=== PATIENT | male | born 1970 | race Caucasian/White ===

== ENCOUNTER 2020-12-12 12:25 | Outpatient (RCR) | payer MEDICAID ==
[2020-11-10 16:20] VITALS: BP 0/0
[2020-11-13 14:25] VITALS: BP 101/69
[2020-11-20 13:50] VITALS: BP 102/57
[2020-11-25 16:10] VITALS: BP 102/61
[2020-11-28 13:45] VITALS: BP 104/63
[2020-12-01 14:34] VITALS: BP 112/60
[2020-12-05 14:20] VITALS: BP 118/68
[~2020-12-12] VITALS: Ht 167.7 cm; Wt 77.3 kg
[~2020-12-12 12:25] MED LIST: BACITRACIN OINTMENT 28 GM TUBE TOP ONE; METH4TAB PO; NEO/POLY/BAC (NEOSPORIN) OINT 15 GM TUBE ONE; TRM50T PO
[2020-12-12 12:40] VITALS: BP 0/0
[2020-12-15] MEDS ORDERED: DOXY100T2 PO (14:19)
== END 2021-02-08 | disposition home or self-care (01) ==
LOC: SDC 12:25
PROVIDERS: ATTEND Plastic Surgery
DX: C44.320 Squamous cell carcinoma of skin of unspecified parts of face (principal); C44.02 Squamous cell carcinoma of skin of lip; Z93.0 Tracheostomy status
CPT/HCPCS: 99212

== ENCOUNTER 2020-12-15 13:54 | Emergency (ER) | payer MEDICAID ==
[~2020-12-15] VITALS: Ht 167.7 cm; Wt 72.5 kg
[~2020-12-15 13:54] MED LIST changes: -BACITRACIN OINTMENT 28 GM TUBE TOP ONE; -NEO/POLY/BAC (NEOSPORIN) OINT 15 GM TUBE ONE
[2020-12-15 14:07] VITALS: BP 136/101
[2020-12-15] MEDS ORDERED: DOXY100T2 PO (14:19)
--- NOTE | 2020-12-15 14:20 | ED Integumentary General ---
General Chief Complaint: Skin/Wound Problems Stated Complaint: L PAIN POSSIBLY INFECTED Source: patient Exam Limitations: no limitations History of Present Illness Date Seen by Provider: Dec 15, 2020 Time Seen by Provider: 14:15 Initial Comments To ER with reports of possible infection of the skin graft donor site at the lateral left lower leg. Patient had squamous cell carcinoma of the jaw and had this treated up at the [facility]. It seems like the removed the right side of his mandible and they replaced that with the left fibula and skin graft was used to reconstruct the right side of his lips. He was following with the cancer center here for treatments and brought up the concern of infection to them and they referred him to the emergency room. No fevers or chills. Timing/Duration: constant Severity: moderate Associated Symptoms: denies symptoms Allergies and Home Medications Allergies Coded Allergies: ibuprofen (Unverified Allergy, Severe, HIVES, EDEMA, 03/12/12) Home Medications Methylprednisolone 4 Mg/Dose-Pack Tab.ds.pk, 0 PO UD Prescribed by: ADÁN MCGOVERN on 03/12/12 142 Tramadol Hcl 50 Mg Tab, 50 MG PO Q4-6HOURS PRN FOR PAIN Prescribed by: ADÁN MCGOVERN on 03/12/12 1429 Patient Home Medication List Home Medication List Reviewed: Yes Review of Systems Review of Systems Constitutional: see HPI; No chills, No fever EENTM: see HPI Respiratory: no symptoms reported Cardiovascular: no symptoms reported Genitourinary: no symptoms reported Musculoskeletal: no symptoms reported Skin: no symptoms reported Psychiatric/Neurological: No Symptoms Reported Endocrine: No Symptoms Reported Physical Exam Vital Signs Capillary Refill : General Appearance: WD/WN, no apparent distress HEENT: PERRL/EOMI, normal ENT inspection Respiratory: no respiratory distress, no accessory muscle use Extremities: normal range of motion, non-tender, other (Left lower extremity laterally just above the ankle as well demarcated erythema with some granulation tissue noted. There is no surrounding cellulitis. Culture was obtained from one of the moist areas. This was covered in antibiotic ointment and then nonadherent gauze and then a gauze wrap. I will put him on doxycycline and have him follow-up with wound care.) Neurologic/Psychiatric: alert, normal mood/affect, oriented x 3 Skin: normal color, warm/dry Departure Impression Primary Impression: Soft tissue infection Disposition: 01 HOME, SELF-CARE Condition: Stable Departure-Patient Inst. Decision time for Depature: 14:18 Referrals: [facility] (PCP) Primary Care Physician MARYJO OTERO (Family) Primary Care Physician Patient Instructions: Wound Infection Add. Discharge Instructions: Follow-up with wound care as directed. Return to ER for any concerns. Change the dressing daily. All discharge instructions reviewed with patient and/or family. Voiced understanding. Scripts Doxycycline Hyclate (Doxycycline Hyclate) 100 Mg Tablet 100 MG PO BID, #20 TAB 0 Refills Prov: MIRELLA GALVEZ APRN 12/15/20 Copy Copies To 1: MARINE LEMONS MD, PETER J APRN Dec 15, 2020 14:20
== END 2020-12-15 14:27 | disposition home or self-care (01) ==
LOC: EDUNIT# 13:54 → ER 13:56
DX: M79.89 Other specified soft tissue disorders (principal); Z88.6 Allergy status to analgesic agent; Z79.52 Long term (current) use of systemic steroids
CPT/HCPCS: 87070; 87077; 87186; 87205

== ENCOUNTER 2021-02-13 13:43 | Emergency (ER) | payer MEDICAID ==
[~2021-02-13] VITALS: Ht 167 cm; Wt 65.7 kg
[~2021-02-13 13:43] MED LIST changes: +DOXY100T2 PO
[2021-02-13] MEDS ORDERED: LIDOCAINE UROJET 2% GEL 10 ML PKG ONE (13:57)
[2021-02-13] MEDS ORDERED: LIDOCAINE UROJET 2% GEL 10 ML PKG TOP ONE (14:15)
[2021-02-13] MEDS ORDERED: LIDOCAINE 1% INJ 20 ML 20 ML VIAL INJ ONE (14:15)
[2021-02-13] MEDS ORDERED: cefTRIAXone 1,000 MG/2.86 ml vial (IM ONLY) IM SCH (14:15)
--- NOTE | 2021-02-13 14:24 | ED GI ---
General Chief Complaint: Catheter/Drain/Tube Problems Stated Complaint: FEEDING TUBE REMOVED Nursing Triage Note: pt presents to ed with complaints of feeding tube dislodgement right before arrival. 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 This fell out just prior to arrival during sexual intercourse. He is also had some redness of the right eye. The right-sided facial redness from the cheek down is normal because he receives radiation to this area but he has some redness to the lower eyelid on the right as well as some right eye discharge for the past 2 days. Timing/Duration: 1-2 Days Severity/Quality: Moderate Radiation: No Radiation Activities at Onset: None Allergies and Home Medications Allergies Coded Allergies: ibuprofen (Unverified Allergy, Severe, HIVES, EDEMA, 03/12/12) Home Medications Cephalexin 500 Mg Tablet, 500 MG PO QID Prescribed by: MIRELLA GALVEZ on 02/13/21 1429 Doxycycline Hyclate 100 Mg Tablet, 100 MG PO BID Prescribed by: MIRELLA GALVEZ on 12/15/20 1419 Erythromycin Base 1 Gm Oint...g., 0 OP TID 1/2 inch Prescribed by: MIRELLA GALVEZ on 02/13/21 1429 Methylprednisolone 4 Mg/Dose-Pack Tab.ds.pk, 0 PO UD Prescribed by: ADÁN MCGOVERN on 03/12/12 142 Tramadol Hcl 50 Mg Tab, 50 MG PO Q4-6HOURS PRN FOR PAIN Prescribed by: ADÁN MCGOVERN on 03/12/12 1429 Patient Home Medication List Home Medication List Reviewed: Yes Review of Systems Review of Systems Constitutional: see HPI EENTM: See HPI Respiratory: No Symptoms Reported Cardiovascular: No Symptoms Reported Gastrointestinal: See HPI Genitourinary: No Symptoms Reported Musculoskeletal: no symptoms reported Skin: no symptoms reported Psychiatric/Neurological: No Symptoms Reported Endocrine: No Symptoms Reported Hematologic/Lymphatic: No Symptoms Reported Past Sxfwtrh-Rthkbm-Pevjlv Hx Patient Social History Alcohol Use: Occasionally Uses Smoking Status: Never a Smoker Type Used: Smokeless Tobacco Recent Infectious Disease Expo: No Recent Hopitalizations: No Immunizations Up To Date Tetanus Booster (TDap): Unknown Seasonal Allergies Seasonal Allergies: No Past Medical History Surgeries: Yes (facial) Cardiac: No Neurological: No Genitourinary: No Gastrointestinal: Yes (FEEDING TUBE) Musculoskeletal: No Endocrine: No HEENT: No Cancer: Yes Skin Did You Recieve Any Treatments: Yes What Type of Treatment Did You: Chemotherapy, Surgical Intervention Psychosocial: No Integumentary: Yes (SKIN GRAFT) Blood Disorders: No Physical Exam Vital Signs Vital Signs - First Documented 02/13/21 13:57 Temp 35.7 Pulse 104 Resp 20 B/P (MAP) 119/78 (92) Pulse Ox 98 Capillary Refill : Less Than 3 Seconds Height/Weight/BMI Height: '" Weight: lbs. oz. kg; 23.00 BMI Method:Estimated General Appearance: WD/WN, no apparent distress HEENT: PERRL/EOMI, other (Hordeolum lateral right eyelid lower. There is some erythema of the lower eyelid as well some emergency department focuses on treating and ruling out life-threatening diseases. Whenever possible, a diagnosis is given. However, most patients are given an impression based on their history, physical exam, and workup during your brief time in the ER. Information about probable diagnosis and other educational material has been provided. Please take the time to read and understand this information.It is very important that you follow up with a physician as discussed during the visit today. Failure to adhere to your follow-up instructions may lead to severe disability, injury, or so please make sure to keep your appointments or obtain one as requested. The lateral canthus of the eye. He does have erythema from the right upper eyelid down to the jaw on the right. states everything from the cheekbone down is normal redness from his radiation but the redness around the eye is abnormal.) Respiratory: no respiratory distress, no accessory muscle use Gastrointestinal: normal bowel sounds, non tender, soft Extremities: normal range of motion, non-tender Neurologic/Psychiatric: alert, normal mood/affect Skin: normal color, warm/dry Progress/Results/Core Measures Results/Orders My Orders Orders - MIRELLA GALVEZ APRN Lidocaine 2% (Urojet) (Xylocaine Urojet) (02/13/21 14:15) Ceftriaxone For Im Use (Rocephin For Im (02/13/21 14:15) Lidocaine 1% Inj 20 Ml (Xylocaine 1% Inj (02/13/21 14:15) Peg Tube Check (02/13/21 14:15) Diatrizoate Meglum/Sodium 37% (Gastrogra (02/13/21 14:45) Medications Given in ED Current Medications Medications Dose Ordered Sig/Jyoti Route Start Time Stop Time Status Last Admin Dose Admin Diatrizoate Meglum/ Diatrizoate Sod 120 ml ONCE ONCE NG 02/13/21 14:45 02/13/21 14:46 DC 02/13/21 14:44 30 ML Lidocaine HCl 2.1 ml ONCE ONCE INJ 02/13/21 14:15 02/13/21 14:16 DC 02/13/21 14:42 2.1 ML Lidocaine HCl 10 ml ONCE ONCE TOP 02/13/21 14:15 02/13/21 14:16 DC 02/13/21 14:46 10 ML Vital Signs/I&O 02/13/21 02/13/21 13:57 15:06 Temp 35.7 35.7 Pulse 104 95 Resp 20 20 B/P (MAP) 119/78 (92) 120/70 (92) Pulse Ox 98 99 Blood Pressure Mean: 92 Departure Communication (Admissions) 20 Wolof PEG tube was easily replaced without having to use sounds. Some topical lidocaine was applied to the stoma. Impression Primary Impression: PEG tube malfunction Additional Impression: Hordeolum externum of right lower eyelid Disposition: 01 HOME, SELF-CARE Condition: Stable Departure-Patient Inst. Decision time for Depature: 14:24 Referrals: [facility] (PCP/Family) Primary Care Physician Patient Instructions: How to Care for Your PEG Tube , Shay (BETHANY) Add. Discharge Instructions: 1. Warm moist compresses to the lower eyelid. Antibiotic eye ointment as directed, put about a half an inch of the antibiotic ointment in the lower eyel id 3 times a day. Take the oral antibiotics as directed. All discharge instructions reviewed with patient and/or family. Voiced understanding. Scripts Erythromycin Base (Erythromycin Opthalmic Ointment) 1 Gm Oint...g. 0 OP TID, #1 TUBE 1/2 inch Prov: MIRELLA GALVEZ APRN 02/13/21 Cephalexin (Cephalexin) 500 Mg Tablet 500 MG PO QID, #20 TAB Prov: MIRELLA GALVEZ APRN 02/13/21 MIRELLA GALVEZ APRN Feb 13, 2021 14:24
[2021-02-13] MEDS ORDERED: ERYT1OIN6 OP (14:29)
[2021-02-13] MEDS ORDERED: CEPH500T PO (14:29)
[2021-02-13] MEDS ORDERED: DIATRIZOATE MEGLUM/SODIUM 37% 120 ML (GASTROGRAFIN) NG ONE (14:45)
--- NOTE | 2021-02-13 14:47 | Diagnostic Imaging Report ---
INDICATION: PEG tube replacement and evaluation. 60 mL of Gastroview contrast mixed with water was injected into the patient's PEG tube and a radiograph of the abdomen was obtained. Contrast is seen within the stomach. Contrast passes into the proximal small bowel. No extravasation of contrast is seen. IMPRESSION: Satisfactory PEG tube location. Dictated by: Dictated on workstation # [id number]
[2021-02-13 15:06] VITALS: BP 120/70
== END 2021-02-13 15:06 | disposition home or self-care (01) ==
LOC: EDUNIT# 13:43 → ER 13:44
DX: K94.23 Gastrostomy malfunction (principal); H00.012 Hordeolum externum right lower eyelid; Z88.6 Allergy status to analgesic agent; Z85.828 Personal history of other malignant neoplasm of skin; Z79.52 Long term (current) use of systemic steroids
CPT/HCPCS: 43762; 49465

== ENCOUNTER → 2021-02-23 | Outpatient (RCR) | payer MEDICAID ==
[~2021-02-23] MED LIST changes: +CEPH500T PO; +ERYT1OIN6 OP
== END | disposition home or self-care (01) ==
LOC: ONC 11-25 15:23
PROVIDERS: ATTEND Radiology Radiation Oncology
DX: C44.02 Squamous cell carcinoma of skin of lip (principal); F10.10 Alcohol abuse, uncomplicated; Z72.0 Tobacco use
CPT/HCPCS: 77300; 77301; 77334; 77336; 77338; 77386; 99204

== ENCOUNTER 2021-04-07 03:50 | Emergency (ER) | payer MEDICAID ==
[~2021-04-07] VITALS: Ht 175 cm; Wt 65.7 kg
[2021-04-07 03:58] VITALS: BP 148/98
[2021-04-07] MEDS ORDERED: HYDROcodone/APAP 5 MG/325 MG (LORTAB) TAB PO ONE (04:30)
[2021-04-07] MEDS ORDERED: CEPHALEXIN 250 MG (KEFLEX) CAP PO ONE (04:30)
--- NOTE | 2021-04-07 04:37 | ED EENT ---
History of Present Illness General Chief Complaint: Post OP Complications/Pain Stated Complaint: FACE PAIN Nursing Triage Note: INTERMITTANT RIGHT UPPER SHARP FACIAL PAIN RADIATING UP TO TOP OF HEAD X1 WEEK. REPORTS FACIAL SURGERY 10/23/20 FOR MELANOMA. FAMILY REPORTS PT HAS ONLY BEEN TO 1 FOLLOW UP APPOINTMENT SINCE SX. Source: patient, spouse Exam Limitations: no limitations History of Present Illness Date Seen by Provider: Apr 07, 2021 Time Seen by Provider: 04:19 Initial Comments Patient presents ER by private conveyance from home with chief complaint of the last couple days progressively worsening pain and swelling. He would like something for the pain. Allergies and Home Medications Allergies Coded Allergies: ibuprofen (Unverified Allergy, Severe, HIVES, EDEMA, 03/12/12) Patient Home Medication List Home Medication List Reviewed: Yes Review of Systems Review of Systems Constitutional: No chills, No diaphoresis Eyes: Denies Blindness, Denies Blurred Vision Ears: Denies Dizziness, Denies Pain Nose: denies clots, denies congestion Mouth: denies clots, denies loose teeth Skin: see HPI Past Jwvicya-Vnixsb-Bcmuhi Hx Patient Social History Alcohol Use: Denies Use Type Used: Smokeless Tobacco Recent Infectious Disease Expo: No Recent Hopitalizations: No Immunizations Up To Date Tetanus Booster (TDap): Less than 5yrs Seasonal Allergies Seasonal Allergies: No Past Medical History Surgeries: Yes (facial) Respiratory: No Cardiac: No Neurological: No Genitourinary: No Gastrointestinal: Yes (FEEDING TUBE) Musculoskeletal: No Endocrine: No HEENT: No Cancer: Yes Skin Did You Recieve Any Treatments: Yes What Type of Treatment Did You: Chemotherapy, Surgical Intervention Psychosocial: No Integumentary: Yes (SKIN GRAFT) Blood Disorders: No Physical Exam Vital Signs Vital Signs - First Documented 04/07/21 03:58 Temp 36.9 Pulse 81 Resp 18 B/P (MAP) 148/98 (115) Pulse Ox 100 O2 Delivery Room Air Height, Weight, BMI Height: '" Weight: lbs. oz. kg; 21.00 BMI Method:Estimated General Appearance: WD/WN, mild distress Eyes: bilateral eye normal inspection, bilateral eye PERRL, bilateral eye EOMI Ears: bilateral ear auricle normal, bilateral ear canal normal (Impacted with c erumen) Nose: normal inspection; No active bleeding, No discharge Neck: full range of motion, supple Respiratory: no respiratory distress, no accessory muscle use Skin: other (Tender erythematous soft tissue over the left cheek over the old skin graft. No fluctuance palpable. Small pustule preauricular) Progress/Results/Core Measures Results/Orders My Orders Orders - DAVID BRADY Hydrocodone/Apap 5/325 Tablet (Lortab 5 (04/07/21 04:30) Cephalexin Capsule (Keflex Capsule) (04/07/21 04:30) Vital Signs/I&O 04/07/21 03:58 Temp 36.9 Pulse 81 Resp 18 B/P (MAP) 148/98 (115) Pulse Ox 100 O2 Delivery Room Air Blood Pressure Mean: 115 Progress Progress Note : Time: 04:39 Progress Note We deroofed the pustule using blunt tipped needle and did not get out any significant amount of white discharge. Less than 10th of a milliliter. Suspect he has just cellulitis and we will put him on some Keflex and give him some for pain. Encouraged to follow-up with a primary care doctor depending now on his surgeon at in 2 weeks. Return precautions discussed. Departure Impression Primary Impression: Cellulitis and abscess of face Disposition: 01 HOME, SELF-CARE Condition: Stable Departure-Patient Inst. Decision time for Depature: 04:40 Referrals: NO,LOCAL PHYSICIAN (PCP/Family) Primary Care Physician Patient Instructions: Cellulitis (Skin Infection), Adult (DC) Add. Discharge Instructions: Warm moist compresses will help with the pain and swelling. Continue to use Tylenol and Aleve. Hydrocodone 1 tablet every 6 hours as necessary for severe breakthrough pain. Keflex 4 times a day for the next 7 days. Follow-up with a primary care doctor, surgeon or you may return to the ER if you are having worsening complications. Expect to see improvement over the next 3 to 4 days. Spreading across the face, fever above 102.5 or other worrisome symptoms should prompt you to return to the nearest ER. Scripts Cephalexin (Cephalexin) 500 Mg Tablet 500 MG PO QID for 7 Days, #28 TAB 0 Refills Prov: DAVID BRADY 04/07/21 Hydrocodone/Acetaminophen (Hydrocodone-Acetamin 5-325 mg) 1 Each Tablet 1 TAB PO Q6H PRN for PAIN-MODERATE (5-7), #12 TAB 0 Refills Prov: DAVID BRADY 04/07/21 DAVID BRADY Apr 07, 2021 04:37
[2021-04-07] MEDS ORDERED: CEPH500T PO (04:43)
[2021-04-07] MEDS ORDERED: ACHD5005 PO (04:43)
== END 2021-04-07 04:49 | disposition home or self-care (01) ==
LOC: EDUNIT# 03:50 → ER 03:53
DX: L03.211 Cellulitis of face (principal); L02.01 Cutaneous abscess of face; Z98.890 Other specified postprocedural states
CPT/HCPCS: 99283

== ENCOUNTER 2021-04-30 14:02 | Outpatient (RCR) | payer MEDICAID ==
[~2021-04-30 14:02] MED LIST changes: +ACHD5005 PO
[2021-04-30] MEDS ORDERED: AMOX-358 PO (17:05)
[2021-04-30] MEDS ORDERED: DOXY100T2 PO (17:05)
[2021-04-30] MEDS ORDERED: ACHD5005 PO (17:05)
== END 2021-05-25 | disposition home or self-care (01) ==
LOC: ONC 14:02
PROVIDERS: ATTEND Radiology Radiation Oncology
DX: C44.02 Squamous cell carcinoma of skin of lip (principal); F10.10 Alcohol abuse, uncomplicated; Z72.0 Tobacco use
CPT/HCPCS: 77336; 77386

== ENCOUNTER 2021-04-30 14:26 | Emergency (ER) | payer MEDICAID ==
[~2021-04-30] VITALS: Ht 167 cm; Wt 68.0 kg
[2021-04-30 14:52] LABS: BASOPHILS # (AUTO) 0.1 10^3/uL (0.0-0.1); BASOPHILS % (AUTO) 1 % (0-10); EOSINOPHILS # (AUTO) 0.1 10^3/uL (0.0-0.3); EOSINOPHILS % (AUTO) 3 % (0-10); HEMATOCRIT 39 % (40-54); HEMOGLOBIN 12.5 g/dL (13.3-17.7); LYMPHOCYTES # (AUTO) 0.4 10^3/uL (1.0-4.0); LYMPHOCYTES % (AUTO) 9 % (12-44); MEAN CORPUSCULAR HEMOGLOBIN 29 pg (25-34); MEAN CORPUSCULAR HGB CONC 33 g/dL (32-36); MEAN CORPUSCULAR VOLUME 89 fL (80-99); MEAN PLATELET VOLUME 8.2 fL (9.0-12.2); MONOCYTES # (AUTO) 0.3 10^3/uL (0.0-1.0); MONOCYTES % (AUTO) 6 % (0-12); NEUTROPHILS % (AUTO) 81 % (42-75); PLATELET COUNT 314 10^3/uL (130-400); WHITE BLOOD COUNT 4.9 10^3/uL (4.3-11.0)
--- NOTE | 2021-04-30 14:53 | ED EENT ---
History of Present Illness General Chief Complaint: Facial Problems Stated Complaint: TOOTH ABCESS Source: patient Exam Limitations: no limitations (MIRELLA GALVEZ APRN) History of Present Illness Date Seen by Provider: Apr 30, 2021 Time Seen by Provider: 14:52 Initial Comments To ER with c/o right facial swellig and redness. 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 He underwent resection of his cancer of his right upper and lower lip, cheek, and mandible as well as a modified radical neck dissection. For reconstruction, an osteocutaneous free fibula flap to the right mandible and left radial forearm flap for the right neck was performed. Split thickness skin grafts were used for his donor sites and a palmaris graft was used for suspension of his midface according to [facility] notes. . Timing/Duration: abrupt Severity: moderate Location: facial Prearrival Treatment: no prearrival treatment Associated Symptoms: facial pain/swelling (MIRELLA GALVEZ APRN) Allergies and Home Medications Allergies Coded Allergies: ibuprofen (Unverified Allergy, Severe, HIVES, EDEMA, 03/12/12) Home Medications Amoxicillin/Potassium Clav 1 Each Tablet, 1 EACH PO BID Prescribed by: MIRELLA GALVEZ on 04/30/211704 Cephalexin 500 Mg Tablet, 500 MG PO QID Prescribed by: DAVID BRADY on 04/07/21442 Doxycycline Hyclate 100 Mg Tablet, 100 MG PO BID Prescribed by: MIRELLA GALVEZ on 04/30/21 170 Hydrocodone/Acetaminophen 1 Each Tablet, 1 TAB PO Q6H PRN for PAIN-MODERATE (5- 7) Prescribed by: DAVID BRADY on 04/07/21442 Hydrocodone/Acetaminophen 1 Each Tablet, 1 TAB PO Q4H PRN for PAIN-MODERATE (5- 7) Prescribed by: MIRELLA GALVEZ on 04/30/21 170 Patient Home Medication List Home Medication List Reviewed: Yes (MIRELLA GALVEZ APRN) Review of Systems Review of Systems Constitutional: see HPI Eyes: No Symptoms Reported Ears: No Symptoms Reported Nose: no symptoms reported Mouth: no symptoms reported Throat: no symptoms reported Respiratory: no symptoms reported Cardiovascular: no symptoms reported Musculoskeletal: no symptoms reported Skin: no symptoms reported Neurological: No Symptoms Reported Hematologic/Lymphatic: No Symptoms Reported (MIRELLA GALVEZ APRN) Past Dhbbcki-Xxskxu-Yegcfr Hx Patient Social History Alcohol Use: Occasionally Uses Smoking Status: Never a Smoker Type Used: Smokeless Tobacco Recent Hopitalizations: No (MIRELLA GALVEZ APRN) Immunizations Up To Date Tetanus Booster (TDap): Less than 5yrs (MIRELLA GALVEZ APRN) Seasonal Allergies Seasonal Allergies: No (MIRELLA GALVEZ APRN) Past Medical History Surgeries: Yes (facial AND JAW RECONSTRUCTION, SKIN GRAFTS.) Respiratory: No Cardiac: No Neurological: No Genitourinary: No Gastrointestinal: Yes (FEEDING TUBE) Musculoskeletal: No Endocrine: No HEENT: No Cancer: Yes (JAW CA) Skin Did You Recieve Any Treatments: Yes What Type of Treatment Did You: Chemotherapy, Surgical Intervention Psychosocial: No Integumentary: Yes (SKIN GRAFT) Blood Disorders: No (MIRELLA GALVEZ APRN) Physical Exam Vital Signs Vital Signs - First Documented 04/30/21 14:47 Temp 35.9 Pulse 88 Resp 20 B/P (MAP) 136/89 (105) Pulse Ox 100 (ASTON ACOSTA MD) Height, Weight, BMI Height: '" Weight: lbs. oz. kg; 21.00 BMI Method:Estimated General Appearance: WD/WN, no apparent distress Eyes: bilateral eye normal inspection, bilateral eye PERRL, bilateral eye EOMI Ears: bilateral ear auricle normal, bilateral ear canal normal, bilateral ear TM normal Mouth/Throat: mandibular swelling, other (There is erythema of the skin to the right side of the face. To the midline of the chin anteriorly he has an exposed screw with surrounding purulent discharge.) Neck: non-tender, full range of motion Respiratory: no respiratory distress, no accessory muscle use Neurologic/Psychiatric: alert, normal mood/affect, oriented x 3 Skin: normal color, warm/dry (MIRELLA GALVEZ APRN) Progress/Results/Core Measures Results/Orders Lab Results Laboratory Tests Test 04/30/21 14:40 Range/Units White Blood Count 4.9 4.3-11.0 10^3/uL Red Blood Count 4.34 4.30-5.52 10^6/uL Hemoglobin 12.5 L 13.3-17.7 g/dL Hematocrit 39 L 40-54 % Mean Corpuscular Volume 89 80-99 fL Mean Corpuscular Hemoglobin 29 25-34 pg Mean Corpuscular Hemoglobin Concent 33 32-36 g/dL Red Cell Distribution Width 14.0 10.0-14.5 % Platelet Count 314 130-400 10^3/uL Mean Platelet Volume 8.2 L 9.0-12.2 fL Immature Granulocyte % (Auto) 0 % Neutrophils (%) (Auto) 81 H 42-75 % Lymphocytes (%) (Auto) 9 L 12-44 % Monocytes (%) (Auto) 6 0-12 % Eosinophils (%) (Auto) 3 0-10 % Basophils (%) (Auto) 1 0-10 % Neutrophils # (Auto) 4.0 1.8-7.8 10^3/uL Lymphocytes # (Auto) 0.4 L 1.0-4.0 10^3/uL Monocytes # (Auto) 0.3 0.0-1.0 10^3/uL Eosinophils # (Auto) 0.1 0.0-0.3 10^3/uL Basophils # (Auto) 0.1 0.0-0.1 10^3/uL Immature Granulocyte # (Auto) 0.0 0.0-0.1 10^3/uL Erythrocyte Sedimentation Rate 38 H 0-30 MM/HR Sodium Level 140 135-145 MMOL/L Potassium Level 4.5 3.6-5.0 MMOL/L Chloride Level 106 98-107 MMOL/L Carbon Dioxide Level 23 21-32 MMOL/L Anion Gap 11 5-14 MMOL/L Blood Urea Nitrogen 8 7-18 MG/DL Creatinine 0.89 0.60-1.30 MG/DL Estimat Glomerular Filtration Rate > 60 BUN/Creatinine Ratio 9 Glucose Level 72 70-105 MG/DL Calcium Level 8.8 8.5-10.1 MG/DL Corrected Calcium 9.0 8.5-10.1 MG/DL Total Bilirubin 0.3 0.1-1.0 MG/DL Aspartate Amino Transf (AST/SGOT) 19 5-34 U/L Alanine Aminotransferase (ALT/SGPT) 12 0-55 U/L Alkaline Phosphatase 88 40-136 U/L C-Reactive Protein High Sensitivity 1.93 H 0.00-0.50 MG/DL Total Protein 7.1 6.4-8.2 GM/DL Albumin 3.7 3.2-4.5 GM/DL (ASTON ACOSTA MD) Medications Given in ED Current Medications Medications Dose Ordered Sig/Jyoti Route Start Time Stop Time Status Last Admin Dose Admin Fentanyl Citrate 50 mcg ONCE ONCE IVP 04/30/21 16:15 04/30/21 16:16 DC 04/30/21 16:14 50 MCG Piperacillin Sod/ Tazobactam Sod 4.5 gm/Sodium Chloride 100 ml @ 200 mls/hr ONCE ONCE IV 04/30/21 15:00 04/30/21 15:29 DC 04/30/21 16:25 200 MLS/HR (ASTON ACOSTA MD) Vital Signs/I&O 04/30/21 04/30/21 14:47 18:01 Temp 35.9 Pulse 88 69 Resp 20 18 B/P (MAP) 136/89 (105) 134/89 Pulse Ox 100 98 (ASTON ACOSTA MD) Departure Communication (Admissions) Spoke with the [facility] who spoke with the plastic surgeon who initially did this operation. Mr. Carrizales has a follow-up appointment scheduled for Tuesday of next week. They recommend oral broad- spectrum antibiotics in the meantime, if he has any worsening then he should present to the emergency room at the [facility]. They state that they have had some troubles with him being compliant with follow-up appointments. He does not meet sepsis criteria here. He has received Zosyn here. I will discharge home on Augmentin with return precautions. (MIRELLA GALVEZ APRN) Impression Primary Impression: Facial cellulitis Additional Impression: Exposed orthopaedic hardware Disposition: XFER SHT-TRM HOSP Condition: Stable Departure-Patient Inst. Decision time for Depature: 17:04 (MIRELLA GALVEZ APRN) Referrals: NO,LOCAL PHYSICIAN (PCP/Family) Primary Care Physician Patient Instructions: Cellulitis (Skin Infection), Adult ED Add. Discharge Instructions: 1. Take the antibiotics as directed. Return to ER for any concerns. If you have any worsening, go to the emergency room at the [facility]. All discharge instructions reviewed with patient and/or family. Voiced understanding. Scripts Hydrocodone/Acetaminophen (Hydrocodone-Acetamin 5-325 mg) 1 Each Tablet 1 TAB PO Q4H PRN for PAIN-MODERATE (5-7), #14 TAB Prov: MIRELLA GALVEZ APRN 04/30/21 Doxycycline Hyclate (Doxycycline Hyclate) 100 Mg Tablet 100 MG PO BID, #20 TAB 0 Refills Prov: MIRELLA GALVEZ APRN 04/30/21 Amoxicillin/Potassium Clav (Augmentin 875-125 Tablet) 1 Each Tablet 1 EACH PO BID, #14 TAB 0 Refills Prov: MIRELLA GALEVZ APRN 04/30/21 Attending physician note: I was physically present in the emergency department during the care of this patient as the attending physician on duty, but I was not directly involved in the care or decision-making for this patient. (ASTON ACOSTA MD) MIRELLA GALVEZ APRN Apr 30, 2021 14:53 ASTON ACOSTA MD Apr 30, 2021 19:34
[2021-04-30 15:20] LABS: ERYTHROCYTE SEDIMENTATION RATE 38 MM/HR (0-30)
[2021-04-30 15:33] LABS: ALBUMIN 3.7 GM/DL (3.2-4.5); CHLORIDE 106 MMOL/L (98-107); POTASSIUM 4.5 MMOL/L (3.6-5.0); SODIUM 140 MMOL/L (135-145)
[2021-04-30 15:34] LABS: CALCIUM 8.8 MG/DL (8.5-10.1)
[2021-04-30 15:35] LABS: GLUCOSE 72 MG/DL (70-105); TOTAL PROTEIN 7.1 GM/DL (6.4-8.2)
[2021-04-30 15:36] LABS: CARBON DIOXIDE 23 MMOL/L (21-32)
[2021-04-30 15:37] LABS: BILIRUBIN,TOTAL 0.3 MG/DL (0.1-1.0)
[2021-04-30 15:38] LABS: ALKALINE PHOSPHATASE 88 U/L (40-136)
[2021-04-30 15:39] LABS: CREATININE SERUM 0.89 MG/DL (0.60-1.30); GFR ESTIMATED > 60
[2021-04-30 15:40] LABS: BUN/CREATININE RATIO 9
[2021-04-30 15:42] LABS: ALANINE AMINOTRANSFERASE 12 U/L (0-55)
[2021-04-30] MEDS ORDERED: VANCOMYCIN INJECTION 1,000 MG in NS (IVPB) 250 ML IV SCH (16:00)
[2021-04-30] MEDS: PIPERACILLIN SODIUM/TAZOBACTAM 4.5 GM in NS (IVPB) 100 ML IV ONE ×2 (16:14→16:25)
[2021-04-30] MEDS ORDERED: fentaNYL INJ 100 MCG/2 ML AMP IVP ONE (16:15)
[2021-04-30] MEDS ORDERED: AMOX-358 PO (17:05)
[2021-04-30] MEDS ORDERED: ACHD5005 PO (17:05)
[2021-04-30] MEDS ORDERED: DOXY100T2 PO (17:05)
[2021-04-30 18:01] VITALS: BP 134/89
== END 2021-04-30 18:01 | disposition short-term general hospital (02) ==
LOC: EDUNIT# 14:26 → ER 14:28
DX: L03.211 Cellulitis of face (principal); T84.89XA Other specified complication of internal orthopedic prosthetic devices, implants and grafts, initial encounter
CPT/HCPCS: 36415; 80053; 85025; 85652; 86141; 87040; 87070; 87077; 87186; 87205

== ENCOUNTER 2021-05-22 20:07 | Emergency (ER) | payer MEDICAID ==
[~2021-05-22] VITALS: Ht 66 cm; Wt 63.6 kg
[~2021-05-22 20:07] MED LIST changes: +AMOX-358 PO
[2021-05-22 21:05] VITALS: BP 107/70
--- NOTE | 2021-05-22 21:08 | ED General ---
General Chief Complaint: General Problems/Pain Stated Complaint: PICC LINE ISSUES Source of Information: Patient Exam Limitations: No Limitations History of Present Illness Date Seen by Provider: May 22, 2021 Time Seen by Provider: 21:06 Initial Comments To ER with reports that one of the 2 lm on his dual-lumen PICC line is difficult to flush intermittently. He recently had removal of hardware from the mandible on the right side at the [facility] secondary to facial cellulitis with exposed hardware. Culture showed MRSA and Pseudomonas and he is receiving Zosyn and vancomycin through his PICC line at home. Timing/Duration: 1-2 Days Severity: Moderate Associated Systoms: Denies Symptoms Allergies and Home Medications Allergies Coded Allergies: ibuprofen (Unverified Allergy, Severe, HIVES, EDEMA, 03/12/12) Home Medications Amoxicillin/Potassium Clav 1 Each Tablet, 1 EACH PO BID Prescribed by: MIRELLA GALVEZ on 04/30/211704 Cephalexin 500 Mg Tablet, 500 MG PO QID Prescribed by: DAVID BRADY on 04/07/21442 Doxycycline Hyclate 100 Mg Tablet, 100 MG PO BID Prescribed by: MIRELLA GALVEZ on 04/30/21 170 Hydrocodone/Acetaminophen 1 Each Tablet, 1 TAB PO Q6H PRN for PAIN-MODERATE (5- 7) Prescribed by: DAVID BRADY on 04/07/21442 Hydrocodone/Acetaminophen 1 Each Tablet, 1 TAB PO Q4H PRN for PAIN-MODERATE (5- 7) Prescribed by: MIRELLA GALVEZ on 04/30/21 170 Patient Home Medication List Home Medication List Reviewed: Yes Review of Systems Review of Systems Constitutional: see HPI; No chills, No fever EENTM: see HPI Respiratory: no symptoms reported Cardiovascular: no symptoms reported Genitourinary: no symptoms reported Musculoskeletal: no symptoms reported Skin: no symptoms reported Psychiatric/Neurological: No Symptoms Reported Hematologic/Lymphatic: No Symptoms Reported Immunological/Allergic: no symptoms reported Past Dttoisi-Fjovbw-Hgtqlg Hx Immunizations Up To Date Tetanus Booster (TDap): Less than 5yrs Seasonal Allergies Seasonal Allergies: No Past Medical History Surgeries: Yes (facial AND JAW RECONSTRUCTION, SKIN GRAFTS.) Respiratory: No Cardiac: No Neurological: No Genitourinary: No Gastrointestinal: Yes (FEEDING TUBE) Musculoskeletal: No Endocrine: No HEENT: No Cancer: Yes (JAW CA) Skin Did You Recieve Any Treatments: Yes What Type of Treatment Did You: Chemotherapy, Surgical Intervention Psychosocial: No Integumentary: Yes (SKIN GRAFT) Blood Disorders: No Physical Exam Vital Signs Capillary Refill : Height, Weight, BMI Height: '" Weight: lbs. oz. kg; 24.00 BMI Method:Estimated General Appearance: No Apparent Distress, WD/WN Eyes: Bilateral Eye Normal Inspection, Bilateral Eye PERRL HEENT: PERRL/EOMI, TMs Normal Neck: Full Range of Motion, Normal Inspection Respiratory: Normal Breath Sounds, No Accessory Muscle Use, No Respiratory Distress Cardiovascular: Regular Rate, Rhythm, Normal Peripheral Pulses Gastrointestinal: Normal Bowel Sounds, Non Tender, Soft Extremity: Normal Capillary Refill, Normal Inspection, Other (There is a PICC line in the right upper arm which was flushed easily by the nurse. There is no surrounding cellulitis the insertion site looks normal. The dressing will be changed here tonight. Sutures remain in place to the right side of the mandible.) Neurologic/Psychiatric: Alert, Oriented x3 Skin: Normal Color, Warm/Dry Progress/Results/Core Measures Suspected Sepsis SIRS Temperature: Pulse: Respiratory Rate: Blood Pressure / Mean: Results/Orders Vital Signs/I&O Capillary Refill : Departure Impression Primary Impression: PIC line (peripherally inserted central catheter) flush Disposition: 01 HOME, SELF-CARE Condition: Stable Departure-Patient Inst. Decision time for Depature: 21:10 Referrals: NO,LOCAL PHYSICIAN (PCP/Family) Primary Care Physician Patient Instructions: Peripherally-Inserted Central Catheter MIRELLA GALVEZ APRN May 22, 2021 21:08
== END 2021-05-22 22:00 | disposition home or self-care (01) ==
LOC: EDUNIT# 20:07 → ER 20:08
DX: Z95.9 Presence of cardiac and vascular implant and graft, unspecified (principal)
CPT/HCPCS: 99281

== ENCOUNTER 2021-06-12 10:15 | Emergency (ER) | payer MEDICAID ==
[~2021-06-12] VITALS: Ht 167 cm; Wt 63.5 kg
[2021-06-12] MEDS ORDERED: HYDROcodone/APAP 7.5 MG/325 MG (LORTAB, LORCET PLUS) TABLET PO ONE (10:45)
--- NOTE | 2021-06-12 10:52 | ED Integumentary General ---
General Chief Complaint: Facial Problems Stated Complaint: MOUTH PAIN Source: patient Exam Limitations: no limitations History of Present Illness Date Seen by Provider: Jun 12, 2021 Time Seen by Provider: 10:35 Initial Comments Sher is a 51-year-old male who presents to the emergency department today with a chief complaint of right facial pain. 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 He is followed up at . He had multiple flaps placed to the right face. He has had chronic cellulitis since his surgery and is currently on infusion doses of Zosyn every 24 hours. He states that a portion of the the surgical site is a little bit more swollen than normal. No active drainage is observed. He denies any fevers or chills. No shortness of breath, nausea vomiting or diarrhea. No genitourinary complaints. He states he took 4 aspirin this morning to try to alleviate the pain without any relief of symptoms. He takes tugi-vrk-hwxaqpx medications for pain. All other review of systems reviewed and negative except as stated. Timing/Duration: this morning Severity: moderate Location: face Allergies and Home Medications Allergies Coded Allergies: ibuprofen (Unverified Allergy, Severe, HIVES, EDEMA, 03/12/12) Home Medications Amoxicillin/Potassium Clav 1 Each Tablet, 1 EACH PO BID Prescribed by: MIRELLA GALVEZ on 04/30/211704 Cephalexin 500 Mg Tablet, 500 MG PO QID Prescribed by: DAVID BRADY on 04/07/21442 Doxycycline Hyclate 100 Mg Tablet, 100 MG PO BID Prescribed by: MIRELLA GALVEZ on 04/30/211704 Hydrocodone/Acetaminophen 1 Each Tablet, 1 TAB PO Q6H PRN for PAIN-MODERATE (5- 7) Prescribed by: DAVID BRADY on 04/07/21442 Hydrocodone/Acetaminophen 1 Each Tablet, 1 TAB PO Q4H PRN for PAIN-MODERATE (5- 7) Prescribed by: MIRELLA GALVEZ on 04/30/211705 Patient Home Medication List Home Medication List Reviewed: Yes Review of Systems Review of Systems Constitutional: see HPI EENTM: other (Right facial pain. No difficulty swallowing or breathing) Respiratory: no symptoms reported Cardiovascular: no symptoms reported Gastrointestinal: no symptoms reported Genitourinary: no symptoms reported Musculoskeletal: no symptoms reported Skin: other (Swelling and redness to the right face which is chronic) Psychiatric/Neurological: No Symptoms Reported All Other Systems Reviewed Negative Unless Noted: Yes Past Fjyoegv-Eavfvo-Lssccx Hx Patient Social History Tobacco Use?: No Smokeless Tobacco Frequency: Former User Substance use?: No Alcohol Use?: Yes Alcohol type: Beer Alcohol Frequency: Once in a while Pt feels they are or have been: No Immunizations Up To Date Tetanus Booster (TDap): Less than 5yrs Seasonal Allergies Seasonal Allergies: No Past Medical History Surgery/Hospitalization HX: RECONSTRUCTIVE FACIAL SURGERY R/T SKIN CANCER Surgeries: Yes (facial AND JAW RECONSTRUCTION, SKIN GRAFTS.) Respiratory: No Cardiac: No Neurological: No Genitourinary: No Gastrointestinal: Yes (FEEDING TUBE) Musculoskeletal: No Endocrine: No HEENT: No Cancer: Yes (JAW CA) Skin Did You Recieve Any Treatments: Yes What Type of Treatment Did You: Chemotherapy, Surgical Intervention Psychosocial: No Integumentary: Yes (SKIN GRAFT) Blood Disorders: No Physical Exam Vital Signs Capillary Refill : General Appearance: WD/WN, no apparent distress HEENT: PERRL/EOMI Cardiovascular: regular rate, rhythm Respiratory: lungs clear, normal breath sounds, no respiratory distress, no accessory muscle use Extremities: normal range of motion Neurologic/Psychiatric: alert, normal mood/affect, oriented x 3 Skin: normal color, warm/dry, other (Patient has generalized erythema to the right side of the face including his right lower eyelid. He has an area of about 4 x 5 cm of swelling that is fluctuant overlying the right face where the zygoma would be. This is very tender to touch. No active drainage is noted. He has pallor of the skin grafts of the upper and lower lip. This is not tender to touch.) Skin Problem Location: face Skin Problem Character: erythema Progress/Results/Core Measures Results/Orders My Orders Orders - SAM BATISTA MD Hydrocodone/Apap 7.5/325 Tab (Lortab 7. (06/12/21 10:45) Progress Progress Note : Time: 11:14 Progress Note Discussed with the patient plan of care. Since he is just here basically for pain management will prescribe him 2 or 3 days of hydrocodone while he contacts [facility]. He tells me he has an appointment on June 22 with his plastic surgeon. I have advised him to call and see if he can get a little bit sooner appointment. He does have this swelling to the right cheek but I am not sure if it is old or new. It does feel a little bit fluctuant but firm at the same time. He has no systemic complaints of illness including fevers, chills, cough or congestion, generalized malaise, nausea or vomiting. I do not believe a septic work-up is indicated at this time. He states that he is taking his antibiotics and infusing them as prescribed. I have advised him to follow-up with [facility] for further outpatient pain management. He used to see Tobin Engel but states that practitioner has left. I recommended that he call and obtain a new one. He verbalizes understanding. He is not tachycardic, hypotensive or hypoxic. No clinical or objective findings to warrant further testing from the emergency department at this time. I have told him that he needs to come back immediately if the right side of his face begins to drain any fluid/pus. He verbalizes understanding again all questions are sought and answered. Patient is stable for discharge. Departure Impression Primary Impression: Right facial pain Additional Impression: Chronic cellulitis Disposition: HOME, SELF-CARE Condition: Stable Departure-Patient Inst. Decision time for Depature: 11:16 Referrals: [facility],LOCAL PHYSICIAN (PCP) Primary Care Physician Patient Instructions: Cellulitis (Skin Infection), Adult (DC) Add. Discharge Instructions: Continue your antibiotic infusions as prescribed by your doctors at . Take the pain medicines I have prescribed you 1 every 6-8 hours as needed for severe pain otherwise continue your aspirin as directed on the bottle. If you notice increasing redness to the right side of your face or any drainage from a new wound on the side of your face please come back to the emergency room for reevaluation. Also if you develop fever, nausea, shortness of breath or any other emergent concerns come back to the emergency room for reevaluation. Make sure you keep your appointment with your plastic surgeon as well as your infectious disease doctor. Scripts Hydrocodone/Acetaminophen (Hydrocodone-Acetamin 7.5-325) 1 Each Tablet 1 EACH PO Q6H PRN for PAIN-MODERATE (5-7), #15 TAB Prov: SAM BATISTA MD 06/12/21 SAM BATISTA MD Jun 12, 2021 10:51
[2021-06-12] MEDS ORDERED: HYDR-3817 PO (11:19)
[2021-06-12 11:24] VITALS: BP 140/82
--- OUTSIDE RECORDS SUMMARY | 2021-06-14 17:38 | XMS REPORT | Encounter Summary ---
Author Author [facility] Organization [facility] Address Unknown Phone Unavailable Care Team Providers Care Commutator Assembler Name Role Phone Geovanny Engel APRN PCP Reason for Visit * Reason Onset Date Comments Other 06/12/2021 Encounter Details Care Team Description Date Type Department Sergei Benson MD [address] [place] [address] Other 06/12/2021 Telephone Plastic Surgery: Ma in [place] [address] [place] [address] [address], [address] [place] [address] Social History Date Tobacco Use Types Packs/Day Years Used Never Smoker Smokeless Tobacco: Chew Current User Drinks/Week oz/Week Comments Alcohol Use 10-12 Cans of beer 10.0 - 12.0 Yes Sex Assigned at Date Recorded 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 documented as of this encounter Functional Status Date of Assessment Functional Status Response 05/14/2021 Does the patient have a hearing impairment: Yes documented as of this encounter Miscellaneous Notes * Telephone Encounter - Nisha Sullivan RN - 06/12/2021 4:43 PM CDT Spoke with patient's about fluid collection on right side. Also talked abo ut continuing to take antibiotics even though patient does not like how he feels afterwards. Told in the long run antibiotics will help and they need to co ntinue. They are coming in Tuesday at noon if they can to have CT scan done and t mitra see Dr. Benson. Did ask them to bring overnight items in case imaging suggests that we need to take patient back to the OR. understood and no further que stions. Nisha Sullivan, RN documented in this encounter Plan of Treatment Not on filedocumented as of this encounter Goals Goal Patient Associated Recent Progress Patient-Stat Aut hor Goal Type Problems ed? Recover from illness Hospital On track (05/14/2021 Yes Joseph Radha, 1:07 AM CDT) RN Note: "To heal and recover and be as healthy as possible, quit chewing tobacco" documented as of this encounter Visit Diagnoses Not on filedocumented in this encounter Additional Health Concerns Assessment Noted Time A fall risk assessment has been completed for the pat ient 05/19/2021 9:00 AM CDT documented as of this encounter
--- OUTSIDE RECORDS SUMMARY | 2021-06-14 17:38 | XMS REPORT | Encounter Summary ---
Author Author [facility] Organization [facility] Address Unknown Phone Unavailable Care Team Providers Care Machine Pack Assembler Name Role Phone Geovanny Engel APRN PCP Reason for Referral * Radiology Services (Routine) Referred By Contact Referred To Contact Status Reason Specialty Diagnoses / Procedures Sergei Benson MD [address] [place] [address] [facility] [address] [facility], [address] [place] [address] Authorized Radiology Diagnoses Squamous cell carcinoma, lip P rocedures CT NECK W/CONTRAST Electronically signed by Sergei Benson MD at Encounter Details Care Team Description Date Type Department Sergei Benson MD [address] [place] [address] Squamous cell carcinoma, lip (Primary Dx ) 06/12/2021 Orders Only Plastic Surgery: Ma in [place], [facility] [address] [facility]. 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 documented as of this encounter Functional Status Date of Assessment Functional Status Response 05/14/2021 Does the patient have a hearing impairment: Yes documented as of this encounter Plan of Treatment Order Schedule Name Type Priority Associated Diag noses Expected: 06/12/2021 (Approximate), Expi res: 06/12/2022 CT NECK W/CONTRAST Imaging Routine Squamous ce ll carcinoma, lip documented as of this encounter Goals Goal Patient Associated Recent Progress Patient-Stat Aut hor Goal Type Problems ed? Recover from illness Hospital On track (05/14/2021 Yes Radha Ruiz, 1:07 AM CDT) RN Note: "To heal and recover and be as healthy as possible, quit chewing tobacco" documented as of this encounter Visit Diagnoses Diagnosis Squamous cell carcinoma, lip - Primary Squamous cell carcinoma of skin of lip documented in this encounter Additional Health Concerns Assessment Noted Time A fall risk assessment has been completed for the pat ient 05/19/2021 9:00 AM CDT documented as of this encounter
--- OUTSIDE RECORDS SUMMARY | 2021-06-14 17:38 | XMS REPORT | Encounter Summary ---
Author Author [facility] Organization [facility] Address Unknown Phone Unavailable Care Team Providers Care French Comber Name Role Phone Geovanny Engel APRN PCP Reason for Visit * Reason Onset Date Comments Pain 05/22/2021 Encounter Details Care Team Description Date Type Department Amos Bernabe MD [address] [place] [address] Pain 05/22/2021 Telephone Plastic Surgery: Ma in [place], [facility] [address] [place] [address] [address], [address] [place] [address] Social History Date Tobacco Use Types Packs/Day Years Used Never Smoker Smokeless Tobacco: Chew Current User Drinks/Week oz/Week Comments Alcohol Use 10-12 Cans of beer 10.0 - 12.0 Yes Sex Assigned at Date Recorded 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 documented as of this encounter Functional Status Date of Assessment Functional Status Response 05/14/2021 Does the patient have a hearing impairment: Yes documented as of this encounter Miscellaneous Notes * Telephone Encounter - Amos Bernabe MD - 05/22/2021 5:30 PM CDT Patient's called the on-call resident this evening regarding continued pain since recent hospital discharge. She states he has been having severe pain and was prescribed oxycodone 5mg Q6 PRN which has not been helping. She reports he h as been taking Tylenol but not scheduled. Their follow up appointment with Dr. Harjit martin is scheduled for this coming Tuesday, 05/27 and they are requesting a refil l of the oxycodone. Advised patient's we will refill his prescription to [facility] until Tuesday, however that she should schedule Tylenol to be done 650m g Q6 hours. This should help decrease his narcotic use, due to his allergy to ib uprofen advised to avoid NSAIDs at this time. Told patient to call back if there is uncontrolled pain or concern for infection from surgical site including: fev ers, chills, drainage, or increased warmth to area. They expressed understanding and were amenable to this plan. All of their questions and concerns were answer ed and prescription was refilled to their local [facility] in [place], [place]. Tramaine Bernabe M.D. PGY-3 [facility] Department of Plastic Surgery documented in this encounter Plan of Treatment [...]
--- OUTSIDE RECORDS SUMMARY | 2021-06-14 17:38 | XMS REPORT | Encounter Summary ---
Author Author [facility] Organization [facility] Address Unknown Phone Unavailable Care Team Providers Care Sheet Metal Smith Name Role Phone Geovanny Engel APRN PCP Reason for Visit * Reason Onset Date Comments Follow-up Phone Call 06/11/2021 Encounter Details Care Team Description Date Type Department Sergei Benson MD [address] [place] [address] Follow-up Phone Call 06/11/2021 Telephone Plastic Surgery: Ma in [place], [facility] [address] [place] [address] [address], [address] [place] [address] Social History Date Tobacco Use Types Packs/Day Years Used Never Smoker Smokeless Tobacco: Chew Current User Drinks/Week oz/Week Comments Alcohol Use 10-12 Cans of beer 10.0 - 12.0 Yes Sex Assigned at Date Recorded 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 Nisha Sullivan RN documented in this encounter Plan of [...]
--- OUTSIDE RECORDS SUMMARY | 2021-06-14 17:38 | XMS REPORT | Encounter Summary ---
Author Author [facility] Organization [facility] Address Unknown Phone Unavailable Care Team Providers Care Ironing Machine Operator Name Role Phone Geovanny Engel APRN PCP Reason for Visit * Reason Comments Post Operative Visit * Consult, Test & Treat (Routine) Referred By Contact Referred To Contact Status Reason Specialty Diagnoses / Procedures New Request Encounter Details Care Team Description Date Type Department Sergei Benson MD [address] [place] [address] Squamous cell carcinoma, lip (Primary Dx ) 05/27/2021 Office Visit Plastic Surgery: [facility] [place] [address] [place] [address] [address], [address] [place] [address] Social History Date Tobacco Use Types Packs/Day Years Used Never Smoker Smokeless Tobacco: Chew Current User Drinks/Week oz/Week Comments Alcohol Use 10-12 Cans of beer 10.0 - 12.0 Yes Sex Assigned at Date Recorded 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 documented as of this encounter Last Filed Vital Signs Reading Time Taken Comments Vital Sign 112/68 05/27/2021 2:44 PM CDT Blood Pressure 95 05/27/2021 2:44 PM CDT Pulse - - Temperature - - Respiratory Rate - - Oxygen Saturation - - Inhaled Oxygen Concentration 60.8 kg (134 lb) 05/27/2021 2:44 PM CDT Weight 167.6 cm (5' 6") 05/27/2021 2:44 PM CDT Height 21.63 05/27/2021 2:44 PM CDT Body Mass Index documented in this encounter Functional Status Date of Assessment Functional Status Response 05/14/2021 Does the patient have a hearing impairment: Yes documented as of this encounter Progress Notes * Sergei Benson MD - 05/27/2021 2:45 PM CDT Subjective: History of Present Illness Sher Carrizales III is a 51 y.o. 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 Benson and Chris. He had positive lymph nodes with no LIZANDRO, no LVI or PNI. Discussed at head and neck TB. Recommendations for adjuvant XRT. He underwent adjuvant XRT through [facility] from 12/08-03/02/21 and received 6,000 cGy of treatment. After being lost to follow-up, he recently presented with a phlegmon in his R cheek that cou ld not be aspirated by IR and plate exposure. He went to the OR on 05/15/21 for re moval of his hardware, bone and soft tissue debridement and closure of his neck wound. He has been on vanc/zosyn per ID and says he feels well today. He is seen with his Yecenia. Review of Systems Constitutional: Negative. HENT: Negative. Eyes: Negative. Respiratory: Negative. Cardiovascular: Negative. Gastrointestinal: Negative. Endocrine: Negative. Genitourinary: Negative. Musculoskeletal: Negative. Skin: Negative. Allergic/Immunologic: Negative. Neurological: Negative. Hematological: Negative. Psychiatric/Behavioral: Negative. Objective: acetaminophen (TYLENOL) 325 mg tablet Take two tablets by mouth every 6 hour s as needed. aspirin EC 81 mg tablet Take 81 mg by mouth daily. Take with food. bacitracin 500 unit/g topical ointment Apply to the incision site after aldo sonia twice a day glycopyrrolate (ROBINUL) 1 mg/5 mL (0.2 mg/mL) soln oral solution 5 mL by PE G Tube route three times daily. lidocaine (LIDODERM) 5 % topical patch Apply one patch topically to affected area every 24 hours. Apply patch for 12 hours, then remove for 12 hours before repeating. oxyCODONE (ROXICODONE) 5 mg tablet Take one tablet by mouth every 4 hours as needed oxyCODONE (ROXICODONE) 5 mg tablet Take one tablet by mouth every 6 hours as needed piperacillin/tazobactam (ZOSYN) 3.375 g/15 mL 3.375 g in sodium chloride 0.9 % (NS) 0.9 % 100 mL IVPB (MB+) Administer 3.375 g through vein every 6 hours. polyethylene glycol 3350 (MIRALAX) 17 g packet one packet by Per G Tube rout e daily. vancomycin (VANCOCIN) 1000 mg/20 mL 1,000 mg in dextrose 5% (D5W) 250 mL IVP B ([id number]) Administer one thousand mg through vein every 12 hours. Vitals: 05/27/21 1444 BP: 112/68 BP Source: Arm, Left Upper Patient Position: Sitting Pulse: 95 Weight: 60.8 kg (134 lb) Height: 167.6 cm (66") PainSc: Ten Body mass index is 21.63 kg/m. Physical Exam Gen: Alert, NAD HEENT: stable R lower eyelid and facial edema Neck suture line healing well and sutures were removed 05/22/21 path: ######################################################################## Final Diagnosis: A. Soft tissue, right facial scar tissue, excision: Small, 1mm focus of atypical squamous epithelium, not further characterizable. Fibrosis and reactive changes. B. Bone, right anterior mandible, debridement: Osteonecrosis. C. Bone, right posterior mandible, debridement: Osteonecrosis. Comment: Deeper levels on blocks A1 and C1 are examined. AFB and GMS stains performed on blocks B1 and C1 are negative for acid fast and fungal organisms. Pursuant to the [facility] Guide [facility], selected slides from this case have been concurrently reviewed by the following pathologist: Dr. Nasrin Danielle who agrees with the final diagnosis. Attestation: By this signature, I attest that I have personally formulated the final interpretation expressed in this report and that the above diagnosis is based upon my examination of the slides and/or other material indicated in this report. +++ +++ Rik Fountain DO, Resident Assessment and Plan: No evidence of recurrent disease Emphasized importance of PICC care and ongoing antimicrobial treatment as guided by ID Also emphasized importance of compliance with follow-up appointments and that he is at risk of future recurrence and will need ongoing surveillance imaging Will refer him for lymphedema therapy F/u with me in 2 weeks They were in agreement and appreciative of the recommendation documented in this encounter Plan of Treatment [...]
--- OUTSIDE RECORDS SUMMARY | 2021-06-14 17:38 | XMS REPORT | Encounter Summary ---
Author Author [facility] Organization [facility] Address Unknown Phone Unavailable Care Team Providers Care Hydrogen Power Plant Manager Name Role Phone Geovanny Engel APRN PCP Reason for Referral * Consult, Test & Treat Referred By Contact Referred To Contact Status Reason Specialty Diagnoses / Procedures Roger Bates MD [address] [facility] [address] [place] [id number] [facility] [address] [place] [id number] New Request Specialty Services Diagnoses Required Cellulitis, face Facial abscess MRSA infection Pseudomonas aeruginosa infection Receiving intravenous antibiotic treatment at home Scheduling Instructions No action needed. OPAT RN will address. Answer Question ID OPAT orders to: - Fax # Referral Comments Infectious Diseases Outpatient Orders: Today's Date: 06/08/[address] Bates, 1. DC Vancomycin 1g IV Q 12 hours. Start Vancomycin 1.5g IV Q 24 Hours. 2. Call Kyara Infectious Diseases RN at [phone] with any questions or concerns. Fax all lab results to [phone] and call ID RN for any Critical lab results during normal business hours. After Hrs: If Labs Outside of Normal Range any time on weekends or holidays please page ID fellow hairspring fabrication supervisor to [phone]. Electronically signed by Roger Bates MD at Encounter Details Care Team Description Date Type Department Roger Bates MD [address] [facility] [address] [place] [phone] 06/08/2021 Outpt. 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 documented as of this encounter Functional Status Date of Assessment Functional Status Response 05/14/2021 Does the patient have a hearing impairment: Yes documented as of this encounter Ordered Prescriptions Start Date End Date Prescription Sig Dispensed Refills 06/09/2021 vancomycin 1.5 gram solr Administer 0 1.5 g through vein daily. documented in this encounter Progress Notes * Kyara Chakraborty RN - 06/08/2021 2:46 PM CDT Vancomycin trough from 06/05/21 is 25.4 and is not a true trough as patient's wif e reported he takes his antibiotic at 9:30 AM & PM Q 12 Hrs dosing. Creatinine is up to 1.32. Per Dr. Bates, 1. DC Vancomycin 1g IV Q 12 hours. Start Vancomycin 1.5g IV Q 24 Hours. Orders sent via Epic Fax to [facility]. Discussed with [facility], asked her to di marin timing with patient to fit his infusion lab draw appointments since it is being moved to once daily, hopefully that will be better for them. documented in this encounter Miscellaneous Notes * Addendum Note - Kyara Chakraborty RN - 06/08/2021 2:46 PM CDT Addended by: KYARA CHAKRABORTY on: 06/08/2021 03:29 PM Modules accepted: Orders documented in this encounter Plan of Treatment Order Schedule Name Type Priority Associated Diag noses Ordered: 06/08/2021 AMB REFERRAL TO HOME CARE Outpatient Routine Cell ulitis, face Referral Facial abscess MRSA infection Pseudomonas aeruginosa infection Receiving intravenous antibiotic treatment at home documented as of this encounter Goals Goal Patient Associated Recent Progress Patient-Stat Aut hor Goal Type Problems ed? Recover from illness Hospital On track (05/14/2021 Yes Radha Ruiz, 1:07 AM CDT) RN Note: "To heal and recover and be as healthy as possible, quit chewing tobacco" documented as of this encounter Procedures Comments Procedure Name Priority Date/Time Associated Diag nosis CBC AND DIFF Routine 06/05/2021 Cellulitis, fac e 1:00 PM CDT Facial abscess MRSA infection Pseudomonas aeruginosa infection Receiving intravenous antibiotic treatment at home VANCOMYCIN TROUGH Routine 06/05/2021 Cellulitis, face 1:00 PM CDT Facial abscess MRSA infection Pseudomonas aeruginosa infection Receiving intravenous antibiotic treatment at home COMPREHENSIVE METABOLIC Routine 06/05/2021 Cellul itis, face PANEL 1:00 PM CDT Facial abscess MRSA infection Pseudomonas aeruginosa infection Receiving intravenous antibiotic treatment at home documented in this encounter Results * VANCOMYCIN TROUGH (06/05/2021 1:00 PM CDT) Vancomycin 25.4 OTHER OUTSIDE Trough LAB Specimen Blood, venous - Blood Performing Organization Address City/State/ZIP Code [place] Number OTHER OUTSIDE LAB * COMPREHENSIVE METABOLIC PANEL (06/05/2021 1:00 PM CDT) Sodium OTHER OUTSIDE LAB Potassium 3.7 OTHER OUTSIDE LAB Chloride OTHER OUTSIDE LAB CO2 OTHER OUTSIDE LAB Blood Urea 11 OTHER OUTSIDE Nitrogen LAB Creatinine 1.32 OTHER OUTSIDE LAB Glucose OTHER OUTSIDE LAB Calcium OTHER OUTSIDE LAB Total Protein OTHER OUTSIDE LAB Total Bilirubin OTHER OUTSIDE LAB Albumin OTHER OUTSIDE LAB Alk Phosphatase 70 OTHER OUTSIDE LAB AST (SGOT) 21 OTHER OUTSIDE LAB ALT (SGPT) 22 OTHER OUTSIDE LAB eGFR Non OTHER OUTSIDE LAB Mexican eGFR OTHER OUTSIDE Mexican LAB Anion Gap OTHER OUTSIDE LAB Specimen Blood - Blood Performing Organization Address City/State/ZIP Code [place] Number OTHER OUTSIDE LAB * CBC AND DIFF (06/05/2021 1:00 PM CDT) White Blood 4.3 OTHER OUTSIDE Cells LAB RBC OTHER OUTSIDE LAB Hemoglobin 10.6 OTHER OUTSIDE LAB Hematocrit OTHER OUTSIDE LAB MCV OTHER OUTSIDE LAB MCH OTHER OUTSIDE LAB MCHC OTHER OUTSIDE LAB Platelet Count 247 OTHER OUTSIDE LAB MPV OTHER OUTSIDE LAB RDW OTHER OUTSIDE LAB Neutrophils OTHER OUTSIDE LAB Absolute OTHER OUTSIDE Neutrophil LAB Count Lymphocytes OTHER OUTSIDE LAB Absolute Lymph OTHER OUTSIDE Count LAB Monocytes OTHER OUTSIDE LAB Absolute OTHER OUTSIDE Monocyte Count LAB Eosinophil OTHER OUTSIDE LAB Absolute OTHER OUTSIDE Eosinophil LAB Count Basophils OTHER OUTSIDE LAB Absolute OTHER OUTSIDE Basophil Count LAB Atypical Lym OTHER OUTSIDE LAB Metamyelocyte OTHER OUTSIDE LAB Myelocyte OTHER OUTSIDE LAB Promyelocyte OTHER OUTSIDE LAB Blast OTHER OUTSIDE LAB RBC Morph OTHER OUTSIDE LAB WBC Morphology OTHER OUTSIDE LAB Specimen Blood - Blood Narrative Performed At This result has an attachment that is n ot available. Performing Organization Address City/State/ZIP Code [place] Number OTHER OUTSIDE LAB documented in this encounter Visit Diagnoses Diagnosis Cellulitis, face Cellulitis and abscess of face Facial abscess Cellulitis and abscess of face MRSA infection Methicillin resistant Staphylococcus au reus in conditions classified elsewhere and of unspecified site Pseudomonas aeruginosa infection Pseudomonas infection in conditions cla ssified elsewhere and of unspecified site Receiving intravenous antibiotic treatm ent at home Encounter for long-term (current) use o f antibiotics documented in this encounter Discontinued Medications Start Date End Date Medication Sig Discontinue Reason 05/19/2021 06/08/2021 vancomycin (VANCOCIN) Administer Dose 1000 mg/20 mL 1,000 mg in one thousand adjustment dextrose 5% (D5W) 250 mL mg through IVPB ([id number]) vein every 12 hours. documented as of this encounter Additional Health Concerns Assessment Noted Time A fall risk assessment has been completed for the pat ient 05/19/2021 9:00 AM CDT documented as of this encounter
--- OUTSIDE RECORDS SUMMARY | 2021-06-14 17:38 | XMS REPORT | Encounter Summary ---
Author Author [facility] Organization 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 documented as of this encounter Functional Status Date of Assessment Functional Status Response 05/14/2021 Does the patient have a hearing impairment: Yes documented as of this encounter Plan of Treatment Not on [...]
--- OUTSIDE RECORDS SUMMARY | 2021-06-14 17:38 | XMS REPORT | Clinical Summary ---
Author Author [facility] Organization [facility] Address Unknown Phone Unavailable Care Team Providers Care Solid Fiber Paster Operator Name Role Phone Geovanny Engel APRN PCP Source Comments Some departments are not documenting in the electronic medical record. If you d o not see the information that you expected, contact Release of Information in [facility] [employer] Information Management department at [phone] for further assistan ce in locating additional records.[facility] Allergies Comments Active Allergy Reactions Severity Noted Date Ibuprofen SWOLLEN High 09/08/2020 TONGUE Medications End Date Status Medication Sig Dispensed Refills Start Date Active glycopyrrolate (ROBINUL) 5 mL by PEG 473 mL 0 1 1 mg/5 mL (0.2 mg/mL) Tube route 0 soln oral solution three times daily. Active lidocaine (LIDODERM) 5 % Apply one 30 patch 0 topical patch patch 0 topically to affected area every 24 hours. Apply patch for 12 hours, then remove for 12 hours before repeating. Active acetaminophen (TYLENOL) Take two 0 325 mg tablet tablets by 1 mouth every 6 hours as needed. Active oxyCODONE (ROXICODONE) 5 Take one 25 tablet 0 0 mg tablet tablet by 1 mouth every 6 hours as needed Active bacitracin 500 unit/g Apply to the 28 g 0 topical ointment incision site 1 after cleaning twice a day Active aspirin EC 81 mg tablet Take 81 mg by 0 mouth daily. Take with food. Active piperacillin/tazobactam Administer 0 (ZOSYN) 3.375 g/15 mL 3.375 g 1 3.375 g in sodium through vein chloride 0.9% (NS) 0.9 % every 6 100 mL IVPB (MB+) hours. Active polyethylene glycol 3350 one packet by 30 each 0 (MIRALAX) 17 g packet Per G Tube 1 route daily. Active oxyCODONE (ROXICODONE) 5 Take one 30 tablet 0 0 202 mg tablet tablet by 1 mouth every 4 hours as needed Active vancomycin 1.5 gram solr Administer 0 06/09 1.5 g through 1 vein daily. 05/19/2021 Discontinued acetaminophen (TYLENOL) 20.3 mL by 960 mL 0 160 mg/5 mL oral solution PEG Tube 0 route every 6 hours as needed. 05/19/2021 Discontinued docusate (COLACE) 50 mg/5 Take 10 mL 473 mL 0 mL oral solution via feeding 0 tube twice daily. 05/19/2021 Discontinued (Reorder) polyethylene glycol 3350 one packet by 30 each 0 (MIRALAX) 17 g packet Per G Tube 0 route daily. 05/19/2021 Discontinued oxyCODONE (ROXICODONE) 5 Take one 10 tablet 0 0 mg tablet tablet by 1 mouth every 4 hours as needed for Pain 05/19/2021 Discontinued acetaminophen (TYLENOL) Take 650 mg 0 325 mg tablet by mouth every 4 hours as needed for Pain. 06/08/2021 Discontinued (Dose adjustmen t) vancomycin (VANCOCIN) Administer 0 05/19/20 2 1000 mg/20 mL 1,000 mg in one thousand 1 dextrose 5% (D5W) 250 mL mg through IVPB ([id number]) vein every 12 hours. 05/19/2021 Discontinued (Reorder) polyethylene glycol 3350 one packet by 30 each 0 (MIRALAX) 17 g packet Per G Tube 1 route daily. 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 Infectious Diseases Antibiotic Therapy Eric Benson MD Follow-up Phone Call 06/11/2021 Telephone Plastic Surgery Roger Bates MD 06/08/2021 Outpt. Infectious Diseases Antibiotic Therapy Eric Benson MD General Question 06/04/2021 Telephone Plastic Surgery Radha Johnson RN Cellulitis, face; Facial abscess; MRSA infection; Pseudomonas aeruginosa infection; Receiving intravenous antibiotic treatment at home 06/01/2021 Orders Only Infectious Diseases Amos Bernabe MD Pain 05/29/2021 Telephone Plastic Surgery Eric Benson MD Squamous cell carcinoma, lip (Primary Dx ) 05/27/2021 Office Visit Plastic Surgery 05/27/2021 Travel Roger Bates MD Outpatient Antibiotic Therapy (Opat) 05/26/2021 Telephone Infectious Diseases Amos Bernabe MD Pain 05/22/2021 Telephone Plastic Surgery Roger Bates MD 05/20/2021 Outpt. Infectious Diseases Antibiotic Therapy Eric Benson MD General Question 05/19/2021 Telephone Plastic Surgery Eric Benson MD REMOVAL HARDWARE -DEEP MANDIBLE 05/15/2021 Surgery Zhen Marvin MD Scavuzzo, Vincent, SRNA 05/15/2021 Anesthesia Event Eric Benson MD Cellulitis, face 2021 Hospital Burn Surgery / Burn Care - Encounter 05/19/2021 Eric Benson MD Squamous cell carcinoma of skin of unspe cified parts of face 2021 Hospital Lab Encounter Eric Benson MD SCC (squamous cell carcinoma), face (Bozena radha Dx) 2021 Office Visit Plastic Surgery Eric Benson MD 2021 Hospital Radiology Encounter Jael Chavarria MD 2021 Documentation 2021 Travel 04/30/2021 Travel Eric Benson MD Appointment 04/20/2021 Telephone Plastic Surgery Eric Benson MD Appointment 04/16/2021 Telephone Plastic Surgery from Last 3 Months Surgical History Surgery Date Site/Laterality Comments TRACHEOSTOMY 10/21/2020 Neck/N/A TRACHEOSTOMY PL ANNED performed by Eric Benson MD at [facility] OR TOOTH EXTRACTION 10/21/2020 Mouth/N/A EXTRACTION TO OTH performed by Eric Benson MD at [facility] OR GASTROSTOMY TUBE 10/21/2020 Abdomen/N/A ESOPHAGOGASTR ODUODENOSCOPY WITH PLACEMENT PLACEMENT PERCUTANEOUS GASTROSTOMY TU BE performed by Oscar Batista Jr., MD at [facility] OR GASTROSTOMY TUBE 10/21/2020 PLACEMENT TUMOR EXCISION 10/23/2020 Face/Right RADICAL RESECTI ON TUMOR SOFT TISSUE 2.0 CM OR MORE - FACE/ SCALP performed by Eric Benson MD at [facility] OR Medical devices from this surgery are i n the Implants section. TISSUE TRANSFER 10/23/2020 Face/Right TISSUE TRANSFE R FREE SKIN FLAP WITH MICROVASCULAR ANASTOMOSIS performed by Eric Benson MD at [facility] OR Medical devices from this surgery are i n the Implants section. SKIN GRAFT 10/23/2020 Leg Upper/Left SPLIT THICKNESS SKIN AUTOGRAFT 100 SQ CM OR LESS OR 1% BODY AREA OF CHILD- UPPER EXTREMI TY performed by Eric Benson MD at [facility] OR Medical devices from this surgery are i n the Implants section. LYMPHADENECTOMY 10/23/2020 Neck/Right CERVICAL LYMPH ADENECTOMY performed by Eric Benson MD at [facility] OR Medical devices from this surgery are i n the Implants section. NECK SURGERY 10/23/2020 Mouth/N/A GLOSSECTOMY COM POSITE WITHOUT RADIAL NECK DISSECTION performed by Eric Benson M D at [facility] OR Medical devices from this surgery are i n the Implants section. TISSUE TRANSFER 10/23/2020 Face/Right TISSUE TRANSFE R FREE OSTEOCUTANEOUS FLAP WITH MICROVASCULAR ANASTOMOSIS performed by Eric Benson MD at [facility] OR Medical devices from this surgery are i n the Implants section. HARDWARE REMOVAL 05/15/2021 Face/Right REMOVAL HARDW ARE -DEEP MANDIBLE performed by Eric Benson MD at [facility] OR Medical devices from this surgery are i n the Implants section. EXCISION BONE 05/15/2021 Face/Right EXCISION BONE - MANDIBLE performed by Eric Benson MD at [facility] OR Medical devices from this surgery are i n the Implants section. WOUND REPAIR 05/15/2021 Face/Right REPAIR COMPLEX WOUND 2.6 CM TO 7.5 CM - HEAD/ NECK performed by Eric Benson MD at [facility] OR Medical devices from this surgery are i n the Implants section. WOUND REPAIR 05/15/2021 Face/Right REPAIR COMPLEX WOUND EACH ADDITIONAL 5 CM OR LESS- HEAD/ NECK performed by Eric Benson M D at [facility] OR Medical devices from this surgery are i n the Implants section. Medical History Medical History Date Comments RED DEVIL (hard of hearing) Tobacco abuse Alcohol abuse Squamous cell carcinoma, lip Social History Date Tobacco Use Types Packs/Day Years Used Never Smoker Smokeless Tobacco: Chew Current User Drinks/Week oz/Week Comments Alcohol Use 10-12 Cans of beer 10.0 - 12.0 Yes Sex Assigned at Date Recorded Male 10/06/2020 7:51 AM [employer] Date Recorded COVID-19 Exposure Response 05/27/2021 2:39 PM CDT In the last month, have you been in contact with No / Unsure someone who was confirmed or suspected to have Coronavirus / COVID-19? Last Filed Vital Signs Reading Time Taken Comments Vital Sign 112/68 05/27/2021 2:44 PM CDT Blood Pressure 95 05/27/2021 2:44 PM CDT Pulse 36.6 C (97.9 F) 05/19/2021 8:14 AM CDT Temperature - - Respiratory Rate 99% 05/19/2021 8:14 AM CDT Oxygen Saturation - - Inhaled Oxygen Concentration 60.8 kg (134 lb) 05/27/2021 2:44 PM CDT Weight 167.6 cm (5' 6") 05/27/2021 2:44 PM CDT Height 21.63 05/27/2021 2:44 PM CDT Body Mass Index Plan of Treatment Health Maintenance Due Date Last Done Comments HIV SCREENING 1984 DTAP/TDAP VACCINES (1 - 1987 Tdap) HEPATITIS C SCREENING 1987 PHYSICAL (COMPREHENSIVE) 1987 EXAM COLORECTAL CANCER 2019 SCREENING SHINGLES RECOMBINANT 2019 VACCINE (1 of 2) INFLUENZA VACCINE 08/07/2021 Goals Goal Patient Associated Recent Progress Patient-Stat Aut hor Goal Type Problems ed? Recover from illness Hospital On track (05/14/2021 Yes Radha Ruiz, 1:07 AM CDT) RN Note: "To heal and recover and be as healthy as possible, quit chewing tobacco" Implants Device Identifier Shelf Expiration Date Model / Serial / L ot Implanted Type Area Manufactur er 2025 [id number] / [id number] / [id number] Oil Dispatcher Anastomosis 4mm [place] Right: Mandible SYNOVIS Microvascular Sterile Disposable - MICRO [id number] Implanted: Qty: 1 on 10/23/2020 by Eric Harper MD at [facility] [id number] / [id number] / [id number] Oil Dispatcher Anastomosis 2mm [place] Right: Mandible SYNOVIS Microvascular Sterile Disposable - MICRO [id number] Implanted: Qty: 1 on 10/23/2020 by Eric Harper MD at [facility] 07/07/2025 [id number] / [id number] / [id number] Oil Dispatcher Anastomosis 3.5mm [place] Mandible SYNOVIS Microvascular Sterile - MICRO [id number] Implanted: Qty: 1 on 10/23/2020 by Eric Harper MD at [facility] Device Identifier Shelf Expiration Date Model / Serial / L ot Explanted Type Area Manufactur [id number] / [id number] / [id number] Mandible Implant Right: Mandible MEETA PUENTES Implanted: Qty: 1 on 10/23/2020 by Eric Meyer MD at [facility] Explanted: Qty: 1 on 05/15/2021 at [facility] / / Screw Titanium 7mm 2mm Taper Right: Mandible [employer]ET[employer] IN Oralmaxillofacial Self - LP [id number] Implanted: Qty: 3 on 10/23/2020 by Eric Benson MD at [facility] Explanted: Qty: 3 on 05/15/2021 by Eric Benson MD at [facility] / / Screw Titanium 9mm 2mm Taper Right: Mandible RAIZA IN Oralmaxillofacial Self - LP [id number] Implanted: Qty: 3 on 10/23/2020 by Eric Benson MD at [facility] Explanted: Qty: 3 on 05/15/2021 by Eric Benson MD at [facility] / / Screw Titanium 11mm 2mm Taper Right: Mandible [place] Oralmaxillofacial Self - LP [id number] Implanted: Qty: 1 on 10/23/2020 by Eric Benson MD at [facility] Explanted: Qty: 1 on 05/15/2021 by Eric Benson MD at [facility] / / Screw Titanium 13mm 2mm Taper Right: Mandible [place] Oralmaxillofacial Self - LP [id number] Implanted: Qty: 2 on 10/23/2020 by Eric Benson MD at [facility] Explanted: Qty: 2 on 05/15/2021 by Eric Benson MD at [facility] Procedures Comments Procedure Name Priority Date/Time Associated Diag nosis COMPREHENSIVE METABOLIC Routine 06/12/2021 Cellul itis, face PANEL 12:00 PM CDT Facial abscess MRSA infection Pseudomonas aeruginosa infection Receiving intravenous antibiotic treatment at home CBC AND DIFF Routine 06/12/2021 Cellulitis, fac e 12:00 PM CDT Facial abscess MRSA infection Pseudomonas aeruginosa infection Receiving intravenous antibiotic treatment at home VANCOMYCIN TROUGH Routine 06/12/2021 Cellulitis, face 12:00 PM CDT Facial abscess MRSA infection Pseudomonas aeruginosa infection Receiving intravenous antibiotic treatment at home VANCOMYCIN TROUGH Routine 06/05/2021 Cellulitis, face 1:00 PM CDT Facial abscess MRSA infection Pseudomonas aeruginosa infection Receiving intravenous antibiotic treatment at home COMPREHENSIVE METABOLIC Routine 06/05/2021 Cellul itis, face PANEL 1:00 PM CDT Facial abscess MRSA infection Pseudomonas aeruginosa infection Receiving intravenous antibiotic treatment at home CBC AND DIFF Routine 06/05/2021 Cellulitis, fac e 1:00 PM CDT Facial abscess MRSA infection Pseudomonas aeruginosa infection Receiving intravenous antibiotic treatment at home CBC AND DIFF Routine 05/29/2021 Cellulitis, fac e 2:54 PM CDT Facial abscess MRSA infection Pseudomonas aeruginosa infection Receiving intravenous antibiotic treatment at home COMPREHENSIVE METABOLIC Routine 05/29/2021 Cellul itis, face PANEL 2:54 PM CDT Facial abscess MRSA infection Pseudomonas aeruginosa infection Receiving intravenous antibiotic treatment at home VANCOMYCIN TROUGH Routine 05/29/2021 Cellulitis, face 2:54 PM CDT Facial abscess MRSA infection Pseudomonas aeruginosa infection Receiving intravenous antibiotic treatment at home HC CBC W/ AUTOMATED DIFF Routine 05/19/2021 4:17 AM CDT HC COMPREHENSIVE Routine 05/18/2021 METABOLIC PANEL 3:35 AM CDT HC CBC W/ AUTOMATED DIFF STAT 05/18/2021 3:35 AM CDT HC COMPREHENSIVE 05/17/2021 METABOLIC PANEL 4:10 AM CDT HC CBC W/ AUTOMATED DIFF STAT 05/17/2021 4:10 AM CDT HC COMPREHENSIVE Routine 05/16/2021 METABOLIC PANEL 3:07 AM CDT HC CBC W/ AUTOMATED DIFF STAT 05/16/2021 3:07 AM CDT HC VANCOMYCIN 2HR POST Routine 05/15/2021 DOSE 3:44 PM CDT CONSULT IV THERAPY TEAM Routine 05/15/2021 3:18 PM CDT CULTURE-FUNGAL,OTHER STAT 05/15/2021 Celluliti s, face 2:19 PM CDT GRAM STAIN STAT 05/15/2021 Cellulitis, fac e 2:19 PM CDT CULTURE-TB (AFB) STAT 05/15/2021 Cellulitis, f george 2:19 PM CDT CULTURE-WOUND/TISSUE/FLUI STAT 05/15/2021 Cell ulitis, face D(AEROBIC 2:19 PM CDT ONLY)W/SENSITIVITY CULTURE-ANAEROBIC STAT 05/15/2021 Cellulitis, face 2:19 PM CDT CULTURE-FUNGAL,OTHER STAT 05/15/2021 Celluliti s, face 2:17 PM CDT GRAM STAIN STAT 05/15/2021 Cellulitis, fac e 2:17 PM CDT CULTURE-WOUND/TISSUE/FLUI STAT 05/15/2021 Cell ulitis, face D(AEROBIC 2:17 PM CDT ONLY)W/SENSITIVITY CULTURE-ANAEROBIC STAT 05/15/2021 Cellulitis, face 2:17 PM CDT CULTURE-FUNGAL,OTHER STAT 05/15/2021 Celluliti s, face 2:13 PM CDT GRAM STAIN STAT 05/15/2021 Cellulitis, fac e 2:13 PM CDT CULTURE-TB (AFB) STAT 05/15/2021 Cellulitis, f george 2:13 PM CDT CULTURE-WOUND/TISSUE/FLUI STAT 05/15/2021 Cell ulitis, face D(AEROBIC 2:13 PM CDT ONLY)W/SENSITIVITY CULTURE-ANAEROBIC STAT 05/15/2021 Cellulitis, face 2:13 PM CDT HC LEV III SRG PTH, GROSS Routine 05/15/2021 Cell ulitis, face & MICRO 2:12 PM CDT REPAIR COMPLEX WOUND EACH 05/15/2021 Cellulitis, face ADDITIONAL 5 CM OR LESS- 12:58 PM CDT HEAD/ NECK REPAIR COMPLEX WOUND 2.6 05/15/2021 Cellulitis, face CM TO 7.5 CM - HEAD/ NECK 12:58 PM CDT EXCISION BONE - MANDIBLE 05/15/2021 Cellulitis, face 12:58 PM CDT REMOVAL HARDWARE -DEEP 05/15/2021 Cellulitis, fa ce 12:58 PM CDT HC VANCOMYCIN-TROUGH Routine 05/15/2021 8:56 AM CDT HC COMPREHENSIVE Routine 05/15/2021 METABOLIC PANEL 5:16 AM CDT HC CBC W/ AUTOMATED DIFF STAT 05/15/2021 5:16 AM CDT MRI ORBIT FACE AND/OR STAT 05/14/2021 NECK WO/W CONT 11:02 PM CDT IR ASPIRATION ONLY Routine 05/14/2021 DIAGNOSTIC 4:27 PM CDT US RENAL BLADDER COMPLETE Routine 05/14/2021 9:08 AM CDT HC COMPREHENSIVE Routine 05/14/2021 METABOLIC PANEL 3:25 AM CDT HC CBC W/ AUTOMATED DIFF STAT 05/14/2021 3:25 AM CDT TYPE & CROSSMATCH Routine 2021 8:28 PM CDT HC PHOSPHOROUS, SERUM 2021 8:28 PM CDT HC MAGNESIUM 2021 8:28 PM CDT HC LACTIC ACID(LACTATE) 2021 8:28 PM CDT HC COMPREHENSIVE STAT 2021 METABOLIC PANEL 8:28 PM CDT HC CBC W/ AUTOMATED DIFF STAT 2021 8:28 PM CDT CULTURE-WOUND/TISSUE/FLUI Routine 2021 SCC (squamous cell D(AEROBIC 5:11 PM CDT carcinoma), face ONLY)W/SENSITIVITY GRAM STAIN Routine 2021 SCC (squamous c ell 5:11 PM CDT carcinoma), face CULTURE-FUNGAL,OTHER Routine 2021 SCC (squa mous cell 5:11 PM CDT carcinoma), face CULTURE-ANAEROBIC Routine 2021 SCC (squamou s cell 5:11 PM CDT carcinoma), face HC LVL IV SRG PTH, GROSS Routine 2021 SCC ( squamous cell & MICRO 5:00 PM CDT carcinoma), face CT CHEST W CONTRAST Routine 2021 SCC (squam ous cell 3:58 PM CDT carcinoma), face CT NECK W/CONTRAST Routine 2021 SCC (squamo us cell 3:58 PM CDT carcinoma), face CULTURE-TB (AFB) 2021 3:45 PM CDT CULTURE-WOUND/TISSUE/FLUI 2021 SCC (squamo us cell D(AEROBIC 3:45 PM CDT carcinoma), face ONLY)W/SENSITIVITY GRAM STAIN 2021 SCC (squamous cell 3:45 PM CDT carcinoma), face CULTURE-FUNGAL,OTHER 2021 SCC (squamous ce ll 3:45 PM CDT carcinoma), face CULTURE-ANAEROBIC 2021 SCC (squamous cell 3:45 PM CDT carcinoma), face ECG-SCAN 2021 12:00 AM CDT TELEMETRY STRIPS-SCAN 2021 12:00 AM CDT from Last 3 Months Results * CBC AND DIFF (06/12/2021 12:00 PM CDT) Only the most recent of 10 results within the time period is included. White Blood 4.8 OTHER OUTSIDE Cells LAB RBC OTHER OUTSIDE LAB Hemoglobin 10.6 OTHER OUTSIDE LAB Hematocrit OTHER OUTSIDE LAB MCV OTHER OUTSIDE LAB MCH OTHER OUTSIDE LAB MCHC OTHER OUTSIDE LAB Platelet Count 210 OTHER OUTSIDE LAB MPV OTHER OUTSIDE LAB [...] P josefina Number OTHER OUTSIDE LAB * VANCOMYCIN TROUGH (06/12/2021 12:00 PM CDT) Only the most recent of 4 results within the time period is included. Vancomycin 26.2 OTHER OUTSIDE Trough LAB Specimen Blood, venous - Blood Performing Organization Address City/State/ZIP Code P josefina Number OTHER OUTSIDE LAB * COMPREHENSIVE METABOLIC PANEL (06/12/2021 12:00 PM CDT) Only the most recent of 9 results within the time period is included. Sodium OTHER OUTSIDE LAB Potassium 4.0 OTHER OUTSIDE LAB Chloride OTHER OUTSIDE LAB CO2 OTHER OUTSIDE LAB Blood Urea 11 OTHER OUTSIDE Nitrogen LAB Creatinine 1.25 OTHER OUTSIDE LAB Glucose OTHER OUTSIDE LAB Calcium OTHER OUTSIDE LAB Total Protein OTHER OUTSIDE LAB Total Bilirubin OTHER OUTSIDE LAB Albumin OTHER OUTSIDE LAB Alk Phosphatase 76 OTHER OUTSIDE LAB AST (SGOT) 21 OTHER OUTSIDE LAB ALT (SGPT) 31 OTHER OUTSIDE LAB eGFR Non OTHER OUTSIDE LAB Norwegian eGFR OTHER OUTSIDE Norwegian LAB Anion Gap OTHER OUTSIDE LAB Specimen Blood - Blood Performing Organization Address City/State/ZIP Code P josefina Number OTHER OUTSIDE LAB * VANCOMYCIN 2HR POST DOSE (05/15/2021 3:44 PM CDT) Pathologist [facility] Vancomycin 2HR 22.2 ug/mL [facility] POST Dose Specimen Blood Performing Organization Address City/State/ZIP Code P josefina Number [facility] [address] [place] [address] * GRAM STAIN (05/15/2021 2:19 PM CDT) Only the most recent of 5 results within the time period is included. Battery Name GRAM STAIN [facility] Report Status FINAL 05/15/2021 [facility] Specimen BONE SPECIMEN MANDIBLE RIGHT [facility] Description POSTERIOR Special NONE [facility] Requests Gram Stain NO NEUTROPHILS SEEN [facility] Gram Stain NO ORGANISMS SEEN [facility] Specimen Tissue - Mandible Performing Organization Address City/[facility]/ZIP Code P josefina Number [facility] [address] [place] [address] * CULTURE-WOUND/TISSUE/FLUID(AEROBIC ONLY)W/SENSITIVITY (05/15/2021 2:19 PM CDT) Only the most recent of 5 results within the time period is included. Battery Name ROUTINE CULTURE [facility] Report Status FINAL 05/20/2021 [facility] Specimen BONE SPECIMEN MANDIBLE RIGHT [facility] Description POSTERIOR Special NONE [facility] Requests Direct Gram NO NEUTROPHILS SEEN [facility] Stain Direct Gram NO ORGANISMS SEEN [facility] Stain Culture NO GROWTH 5 DAYS [facility] Specimen Tissue - Mandible Performing Organization Address [facility] Code P josefina Number [facility] [address] [place] [address] * CULTURE-ANAEROBIC (05/15/2021 2:19 PM CDT) Only the most recent of 5 results within the time period is included. Battery Name ANAEROBE CULTURE [facility] Report Status FINAL 05/20/2021 [facility] Specimen BONE SPECIMEN MANDIBLE RIGHT [facility] Description POSTERIOR Special NONE [facility] Requests Culture NO ANAEROBES ISOLATED [facility] Specimen Tissue - Mandible Performing Organization Address [facility] Code P josefina Number [facility] [address] [place] [address] * SURGICAL PATHOLOGY (05/15/2021 2:12 PM CDT) PATHOLOGY [facility] [email or web address] Department of Pathology and Laboratory Medicine [address] [place] [id number] Surgical Pathology Office: [phone] SURGICAL PATHOLOGY REPORT NAME: FAISAL CLAIREJose SURG PATH #: [id number] MR #: [id number] SPECIMEN CLASS: SR BILLING #: [id number] ALT ID #: LOCATION: DISCHARGED DATE OF PROCEDURE: 05/15/2021 AGE: 51 SEX: M DATE RECEIVED: 05/15/2021 : 1970 TIME RECEIVED: 15:30 PHYSICIAN: ERIC BENSON MD DATE OF REPORT: 05/22/2021 COPY TO: DATE OF PRINTIN05/22/2021 ############################## ############################## ############ Final Diagnosis: A. Soft tissue, right facial [...] fast and fungal organisms. Pursuant to the [facility] Program at the [facility] Pathology Department, selected slides from this case [...] report. +++ +++ Rik Fountain DO, Resident ksw/05/18/2021 ############################## ############################## ############ Material Received: A: right facial scar tissue B: right anterior mandibular bone C: right posterior mandibular bone History: 51-year-old male with a clinical history of cellulitis, face Gross Description: A. Received fresh, labeled with the patient's name and "right facial scar tissue" is a 1.6 x 1.4 x 1.1 cm pink-barahona, firm tissue fragment. The resection margin is inked black, and the specimen is serially sectioned to reveal a pink-white to yellow rubbery center. The entire specimen is submitted in cassette A1. (valerie) B. Received fresh, labeled with the patient's name and "right anterior mandibular bone" is a 0.9 x 0.5 x 0.3 cm pink-barahona soft tissue and bone fragment. The specimen is inked black, bisected and placed in decal prior to being submitted entirely in cassette B1. (valerie) C. Received fresh, labeled with the patient's name and "right posterior mandible bone" is a 0.8 x 0.6 x 0.4 cm firm bone fragment. The specimen is placed in decal prior to being submitted entirely in cassette C1. (valerie) rg/05/15/2021 Specimen Tissue - Face Tissue - Mandible Tissue - Mandible Performing Organization Address City/State/ZIP Code P josefina Number MAIN [facility] [address] [place] [address] * MRI ORBIT FACE AND/OR NECK WO/W CONT (05/14/2021 11:02 PM CDT) Specimen Impressions Performed At 1. Significantly degraded examination by motion. K U RAD RESULTS 2. Grossly unchanged findings of kirby a and abnormal enhancement at the anterior mandibulectomy margin involvin g the ramona parasymphysis and anterior graft, suspicious for osteomyelitis. Me tastatic disease could appear similar. There is overlying cellulitis in the re constructed right sublingual and submandibular spaces. 3. No significant change in size of t he enhancing mass in the right parotid gland, which may represent an abscess. Metastatic disease could appear similar. 4. Incompletely evaluated C5-C6 disc space level without discrete T1 hypointense marrow infiltration or obvi ous abnormal enhancement. No abnormal intradiscal fluid. Findings on prior CT and this motion degraded MRI likely represent degenerative change. Attentio n on follow-up CT neck is recommended for change. Consider MRI of the cervical sp ine (rather than neck) with contrast under anesthesia as a more sensitive ex amination for discitis as clinically indicated. 5. Grossly stable retropharyngeal spa ce effusion. Findings were discussed with Dr. Kelley Booth by telephone at 7:36 AM 05/15/2021. Finalized by Herman Booth M.D. on 05/15 7:38 AM. Dictated by Herman Booth M.D. on 05/15/2021 6:55 AM. Narrative Performed At EXAM: MRI BRAIN [facility] RAD RESULTS HISTORY: retropharyngeal effusion, TECHNIQUE: Multiplanar and multisequenc e MR imaging of the whole brain was performed. Additional dedicated MR sequ ences were obtained of the skull base before and after the administration of MultiHance contrast. COMPARISON: CT neck 2021 FINDINGS: Examination is significantly degraded b y motion. With respect to the retropharyngeal space effusion, there i s no significant change in size or extent of fluid in the visualized portions of the neck extending through C5-C6 disc space level on axial imaging and throug h mid C7 level on coronal imaging. Allowing for artifact in imaging techni que, there is no confluent T1 marrow replacing signal in the incompletely ev aluated C6 and C7 vertebral bodies. No marrow enhancement or edema is seen. [place] STIR imaging is significantly degraded with artifactual areas of T2 h yperintensity through the center of the lower [id number]-vz-nlfj. Right mandibular segmental resection an d hardware reconstruction and right oral cavity mass resection and soft tissue f lap reconstruction are redemonstrated with hardware exposure anteriorly appea ring grossly similar. There are findings of abnormal T2 hyperintensity and likel y enhancement at the anterior osteotomy graft and ramona parasymphysis margins with overlying soft tissue edema (series 13 image 14, for example. There is conf luent T1 hypointense marrow signal change and edema with indeterminate enhancemen t in the right parasymphyseal mandible and anterior graft (series 14 images 16 and 21, for example). There is a persistent enhancing fluid c ollection within the right parotid gland which is nonsignificantly changed in si ze allowing for differences in imaging technique measuring at least 2.7 x 1.6 cm (series 13 image 23). There is extensive edema throughout the superfic ial and deep right neck. There is edema at the right base of tongue extending i nto the vallecula and along the lingual surface of the epiglottis. There is see ma within the right oropharyngeal mucosa at the right lateral mucosal margin. Intracranially, there is no abnormal di ffusion restriction, susceptibility, herniation, or hydrocephalus. There is persistent right periorbital edema. Procedure Note Interface, Radiant Results - 05/15/2021 7:41 AM CDT EXAM: MRI BRAIN HISTORY: retropharyngeal effusion, TECHNIQUE: Multiplanar and multisequence MR imaging of the whole brain was performed. Additional dedicated MR sequences were obtained of the skull base before and after the administration of MultiHance contrast. COMPARISON: CT neck 2021 FINDINGS: Examination is significantly degraded by motion. With respect to the retropharyngeal space effusion, there is no significant change in size or extent of fluid in the visualized portions of the neck extending through C5-C6 disc space level on axial imaging and through mid C7 level on coronal imaging. Allowing for artifact in imaging technique, there is no confluent T1 marrow replacing signal in the incompletely evaluated C6 and C7 vertebral bodies. No marrow enhancement or edema is seen. Coronal STIR imaging is significantly degraded with artifactual areas of T2 hyperintensity through the center of the lower [id number]. Right mandibular segmental resection and hardware reconstruction and right oral cavity mass resection and soft tissue flap reconstruction are redemonstrated with hardware exposure anteriorly appearing grossly similar. There are findings of abnormal T2 hyperintensity and likely enhancement at the anterior osteotomy graft and ramona parasymphysis margins with overlying soft tissue edema (series 13 image 14, for example. There is confluent T1 hypointense marrow signal change and edema with indeterminate enhancement in the right parasymphyseal mandible and anterior graft (series 14 images 16 and 21, for example). There is a persistent enhancing fluid collection within the right parotid gland which is nonsignificantly changed in size allowing for differences in imaging technique measuring at least 2.7 x 1.6 cm (series 13 image 23). There is extensive edema throughout the superficial and deep right neck. There is edema at the right base of tongue extending into the vallecula and along the lingual surface of the epiglottis. There is edema within the right oropharyngeal mucosa at the right lateral mucosal margin. Intracranially, there is no abnormal diffusion restriction, susceptibility, herniation, or hydrocephalus. There is persistent right periorbital edema. IMPRESSION 1. Significantly degraded examination b y motion. 2. Grossly unchanged findings of edema and abnormal enhancement at the anterior mandibulectomy margin involving the ramona parasymphysis and anterior graft, suspicious for osteomyelitis. Metastatic disease could appear similar. There is overlying cellulitis in the reconstructed right sublingual and submandibular spaces. 3. No significant change in size of the enhancing mass in the right parotid gland, which may represent an abscess. Metastatic disease could appear similar. 4. Incompletely evaluated C5-C6 disc sp george level without discrete T1 hypointense marrow infiltration or obvious abnormal enhancement. No abnormal intradiscal fluid. Findings on prior CT and this motion degraded MRI likely represent degenerative change. Attention on follow-up CT neck is recommended for change. Consider MRI of the cervical spine (rather than neck) with contrast under anesthesia as a more sensitive examination for discitis as clinically indicated. 5. Grossly stable retropharyngeal space effusion. Findings were discussed with Dr. Benson by Dr. Booth by telephone at 7:36 AM 05/15/2021. Finalized by Herman Booth M.D. on 05/15/2021 7:38 AM. Dictated by Herman Booth M.D. on 05/15/2021 6:55 AM. Performing Organization Address City/State/ZIP Code [place] Number [facility] * IR ASPIRATION ONLY DIAGNOSTIC (05/14/2021 4:27 PM CDT) Specimen Impressions Performed At Attempted ultrasound-guided aspiration of right facia l abscess. Procedure was [facility] aborted due to no appreciable drainable fluid and intolerable patient pain. I, Naren Delgadillo M.D, the attending radi ologist, was present for the critical and smith portions of the procedure with a mt dlevel, resident, and/or fellow participating. Overlapping portions w ere non smith and I was immediately available. I interpret the critical a nd smith portion of this procedure to have been attempted aspiration. @TT Approved by Tanvir Barros MD on 2020 4:11 PM By my electronic signature, I attest th at I have personally reviewed the images for this examination and formulated the interpretations and opinions expressed in this report Finalized by Naren Delgadillo M.D. on 11:03 AM. Dictated by Tanvir Barros MD on 05/14/2021 4:04 PM. Narrative Performed At Ultrasound-guided aspiration: [facility] Clinical Indication: Right facial absce ss Technique and Findings: The nature of the procedure, risks, nitin efits, and expected outcomes were discussed with the patient who then pro vided informed written and verbal consent. The patient was placed in a supine posi tion on the interventional table. Initial scans through the right face demonstrated solid-appearing phlegmatic material in the anterior right parotid space which corresponded to previous CT finding. The patient was prepped and dr aped in the usual sterile manner and the superficial tissues were anesthetized w ith local anesthetic. An 18 gauge Seldinger needle was advanced into the fluid collection under ultrasound guidance. Needle aspiration was attempt ed but no aspirate was able to to be obtained. Saline was attempted to be in jected but patient was unable to tolerated due to pain. Procedure was te rminated due to patient's discomfort and no appreciable drainable fluid. Hemosta sis was obtained and puncture wound was covered by sterile dressing. Patient le ft the department in stable condition. Procedure Note Interface, Radiant Results - 05/15/2021 11:06 AM CDT Ultrasound-guided aspiration: Clinical Indication: Right facial abscess Technique and Findings: The nature of the procedure, risks, benefits, and expected outcomes were discussed with the patient who then provided informed written and verbal consent. The patient was placed in a supine position on the interventional table. Initial scans through the right face demonstrated solid-appearing phlegmatic material in the anterior right parotid space which corresponded to previous CT finding. The patient was prepped and draped in the usual sterile manner and the superficial tissues were anesthetized with local anesthetic. An 18 gauge Seldinger needle was advanced into the fluid collection under ultrasound guidance. Needle aspiration was attempted but no aspirate was able to to be obtained. Saline was attempted to be injected but patient was unable to tolerated due to pain. Procedure was terminated due to patient's discomfort and no appreciable drainable fluid. Hemostasis was obtained and puncture wound was covered by sterile dressing. Patient left the department in stable condition. IMPRESSION Attempted ultrasound-guided aspiration of right facial abscess. Procedure was aborted due to no appreciable drainable fluid and intolerable patient pain. I, Naren Delgadillo M.D, the attending radiologist, was present for the critical and smith portions of the procedure with a midlevel, resident, and/or fellow participating. Overlapping portions were non smith and I was immediately available. I interpret the critical and smith portion of this procedure to have been attempted aspiration. @TT Approved by Tanvir Barros MD on 05/14/2021 4:11 PM By my electronic signature, I attest that I have personally reviewed the images for this examination and formulated the interpretations and opinions expressed in this report Finalized by Naren Delgadillo M.D. on 05/15/2021 11:03 AM. Dictated by Tanvir Barros MD on 05/14/2021 4:04 PM. Performing Organization Address City/State/ZIP Code [place] Number [facility] * US RENAL BLADDER COMPLETE (05/14/2021 9:08 AM CDT) Specimen Impressions Performed At Normal size kidneys with no evidence of obstruction [facility] Complex primarily exophytic upper pole left renal cyst with morphology that is indeterminate between a hemorrhagic cys t and a cystic neoplasm. If clinically indicated, a contrast-enh anced MRI scan of the abdomen with renal mass protocol is recommended for furthe r evaluation. Finalized by Parvez Murrieta M.D. on 05/14/2021 9:22 AM. Dictated by Parvez Murrieta M.D. on 05/14/2021 9:09 AM. Narrative Performed At Renal sonogram [facility] CLINICAL INDICATION: Evaluate left renal cyst seen on CT. TECHNIQUE: Ultrasound images were performed over t he kidneys and bladder. FINDINGS: Comparison is made with a CT scan of [facility] chest of 2021. Kidneys are normal in size with no evid ence of hydronephrosis or shadowing calculi. The right kidney measures 12.3 x 5.0 cm. The left kidney measures 11.7 x 5.2 cm. There is a complex cyst in the medial s uperior aspect of the left kidney, primarily exophytic measuring 4.1 x 2.0 x 3.0 cm. There is mildly lobulated wall thickening, particularly in the superio r aspect of the cyst or the wall is up to 0.8 cm in thickness (series 1C: 47). Fo cristal partial curvilinear calcification is noted in the superior midportion of the cyst medially. No internal blood flow is detected within the cyst or cyst wall. Urinary bladder appears normal. Procedure Note Interface, Radiant Results - 05/14/2021 9:25 AM CDT Renal sonogram CLINICAL INDICATION: Evaluate left renal cyst seen on CT. TECHNIQUE: Ultrasound images were performed over the kidneys and bladder. FINDINGS: Comparison is made with a CT scan of the chest of 2021. Kidneys are normal in size with no evidence of hydronephrosis or shadowing calculi. The right kidney measures 12.3 x 5.0 cm. The left kidney measures 11.7 x 5.2 cm. There is a complex cyst in the medial superior aspect of the left kidney, primarily exophytic measuring 4.1 x 2.0 x 3.0 cm. There is mildly lobulated wall thickening, particularly in the superior aspect of the cyst or the wall is up to 0.8 cm in thickness (series 1C: 47). Focal partial curvilinear calcification is noted in the superior midportion of the cyst medially. No internal blood flow is detected within the cyst or cyst wall. Urinary bladder appears normal. IMPRESSION Normal size kidneys with no evidence of obstruction Complex primarily exophytic upper pole left renal cyst with morphology that is indeterminate between a hemorrhagic cyst and a cystic neoplasm. If clinically indicated, a contrast-enhanced MRI scan of the abdomen with renal mass protocol is recommended for further evaluation. Finalized by Parvez Murrieta M.D. on 05/14/2021 9:22 AM. Dictated by Parvez Murrieta M.D. on 05/14/2021 9:09 AM. Performing Organization Address City/[facility] P [place] Number [facility] * TYPE & CROSSMATCH (2021 8:28 PM CDT) Units Ordered 0 [facility] Crossmatch 05/16/2021,2359 [facility] Expires Record Check FOUND [facility] ABO/RH(D) A POS [facility] Antibody Screen NEG [facility] Electronic YES [facility] Crossmatch Specimen Cervix Performing Organization Address [facility] P [place] Number [facility] [address] [place] [address] * PHOSPHORUS (2021 8:28 PM CDT) Phosphorus 3.4 2.0 - 4.5 MG/DL [facility] Specimen Performing Organization Address [facility] P [place] Number [facility] [address] [place] [address] * MAGNESIUM (2021 8:28 PM CDT) Magnesium 1.8 1.6 - 2.6 mg/dL [facility] Specimen Performing Organization Address [facility]/ZIP Code P [place] Number [facility] [address] [place] [address] * LACTIC ACID(LACTATE) (2021 8:28 PM CDT) Lactic Acid 1.7 0.5 - 2.0 MMOL/L [facility] Specimen Performing Organization Address City/State/ZIP Code [place] Number [facility] [address] [place] [address] * PATHOLOGY SURGICAL < 5 SPECIMENS (2021 5:00 PM CDT) PATHOLOGY [email or web address] Department of Pathology and Laboratory Medicine [address] [place] [address] Surgical Pathology Office: [phone] SURGICAL PATHOLOGY REPORT NAME: FAISAL CLAIRE SURG PATH #: [id number] MR #: [id number] SPECIMEN CLASS: SR BILLING #: [id number] ALT ID #: LOCATION: [facility] DATE OF PROCEDURE: 2021 AGE: 51 SEX: M DATE RECEIVED: 05/14/2021 : 1970 TIME RECEIVED: 09:15 PHYSICIAN: ERIC BENSON MD DATE OF REPORT: 05/15/2021 COPY TO: DATE OF PRINTIN05/15/2021 ############################## ############################## ############ Final Diagnosis: A. Right cheek: -- Mixed inflammation with giant cell reaction Comment: The findings are not specific but could be compatible with ruptured cyst if supported clinically. There is no evidence of carcinoma. B. Right face: -- Keratin debris Attestation: By this signature, I attest that I have personally formulated the final interpretation expressed in this report and that the above diagnosis is based upon my examination of the slides and/or other material indicated in this report. +++ +++ mr/05/14/2021 ############################## ############################## ############ Material Received: A: right cheek B: right face History: A-B. SCC Gross Description: A. Received in NBF, labeled "right cheek" is a 0.6 x 0.4 x 0.2 cm shave, bisected, all in A1. (krr) B. Received in formalin, labeled with the patient's name and "right face" is a 1.4 x 0.7 x 0.3 cm aggregate of barahona-brown soft tissue fragments, submitted whole, all in B1. (cg) /05/14/2021 Specimen Other (Specify) Performing Organization Address City/State/ZIP Code [place] Number MAIN LAB [address] [place] [address] * CT CHEST W CONTRAST (2021 3:58 PM CDT) Specimen Impressions Performed At 1. Several tiny pulmonary nodules rem ain unchanged and likely represent scars [facility] or granulomas. No new or enlarging pulm onary nodules are appreciated. An additional follow-up chest CT in 6-[facility] is suggested to assess for long-term stability. 2. No thoracic lymphadenopathy. 3. Persistent complicated left renal cyst. Ultrasound evaluation is again suggested if not previously performed. Finalized by John Martni M.D. on 05/13/20 5:27 PM. Dictated by John Martin M.D. on 2021 5:15 PM. 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 Surveillance. Technique: Multiple contiguous axial CT images were obtained through the chest with IV contrast. Post processing cor onal and sagittal reconstruction images were made from the axial images. Comparison: September 08, [address] Findings: Axilla, Mediastinum and Vera: There is no axillary, mediastinal or hilar lymphadenopathy. Heart and Great Vessels: The heart size is normal. There is no pericardial effusion. Lungs and Pleura: Small nodule in the l eft lower lobe is unchanged measuring 0.8 cm on series 6, image 122. A few tiny p ulmonary nodules also remain unchanged as seen in the right lung on series 6, harvinder ge 65 and 117, as well as in the left lung on image 46 and 141, for example. No new or enlarging pulmonary nodules are identified. No pleural effusions. Chest Wall and Osseous Structures: No d estructive osseous lesions. Visualized Upper Abdomen: Percutaneous gastrostomy tube is in place. Probable left renal cyst is again noted with thi n curvilinear calcification. Several probable tiny flash enhancing hepatic h emangiomas again seen. 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 Surveillance. Technique: Multiple contiguous axial CT images were obtained through the chest with IV contrast. Post processing coronal and sagittal reconstruction images were made from the axial images. Comparison: September 08, [address] Findings: Axilla, Mediastinum and Vera: There is no axillary, mediastinal or hilar lymphadenopathy. Heart and Great Vessels: The heart size is normal. There is no pericardial effusion. Lungs and Pleura: Small nodule in the left lower lobe is unchanged measuring 0.8 cm on series 6, image 122. A few tiny pulmonary nodules also remain unchanged as seen in the right lung on series 6, image 65 and 117, as well as in the left lung on image 46 and 141, for example. No new or enlarging pulmonary nodules are identified. No pleural effusions. Chest Wall and Osseous Structures: No destructive osseous lesions. Visualized Upper Abdomen: Percutaneous gastrostomy tube is in place. Probable left renal cyst is again noted with thin curvilinear calcification. Several probable tiny flash enhancing hepatic hemangiomas again seen. IMPRESSION 1. Several tiny pulmonary nodules remai n unchanged and likely represent scars or granulomas. No new or enlarging pulmonary nodules are appreciated. An additional follow-up chest CT in 6-12 months is suggested to assess for long- term stability. 2. No thoracic lymphadenopathy. 3. Persistent complicated left renal cy st. Ultrasound evaluation is again suggested if not previously performed. Finalized by John Martin M.D. on 2021 5:27 PM. Dictated by John Martin M.D. on 2021 5:15 PM. Performing Organization Address City/State/ZIP Code [place] Number [facility] * CT NECK W/CONTRAST (2021 3:58 PM CDT) Specimen Impressions Performed At 1. Hyperenhancement of the right parotid gland with superimposed [facility] intraparenchymal lobular fluid collecti on, favored to represent abscess. Metastatic disease could appear similar . Recommend aspiration and biopsy for further evaluation. 2. Composite right oral cavity mass r esection and reconstruction with multifocal periprosthetic lucency, hard galvan migration and exposure, and superimposed erosions in the ramona rig ht parasymphysis and anterior osteotomy graft. This is also suspicious for infe ction/osteomyelitis/cellulitis. Metastatic disease could appear similar . 3. Development of a small retropharyn geal space effusion without discrete rim enhancement. This could be reactive rel ated to extensive inflammatory changes in the floor of mouth and right neck. Give n the presence of new intradiscal gas C6-C7 (without vertebral body cortical loss), MRI of the cervical spine with contrast is recommended as a more sensi tive evaluation for any possible discitis as an etiology for the retropharyngeal space effusion. 4. Development of moderate right janae orbital edema without organized orbital fluid collection or suspicious enhancem ent, likely reactive edema. Preliminary findings were discussed wit h Dr. Benson by Dr. Booth by telephone at 4:24 PM 2021. Additional findings w ere discussed with Dr. Heck by Dr. Booth by telephone at 7:31 AM 05/14/2021. Finalized by Herman Booth M.D. on 05/14 7:33 AM. Dictated by Herman Booth M.D. on 2021 4:21 PM. Narrative Performed At CT Neck with Contrast [facility] Clinical Indication: Male, 51 years old . Squamous cell carcinoma, face; exam requested by plastic surgery; surveilla nye imaging Technique: Multiple contiguous axial im ages were obtained through the neck following the administration of IV cont rast material. Post processing coronal and sagittal reconstruction images were made from the axial images. Comparison: CT neck September 08, 2020 Findings: INTRACRANIAL STRUCTURES AND ORBITS: Vis ualized intracranial structures are unremarkable. There is extending right periorbital low-attenuation soft tissue thickening extending to the medial cant hus and lacrimal sac region of the medial margin and laterally superficial to the lateral orbital rim. The right globe is normal. There is no post septal soft ti ssue infiltration. No discrete abnormal enhancement or fluid organization. SINUSES AND MASTOIDS: Sinuses and masto ids are well aerated. There is cerumen in the external auditory canals.. PHARYNGEAL MUCOSA: There is a small ret ropharyngeal space effusion without significant appreciable rim enhancement . There is mild circumferential edema in the oral pharyngeal and right hypophary ngeal mucosa without discrete enhancing mass. ORAL CAVITY: Prior composite right oral cavity mass resection with segmental mandibulectomy and osseous and hardware reconstruction. Soft tissue flap closure. There is multifocal lucency at essentially all mandibular fixation screws with superficial displacement of hardware, most notably at the ramona parasymphysis and body osseous graft. T here is superimposed erosion in the right parasymphysis mandible and anterior ost eotomy graft margin. There is no significant healing at the posterior gr aft margin. There is soft tissue flap volume loss in the right submandibular space with exposure of the anterior hardware at the cutaneous surface. Ther e is edema in the right sublingual space and ventral floor of mouth without disc rete measurable mass or fluid collection. LARYNX AND TRACHEA: There is mild edema in the right aryepiglottic fold and supraglottic larynx. The supraglottic, glottic, and subglottic larynx are otherwise unremarkable. The laryngeal c artilages are intact. LYMPH NODES AND SOFT TISSUES: There is edema throughout the superficial and deep right and central neck. There is soft t issue thickening immediately in the midline and ventral to the hyoid bone w ith a superficial metallic body immediately to the right of midline (se skyler 3 and 4, image 54), likely surgical clips from flap reconstruction. No disc rete enlarged lymph node is identified. SALIVARY GLANDS: There is hyperenhancem ent of the right parotid gland with a superimposed lobular fluid collection i n the anterior superficial gland, dominant component measuring 2.8 x 2.1 cm (series 3 image 33). Edema extends anteriorly along the parotid duct into the right facial soft tissues. Prior resection of the right submandibular gl and. There is edema throughout the right submandibular space without additional organized collection. There is hyperenhancement of the left submandibu lar and parotid glands which is likely predominantly post treatment related. THYROID: Normal. VESSELS AND CAROTID SPACE: There is com pression of the right internal jugular vein right upper neck from edema in the posterior belly of the digastric muscle and parotid space. The cervical vascula ture is patent. BONES: There is multilevel cervical spo ndylosis with increased conspicuity of intraosseous likely degenerative gaseou s foci at C2, C4 predominantly. There is new gas within the interdiscal space at C6-C7. No gross cortical disruption is identified. Osseous structures are othe rwise unremarkable. UPPER THORAX: Please see same-day chest CT for more complete characterization. Procedure Note Interface, Radiant Results - 05/14/2021 7:[address] Neck with Contrast Clinical Indication: Male, 51 years old. Squamous cell carcinoma, face; exam requested by plastic surgery; surveillance imaging Technique: Multiple contiguous axial images were obtained through the neck following the administration of IV contrast material. Post processing coronal and sagittal reconstruction images were made from the axial images. Comparison: CT neck September 08, 2020 Findings: INTRACRANIAL STRUCTURES AND ORBITS: Visualized intracranial structures are unremarkable. There is extending right periorbital low-attenuation soft tissue thickening extending to the medial canthus and lacrimal sac region of the medial margin and laterally superficial to the lateral orbital rim. The right globe is normal. There is no post septal soft tissue infiltration. No discrete abnormal enhancement or fluid organization. SINUSES AND MASTOIDS: Sinuses and mastoids are well aerated. There is cerumen in the external auditory canals.. PHARYNGEAL MUCOSA: There is a small retropharyngeal space effusion without significant appreciable rim enhancement. There is mild circumferential edema in the oral pharyngeal and right hypopharyngeal mucosa without discrete enhancing mass. ORAL CAVITY: Prior composite right oral cavity mass resection with segmental mandibulectomy and osseous and hardware reconstruction. Soft tissue flap closure. There is multifocal lucency at essentially all mandibular fixation screws with superficial displacement of hardware, most notably at the ramona parasymphysis and body osseous graft. There is superimposed erosion in the right parasymphysis mandible and anterior osteotomy graft margin. There is no significant healing at the posterior graft margin. There is soft tissue flap volume loss in the right submandibular space with exposure of the anterior hardware at the cutaneous surface. There is edema in the right sublingual space and ventral floor of mouth without discrete measurable mass or fluid collection. LARYNX AND TRACHEA: There is mild edema in the right aryepiglottic fold and supraglottic larynx. The supraglottic, glottic, and subglottic larynx are otherwise unremarkable. The laryngeal cartilages are intact. LYMPH NODES AND SOFT TISSUES: There is edema throughout the superficial and deep right and central neck. There is soft tissue thickening immediately in the midline and ventral to the hyoid bone with a superficial metallic body immediately to the right of midline (series 3 and 4, image 54), likely surgical clips from flap reconstruction. No discrete enlarged lymph node is identified. SALIVARY GLANDS: There is hyperenhancement of the right parotid gland with a superimposed lobular fluid collection in the anterior superficial gland, dominant component measuring 2.8 x 2.1 cm (series 3 image 33). Edema extends anteriorly along the parotid duct into the right facial soft tissues. Prior resection of the right submandibular gland. There is edema throughout the right submandibular space without additional organized collection. There is hyperenhancement of the left submandibular and parotid glands which is likely predominantly post treatment related. THYROID: Normal. VESSELS AND CAROTID SPACE: There is compression of the right internal jugular vein right upper neck from edema in the posterior belly of the digastric muscle and parotid space. The cervical vasculature is patent. BONES: There is multilevel cervical spondylosis with increased conspicuity of intraosseous likely degenerative gaseous foci at C2, C4 predominantly. There is new gas within the interdiscal space at C6-C7. No gross cortical disruption is identified. Osseous structures are otherwise unremarkable. UPPER THORAX: Please see same-day chest CT for more complete characterization. IMPRESSION 1. Hyperenhancement of the right paroti d gland with superimposed intraparenchymal lobular fluid collection, favored to represent abscess. Metastatic disease could appear similar. Recommend aspiration and biopsy for further evaluation. 2. Composite right oral cavity mass res ection and reconstruction with multifocal periprosthetic lucency, hardware migration and exposure, and superimposed erosions in the ramona right parasymphysis and anterior osteotomy graft. This is also suspicious for infection/osteomyelitis/cellulitis. Metastatic disease could appear similar. 3. Development of a small retropharynge al space effusion without discrete rim enhancement. This could be reactive related to extensive inflammatory changes in the floor of mouth and right neck. Given the presence of new intradiscal gas C6- C7 (without vertebral body cortical loss), MRI of the cervical spine with contrast is recommended as a more sensitive evaluation for any possible discitis as an etiology for the retropharyngeal space effusion. 4. Development of moderate right perior bital edema without organized orbital fluid collection or suspicious enhancement, likely reactive edema. Preliminary findings were discussed with Dr. Benson by Dr. Booth by telephone at 4:24 PM 2021. Additional findings were discussed with Dr. Heck by Dr. Booth by telephone at 7:31 AM 05/14/2021. Finalized by Herman Booth M.D. on 05/14/2021 7:33 AM. Dictated by Herman Booth M.D. on 2021 4:21 PM. Performing Organization Address City/State/ZIP Code P j[place] Number [id number] RAD RESULTS * TELEMETRY STRIPS-SCAN (2021 12:00 AM CDT) Narrative Performed At This result has an attachment that is n ot available. Ordered by an unspecified provider. * ECG-SCAN (2021 12:00 AM CDT) Narrative Performed At This result has an attachment that is n ot available. Ordered by an unspecified provider. from Last 3 Months Insurance Type Payer Benefit Subscriber ID Effective Phone Address Plan / Dates Group AETNA MEDICAID AETNA [id number] 2018-P [facility] Advance Directives Patient Certified Nurses Aide Explanation Type Date Recorded Advance 2021 7:26 PM Directive/DPOA Date Inactivated Comments Code Status Date Activated 05/19/2021 3:10 PM Full Code 05/15/2021 6:08 PM Provider has discussed Code Status No, more discussi on w/Patient or Family? needed 11/06/2020 1:59 PM Full Code 10/21/2020 4:52 PM Provider has discussed Code Status No, discussion no t w/Patient or Family? necessary based on Dx
--- OUTSIDE RECORDS SUMMARY | 2021-06-14 17:38 | XMS REPORT | Encounter Summary ---
Author Author [facility] Organization [facility] Address Unknown Phone Unavailable Care Team Providers Care Supervisor Solder Making Name Role Phone Toro Geovanny Tobin GONSALVES PCP Encounter Details Care Team Description Date Type Department Roger Bates MD [address] Orth[facility] Lvl [address] [place] [id number] [phone] 06/12/2021 Outpt. Infectious Diseases : Main [facility] [place] Therapy 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 documented as of this encounter Functional Status Date of Assessment Functional Status Response 05/14/2021 Does the patient have a hearing impairment: Yes documented as of this encounter Progress Notes * Kyara Jeffers RN - 06/12/2021 1:46 PM CDT Vancomycin level on 06/12/21 is 26.2, nurse Reporting patient came in hooked up t o his vancomycin infusion, so it's not an accurate trough. Patient's has be en notified of importance of timing of labs on multiple occassions. Creatinine stable, patient currently on Vancomycin 1.5 g IV Q 24 hours. Will discuss dosing with Dr. Bates. documented in this encounter Plan of Treatment [...] Associated Diag nosis CBC AND DIFF Routine 06/12/2021 Cellulitis, fac e 12:00 PM CDT Facial abscess MRSA infection Pseudomonas aeruginosa infection Receiving intravenous antibiotic treatment at home VANCOMYCIN TROUGH Routine 06/12/2021 Cellulitis, face 12:00 PM CDT Facial abscess MRSA infection Pseudomonas aeruginosa infection Receiving intravenous antibiotic treatment at home COMPREHENSIVE METABOLIC Routine 06/12/2021 Cellul itis, face PANEL 12:00 PM CDT Facial abscess MRSA infection Pseudomonas aeruginosa infection Receiving intravenous antibiotic treatment at home documented in this encounter Results * COMPREHENSIVE METABOLIC PANEL (06/12/2021 12:00 PM CDT) Sodium OTHER OUTSIDE LAB Potassium 4.0 OTHER [...] OUTSIDE LAB eGFR Non OTHER OUTSIDE LAB Czech eGFR OTHER OUTSIDE Czech LAB Anion Gap OTHER OUTSIDE LAB Specimen Blood - Blood Performing Organization Address City/State/ZIP Code P [place] Number OTHER OUTSIDE LAB * CBC AND DIFF (06/12/2021 12:00 PM CDT) White Blood 4.8 OTHER OUTSIDE Cells LAB [...] * VANCOMYCIN TROUGH (06/12/2021 12:00 PM CDT) Vancomycin 26.2 OTHER OUTSIDE Trough LAB Specimen [...] o f antibiotics documented in this encounter Additional Health Concerns Assessment Noted Time A fall risk assessment has been completed for the pat ient 05/19/2021 9:00 AM CDT documented as of this encounter
--- OUTSIDE RECORDS SUMMARY | 2021-06-14 17:38 | XMS REPORT | Encounter Summary ---
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 PCP Reason for Visit * Reason Onset Date Comments General Question 06/04/2021 Encounter Details Care Team Description Date Type Department Sergei Benson MD [address] [place] [id number] General Question 06/04/2021 Telephone Plastic Surgery: Ma in [place], [facility] [address] [place] [address] [address], [address] [place] [address] Social History Date Tobacco Use Types Packs/Day Years Used Never Smoker Smokeless Tobacco: Chew Current User Drinks/Week oz/Week Comments Alcohol Use 10-12 Cans of beer 10.0 - 12.0 Yes Sex Assigned at Date Recorded 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 Will inform Dr. Benson. Patient and previously mentioned trying to see if a hospital near them does lymphedema therapy. Asked i f they were able to find out and they state they are going to ask tomorrow. Will fax referral for lymphedema therapy at outside hospital once information is rec eived. documented in this encounter Plan of Treatment [...]
--- OUTSIDE RECORDS SUMMARY | 2021-06-14 17:38 | XMS REPORT | Encounter Summary ---
Author Author [facility] Organization [facility] Address Unknown Phone Unavailable Care Team Providers Care Geomorphology Teacher Name Role Phone Geovanny Engel APRN PCP Reason for Visit * Reason Onset Date Comments Pain 05/29/2021 Encounter Details Care Team Description Date Type Department Amos Bernabe MD [address] [place] [address] Pain 05/29/2021 Telephone Plastic Surgery: Ma in [place], [facility] [address] [place] [address] [address] 3, [address] [place] [address] Social History Date Tobacco Use Types Packs/Day Years Used Never Smoker Smokeless Tobacco: Chew Current User Drinks/Week oz/Week Comments Alcohol Use 10-12 Cans of beer 10.0 - 12.0 Yes Sex Assigned at Date Recorded 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 Patient was seen yesterday in clinic with Dr. Benson where it was made clear that further narcotic prescriptions would need to be iss ued by PCP or pain physician. Explained to that he was just given a refill of his oxycodone prior to his clinic visit and that this provider did not feel c omfortable writing another prescription in this short time period. Advised patie nt that they should continue the scheduled Tylenol at 650mg Q6 and to continue t he Advil as well until he can get into his PCP. Offered using adjunctive medicat ion such as Gabapentin, however patient has not tolerated neuropathic medication s in the past due to psychological side effects. Patient was advised she can cristal l the office in the morning with any further questions or concerns. She was agre eable to this plan and all of her questions and concerns were answered. Tramaine Bernabe M.D. PGY-3 [facility] Department of Plastic Surgery documented in this [...]
--- OUTSIDE RECORDS SUMMARY | 2021-06-14 17:38 | XMS REPORT | Encounter Summary ---
Author Author [facility] Organization [facility] Address Unknown Phone Unavailable Care Team Providers Care Manager Investigations Name Role Phone Geovanny Engel APRN PCP Encounter Details Care Team Description Date Type Department Radha Johnson RN Cellulitis, face; Facial abscess; MRSA infection; Pseudomonas aeruginosa infection; Receiving intravenous antibiotic treatment at home 06/01/2021 Orders Only Infectious Diseases : Main [place], [address], [address] [address] Social History Date Tobacco Use Types Packs/Day Years Used Never Smoker Smokeless Tobacco: Chew Current User Drinks/Week oz/Week Comments Alcohol Use 10-12 Cans of beer 10.0 - 12.0 Yes Sex Assigned at Date Recorded 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 Teaching done on vancomyci n trough and importance of timing. He is dosing at 9:30am & PM. Informed her they will have to be at the infusion center before 9:30am then to get an accurate level. She voiced understanding. Left a message for Jaymie SHRESTHA at [facility]. * Kyara Jeffers RN - 06/01/2021 8:21 AM CDT Left a generic message on patient's voicemail to call us back. Unable to reach his Elidia on number listed. * Kyara Jeffers RN - 06/01/2021 8:21 AM CDT Vancomycin level 20.9 on 05/29/21. Infusion clinic nurse does not know timing of patient's antibiotics at home. Unable to reach patient or his to confirm ti maninder, but since the labs were drawn at 1454, pharmacy suspects it is not a true trough. Confirmed with the infusion center patient is scheduled for labs again on 1. Per Dr. Bates, will continue current regimen without making dose adjustments un til a true trough is received, since kidney function is stable at this time, OR at least thru 06/05/21. Left a VM for Jaymie SHRESTHA at [facility] with this information, and asked if they speak to the patient/family, to reiterate the importance of the lab draw timing. Left a message for the patient's , unable to reach patient on number listed. Will continue to call. documented in this encounter Plan of Treatment [...] Associated Diag nosis CBC AND DIFF Routine 05/29/2021 Cellulitis, fac [...] home documented in this encounter Results * CBC AND DIFF (05/29/2021 2:54 PM CDT) White Blood 4.6 OTHER OUTSIDE Cells LAB RBC OTHER OUTSIDE LAB Hemoglobin 9.5 OTHER OUTSIDE LAB Hematocrit 29 OTHER OUTSIDE LAB MCV OTHER OUTSIDE LAB MCH OTHER OUTSIDE LAB MCHC OTHER OUTSIDE LAB Platelet Count 289 OTHER OUTSIDE LAB MPV OTHER OUTSIDE LAB [...] OTHER OUTSIDE LAB * COMPREHENSIVE METABOLIC PANEL (05/29/2021 2:54 PM CDT) Sodium OTHER OUTSIDE LAB Potassium 3.7 OTHER OUTSIDE LAB Chloride OTHER OUTSIDE LAB CO2 OTHER OUTSIDE LAB Blood Urea 7 OTHER OUTSIDE Nitrogen LAB Creatinine 0.86 OTHER OUTSIDE LAB Glucose OTHER OUTSIDE LAB Calcium OTHER OUTSIDE LAB Total Protein OTHER OUTSIDE LAB Total Bilirubin OTHER OUTSIDE LAB Albumin OTHER OUTSIDE LAB Alk Phosphatase 69 OTHER OUTSIDE LAB AST (SGOT) 18 OTHER OUTSIDE LAB ALT (SGPT) 14 OTHER OUTSIDE LAB eGFR Non OTHER OUTSIDE LAB Bruneian eGFR OTHER OUTSIDE Bruneian LAB Anion Gap OTHER OUTSIDE LAB Specimen Blood - Blood Performing Organization Address City/State/ZIP Code P j[place] Number OTHER OUTSIDE LAB * VANCOMYCIN TROUGH (05/29/2021 2:54 PM CDT) Vancomycin 20.9 OTHER OUTSIDE Trough LAB Specimen Blood, venous [...]
--- OUTSIDE RECORDS SUMMARY | 2021-06-14 17:38 | XMS REPORT | Encounter Summary ---
Author Author [facility] Organization [facility] Address Unknown Phone Unavailable Care Team Providers Care Hospitality Job Titles Name Role Phone Geovanny Engel APRN PCP Reason for Visit * Reason Onset Date Comments Outpatient Antibiotic 05/26/2021 Therapy ([facility]) Encounter Details Care Team Description Date Type Department Roger Bates MD [address] Ortho[facility]Med Pavilion [address] [place] [address] Outpatient Antibiotic Therapy ([facility]) 05/26/2021 Telephone Infectious Diseases : Main [place], [facility] 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 Notified [facility] staff, okay to send refills thru Tuesday only and will review labs once received. * Telephone Encounter - Kyara Jeffers RN - 05/28/2021 9:47 AM CDT Patient still has not gone to infusion clinic for labs. Was able to reach his Jing and explained to her the importance of lab mo nitoring while on IV antibiotics. Informed her we cannot safely send refills of antibiotics without lab review since we are monitoring the drug level. She states her husbands PICC dressing was changed earlier this week at their loc de ER, and she will call the infusion clinic right now to schedule the lab draw. Left a VM for Jaymie SHRESTHA at [facility]. * Telephone Encounter - Kyara Jeffers RN - 05/26/2021 1:54 PM CDT Patient did not go to infusion center for labs and PICC care on 05/22/21, per the nurse there, pt's said his line dressing was okay and did not need labs un til the following week because they are scheduled for a doctor's appt on 05/27/21 . Left a message for the patient to call us back to discuss. Pt is scheduled with plastics and is not arranged for labs & PICC care. Will ask them to schedule a visit at the infusion clinic [facility] as he is on zosyn IV and Vancomycin IV and will need to have close lab monitoring while on antibiotics. Notified Brit SHRESTHA at [facility]. She states the patient is hard to get a hold of, i f they talk to him, they will also encourage the patient to call the infusion cl in for an appt. documented in this encounter Plan of Treatment [...]
--- OUTSIDE RECORDS SUMMARY | 2021-06-14 17:39 | XMS REPORT | Encounter Summary ---
Author Author [facility] Organization [facility] Address Unknown Phone Unavailable Care Team Providers Care Nutritional Chemist Name Role Phone Geovanny Engel APRN PCP Reason for Visit * Auth/Cert Referred By Contact Referred To Contact Status Reason Specialty Diagnoses / Procedures Diagnoses SCC (squamous cell carcinoma), face SCC (squamous cell carcinoma), face [C44.320] P rocedures GA RAD RESECTION TUMOR SOFT TISS FACE/SCALP 2 CM/> GA FREE SKIN FLAP W/MICROVASCULAR ANASTOMOSIS GA SPLIT AGRFT T/A/L 1ST 100 CM/&/1% BDY INFT/CHLD GA CERVICAL LYMPHADEC MODIFIED RADICAL NECK DSJ GA GLSSC COMPOSIT W/RESCJ FLOOR & MANDIBULAR RESCJ GA FREE OSTQ FLAP W/MVASC ANAST METAR/GREAT TOE RADICAL RESECTION TUMOR SOFT TISSUE 2.0 CM OR MORE - FACE/ SCALP TISSUE TRANSFER FREE SKIN FLAP WITH MICROVASCULAR ANASTOMOSIS SPLIT THICKNESS SKIN AUTOGRAFT 100 SQ CM OR LESS OR 1% BODY AREA OF CHILD- UPPER EXTREMITY CERVICAL LYMPHADENECTOMY GLOSSECTOMY COMPOSITE WITHOUT RADIAL NECK DISSECTION TISSUE TRANSFER FREE OSTEOCUTANEOUS FLAP WITH MICROVASCULAR ANASTOMOSIS Encounter Details Care Team Description Date Type Department Eric Benson MD [address] [place] [address] Cellulitis, face 2021 Hospital Intensive Care Unit 52: - Encounter Main [place], Main 05/19/[address] [place] [address] [address] [place] [address] Social History Date Tobacco Use Types Packs/Day Years Used Never Smoker Smokeless Tobacco: Chew Current User Drinks/Week oz/Week Comments Alcohol Use 10-12 Cans of beer 10.0 - 12.0 Yes Sex Assigned at Date Recorded Male 10/06/2020 7:51 AM [employer] Date Recorded COVID-19 Exposure Response 2021 3:23 PM CDT In the last month, have you been in contact with No / Unsure someone who was confirmed or suspected to have Coronavirus / COVID-19? documented as of this encounter Last Filed Vital Signs Reading Time Taken Comments Vital Sign 139/78 05/19/2021 8:14 AM CDT Blood Pressure 69 05/19/2021 8:14 AM CDT Pulse 36.6 C (97.9 F) 05/19/2021 8:14 AM CDT Temperature - - Respiratory Rate 99% 05/19/2021 8:14 AM CDT Oxygen Saturation - - Inhaled Oxygen Concentration 68.9 kg (151 lb 14.4 oz) 2021 10:00 PM CDT Weight 167.6 cm (5' 5.98") 2021 10:00 PM CDT Height 24.53 2021 10:00 PM CDT Body Mass Index documented in this encounter Functional Status Date of Assessment Functional Status Response 05/14/2021 Does the patient have a hearing impairment: Yes documented as of this encounter Discharge Summaries * Raivnder Heck PA-C - 05/19/2021 1:04 PM CDT Physician Discharge Summary Name: Faisal Claire III Date Of : 1970 Age: 51 years Admit date: 2021 Discharge date: 05/19/2021 1:04 PM Attending Physician: Dr. Eric Benson MD Service: Surgery-Plastic 1 Physician Summary completed by: Phoenix Louis MD Reason for hospitalization: Right Face Cellulitis ; Cellulitis, face Significant PMH: Medical History: Diagnosis Date Alcohol abuse KALTAG (hard of hearing) Squamous cell carcinoma, lip Tobacco abuse Allergies: Ibuprofen Admission Physical Exam notable for: Vitals: BP: (96)/(61) Pulse: [99] Physical Exam General: Alert, NAD Focused maxillofacial/head and neck exam: Scalp: No open wounds or tenderness Skin: R facial cellulitis Eyes: PERRL, EOMI; he has R lower eyelid edema and erythema Ears: symmetric, no rashes or lesions noted External nose: no visible nasal deformity or wound Internal nose: moist mucous membranes, septum intact Oral cavity: tongue protrudes appropriately, no masses or bleeding; fibular flap intact, healthy appearing Oropharynx: soft palate elevates symmetrically TMJ: no preauricular swelling or focal tenderness Speech: no hypernasal resonance, appropriate articulation Sensation: sensation to light touch symmetric and intact Facial animation: symmetric, no visible facial weakness Neck: soft, supple, trachea midline, no lymphadenopathy;induration along R milly ek; exposed R mandibular reconstruction plate; two visible loose screws were rem becca Chest: Normal respiratory effort, no stridor Hands: warm, without visible cyanosis or eschar Admission Lab/Radiology studies notable for: None Brief Hospital Course: Patient was admitted after his clinic visit which showed cellulitis and exposed hardware and taken to the OR for hardware removal and lo cristal tissue rearrangement. The patient tolerated the procedure well and was admit tristan to the floor for recovery. Postoperatively the patient recovered rapidly and was gradually transitioned to PO pain meds and to soft diet. The patient had no rmal bowel function and was ambulating well. Patient had a PICC line placed and was discharged on IV Vancomycin and Zosyn for no less than 6 weeks. The patient had dietary consulted for enteral feeding and PO recommendations due to weight l oss and loss of muscle mass. Recommendations made and education to the patient trudy phipps about the importance of nutrition to his healing. The patient was discharg ed to home on 05/19 with instructions to follow up in clinic. Malnutrition Details: ICD-10 code E44: Chronic illness/Moderate non-severe malnutrition Weight loss: 10% x 6 months, Mild loss of muscle mass Loss of Subcutaneous Fat: No Muscle Wasting: Yes Mild Clavicle, Deltoid Edema: Yes Mild (Right sided facial) Condition at Discharge: Stable Discharge Diagnoses: Hospital Problems Active Problems * (Principal) Cellulitis, face Moderate malnutrition (HCC) Principal Problem: Cellulitis, face Active Problems: Moderate malnutrition (HCC) Surgical Procedures: Procedure(s) (LRB): REMOVAL HARDWARE -DEEP MANDIBLE (Right) EXCISION BONE - MANDIBLE (Right) REPAIR COMPLEX WOUND 2.6 CM TO 7.5 CM - HEAD/ NECK (Right) REPAIR COMPLEX WOUND EACH ADDITIONAL 5 CM OR LESS- HEAD/ NECK (Right) Significant Diagnostic Studies and Procedures: None Consults: CONSULT INTERVENTIONAL RADIOLOGY PHYSICIAN CONSULT INFECTIOUS DISEASES PHYSICIAN CONSULT DIETITIAN CONSULT INTERNAL MEDICINE PHYSICIAN Patient Disposition: Home Patient instructions/medications: CBC and Diff Standing Status: Standing Number of Occurrences: 8 Standing Exp. Date: 11/19/21 Results to be faxed to Dr. Bates [phone] Release to patient Immediate Comprehensive Metabolic Panel (CMP) Standing Status: Standing Number of Occurrences: 8 Standing Exp. Date: 11/19/21 Results to be faxed to Dr. Bates [phone] Release to patient Immediate Mechanical Soft Diet Your diet will need to consist of moist, well cooked, soft, or ground foods. If you have questions about your diet after you go home, you can call a dietitia n at [phone]. Tube Feeding Continue your home supplement regimen Home Care Instructions: *Please remember to flush/rinse tube with water or normal saline after feed. Thi s will help prevent the tube from clogging. *Don't keep cans of formula open for more than 24 hours. *Stop feeding if you become nauseated or begin vomiting. Hold the next feeding f or 1 hour. *Make sure you are sitting up during and after feeding. *Give bolus or syringe feeding over 20 minutes. Report These Signs and Symptoms Please contact your doctor if you have any of the following symptoms: drainage with a foul odor Questions About Your Stay For questions or concerns regarding your hospital stay, call [phone]. Discharging attending physician: ERIC BENSON [[id number]] Activity as Tolerated It is important to keep increasing your activity level after you leave the hosp ital. Moving around can help prevent blood clots, lung infection (pneumonia) an d other problems. Gradually increasing the number of times you are up moving ar ound will help you return to your normal activity level more quickly. Continue to increase the number of times you are up to the chair and walking daily to ret urn to your normal activity level. Begin to work toward your normal activity lev el at discharge Wound Care Keep wound clean and dry. Do not submerge under water. Clean all incisions daily with soap and water in the shower gently. Then apply bacitracin antibiotic ointment to the incisions twice a day Return Appointment You will have an appointment with Dr. Benson on 05/27 for suture removal. You mus t come to this appointment [facility] Provider ERIC BENSON [[id number]] Appointment date: 05/27/2021 Return Appointment You will also need to follow up with primary care about your Renal cyst Opioid (Narcotic) Safety Information OPIOID (NARCOTIC) PAIN MEDICATION SAFETY We care about your comfort, and believe you need opioid medications at this time to treat your pain. An opioid is a strong pain medication. It is only availab le by prescription for moderate to severe pain. Usually these medications are u sed for only a short time to treat pain, but sometimes will be prescribed for lo nger. Talk with your doctor or nurse about how long they expect you to need thi s medication. When used the right way, opioids are safe and effective medications to treat you r pain, even when used for a long time. Yet, when used in the wrong way, opioid s can be dangerous for you or others. Opioids do not work for everyone. Most p atients do not get full relief of their pain from opioid medication; full relief of your pain may not be possible. For your safety, we ask you to follow these instructions: *Only take your opioid medication as prescribed. If your pain is not controlled with the prescribed dose, or the medication is not lasting long enough, call yo doctor. *Do not break or crush your opioid medication unless your doctor or pharmacist s ays you can. With certain medications, this can be dangerous, and may cause adilia th. *Never share your medications with others, even if they appear to have a good re ason. Never take someone else's pain medication-this is dangerous, and illegal (a crime). Overdoses and deaths have occurred. *Keep your opioid medications safe, as you would with booth, in a lock box or sim ilar container. *Make sure your opioids are going to be secure, especially if you are around chi ldren or teens. *Talk with your doctor or pharmacist before you take other medications. *Avoid driving, operating machinery, or drinking alcohol while taking opioid juliana n medication. This may be unsafe. Pain medications can cause constipation. Constipation is bowel movements that ar e less often than normal. Stools often become very hard and difficult to pass. T his may lead to stomach pain and bloating. It may also cause pain when trying to use the bathroom. Constipation may be treated with suppositories, laxatives or stool softeners. A diet high in fiber with plenty of fluids helps to maintain re gular, soft bowel movements. Current Discharge Medication List START taking these medications Details bacitracin 500 unit/g topical ointment Apply to the incision site after cleaning twice a day Qty: 28 g, Refills: 0 PRESCRIPTION TYPE: Normal piperacillin/tazobactam (ZOSYN) 3.375 g/15 mL 3.375 g in sodium chloride 0.9% (N S) 0.9 % 100 mL IVPB (MB+) Administer 3.375 g through vein every 6 hours. Refills: 0 PRESCRIPTION TYPE: No Print vancomycin (VANCOCIN) 1000 mg/20 mL 1,000 mg in dextrose 5% (D5W) 250 mL IVPB (V [id number]) Administer one thousand mg through vein every 12 hours. Refills: 0 PRESCRIPTION TYPE: No Print CONTINUE these medications which have been CHANGED or REFILLED Details acetaminophen (TYLENOL) 325 mg tablet Take two tablets by mouth every 6 hours as needed. PRESCRIPTION TYPE: OTC oxyCODONE (ROXICODONE) 5 mg tablet Take one tablet by mouth every 6 hours as nee ded Qty: 25 tablet, Refills: 0 PRESCRIPTION TYPE: Normal polyethylene glycol 3350 (MIRALAX) 17 g packet one packet by Per G Tube route da janette. Qty: 30 each, Refills: 0 PRESCRIPTION TYPE: Normal CONTINUE these medications which have NOT CHANGED Details aspirin EC 81 mg tablet Take 81 mg by mouth daily. Take with food. PRESCRIPTION TYPE: Historical Med glycopyrrolate (ROBINUL) 1 mg/5 mL (0.2 mg/mL) soln oral solution 5 mL by PEG Tu be route three times daily. Qty: 473 mL, Refills: 0 PRESCRIPTION TYPE: Normal lidocaine (LIDODERM) 5 % topical patch Apply one patch topically to affected are a every 24 hours. Apply patch for 12 hours, then remove for 12 hours before repe ating. Qty: 30 patch, Refills: 0 PRESCRIPTION TYPE: Normal The following medications were removed from your list. This list includes medic ations discontinued this stay and those removed from your prior med list in our system acetaminophen (TYLENOL) 160 mg/5 mL oral solution docusate (COLACE) 50 mg/5 mL oral solution Future Appointments Date Time Provider Department Center 05/27/2021 2:45 PM Eric Benson MD [id number] Plastic Surg Pending items needing follow up: None Signed: Phoenix Louis MD 05/20/2021 cc: Primary Care Physician: Geovanny Engel Verified Referring physicians: Additional provider(s): documented in this encounter Discharge Instructions * Discharge Instr - Case Management* Valerie Beasley RN - 05/19/2021 11:09 AM CDT [facility] will deliver medications and supplies to your home for I V antibiotics. They have a 24x7 line if questions: [phone]. CYNDY Marshall [facility] will contact you and walk your through the first dose Tuesday evening. [facility] infusion clinic will call you to set up a weekly appointme nt for lab draws and PICC line care starting this Tuesday. [phone] documented in this encounter Medications at Time of Discharge Start Date End Date Medication Sig Dispensed Refills 05/19/2021 acetaminophen (TYLENOL) Take two 0 325 mg tablet tablets by mouth every 6 hours as needed. aspirin EC 81 mg tablet Take 81 mg by 0 mouth daily. Take with food. 05/19/2021 bacitracin 500 unit/g Apply to the 28 g 0 topical ointment incision site after cleaning twice a day 11/06/2020 glycopyrrolate (ROBINUL) 5 mL by PEG 473 mL 0 1 mg/5 mL (0.2 mg/mL) Tube route soln oral solution three times daily. 11/06/2020 lidocaine (LIDODERM) 5 % Apply one 30 patch 0 topical patch patch topically to affected area every 24 hours. Apply patch for 12 hours, then remove for 12 hours before repeating. 05/22/2021 oxyCODONE (ROXICODONE) 5 Take one 30 tablet 0 mg tablet tablet by mouth every 4 hours as needed 05/19/2021 oxyCODONE (ROXICODONE) 5 Take one 25 tablet 0 mg tablet tablet by mouth every 6 hours as needed 05/19/2021 piperacillin/tazobactam Administer 0 (ZOSYN) 3.375 g/15 mL 3.375 g 3.375 g in sodium through vein chloride 0.9% (NS) 0.9 % every 6 100 mL IVPB (MB+) hours. 05/19/2021 polyethylene glycol 3350 one packet by 30 each 0 (MIRALAX) 17 g packet Per G Tube route daily. 05/19/2021 06/08/2021 vancomycin (VANCOCIN) Administer 0 1000 mg/20 mL 1,000 mg in one thousand dextrose 5% (D5W) 250 mL mg through IVPB ([id number]) vein every 12 hours. documented as of this encounter Ordered Prescriptions Start Date End Date Prescription Sig Dispensed Refills 05/22/2021 oxyCODONE (ROXICODONE) 5 Take one 30 tablet 0 mg tablet tablet by mouth every 4 hours as needed 05/19/2021 polyethylene glycol 3350 one packet by 30 each 0 (MIRALAX) 17 g packet Per G Tube route daily. 05/19/2021 piperacillin/tazobactam Administer 0 (ZOSYN) 3.375 g/15 mL 3.375 g 3.375 g in sodium through vein chloride 0.9% (NS) 0.9 % every 6 100 mL IVPB (MB+) hours. 05/19/2021 bacitracin 500 unit/g Apply to the 28 g 0 topical ointment incision site after cleaning twice a day 05/19/2021 oxyCODONE (ROXICODONE) 5 Take one 25 tablet 0 mg tablet tablet by mouth every 6 hours as needed 05/19/2021 acetaminophen (TYLENOL) Take two 0 325 mg tablet tablets by mouth every 6 hours as needed. 05/19/2021 05/19/2021 polyethylene glycol 3350 one packet by 30 each 0 (MIRALAX) 17 g packet Per G Tube route daily. 05/19/2021 06/08/2021 vancomycin (VANCOCIN) Administer 0 1000 mg/20 mL 1,000 mg in one thousand dextrose 5% (D5W) 250 mL mg through IVPB ([id number]) vein every 12 hours. documented in this encounter Discharge Disposition Code Departure Means Destination Disposition Wheelchair Home or Self Care documented in this encounter Progress Notes * Roger Bates MD - 05/19/2021 12:05 PM CDT Infectious Diseases Progress Note Today's Date: 05/19/2021 Admission Date: 2021 Reason for this consultation: Right face cellulitis, concern for abscess vs meta static disease Assessment: Facial cellulitis Preceptal Cellulitis Right facial abscess Osteomyelitis of anterior osteotomy graft Hardware failure with likely infection Retropharyngeal space Effusion - treated with keflex for "3 days" and Augmentin for "5 days" at [facility] care - CT neck 05/13: hyperenhancement of the right parotid gland with superimposed int raparenchymal lobular fluid collection, concerning for abscess. Right oral cavit y mass reconstruction with hardware migration and exposure. Superimposed erosion s of right parasymphysis and anterior osteotomy graft, concerning for osteomyeli tis or cellulitis v metastasis. Retropharyngeal space effusion with intradiscal gas C6-C7. Development of moderate right periorbital edema without organized flu id collection. -scheduled for ID of abscess 05/14, unable to drain. G tube functioning well. schedule for OR 05/15 with plans for debridement, plate removal and wash out. They will attempt primary closure of the wound - 05/14 IR aspiration of abscess: US demonstrated solid appearing phlegmatic mater ial in anterior right parotid space. Needle aspirate non productive. - MRI brain 05/15: osteo v metastasis of parasymphysis and anterior graft overlyin g cellulitis. Enhancing mass of R parotid gland. Stable retropharyngeal space ef fusion. 05/15/21: 1. Removal of deep mandibular hardware. 2. Excision of devitalized man dibular bone. 3. Neck soft tissue debridement. 4. Complex repair of right neck wound, 15 cm. 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 Peptoniphil us prado also growing in culture, patient will benefit from anaerobic coverage o f Zosyn. Patient will need a long course of IV antibiotics, no less than 6 weeks, depe nding on clinical course. Alternatively, he can be discharged on IV Zosyn and IV Daptomycin at 76 mg /k g/day (if approved) Unfortunately, no option for single antibiotic (Pseudomona is not covered by Ertapenem) Will continue to monitor Cx for fungal, AFB growth. ID will continue to follow Staff name: Roger Bates MD Division of Infectious Diseases Voalte, or pager [phone] Date: 05/19/2021 Interval History Faisal Claire III is a 51 y.o. 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 He had /32 positive lymph nodes and was recomm ended for adjuvant XRT, but was lost to follow up. He presents this admission wi th complaint of right face swelling and redness. Mr Claire reports a two week history of facial redness and a one month history of right facial swelling. He reports that both the swelling and redness have be en progressive since onset. He reports associated chills for the past week, but denies fever at home. On interview, he reports that he feels like himself and d oes not feel ill compared to how he feels normally. Patient denies any recent s inusitis, tooth pain, recent dental work. He reports that he uses G tube without difficulty and has not noticed any surrou nding changes to the area. He reports that he maintains a soft diet at home to s upplement his nutrition. He reports that he was previously seen in [place], [place] in the ED and in urgent care and prescribed a short course of keflex for "3 days" and a course of Augme ntin for "5 days." He reports that he stopped taking the Augmentin because he ra n out of pills "about a week ago. Due to the progressive nature of his symptoms he followed up in [facility] where he was found to have facial cellulitis and there was concern for fa cial cellulitis. CT of the neck was obtained which showed abscess formation christiano cribed as above. Interval History: Afebrile Reports symptomatic improvement Facial Cellulitis improved on exam this AM Cultures obtained in clinic without growth. Mr Claire reports that he is doing, "fine" this morning. He denies fever or ch ills overnight, but states that he had sweats. He denies any facial pain, no juliana n on eye movement. He reports that his wound has not drained since here in the h ospital. Antimicrobial Start date End date Zosyn 05/13/21 current Vancomycin 05/13/21 current Estimated Creatinine Clearance: 117 mL/min (based on SCr of 0.72 mg/dL). Review of Systems A comprehensive 14-point review of systems was negative with exception of the re view of systems as noted in the history of present illness. Medications Scheduled Meds:bacitracin topical ointment, , Topical, BID enoxaparin (LOVENOX) syringe 40 mg, 40 mg, Subcutaneous, QDAY(21) piperacillin/tazobactam (ZOSYN) 3.375 g in sodium chloride 0.9% (NS) 100 mL IVPB (MB+), 3.375 g, Intravenous, Q6H* polyethylene glycol 3350 (MIRALAX) packet 17 g, 1 packet, Oral, QDAY senna/docusate (SENOKOT-S) tablet 1 tablet, 1 tablet, Oral, BID sodium chloride PF 0.9% flush 10 mL, 10 mL, Flush, FLUSH TID vancomycin (VANCOCIN) 1,000 mg in dextrose 5% (D5W) 250 mL IVPB ([id number]), 1,00 0 mg, Intravenous, Q12H* Continuous Infusions: PRN and Respiratory Meds:acetaminophen Q6H PRN, diphenhydrAMINE Q4H PRN, melaton in QHS PRN, ondansetron Q6H PRN OR ondansetron (ZOFRAN) IV Q6H PRN, oxyCODON E Q4H PRN, pancrelipase 20,880 Units/sodium bicarbonate 650 mg ([facility] CLOG DESTROYE R) PRN (In Service Coordinator from Rx), [DISCONTINUED] vancomycin (0-40 kg) IV Q12H* AND vancomycin, pharmacy to manage Per Pharmacy Physical Examination Vital Signs: Most Recent Vital Signs: 24 H our Range BP: 139/78 (05/19 814) Temp: 36.6 C (97.9 F) (05/19 814) Pulse: 69 (05/19 814) Respirations: 12 PER MINUTE (05/19 814) SpO2: 99 % (05/19 814) BP: (124-139)/(71-93) Temp: [36.6 C (97.9 F)-37.1 C (98.8 F)] Pulse: [67-80] Respirations: [12 PER MINUTE-16 PER MINUTE] SpO2: [97 %-100 %] General appearance: Awake, alert, cooperative HENT: Still with significant edema and erythema. Surgical incision is clean, no purulence. Facial Cellulitis improved on exam this AM Eyes: Periorbital swelling of right eye is minimally improved today Neck: Changes as noted above in HEENT Lungs: Decreased breath sounds bilaterally without wheezing or rhonchi Heart: Regular rhythm, normal rate, with no murmur, rub, gallop Abdomen: G-tube in left upper abdomen without surrounding erythema or purulence. Soft, non-tender, non-distended, normoactive bowel sounds, no hepatosplenomega ly, no masses Ext: No clubbing, cyanosis or edema Musculo: no joint swelling or effusions Skin: no rashes/lesions Vascular: normal radial/dorsalis pedis pulses Lymph: no cervical, axillary or inguinal adenopathy Neuro: Lethargic, but oriented, interactive, moves all extremities Psych: normal mood and affect Lines: PICC Double Lumen 05/15/21 Brachial, Right G tube 10/21/2020 Lab Review Hematology Recent Labs 05/17/21 0410 05/18/21 0335 05/19/21 0417 WBC 3.6* 3.1* 3.5* HGB 10.5* 10.5* 11.1* HCT 31.0* 30.2* 32.4* PLTCT 253 260 281 Chemistry Recent Labs 05/17/21 0410 05/18/21 0335 NA 139 140 K 4.2 4.3 CL 104 103 CO2 30 31* BUN 13 12 CR 0.81 0.72 GFR >60 >60 GLU 103* 105* CA 8.2* 8.7 ALBUMIN 3.1* 3.2* ALKPHOS 53 56 AST 10 13 ALT 9 14 TOTBILI 0.2* 0.2* Microbiology, Radiology and other Diagnostics Review Microbiology data reviewed. Pertinent radiology images viewed. Impression: MRI brain 05/15: IMPRESSION 1. Significantly degraded examination by motion. 2. Grossly unchanged findings of edema and abnormal enhancement at the anterior mandibulectomy margin involving the [place] parasymphysis and anterior graft, suspicious for osteomyelitis. [...] indicated. 5. Grossly stable retropharyngeal space effusion. CT chest without contrast 05/13: 1. Several tiny pulmonary nodules remain unchanged and likely represent scars or granulomas. No new or enlarging pulmonary nodules are appreciated. An additional follow-up chest CT in 6-12 months is suggested to assess for long-term stability. 2. No thoracic lymphadenopathy. 3. Persistent complicated left renal cyst. Ultrasound evaluation is again suggested if not previously performed. CT neck 05/13: IMPRESSION 1. Hyperenhancement of the right parotid gland with superimposed intraparenchymal lobular fluid collection, favored to represent abscess. Metastatic disease could appear similar. Recommend aspiration and biopsy for further evaluation. 2. Composite right oral cavity mass resection and reconstruction with multifocal periprosthetic lucency, hardware migration and exposure, and superimposed erosions in the [place] right parasymphysis and anterior osteotomy graft. This is also suspicious for infection/osteomyelitis/cellulitis. Metastatic disease could appear similar. 3. Development of a small retropharyngeal space effusion without discrete rim enhancement. This could be reactive related to extensive inflammatory changes in the floor of mouth and right neck. Given the presence of new intradiscal gas C6-C7 (without vertebral body cortical loss), MRI of the cervical spine with contrast is recommended as a more sensitive evaluation for any possible discitis as an etiology for the retropharyngeal space effusion. 4. Development of moderate right periorbital edema without organized orbital fluid collection or suspicious enhancement, likely reactive edema. Roger Bates MD Division of Infectious Diseases Pager - Voalte * Cally Carpenter, OT - 05/19/2021 10:35 AM CDT OCCUPATIONAL THERAPY Daily Note Name: Faisal Claire III : 1970 Age: 51 y.o. 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 He had positive lymph nodes and was recommended for adjuvant XRT, but was lost to follow up. He presents t his admissionas direct admission to plastic surgery team from outpatient clin[facility] complaint of right face swelling and redness.Medicine team was consult ed for management of medical comorbidities in setting of diagnosis of SCC of R l ower lip. Subjective Patient Stated Goals: pt answers all questions; slightly difficult to understand at times due to facial flap/wounds Precautions: Standard;Falls Pain / Complaints: Patient agrees to participate in therapy Pain Location: (face) Objective Psychosocial Status: Willing and Cooperative to Participate Persons Present: none Home Living Type of Home: House Prior Function Level Of [place]: Independent with ADLs and functional transfers Lives With: Spouse Vision Current Vision: (functional with adls) ADL's: 05/19/21: pt continues to perform all adls with stand by assist at times for lines/IVs. Pt has assist from family at home. No issues with toileting or dr essing. Good rom to UEs for grooming and reaching all items. Pt remained sitting at EOB end of OT session. Plans to return to home with assist for IV antibiotics ADL Mobility Gait Comments: mobilizes mainly with assist for multiple lines. moving LEs well and good balance noted on 05/19/21 Activity Tolerance Endurance: 3/5 Tolerates 25-30 Minutes Exercise w/Multiple Rests Cognition Overall Cognitive Status: WFL to Adequately Complete Self Care Tasks Safely UE AROM Overall BUE AROM WNL: Yes Grasp: Bilateral Grasp Functional for Activity Comment: pt with good rom to the neck and eyes. Pt able to open his mouth about 1/[address] with time. Encouraged continued rom and gentle stretching at home. Edema Comment: mild edema over the face; mild over the neck Positioning: continue to elevate the HOB for pain and edema control UE Strength / Tone Overall Strength / Tone: WFL Able to Perform ADL Tasks Education Persons Educated: Patient Barriers To Learning: Decreased Hearing Interventions: Increase Volume of Instruction Teaching Methods: Verbal Instruction;Demonstration Patient Response: Verbalized and Demo Understanding Topics: Role of OT, Goals for Therapy;DME for Home Discharge;UE Exercises;Energy Conservation;Home safety;ADL Compensatory Techniques;Adaptive Devices for ADLs Home Exercise Program: UE Home Exer Program(face and neck) Goal Formulation: With Patient Assessment Assessment: Decreased Self-Care Trans;Decreased High-Level ADLs Prognosis: Good;w/ Family Goal Formulation: Patient AM-PAC 6 Clicks Daily Activity Inpatient Putting on and taking off regular lower body clothes?: A Little Bathing (Including washing, rinsing, drying): A Little Toileting, which includes using toilet, bedpan, or urinal: A Little Putting on and taking off regular upper body clothing: A Little Taking care of personal grooming such as brushing teeth: A Little Eating meals?: A Little Daily Activity Raw Score: 18 Standardized (t-scale) score: 38.66 CMS 0-100% Score: 46.65 CMS G Code Modifier: CK Plan Progress: Improving as Expected OT Frequency: Monitor for any needs and encourage rom/stretching as tolerated. OT Plan for Next Visit: continue to encourage up to chair during the day and inc rease functional mobility in hallway monitor rom/stretching to neck/face and UEs. and encourage HOB elevated for see ma/pain control ADL Goals Patient Will Perform All ADL's: w/ Stand By Assist;w/Adaptive Equipment;w/ Good Judgment/Safety Functional Transfer Goals Pt Will Perform All Functional Transfers: Modified Independent, w/ Good Judgment /Safety Arm Goals Pt Will Perform AROM: B UE, 5 Reps, w/ Good Activity Tolerance, w/o Complain/Si gn of Pain(including neck and facial rom) OT Discharge Recommendations Recommendation: Home with intermittent supervision/assistance Patient Currently Requires Physical Assist With: All mobility;All personal care ADLs;All home functioning ADLs;Ambulation;Bathing;Meal preparation Patient Currently Requires Equipment: (will continue to assess any needs) Therapist: ROME Jiang [id number] Date: 05/19/2021 * Ravinder Heck PA-C - 05/19/2021 6:31 AM CDT Plastic Surgery Progress Note 05/19/2021 S: Resting comfortably this morning. Understands discharge planning and waiting on antibiotic set up with case management. O: Vital Signs: Last Filed Vital Signs: 24 Hour Ran ge BP: 127/93 (05/19 543) Temp: 37.1 C (98.7 F) (05/19 543) Pulse: 67 (05/19 543) Respirations: 16 PER MINUTE (05/19 543) SpO2: 100 % (05/19 543) BP: (121-127)/(67-93) Temp: [36.7 C (98.1 F)-37.1 C (98.8 F)] Pulse: [67-84] Respirations: [16 PER MINUTE-18 PER MINUTE] SpO2: [97 %-100 %] Sleeping in bed Respirations non-labored RRR Soft, NT/ND Right side facial cellulitis improving in the cheek, neck region, mild induratio n. Right side facial edema present and stable Right side mandibular incision c/d/i Oral cavity: tongue protrudes appropriately, no masses or bleeding; fibular flap intact, healthy appearing Cooperative Principal Problem: Cellulitis, face Active Problems: Moderate malnutrition (HCC) A/P:Faisal Claire III is a 51 y.o. Male with w/[id number] R lower lip invasi ve SCC s/p composite resection, R MRND, and reconstruction with osteocutaneous f ree fibula flap and radial forearm flap on 10/23/[address] Benson and Chris. He presents now as a direct admit from clinic for right face cellulitis and abscess and exposed mandibular hardware. - Patient healing appropriately this AM - Continuous pulse ox - Continue ELLIOTT maintenance - Infectious Disease consulted: Cultures: MRSA and Pseudomona aeruginosa Discharge plans in progress: patient will need a long course of IV antibiotic s, no less than 6 weeks, depending on clinical course. Recommend to discharge on IV Zosyn and IV Vancomycin Alternatively, he can be discharged on IV Zosyn and IV Daptomycin at 76 mg /kg/ day (if approved) - PICC line in place - PO pain control with Tylenol and Oxycodone - Pathology revealing giant cell reaction and keratin debris - Medicine recommends to defer MRI of renal cyst to outpatient as well as furthe r management. Will require an follow up appointment at discharge - Bowel regimen, Customer Order Clerk consulted, appreciate recommendations - PT/OT consult - Discussed with social work assisting with discharge planning Malnutrition Details: ICD-10 code E44: Chronic illness/Moderate non-severe malnutrition Weight loss: 10% x 6 months, Mild loss of muscle mass Loss of Subcutaneous Fat: No Muscle Wasting: Yes Mild Clavicle, Deltoid Edema: Yes Mild (Right sided facial) - Dietary consulted and recommends: continuing enteral nutrition, continue mech anical soft diet and encourage grenadian yogurt and milk with meals Ravinder Heck PA-C If questions, page please page plastic surgery "Black" team [phone] (6AM-6PM M-F) On-call resident all other times or consult pager [phone] * Roger Bates MD - 05/18/2021 3:07 PM CDT Infectious Diseases Progress Note Today's Date: 05/18/2021 Admission Date: 2021 Reason for this consultation: Right face cellulitis, concern for abscess vs meta static disease Assessment: Facial cellulitis Preceptal Cellulitis Right facial abscess Osteomyelitis of anterior osteotomy graft Hardware failure with likely infection Retropharyngeal space Effusion - treated with keflex for "3 days" and Augmentin for "5 days" at [facility] - CT neck 05/13: hyperenhancement of the right parotid gland with superimposed int raparenchymal lobular fluid collection, concerning for abscess. Right oral cavit y mass reconstruction with hardware migration and exposure. Superimposed erosion s of right parasymphysis and anterior osteotomy graft, concerning for osteomyeli tis or cellulitis v metastasis. Retropharyngeal space effusion with intradiscal gas C6-C7. Development of moderate right periorbital edema without organized flu id collection. -scheduled for ID of abscess 05/14, unable to drain. G tube functioning well. schedule for OR 05/15 with plans for debridement, plate removal and wash out. They will attempt primary closure of the wound - 05/14 IR aspiration of abscess: US demonstrated solid appearing phlegmatic mater ial in anterior right parotid space. Needle aspirate non productive. - MRI brain 05/15: osteo v metastasis of parasymphysis and anterior graft overlyin g cellulitis. Enhancing mass of R parotid gland. Stable retropharyngeal space ef fusion. 05/15/21: 1. Removal of deep mandibular hardware. 2. Excision of devitalized man dibular bone. 3. Neck soft tissue debridement. 4. Complex repair of right neck wound, 15 cm. 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 Remova l of deep mandibular hardware. 2. Excision of devitalized mandibular bone. 3. Neck soft tissue debridement. 4. Complex repair of right neck wound, 15 cm. Cultures: MRSA and Pseudomona aeruginosa Discharge plans in progress: patient will need a long course of IV antibiotic s, bno less than 6 weeks, depending on clinical course. Recommend to discharge on IV Zosyn and IV Vancomycin Alternatively, he can be discharged on IV Zosyn and IV Daptomycin at 76 mg /k g/day (if approved) Unfortunately, no option for single antibiotic (Pseudomona is not covered by Ertapenem) Will continue to monitor Cx for fungal, AFB growth. ID will continue to follow Staff name: Roger Bates MD Division of Infectious Diseases Voalte, or pager [phone] Date: 05/18/2021 Interval History Faisal Claire III is a 51 y.o. 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 He had positive lymph nodes and was recomm ended for adjuvant XRT, but was lost to follow up. He presents this admission wi th complaint of right face swelling and redness. Mr Claire reports a two week history of facial redness and a one month history of right facial swelling. He reports that both the swelling and redness have be en progressive since onset. He reports associated chills for the past week, but denies fever at home. On interview, he reports that he feels like himself and d oes not feel ill compared to how he feels normally. Patient denies any recent s inusitis, tooth pain, recent dental work. He reports that he uses G tube without difficulty and has not noticed any surrou nding changes to the area. He reports that he maintains a soft diet at home to s upplement his nutrition. He reports that he was previously seen in [place], [place] in the ED and in urgent care and prescribed a short course of keflex for "3 days" and a course of Augme ntin for "5 days." He reports that he stopped taking the Augmentin because he ra n out of pills "about a week ago. Due to the progressive nature of his symptoms he followed up in [facility] where he was found to have facial cellulitis and there was concern for fa cial cellulitis. CT of the neck was obtained which showed abscess formation christiano cribed as above. Interval History: IR unable to aspirate fluid from abscess seen on CT A febrile, mild leukopenia this AM. Facial Cellulitis improved on exam this AM Cultures obtained in clinic without growth. Mr Claire reports that he is doing, "fine" this morning. He denies fever or ch ills overnight, but states that he had sweats. He denies any facial pain, no juliana n on eye movement. He reports that his wound has not drained since here in the h ospital. Antimicrobial Start date End date Zosyn 05/13/21 current Vancomycin 05/13/21 current Estimated Creatinine Clearance: 117 mL/min (based on SCr of 0.72 mg/dL). Review of Systems A comprehensive 14-point review of systems was negative with exception of the re view of systems as noted in the history of present illness. Medications Scheduled Meds:bacitracin topical ointment, , Topical, BID enoxaparin (LOVENOX) syringe 40 mg, 40 mg, Subcutaneous, QDAY(21) piperacillin/tazobactam (ZOSYN) 3.375 g in sodium chloride 0.9% (NS) 100 mL IVPB (MB+), 3.375 g, Intravenous, Q6H* polyethylene glycol 3350 (MIRALAX) packet 17 g, 1 packet, Oral, QDAY senna/docusate (SENOKOT-S) tablet 1 tablet, 1 tablet, Oral, BID sodium chloride PF 0.9% flush 10 mL, 10 mL, Flush, FLUSH TID vancomycin (VANCOCIN) 1,000 mg in dextrose 5% (D5W) 250 mL IVPB (Rtue1Vwm), 1,00 0 mg, Intravenous, Q12H* Continuous Infusions: PRN and Respiratory Meds:acetaminophen Q6H PRN, diphenhydrAMINE Q4H PRN, melaton in QHS PRN, ondansetron Q6H PRN OR ondansetron (ZOFRAN) IV Q6H PRN, oxyCODON E Q4H PRN, pancrelipase 20,880 Units/sodium bicarbonate 650 mg (KU CLOG DESTROYE R) PRN (In Service Coordinator from Rx), [DISCONTINUED] vancomycin (0-40 kg) IV Q12H* AND vancomycin, pharmacy to manage Per Pharmacy Physical Examination Vital Signs: Most Recent Vital Signs: 24 H our Range BP: 121/67 (05/18 0700) Temp: 36.7 C (98.1 F) (05/18 0700) Pulse: 84 (05/18 0955) Respirations: 18 PER MINUTE (05/18 0700) SpO2: 99 % (05/18 0955) SpO2 Pulse: 67 (05/18 0500) BP: (118-131)/(67-87) Temp: [36.7 C (98.1 F)-37.3 C (99.1 F)] Pulse: [69-88] Respirations: [16 PER MINUTE-18 PER MINUTE] SpO2: [98 %-100 %] General appearance: Awake, alert, cooperative HENT: Still with significant edema and erythema. Surgical incision is clean, no purulence Eyes: Periorbital swelling of right eye, slightly worsened on examination today. PERRL, EOM grossly intact and without pain on eye movement, Conj nl Neck: Changes as noted above in HEENT Lungs: Decreased breath sounds bilaterally without wheezing or rhonchi Heart: Regular rhythm, normal rate, with no murmur, rub, gallop Abdomen: G-tube in left upper abdomen without surrounding erythema or purulence. Soft, non-tender, non-distended, normoactive bowel sounds, no hepatosplenomega ly, no masses Ext: No clubbing, cyanosis or edema Musculo: no joint swelling or effusions Skin: no rashes/lesions Vascular: normal radial/dorsalis pedis pulses Lymph: no cervical, axillary or inguinal adenopathy Neuro: Lethargic, but oriented, interactive, moves all extremities Psych: normal mood and affect Lines: G tube 10/21/2020 Lab Review Hematology Recent Labs 05/16/21 03005/17/210 05/18/21 0335 WBC 7.5 3.6* 3.1* HGB 11.6* 10.5* 10.5* HCT 33.4* 31.0* 30.2* PLTCT 365 253 260 Chemistry Recent Labs 05/16/21 0307 05/17/21 0410 05/18/21 0335 NA 138 139 140 K 4.5 4.2 4.3 CL 102 104 103 CO2 26 30 31* BUN 10 13 12 CR 0.87 0.81 0.72 GFR >60 >60 >60 GLU 125* 103* 105* CA 8.7 8.2* 8.7 ALBUMIN 3.4* 3.1* 3.2* ALKPHOS 61 53 56 AST 11 10 13 ALT 6* 9 14 TOTBILI 0.3 0.2* 0.2* Microbiology, Radiology and other Diagnostics Review Microbiology data reviewed. Pertinent radiology images viewed. Impression: MRI brain 05/15: IMPRESSION 1. Significantly degraded examination by motion. 2. Grossly unchanged findings of edema and abnormal enhancement at the anterior mandibulectomy margin involving the [place] parasymphysis and anterior graft, suspicious for osteomyelitis. [...] indicated. 5. Grossly stable retropharyngeal space effusion. CT chest without contrast 05/13: 1. Several tiny pulmonary nodules remain unchanged and likely represent scars or granulomas. No new or enlarging pulmonary nodules are appreciated. An additional follow-up chest CT in 6-12 months is suggested to assess for long-term stability. 2. No thoracic lymphadenopathy. 3. Persistent complicated left renal cyst. Ultrasound evaluation is again suggested if not previously performed. CT neck 05/13: IMPRESSION 1. Hyperenhancement of the right parotid gland with superimposed intraparenchymal lobular fluid collection, favored to represent abscess. Metastatic disease could appear similar. Recommend aspiration and biopsy for further evaluation. 2. Composite right oral cavity mass resection and reconstruction with multifocal periprosthetic lucency, hardware migration and exposure, and superimposed erosions in the [place] right parasymphysis and anterior osteotomy graft. This is also suspicious for infection/osteomyelitis/cellulitis. Metastatic disease could appear similar. 3. Development of a small retropharyngeal space effusion without discrete rim enhancement. This could be reactive related to extensive inflammatory changes in the floor of mouth and right neck. Given the presence of new intradiscal gas C6-C7 (without vertebral body cortical loss), MRI of the cervical spine with contrast is recommended as a more sensitive evaluation for any possible discitis as an etiology for the retropharyngeal space effusion. 4. Development of moderate right periorbital edema without organized orbital fluid collection or suspicious enhancement, likely reactive edema. Roger Bates MD Division of Infectious Diseases Pager - Voalte * Gretchen Mercado RD - 05/18/2021 2:15 PM CDT CLINICAL NUTRITION Clinical Nutrition Follow Up Name: Faisal Claire III : 1970 Age: 51 y.o. 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 Pt sitting up in recliner at time of visit. A/O, able to communicate needs. No distress noted. Pt denies N/V, denies GI issues. Tolerating TF well. Pt reports good appetite overall, but he admits he is not eating much protein. P t states he does not like his meat or food "ground all up". RD educated on impo rtance of post surgical [facility] soft diet. Pt communicated understanding. RD also educated on importance of protein for health and wound healing. Pt does like G reek yogurt as well as chocolate milk and will order with meals. Last recorded wt 05/13/21 151#-nsg to obtain new weights this week. RD will monitor wt trends, intake patterns and follow up per protocol. Nutrition Assessment of Patient: Admit Weight: 68.9 kg(2021); Usual Weight: 78.8 kg(10/21/2020); BMI (Calculated): 24.53; BMI Categories Adult: Acceptable: 18.5-24.9; Appearance : Appropriate Pertinent Allergies/Intolerances: NKFA Pertinent Labs: 05/17/21: BS 103-125, Alb 3.2, TP 5.9 Pertinent Meds: Sofran, Miralax once daily, Senokot BID, Lovenox, Oxycodone, Van comycin Unintentional Weight Loss: (13% in 8 months) Oral Diet Order: Mechanical soft Current EN Order: Isosource 1.5 bolus 1 carton (250mL) TID to provide 1125 kcal, 51 g/pro, 570 mL/free water for 51% needs. Water Flushes: 30 mL before and aft er each bolus for tube patency. Estimated Calorie Needs: (30-35 kcal/kg of actual weight) Estimated Protein Needs: 83-103(1.2-1.5 g/kg of actual weight) Malnutrition Assessment: Malnutrition present; ICD-10 code E44: Chronic illness/Moderate non-severe malnu trition Weight loss: 10% x 6 months, Mild loss of muscle mass Nutrition Focused Physical Assessment: Loss of Subcutaneous Fat: No Muscle Wasting: Yes; Severity: Mild; Location: Clavicle, Deltoid Edema: Yes; Severity: Mild; Location: (Right sided facial) Pressure Injury: No Nutrition Diagnosis: Inadequate oral intake Etiology: s/p lower lip reconstruction Signs & Symptoms: Pt's need for EN, po intake records and pt's personal diet HX report Intervention / Plan: Reviewed EN recommendations for adequacy (remains appropriate) Monitor wt trends, intake patterns and nutrition-related labs Goals: EN to provide >50% needs Status: Met;ongoing Pt to consume >75% meals Status: Ongoing (pt eating 100% most meals) Clinical Dietitian: Gretchen Mercado RD, LD Available on Voalte * Abundio Bautista MD - 05/18/2021 7:01 AM CDT Plastic Surgery Progress Note 05/18/2021 S: No acute events overnight. Continues to express frustration about being in ho spital. O: Vital Signs: Last Filed Vital Signs: 24 Hour Ran ge BP: 118/75 (05/18 0500) Temp: 37 C (98.6 F) (05/18 500) Pulse: 71 (05/180) Respirations: 18 PER MINUTE (05/180) SpO2: 100 % (05/18 500) BP: (118-140)/(75-100) Temp: [36.7 C (98.1 F)-37.3 C (99.1 F)] Pulse: [70-88] Respirations: [16 PER MINUTE-18 PER MINUTE] SpO2: [96 %-100 %] AO, NAD Respirations non-labored RRR Soft, NT/ND Right side facial cellulitis improved covers the cheek, neck region, mild indura tion. Right side facial edema present and stable Right side mandibular incision c/d/i Oral cavity: tongue protrudes appropriately, no masses or bleeding; fibular flap intact, healthy appearing Cooperative Principal Problem: Cellulitis, face Active Problems: Moderate malnutrition (HCC) A/P:Faisal Claire III is a 51 y.o. Male with w/[id number] R lower lip invasi ve SCC s/p composite resection, R MRND, and reconstruction with osteocutaneous f ree fibula flap and radial forearm flap on 10/23/[address] Benson and Chris. He presents now as a direct admit from clinic for right face cellulitis and abscess and exposed mandibular hardware. - Patient healing appropriately this AM - Continuous pulse ox - Continue ELLIOTT maintenance - Interventional Radiology consulted for aspiration and drainage of right face abscess, unable to drain. Also evaluate for patency of G-tube - Follow up in-office tissue and fluids cultures - Infectious Disease consulted: continue empiric antibiotics with IV Vancomycin and Zosyn, appreciate their recs. Cultures in progress - PICC line in place - PO pain control with Tylenol and Oxycodone - Pathology revealing giant cell reaction and keratin debris - Medicine recommends to defer MRI of renal cyst to outpatient as well as furthe r management. Will require an follow up appointment at discharge - Bowel regimen, Customer Order Clerk consult - PT/OT consult - Discussed with social work assisting with discharge planning Abundio Bautista MD If questions, page please page plastic surgery "Black" team [phone] (6AM-6PM M-F) On-call resident all other times or consult pager [phone] * Phoenix Louis MD - 05/17/2021 8:55 AM CDT Plastic Surgery Progress Note 05/17/2021 S: Resting comfortably this morning. Frustrated by having to be in the hospital. Discussed surgery plan with patient. No recorded fevers overnight. O: Vital Signs: Last Filed Vital Signs: 24 Hour Ran BP: 133/85 (05/17 400) Temp: 36.7 C (98.1 F) (05/17 400) Pulse: 72 (05/17 400) Respirations: 18 PER MINUTE (05/17 400) SpO2: 98 % (05/17 400) BP: (119-133)/(70-85) Temp: [36.6 C (97.8 F)-36.8 C (98.3 F)] Pulse: [72-82] Respirations: [16 PER MINUTE-18 PER MINUTE] SpO2: [93 %-99 %] AO, NAD Respirations non-labored RRR Soft, NT/ND Right side facial cellulitis improved covers the cheek, neck region, mild indura tion. Right side facial edema present and stable Right side mandibular incision c/d/i Oral cavity: tongue protrudes appropriately, no masses or bleeding; fibular flap intact, healthy appearing Cooperative Principal Problem: Cellulitis, face Active Problems: Moderate malnutrition (HCC) A/P:Faisal Claire III is a 51 y.o. 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 Benson and Chris. He presents now as a direct admit from clinic for right face cellulitis and abscess and exposed mandibular hardware. - Patient healing appropriately this AM - Continuous pulse ox - Continue ELLIOTT maintenance - Interventional Radiology consulted for aspiration and drainage of right face abscess, unable to drain. Also evaluate for patency of G-tube - Follow up in-office tissue and fluids cultures - Infectious Disease consulted: continue empiric antibiotics with IV Vancomycin and Zosyn, appreciate their recs. Cultures in progress - PICC line in place - PO pain control with Tylenol and Oxycodone - Pathology revealing giant cell reaction and keratin debris - Medicine recommends to defer MRI of renal cyst to outpatient as well as furthe r management. Will require an follow up appointment at discharge - Bowel regimen, Customer Order Clerk consult - PT/OT consult - Discussed with social work assisting with discharge planning Phoenix Louis MD If questions, page please page plastic surgery "Black" team [phone] (6AM-6PM M-F) On-call resident all other times or consult pager [phone] * Viv Barron MD - 05/16/2021 10:54 PM CDT Progress note: Plastics paged as patient's has been inappropriate with staff throughout t he day and wanting to take patient outside to smoke. Patient threatened to leave AMA. Once arrived, patient was dressed and sitting at bedside. Discussed import ance of staying to finish coordinating watcher automat long goods antibiotics. Patient was tearfu l but agreeable and explained that he had an argument with and family membe rs and in his anger threatened to leave. Reports no intention to leave tonight. Patient was amenable to stay throughout the night for further discussion in the morning. He understands dispo will likely not be until early next week. Discussed with staff surgeon, Dr. Benson, who directed plan of care. Viv Barron MD 8 * Shanna Noriega RN - 05/16/2021 6:10 PM CDT Patient/family refused high fall risk bundle. RN provided education on the importance of the high fall risk bundle. RN escalated high fall risk to roller man. Patient continued to refuse high fall risk bundle Yes Individualized safety plan implemented Yes Specify safety plan: Encourage patient to use the call light for ambulation and bathroom privileges. * Shanna Noriega RN - 05/16/2021 4:35 PM CDT Patient in the room with significant other at the bedside. She reports continued concern with needing new clothes, wanting to shower, needing home medication, p josefina charged, and to have meals provided. I reminded her I had paged the older adult social work specialist to assess their needs and they woul d follow-up on possibility of meal vouchers and any other basic needs. Shower was re-offered to her as their [facility] She stated she knew but didn't have a new change of clothes. Mesh underwears and items for toiletries were re-offered. She was also advised to go the emergency department if she felt she needed any o f her home medication urgently or if she was having a medical emergency. She rep orts unsure if she had refills and did not have the means to drive to a pharmacy . She was given instructions of how to get to the emergency department and she w as encouraged to ask. She acknowledged and stated she may consider. Phone can line examiner was also addressed by reminding the patient of the guest grant posadaside the unit that had phone chargers available. Patient then stated all the nurses and staff were making fun of her and saying s he smells and laugh at her. I continued to re-assure her there had not been any staff nor myself behaving in this manner towards her. * Marielle Babcock, PT - 05/16/2021 2:45 PM CDT PHYSICAL THERAPY ASSESSMENT Name: Faisal Claire III : 1970 Age: 51 y.o. Admission Date: 2021 LOS: 3 days Mobility Progressive Mobility Level: Walk in room Distance Walked (feet): 20 ft Level of Assistance: Stand by assistance Assistive Device: None Time Tolerated: 0-10 minutes Activity Limited By: No limitations Subjective Significant hospital events: right face cellulitis and abscess and exposed cipriano bular hardware Mental / Cognitive Status: Alert;Oriented;Cooperative Persons Present: Spouse Pain: Patient has no complaint of pain Comments: Pt just returning from outing to cafeteria via wheelchair. Spouse pus elver chair. Ambulation Assist: Independent Mobility in Community without Device Home Situation: Lives with Family Type of Home: House Entry Stairs: 1-2 Stairs In-Home Stairs: No Stairs Bed Mobility/Transfer Bed Mobility: Supine to Sit: Independent Bed Mobility: Sit to Supine: Independent Transfer Type: Sit to/from Stand Transfer: Assistance Level: Wheelchair;To/From;Bed;Standby Assist Transfer: Assistive Device: None Transfers: Type Of Assistance: (lines) End Of Activity Status: In Bed Balance Comments: Pt able to bend down to grape picker objects from floor without any loss of balance. Turns around without loss of balance. Gait Gait Distance: 20 feet Gait: Assistance Level: Standby Assist Gait: Assistive Device: None Gait: Descriptors: Pace: Normal;No balance loss Activity Limited By: Patient Choice Education Persons Educated: Patient Patient Barriers To Learning: None Noted Teaching Methods: Verbal Instruction Patient Response: Verbalized Understanding Topics: Plan/Goals of PT Interventions Assessment/Progress Comments: Patient likely at baseline for mobility. Based on discussion with OT and brief evaluation, patient's current level of fun ction suggests that patient will progress with one discipline. OT will sign off at this time. Please re-consult if change in functional status occurs. Goals Goal Formulation: With Patient Plan Plan Frequency: No Further Treatment PT Discharge Recommendations Recommendation: Home/prior living situation Patient Currently Requires Equipment: None Therapist Marielle aBbcock PT Date 05/16/2021 * Shanna Noriega RN - 05/16/2021 2:02 PM CDT 1355: Notified charge nurse patient was wanting to leave the unit to go down to cafeteria. He is determined a fall risk. 1400: This nurse recommended that the patient not go off the unit for safety as his guest has voiced physical instability and is not determined a safe reliable person for preventing falls. He and his guest acknowledged but they continued to proceed to leave the unit. Patient in wheelchair and was given a mask and blank et. Discussed safety of using a wheelchair, limiting being off the unit to no more t bustamante 30 minutes. Also updated family and his significant other that older adult social work specialist/ case managemen t was notified to follow-up with any social/supportive needs he has. They acknow ledged. 1402: Patient left unit. 1413: Provider on the unit, patient has not returned. Provider acknowledged. * Shanna Noriega RN - 05/16/2021 12:24 PM CDT 1224: Paged older adult social work specialist quality liaison. Regarding patient's concerns with senthilin g increased physical/financial assistance and needs. 1333: Repaged social work quality liaison. 1339: production line worker on the unit and acknowledged. She stated she would follow-up . * Cally Carpenter OT - 05/16/2021 11:25 AM CDT OCCUPATIONAL THERAPY ASSESSMENT NOTE Name: Faisal Claire III : 1970 Age: 51 y.o. Admission Date: 2021 LOS: 3 days Mobility Patient Turn/Position: Self Progressive Mobility Level: Walk in room Distance Walked (feet): 10 ft Level of Assistance: Assist X1 Assistive Device: None Time Tolerated: 11-30 minutes Activity Limited By: Lines / Medical Devices Faisal Claire IIIis a 51 year old male withR lower lip invasive SCC s/p composite resection and reconstruction 10/2020. He had positive lymph nodes and was recommended for adjuvant XRT, but was lost to follow up. He presents th is admission as direct admission to plastic surgery team from outpatient clinic with complaint of right face swelling and redness. Medicine team was consulted f or management of medical comorbidities in setting of diagnosis of SCC of R lower lip. Subjective Patient Stated Goals: pt answers all questions; slightly difficult to understand at times due to facial flap/wounds Precautions: Standard;Falls Pain / Complaints: Patient agrees to participate in therapy Pain Location: (face) Objective Psychosocial Status: Willing and Cooperative to Participate Persons Present: Nursing Staff Home Living Type of Home: House Prior Function Level Of [place]: Independent with ADLs and functional transfers Lives With: Spouse Vision Current Vision: (functional with adls) ADL's Where Assessed: Edge of Bed(standing at EOB) Eating Assist: Minimal Assist Grooming Assist: Stand By Assist UE Dressing Assist: Minimal Assist LE Dressing Assist: Minimal Assist Toileting Assist: Minimal Assist Comment: pt agreeable to get up with therapy with 2nd session today. pt able to go supine to sit with extra time only. one drain to posterior right side of neck /head. pt able to stand with minimal assist mainly due to multiple lines. pt st ood x2 with therapy to allow nursing to help with changing pts bed. pt not wanti ng to sit in chair although does keep his HOB up around 70 deg. pt able to sit a t EOB as well with good balance noted. pt stayed at EOB end of OT session today with all needs addressed. table in front of pt with spoon provided for his puddi ng. call button next to pt as well as phone on the table; bed alarm activated. RN aware of OT session today. ADL Mobility Gait Comments: mobilizes mainly with assist for multiple lines. moving LEs well and good balance noted on 05/16 Activity Tolerance Endurance: 3/5 Tolerates 25-30 Minutes Exercise w/Multiple Rests Cognition Overall Cognitive Status: WFL to Adequately Complete Self Care Tasks Safely UE AROM Overall BUE AROM WNL: Yes Grasp: Bilateral Grasp Functional for Activity Comment: pt with good rom to the neck and eyes. mouth not assessed at this time with wounds present. Edema Comment: moderate edema over the face; mild over the neck Positioning: continue to elevate the HOB for pain and edema control UE Strength / Tone Overall Strength / Tone: WFL Able to Perform ADL Tasks Education Persons Educated: Patient Barriers To Learning: Decreased Hearing Interventions: Increase Volume of Instruction Teaching Methods: Verbal Instruction;Demonstration Patient Response: Verbalized and Demo Understanding Topics: Role of OT, Goals for Therapy;DME for Home Discharge;UE Exercises;Energy Conservation;Home safety;ADL Compensatory Techniques;Adaptive Devices for ADLs Home Exercise Program: UE Home Exer Program(face and neck) Goal Formulation: With Patient Assessment Assessment: Decreased Self-Care Trans;Decreased High-Level ADLs Prognosis: Good;w/ Family Goal Formulation: Patient AM-PAC 6 Clicks Daily Activity Inpatient Putting on and taking off regular lower body clothes?: A Little Bathing (Including washing, rinsing, drying): A Little Toileting, which includes using toilet, bedpan, or urinal: A Little Putting on and taking off regular upper body clothing: A Little Taking care of personal grooming such as brushing teeth: A Little Eating meals?: A Little Daily Activity Raw Score: 18 Standardized (t-scale) score: 38.66 CMS 0-100% Score: 46.65 CMS G Code Modifier: CK Plan Progress: Improving as Expected OT Frequency: 3-5x/week OT Plan for Next Visit: continue to encourage up to chair during the day and inc rease functional mobility in hallway as tolerated. further check LE dressing and toileting. monitor rom/stretching to neck/face and UEs. and encourage HOB eleva tristan for edema/pain control ADL Goals Patient Will Perform All ADL's: w/ Stand By Assist;w/Adaptive Equipment;w/ Good Judgment/Safety Functional Transfer Goals Pt Will Perform All Functional Transfers: Modified Independent, w/ Good Judgment /Safety Arm Goals Pt Will Perform AROM: B UE, 5 Reps, w/ Good Activity Tolerance, w/o Complain/Si gn of Pain(including neck and facial rom) OT Discharge Recommendations Recommendation: Home with intermittent supervision/assistance Patient Currently Requires Physical Assist With: All mobility;All personal care ADLs;All home functioning ADLs;Ambulation;Bathing;Meal preparation Patient Currently Requires Equipment: (will continue to assess any needs) Therapist: PAT Jiang/L [id number] Date: 05/16/2021 * Rona Mo, LASHONDAD - 05/16/2021 10:24 AM CDT Pharmacy Vancomycin Note Subjective: Faisal Claire III is a 51 y.o. male being treated for right face cellulitis. Objective: Current Vancomycin Orders Medication Dose Route Frequency vancomycin (VANCOCIN) 1,000 mg in dextrose 5% (D5W) 250 mL IVPB ([id number]) 1,000 mg Intravenous Q12H* vancomycin, pharmacy to manage 1 each Service Per Pharmacy Start Date of vancomycin therapy: 2021 Additional Abx: Zosyn Cultures: 05/13 wound culture: in process, , , White Blood Cells Date/Time Value Ref Range Status 05/16/2021 0307 7.5 4.5 - 11.0 K/UL Final 05/15/2021 0516 3.7 (L) 4.5 - 11.0 K/UL Final 05/14/2021 0325 4.3 (L) 4.5 - 11.0 K/UL Final 05/13/20218 5.0 4.5 - 11.0 K/UL Final Creatinine Date/Time Value Ref Range Status 05/16/2021 0307 0.87 0.4 - 1.24 MG/DL Final 05/15/2021 0516 0.89 0.4 - 1.24 MG/DL Final 05/14/2021 0325 0.98 0.4 - 1.24 MG/DL Final Blood Urea Nitrogen Date/Time Value Ref Range Status 05/16/2021 0307 10 7 - 25 MG/DL Final Estimated CrCl: 96 mL/min Intake/Output Summary (Last 24 hours) at 05/16/2021 1024 Last data filed at 05/16/2021 0300 Gross per 24 hour Intake 2500 ml Output 2075 ml Net 425 ml UOP: Actual Weight: 68.9 kg (151 lb 14.4 oz) Dosing BW: 68 kg Drug Levels: Vancomycin 2HR POST Dose Date/Time Value Ref Range Status 05/15/2021 1544 22.2 ug/mL Final Vancomycin Trough Date/Time Value Ref Range Status 05/15/2021 0856 15.4 10.0 - 20.0 MCG/ML Final Calculations: Calculated True Peak (mcg/mL): 28 mcg/mL Calculated Trough (mcg/mL): 12.8 mcg/mL Rate of elimination (h-1): 0.07 Half Life (hr): 9.8 hours Volume of distribution (L/kg): 0.88 L/kg AUC (mcg*h/mL): 476 mcg*h/mL Assessment: Target levels for this patient: 1. AUC (mcg*h/mL): 400-600 2. Evaluation of AUC and/or level(s): Levels were drawn appropiately. AUC and trou gh were therapeutic Plan: 1. Will continue with current regimen of vancomycin IV 1g q12. 2. Next scheduled level(s): In 5-7 days if renal function allows 3. Pharmacy will continue to monitor and adjust therapy as needed. Rona Mo PHARMD 05/16/2021 * Cally Carpenter OT - 05/16/2021 9:30 AM CDT OCCUPATIONAL THERAPY Contact Note OT spoke with pts RN and ok to try to see pt this am. Pt awakes in bed and ackn owledges therapist with verbal cues. Pt moving both UEs and LEs well although re fusing to get up at this time. OT discussed will return in approx an hour as pt more alert and check his ability to do adls and functional mobility. Pt verbaliz ed understanding. in room and answers a few questions for the pt. OT spoke with RN at end of session about plans to return for OT. PAT Jiang/Jael [id number] * Phoenix Louis MD - 05/16/2021 8:02 AM CDT Plastic Surgery Progress Note 05/16/2021 S: Tolerated procedure yesterday. Pain controlled. Tolerated diet. Discussed dillon n of care. No recorded fevers overnight. O: Vital Signs: Last Filed Vital Signs: 24 Hour Ran ge BP: 136/84 (05/16 743) Temp: 36.4 C (97.5 F) (05/16 743) Pulse: 79 (05/16 743) Respirations: 14 PER MINUTE (05/16 743) SpO2: 98 % (05/16 743) BP: (116-150)/(61-98) Temp: [36.3 C (97.3 F)-36.6 C (97.9 F)] Pulse: [76-95] Respirations: [10 PER MINUTE-16 PER MINUTE] SpO2: [97 %-100 %] AO, NAD Respirations non-labored RRR Soft, NT/ND Right side facial cellulitis improved covers the cheek, neck region, mild indura tion. Right side facial edema present and stable Right side mandibular incision c/d/i Oral cavity: tongue protrudes appropriately, no masses or bleeding; fibular flap intact, healthy appearing Cooperative Principal Problem: Cellulitis, face Active Problems: Moderate malnutrition (HCC) A/P:Faisal Claire III is a 51 y.o. 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 Benson and Chris. He presents now as a direct admit from clinic for right face cellulitis and abscess and exposed mandibular hardware. - Patient healing appropriately this AM - Continuous pulse ox - Continue ELLIOTT maintenance - Interventional Radiology consulted for aspiration and drainage of right face abscess, unable to drain. Also evaluate for patency of G-tube - Follow up in-office tissue and fluids cultures - Infectious Disease consulted: continue empiric antibiotics with IV Vancomycin and Zosyn, appreciate their recs. Cultures in progress - PICC line in place - PO pain control with Tylenol and Oxycodone - Pathology revealing giant cell reaction and keratin debris - Medicine recommends to defer MRI of renal cyst to outpatient as well as furthe r management. Will require an follow up appointment at discharge - Bowel regimen, Customer Order Clerk consult - PT/OT consult - Discussed with social work assisting with discharge planning Phoenix Louis MD If questions, page please page plastic surgery "Black" team [phone] (6AM-6PM M-F) On-call resident all other times or consult pager [phone] * Shena Banerjee RN - 05/15/2021 12:37 PM CDT 1145: Patient refusing today's scheduled surgery. This RN provided education on the importance of this surgery. Patient continued to refuse. Plastics paged and to bedside. 1200: Patient agreed to surgery after continued education and is being transport ed by transportation via bed. * Dalila Taylor - 05/15/2021 9:14 AM CDT OCCUPATIONAL THERAPY NOTE Name: Faisal Claire III : 1970 Age: 51 y.o. Admission Date: 2021 LOS: 2 days Pt to OR today. OT/PT will continue to follow. Therapist: Dalila Taylor, OTS Date: 05/15/2021 * Roger Bates MD - 05/15/2021 8:17 AM CDT Infectious Diseases Progress Note Today's Date: 05/15/2021 Admission Date: 2021 Reason for this consultation: Right face cellulitis, concern for abscess vs meta static disease Assessment: Facial cellulitis Preceptal Cellulitis Right facial abscess Osteomyelitis of anterior osteotomy graft Hardware failure with likely infection Retropharyngeal space Effusion - treated with keflex for "3 days" and Augmentin for "5 days" at [facility] - CT neck 05/13: hyperenhancement of the right parotid gland with superimposed int raparenchymal lobular fluid collection, concerning for abscess. Right oral cavit y mass reconstruction with hardware migration and exposure. Superimposed erosion s of right parasymphysis and anterior osteotomy graft, concerning for osteomyeli tis or cellulitis v metastasis. Retropharyngeal space effusion with intradiscal gas C6-C7. Development of moderate right periorbital edema without organized flu id collection. -scheduled for ID of abscess 05/14, unable to drain. G tube functioning well. schedule for OR 05/15 with plans for debridement, plate removal and wash out. They will attempt primary closure of the wound - 05/14 IR aspiration of abscess: US demonstrated solid appearing phlegmatic mater ial in anterior right parotid space. Needle aspirate non productive. - MRI brain 05/15: osteo v metastasis of parasymphysis and anterior graft overlyin g cellulitis. Enhancing mass of R parotid gland. Stable retropharyngeal space ef fusion. 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 Continue empiric vancomycin and Zosyn for now, as ordered. Will direct anti microbial therapy pending culture results. 2. Continue to follow culture results from clinic obtained cultures 3. Agree with eventual plan for OR with washout, debridement and hardware remov al. Would obtain routine intra-operative cultures (aerobic, anaerobic, fungal). IV ABX as above to prepare surgical field Patient seen and discussed with MD Hemran Hall, DO Internal Medicine, PGY-2 Available on [employer] Pager [phone] ATTESTATION I have personally seen and examined the patient, and reviewed all diagnostic grayson ts available. I have discussed the case with Dr. Yusuf and agree with his a ssessment and recommendations. Changes to the text were made where appropriate. Staff name: Roger Bates MD Division of Infectious Diseases [facility], or pager [phone] Date: 05/15/2021 History of Present Illness Faisal Claire III is a 51 y.o. 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 He had positive lymph nodes and was recomm ended for adjuvant XRT, but was lost to follow up. He presents this admission wi th complaint of right face swelling and redness. Mr Claire reports a two week history of facial redness and a one month history of right facial swelling. He reports that both the swelling and redness have be en progressive since onset. He reports associated chills for the past week, but denies fever at home. On interview, he reports that he feels like himself and d oes not feel ill compared to how he feels normally. Patient denies any recent s inusitis, tooth pain, recent dental work. He reports that he uses G tube without difficulty and has not noticed any surrou nding changes to the area. He reports that he maintains a soft diet at home to s upplement his nutrition. He reports that he was previously seen in [place], [place] in the ED and in urgent care and prescribed a short course of keflex for "3 days" and a course of Augme ntin for "5 days." He reports that he stopped taking the Augmentin because he ra n out of pills "about a week ago. Due to the progressive nature of his symptoms he followed up in Plastic Surgery Clinic where he was found to have facial cellulitis and there was concern for fa cial cellulitis. CT of the neck was obtained which showed abscess formation christiano cribed as above. Interval History: IR unable to aspirate fluid from abscess seen on CT A febrile, mild leukopenia this AM. Facial Cellulitis improved on exam this AM Cultures obtained in clinic without growth. Mr Claire reports that he is doing, "fine" this morning. He denies fever or ch ills overnight, but states that he had sweats. He denies any facial pain, no juliana n on eye movement. He reports that his wound has not drained since here in the h ospital. Antimicrobial Start date End date Zosyn 05/13/21 current Vancomycin 05/13/21 current Estimated Creatinine Clearance: 94.6 mL/min (based on SCr of 0.89 mg/dL). Review of Systems A comprehensive 14-point review of systems was negative with exception of the re view of systems as noted in the history of present illness. Medications Scheduled Meds:DEXTROSE 5% IN WATER IV SOLP (Cabinet Override), , , NOW enoxaparin (LOVENOX) syringe 40 mg, 40 mg, Subcutaneous, QDAY(21) piperacillin/tazobactam (ZOSYN) 3.375 g in sodium chloride 0.9% (NS) 100 mL IVPB (MB+), 3.375 g, Intravenous, Q6H* polyethylene glycol 3350 (MIRALAX) packet 17 g, 1 packet, Oral, QDAY senna/docusate (SENOKOT-S) tablet 1 tablet, 1 tablet, Oral, BID vancomycin (VANCOCIN) 1,000 mg in dextrose 5% (D5W) 250 mL IVPB ([id number]), 1,00 0 mg, Intravenous, Q12H* Continuous Infusions: sodium chloride 0.9 % infusion 50 mL/hr at 05/14/21 2354 PRN and Respiratory Meds:acetaminophen Q6H PRN, diphenhydrAMINE Q4H PRN, melaton in QHS PRN, ondansetron Q6H PRN OR ondansetron (ZOFRAN) IV Q6H PRN, oxyCODON E Q4H PRN, pancrelipase 20,880 Units/sodium bicarbonate 650 mg (KU CLOG DESTROYE R) PRN (In Service Coordinator from Rx), [DISCONTINUED] vancomycin (0-40 kg) IV Q12H* AND vancomycin, pharmacy to manage Per Pharmacy Physical Examination Vital Signs: Most Recent Vital Signs: 24 H our Range BP: 143/89 (05/15 800) Temp: 37.1 C (98.8 F) (05/15 800) Pulse: 81 (05/15 800) Respirations: 16 PER MINUTE (05/15 800) SpO2: 99 % (05/15 800) SpO2 Pulse: 89 (05/14 2000) BP: (121-143)/(72-94) Temp: [36.7 C (98 F)-37.1 C (98.8 F)] Pulse: [77-96] Respirations: [8 PER MINUTE-17 PER MINUTE] SpO2: [98 %-100 %] General appearance: Lethargic and difficult to arouse, however alert and oriente d x3 HENT: Patient with skin grafting noted to right ventral neck, right mandibular j aw. Patient with open wound to right cheek. Patient with scarring of right max illary and mandibular jaw as evidence of prior reconstruction surgery. erythrema tous changes to right face from submandible to right eyelid with associated kirby a. Eyes: Periorbital swelling of right eye, slightly worsened on examination today. PERRL, EOM grossly intact and without pain on eye movement, Conj nl Neck: Changes as noted above in HEENT Lungs: Decreased breath sounds bilaterally without wheezing or rhonchi Heart: Regular rhythm, normal rate, with no murmur, rub, gallop Abdomen: G-tube in left upper abdomen without surrounding erythema or purulence. Soft, non-tender, non-distended, normoactive bowel sounds, no hepatosplenomega ly, no masses Ext: No clubbing, cyanosis or edema Musculo: no joint swelling or effusions Skin: no rashes/lesions Vascular: normal radial/dorsalis pedis pulses Lymph: no cervical, axillary or inguinal adenopathy Neuro: Lethargic, but oriented, interactive, moves all extremities Psych: normal mood and affect Lines: G tube 10/21/2020 Lab Review Hematology Recent Labs 05/13/21202705/14/2132405/15/21 0516 WBC 5.0 4.3* 3.7* HGB 11.1* 10.9* 11.1* HCT 32.1* 32.1* 33.1* PLTCT 316 285 268 Chemistry Recent Labs 05/13/21202705/14/2132405/15/21 0516 NA 136* 138 138 K 3.8 4.4 4.4 CL 100 104 102 CO2 27 27 29 BUN 10 8 10 CR 1.05 0.98 0.89 GFR >60 >60 >60 GLU 103* 92 115* CA 8.9 8.5 9.1 PO4 3.4 -- -- ALBUMIN 3.4* 3.3* 3.2* ALKPHOS 72 65 62 AST 11 10 9 ALT 6* 6* 5* TOTBILI 0.4 0.4 0.3 Microbiology, Radiology and other Diagnostics Review Microbiology data reviewed. Pertinent radiology images viewed. Impression: MRI brain 05/15: IMPRESSION 1. Significantly degraded examination by motion. 2. Grossly unchanged findings of edema and abnormal enhancement at the anterior mandibulectomy margin involving the [place] parasymphysis and anterior graft, suspicious for osteomyelitis. [...] indicated. 5. Grossly stable retropharyngeal space effusion. CT chest without contrast 05/13: 1. Several tiny pulmonary nodules remain unchanged and likely represent scars or granulomas. No new or enlarging pulmonary nodules are appreciated. An additional follow-up chest CT in 6-12 months is suggested to assess for long-term stability. 2. No thoracic lymphadenopathy. 3. Persistent complicated left renal cyst. Ultrasound evaluation is again suggested if not previously performed. CT neck 05/13: IMPRESSION 1. Hyperenhancement of the right parotid gland with superimposed intraparenchymal lobular fluid collection, favored to represent abscess. Metastatic disease could appear similar. Recommend aspiration and biopsy for further evaluation. 2. Composite right oral cavity mass resection and reconstruction with multifocal periprosthetic lucency, hardware migration and exposure, and superimposed erosions in the [place] right parasymphysis and anterior osteotomy graft. This is also suspicious for infection/osteomyelitis/cellulitis. Metastatic disease could appear similar. 3. Development of a small retropharyngeal space effusion without discrete rim enhancement. This could be reactive related to extensive inflammatory changes in the floor of mouth and right neck. Given the presence of new intradiscal gas C6-C7 (without vertebral body cortical loss), MRI of the cervical spine with contrast is recommended as a more sensitive evaluation for any possible discitis as an etiology for the retropharyngeal space effusion. 4. Development of moderate right periorbital edema without organized orbital fluid collection or suspicious enhancement, likely reactive edema. Herman Yusuf, Internal Medicine, PGY-2 Available on [facility] Pager [phone] Please contact preferentially via [facility] Division of Infectious Diseases * Abundio Bautista MD - 05/15/2021 6:52 AM CDT Plastic Surgery Progress Note 05/15/2021 S: No acute events overnight. Went for attempted IR drainage which was unsuccess ful. MRI C-spine completed yesterday O: Vital Signs: Last Filed Vital Signs: 24 Hour Ran [employer] BP: 121/82 (05/15 414) Temp: 36.9 C (98.4 F) (05/15 414) Pulse: 96 (05/15 414) Respirations: 15 PER MINUTE (05/15 414) SpO2: 99 % (05/15 414) BP: (121-142)/(72-94) Temp: [36.7 C (98 F)-36.9 C (98.4 F)] Pulse: [71-96] Respirations: [8 PER MINUTE-18 PER MINUTE] SpO2: [98 %-100 %] AO, NAD Respirations non-labored RRR Soft, NT/ND Right side facial cellulitis present that covers the cheek, neck region, mild in duration. Right side facial edema present and stable, significant ecchymosis this morning after drainage Right side chin with exposed mandibular plate with purulent like drainage Oral cavity: tongue protrudes appropriately, no masses or bleeding; fibular flap intact, healthy appearing Cooperative Principal Problem: Cellulitis, face Active Problems: Moderate malnutrition (HCC) A/P:Faisal Claire III is a 51 y.o. 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 Benson and Chris. He presents now as a direct admit from clinic for right face cellulitis and abscess and exposed mandibular hardware. - NPO for OR today - Interventional Radiology consulted for aspiration and drainage of right face abscess, unable to drain. Also evaluate for patency of G-tube - Follow up in-office tissue and fluids cultures - Infectious Disease consulted: continue empiric antibiotics with IV Vancomycin and Zosyn, appreciate their recs - PO pain control with Tylenol and Oxycodone - Bowel regimen, Customer Order Clerk consult - PT/OT consult Abundio Bautista MD If questions, page please page plastic surgery "Black" team [phone] (6AM-6PM M-F) On-call resident all other times or consult pager [phone] Associated attestation - Eric Benson MD - 05/15/2021 7:25 AM CDT Attestation: I reviewed the documented history and exam, and discussed the patient with the evelina anna at the time of treatment. Also, I was physically present to examine and develop a plan of care for the patient. I concur with the history, physical exam , assessment, and treatment plan unless otherwise noted. Discussed OR plans with Faisal and his this morning. Plan to wash out his f acial abscess, send tissue for path and culture, remove his exposed plate, debri de his bone and attempt primary closure v. Local flap. Reviewed that this may ju st be an initial stage of surgery depending on our findings and what we are able to accomplish today. They expressed understanding of this and agreed to proceed. Eric Benson MD Plastic and Maxillofacial Surgery [facility] * Mackenzie Esquivel RN - 05/14/2021 10:48 PM CDT Report given to CYNDY Mtz. Patient is off the unit for MRI. Unable to comp lete bedside safety check. * Mackenzie Esquivel RN - 05/14/2021 9:38 PM CDT Pt left unit with [facility] via wheelchair to go to MRI at approx 2110. MRI has called and stated pt does not want to go into MRI without medication, Pat grossman RN has spoken with team for orders. * Belgica Franco RN - 05/14/2021 1:58 PM CDT Procedural education done with pt at this time and all questions answered. Pt i n a safe position with call light in reach. * Ravinder Heck PA-C - 05/14/2021 7:09 AM CDT Plastic Surgery Progress Note 05/14/2021 S: Admitted from clinic and overnight no acute events. Swelling and pain better this morning. O: Vital Signs: Last Filed Vital Signs: 24 Hour Ran ge BP: 124/72 (05/14 400) Temp: 37.6 C (99.6 F) (05/14 336) Pulse: 87 (05/14 336) Respirations: 16 PER MINUTE (05/13 2040) SpO2: 98 % (05/14 400) Height: 167.6 cm (65.98") (05/13 2200) Weight: 68.9 kg (151 lb 14.4 oz) (05/13 2200) BP: (96-134)/(60-72) Temp: [37.3 C (99.1 F)-37.6 C (99.6 F)] Pulse: [87-99] Respirations: [16 PER MINUTE] SpO2: [98 %-99 %] AO, NAD Respirations non-labored RRR Soft, NT/ND Right side facial cellulitis present that covers the cheek, neck region, mild in duration. Right side facial edema present and stable Right side chin with exposed mandibular plate with pus like drainage Oral cavity: tongue protrudes appropriately, no masses or bleeding; fibular flap intact, healthy appearing Cooperative Principal Problem: Cellulitis, face A/P:Faisal Claire III is a 51 y.o. Male with w/[id number] R lower lip invasi ve SCC s/p composite resection, R MRND, and reconstruction with osteocutaneous f ree fibula flap and radial forearm flap on 10/23/[address] Benson and Chris. He presents now as a direct admit from clinic for right face cellulitis and abscess and exposed mandibular hardware. - NPO for procedure today - Interventional Radiology consult for aspiration and drainage of right face a bscess, fluid to be sent for cytology and microbiology. Also evaluate for patenc y of G-tube - Follow up in-office tissue and fluids cultures - Infectious Disease consulted: will start empiric antibiotics with IV Vancomyc in and Zosyn - PO pain control with Tylenol and Oxycodone - Bowel regimen, Customer Order Clerk consult - PT/OT consult Ravinder Heck PA-C If questions, page please page plastic surgery "Black" team [phone] (6AM-6PM M-F) On-call resident all other times or consult pager [phone] * Shania Cardozo PHARMD - 2021 9:42 PM CDT Pharmacy Vancomycin Note Subjective: Faisal Claire III is a 51 y.o. male being treated for right face cellulitis. Objective: Current Vancomycin Orders Medication Dose Route Frequency [START ON 05/14/2021] vancomycin (VANCOCIN) 1,000 mg in dextrose 5% (D5W) 250 mL IVPB ([id number]) 1,000 mg Intravenous Q12H* vancomycin (VANCOCIN) 1,250 mg in sodium chloride 0.9% (NS) 275 mL IVPB 20 mg/kg Intravenous ONCE vancomycin, pharmacy to manage 1 each Service Per Pharmacy Start Date of vancomycin therapy: 2021 Cultures: 05/13 wound culture: in process White Blood Cells Date/Time Value Ref Range Status 05/13/20212027 5.0 4.5 - 11.0 K/UL Final Creatinine Date/Time Value Ref Range Status 05/13/20212027 1.05 0.4 - 1.24 MG/DL Final Blood Urea Nitrogen Date/Time Value Ref Range Status 05/13/20212027 10 7 - 25 MG/DL Final Estimated CrCl: 80 mL/min Intake/Output Summary (Last 24 hours) at 2021 2143 Last data filed at 2021 2000 Gross per 24 hour Intake 60 ml Output 0 ml Net 60 ml Actual Weight: 68 kg (150 lb) Dosing BW: 68 kg Assessment: Target levels for this patient: 1. AUC (mcg*h/mL): 400-600 2. Trough (mcg/mL): 10-20 Evaluation of AUC and/or level(s): Plan: 1. Vancomycin 1250mg IV once tonight, then start vancomycin 1000mg IV q12hr (pre dicted AUC of 525 mcg*h/mL and trough of 15 mcg/mL). 2. Next scheduled level(s): AUC levels with 4th dose or as clinically indicated 3. Pharmacy will continue to monitor and adjust therapy as needed. Shania Cardozo PHARMD 2021 * Dimple Mason RT - 2021 8:59 PM CDT RT Adult Assessment Note NAME:Faisal Claire III :1970 AGE: 51 y.o. ADMISSION DATE: 2021 DAYS ADMITTED: LOS: 0 days RT Treatment Plan: Additional Comments: Impressions of the patient: Patient with no pulmonary or ALFONSO history. Resting co mfortably on RA Intervention(s)/outcome(s): None Patient education that was completed: None Recommendations to the care team: None Vital Signs: Pulse: RR: 16 SpO2: 100 O2 Device: RA Breath Sounds: Clear (Implies normal) Respiratory Effort: Non-Labored documented in this encounter H&P Notes * Amos Bernabe MD - 2021 6:26 PM CDT [facility] Pl[facility] H&P 2021 Patient: Faisal Claire III Admission Date: (Not on file), LOS: 0 days Admission Diagnosis: Cellulitis, face [L03.211] Attending Surgeon: Dr. Eric Benson MD Consult Performed by: Amos Bernabe MD ASSESSMENT: 51 y.o. male with w/hx pT4aN1 R lower lip invasive SCC s/p composite resection, R MRND, and reconstruction with osteocutaneous free fibula flap and radial forearm flap on 10/23/[address] Benson and Chris. He presents now as a d irect admit from clinic for right face cellulitis and abscess and exposed mandib ular hardware. PLAN: - Admit to Plastic Surgery - Will obtain labwork of CBC, CMP, Lactate, Mg, P - Interventional Radiology consult for aspiration and drainage of right face abs cess, fluid to be sent for cytology and microbiology. Also evaluate for patency of G-tube - Follow up in-office tissue and fluids cultures and Infectious Disease consult - Will start empiric antibiotics with IV Vancomycin and Zosyn - Soft diet, NPO at midnight for IR procedure tomorrow - PO pain control with Tylenol and Oxycodone - Bowel regimen, Customer Order Clerk consult - PT/OT consult Discussed plan of care with staff surgeon, Dr. Benson, who directed plan of care HPI: Faisal Claire III is a 51 y.o. male w/hx pT4aN1 R lower lip invasive SC C s/p composite resection, R MRND, and reconstruction with osteocutaneous free f ibula flap and radial forearm flap on 10/23/[address] Benson and Chris. He had positive lymph nodes with no LIZANDRO, no LVI or PNI. Discussed at head and neck TB. Recommendations for adjuvant XRT. He was last seen in our clinic in November and subsequently missed multiple scheduled and rescheduled appointments and was lost to follow-up. He and his Yecenia report that he completed his adjuvan t radiation in [place]. Their history is vague but they were seen in the [facility] room there multiple times and he was started on antibiotics for facial sonia lulitis. Post radiation he also developed exposure of his right mandibular plate . They think this may have happened a couple of weeks ago. Faisal says he otherw ise feels great. He has been eating a soft diet and not using his G tube. Medical History: Diagnosis Date Alcohol abuse KALTAG (hard of hearing) Squamous cell carcinoma, lip Tobacco abuse Surgical History: Procedure Laterality Date GASTROSTOMY TUBE PLACEMENT 10/21/2020 TRACHEOSTOMY PLANNED N/A 10/21/2020 Performed by Eric Benson MD at [facility] OR EXTRACTION TOOTH N/A 10/21/2020 Performed by Eric Benson MD at [facility] OR ALVEOLOPLASTY - EACH QUADRANT N/A 10/21/2020 Performed by Eric Benson MD at [facility] OR ESOPHAGOGASTRODUODENOSCOPY WITH PLACEMENT PERCUTANEOUS GASTROSTOMY TUBE N/A 10/21/2020 Performed by Oscar Batista Jr., MD at [facility] OR RADICAL RESECTION TUMOR SOFT TISSUE 2.0 CM OR MORE - FACE/ SCALP Right 10/23 Performed by Eric Benson MD at [facility] OR TISSUE TRANSFER FREE SKIN FLAP WITH MICROVASCULAR ANASTOMOSIS Right 10/23/20 20 Performed by Eric Benson MD at [facility] OR SPLIT THICKNESS SKIN AUTOGRAFT 100 SQ CM OR LESS OR 1% BODY AREA OF CHILD- U PPER EXTREMITY Left 10/23/2020 Performed by Eric Benson MD at [facility] OR CERVICAL LYMPHADENECTOMY Right 10/23/2020 Performed by Eric Benson MD at [facility] OR GLOSSECTOMY COMPOSITE WITHOUT RADIAL NECK DISSECTION N/A 10/23/2020 Performed by Eric Benson MD at [facility] OR TISSUE TRANSFER FREE OSTEOCUTANEOUS FLAP WITH MICROVASCULAR ANASTOMOSIS Righ t 10/23/2020 Performed by Eric Benson MD at [facility] OR No family history on file. Social History Tobacco Use Smoking status: Never Smoker Smokeless tobacco: Current User Types: Chew Substance Use Topics Alcohol use: Yes Alcohol/week: 10.0 - 12.0 standard drinks Types: 10 - 12 Cans of beer per week Your Current Medications: Instructions acetaminophen (TYLENOL) 160 mg/5 mL oral solution 20.3 mL by PEG Tube route raegan ry 6 hours as needed. docusate (COLACE) 50 mg/5 mL oral solution Take 10 mL via feeding tube twice da janette. glycopyrrolate (ROBINUL) 1 mg/5 mL (0.2 mg/mL) soln oral solution 5 mL by PEG T ube route three times daily. lidocaine (LIDODERM) 5 % topical patch Apply one patch topically to affected ar ea every 24 hours. Apply patch for 12 hours, then remove for 12 hours before rep eating. oxyCODONE (ROXICODONE) 5 mg tablet Take one tablet by mouth every 4 hours as ne eded for Pain polyethylene glycol 3350 (MIRALAX) 17 g packet one packet by Per G Tube route d aily. ROS: Constitutional: +generalized fatigue and some anxiety Eyes: No visual changes or double vision Ear, nose, mouth, and throat: exposure of R jaw plate, swelling/redness R face Cardiovascular: No chest pain or shortness of breath Respiratory: No cough or wheeze GI: No abdominal pain or cramping : No dysuria or polyuria MSK: No decrease in joint range of motion or new joint swelling Skin: No new rashes or wounds aside from facial complaints described above Neurologic: No speech problems or new limb weakness Vitals: BP: (96)/(61) Pulse: [99] Physical Exam General: Alert, NAD Focused maxillofacial/head and neck exam: Scalp: No open wounds or tenderness Skin: R facial cellulitis Eyes: PERRL, EOMI; he has R lower eyelid edema and erythema Ears: symmetric, no rashes or lesions noted External nose: no visible nasal deformity or wound Internal nose: moist mucous membranes, septum intact Oral cavity: tongue protrudes appropriately, no masses or bleeding; fibular flap intact, healthy appearing Oropharynx: soft palate elevates symmetrically TMJ: no preauricular swelling or focal tenderness Speech: no hypernasal resonance, appropriate articulation Sensation: sensation to light touch symmetric and intact Facial animation: symmetric, no visible facial weakness Neck: soft, supple, trachea midline, no lymphadenopathy; induration along R petra k; exposed R mandibular reconstruction plate; two visible loose screws were иван ace Chest: Normal respiratory effort, no stridor Hands: warm, without visible cyanosis or eschar Lab/Radiology/Other Diagnostic Tests: Lab Results Component Value Date/Time HGB 9.0 (L) 11/03/2020 0542 HCT 26.0 (L) 11/03/2020 0542 WBC 9.0 11/03/2020 0542 INR 1.1 10/21/2020 1306 PLTCT 500 (H) 11/03/2020 0542 Lab Results Component Value Date/Time NA 142 11/05/2020 0551 K 4.3 11/05/2020 0551 CL 106 11/05/2020 0551 CO2 29 11/05/2020 0551 BUN 21 11/05/2020 0551 CR 0.88 11/05/2020 0551 IR ASPIRATION ONLY DIAGNOSTIC (Results Pending) Imaging: CT neck complete showing R facial abscess; final review pending Amos Bernabe MD Team Pager: [phone] documented in this encounter Procedure Notes * Madan Garcia RN - 05/15/2021 8:28 PM CDT PICC Line Insertion Procedure Note NAME:Faisal Claire III 654 :1970 AGE: 51 y.o. ADMISSION DATE: 2021 DAYS ADMITTED: LOS: 2 days Procedure Details: Informed consent was obtained for the procedure. Risks of in fection, blood clot, and nerve or vessel damage were discussed. Indications: [facility] IV therapy Procedure: Under sterile conditions the skin at the insertion site was prepped w ith chlorhexadineand covered with a sterile drape. Local anesthesia was applied to the skin and subcutaneous tissues. A #4 FR, Double, PICC was inserted in the Right Brachial vein per hospital protocol. Blood return: Yes Catheter trimmed, inserted to 44 cm, with 0 cm external. Catheter was flushed with 20 mL NS. Mary ent did tolerate procedure well. Mid upper arm circumference is 26 cm. Verification:Placement confirmed with ECG., Patency verified by positive blood r eturn., Venous location confirmed by ultrasound., Educational material/teaching instruction given to patient and/or left at bedside. and SVC/ACJ per 3CG documented in this encounter Consult Notes * Jaymie Larkin MD - 05/15/2021 8:26 AM CDT Associated Order(s): CONSULT INTERNAL MEDICINE PHYSICIAN General Medicine Initial Consult Note Admission Date: 2021 LOS: 2 days Reason for Consult: Management of medical comorbidiites, history of malignancy Consult type: Co-management w/ Signed Orders Assessment/Plan Faisal Claire III is a 51 year old male with R lower lip invasive SCC s/p co mposite resection and reconstruction 10/2020. He had positive lymph nodes a nd was recommended for adjuvant XRT, but was lost to follow up. He presents this admission as direct admission to plastic surgery team from outpatient clinic wi complaint of right face swelling and redness. Medicine team was consulted for management of medical comorbidities in setting of diagnosis of SCC of R lower l ip. Based on chart review and care everywhere documentation, only additional med ical comorbidities noted are anxiety and drowsiness. # R lower lip invasive SCC - s/p composite resection and reconstruction 10/2020 - osteocutaneous free fibula flap and radial forearm flap - recommended for adjuvant XRT for + LN, but lost to follow up #Facial cellulitis #Preceptal Cellulitis #Right facial abscess #Osteomyelitis of anterior osteotomy graft #Hardware failure with likely infection -management per primary team and ID -currently on empiric coverage with vancomycin and pip/tazo - IR consulted for needle aspiration of abscess, but procedure terminated due to patient discomfort and no appreciable fluid on US to drain - planning for OR for abscess washout, specimen collection for path/cultures, jaron ne debridement and possible primary closure attempt vs local flap - pain control oxycodone 5-10mg q4h PRN ([employer] oxycodone 5mg q4h PRN) and APAP, gambino s bowel regimen ordered #Hx Alcohol abuse #Hx Tobacco abuse - not current tobacco user, however chewed tobacco for "many years", never smoke r - reports drinking alcohol, says ~5 drinks a day - denies drug use and taking unprescribed medications #Complex renal cyst, left upper pole - noted incidentally on admission CT, follow up US indeterminate for hemorrhagic cyst vs cystic neoplasm - Radiology recommending follow up MRI with renal protocol if clinically indicat ed Recommendations: >Consider checking UDS as very drowsy throughout exam >Consider ABG if not obtained in perioperative period >Would minimize sedating medications as able due to drowsiness >Mangement of cellulitis, abscess, and osteomyelitis per ID and Plastics >Appropriate to defer MRI of renal cyst to outpatient >If patient is agreeable, appropriate for further management/workup of SCC as outpatient. Would readdress whether he would like care in vs home in [place] once closer to discharge. Medicine consult team will sign off at this time. Please reengage team if medic ine team can be of further assistance. Seen and discussed with Dr. Toribio. Jaymie Larkin Internal Medicine, PGY-2 Pager: [phone] Available on [employer] Thank you for the consult. Note: All patient care calls should be directed firs t to the primary service. If the primary service needs further assistance, the service should page [phone] (24 hours a day/7 days a week) to discuss the case. History of Present Illness: Faisal Claire III is a 51 y.o. male with history noted above. Initially presented to [facility] 05/13 as direct admit from Plastic Surgery clinic for right face cellulitis and abscess and exposed mandibular hardware. Had been se en previously by plastic surgery team and radiation oncology for R lower lip inv asive SCC s/p composite resection and reconstruction 10/2020. He had positi ve lymph nodes and was recommended for adjuvant XRT, but per chart review, only attended initial radiation oncology telehealth appointment. Very sleepy throughout interview, so HPI somewhat limited. Denies medical condi tions aside from cancer. Says he did not follow up with oncology or radiation on cology scheduled during last admission, but does not specify why. Did not attem pt to establish with oncologist or radiation oncologist near home. Previosly s aw a PCP, Dr. Engel, near home in [place], but says "he's no longer my doctor. " On review of care everywhere, appears previous PCP was following for excessiv e sleepiness and anxiety. Denies feeling more drowsy at this time. Shakes his head no when asked if he sn ores. Says he does not use any illicit drugs or take any medications that are n ot prescribed to him. Reports only [employer] medications are oxycodone and viagra. Lives at home with partner Jing. Drinks about 5 alcoholic beverages per day. Does not specify when last drink was. Previously chewed tobacco, but no longe r chews. On ROS, denies fever, chills, chest pain, SOB, N/V/D, constipation, lightheadedn ess. Does note facial pain and is asking when he is due for next dose of oxycod one. Medical History: Diagnosis Date Alcohol abuse KALTAG (hard of hearing) Squamous cell carcinoma, lip Tobacco abuse Surgical History: Procedure Laterality Date GASTROSTOMY TUBE PLACEMENT 10/21/2020 TRACHEOSTOMY PLANNED N/A 10/21/2020 Performed by Eric Benson MD at [facility] OR EXTRACTION TOOTH N/A 10/21/2020 Performed by Eric Benson MD at [facility] OR ALVEOLOPLASTY - EACH QUADRANT N/A 10/21/2020 Performed by Eric Benson MD at [facility] OR ESOPHAGOGASTRODUODENOSCOPY WITH PLACEMENT PERCUTANEOUS GASTROSTOMY TUBE N/A 10/21/2020 Performed by Oscar Batista Jr., MD at [facility] OR RADICAL RESECTION TUMOR SOFT TISSUE 2.0 CM OR MORE - FACE/ SCALP Right 10/23 Performed by Eric Benson MD at [facility] OR TISSUE TRANSFER FREE SKIN FLAP WITH MICROVASCULAR ANASTOMOSIS Right 10/23/20 20 Performed by Eric Benson MD at [facility] OR SPLIT THICKNESS SKIN AUTOGRAFT 100 SQ CM OR LESS OR 1% BODY AREA OF CHILD- U PPER EXTREMITY Left 10/23/2020 Performed by Eric Benson MD at [facility] OR CERVICAL LYMPHADENECTOMY Right 10/23/2020 Performed by Eric Benson MD at [facility] OR GLOSSECTOMY COMPOSITE WITHOUT RADIAL NECK DISSECTION N/A 10/23/2020 Performed by Eric Benson MD at [facility] OR TISSUE TRANSFER FREE OSTEOCUTANEOUS FLAP WITH MICROVASCULAR ANASTOMOSIS Righ t 10/23/2020 Performed by Eric Benson MD at [facility] OR Social History Socioeconomic History Marital status: Spouse name: Not on file Number of children: Not on file Years of education: Not on file Highest education level: Not on file Occupational History Not on file Tobacco Use Smoking status: Never Smoker Smokeless tobacco: Current User Types: Chew Substance and Sexual Activity Alcohol use: Yes Alcohol/week: 10.0 - 12.0 standard drinks Types: 10 - 12 Cans of beer per week Drug use: Never Sexual activity: Not on file Other Topics Concern Not on file Social History Narrative Not on file Family history reviewed; non-contributory Allergies: Ibuprofen Scheduled Meds:DEXTROSE 5% IN WATER IV SOLP (Cabinet Override), , , NOW enoxaparin (LOVENOX) syringe 40 mg, 40 mg, Subcutaneous, QDAY(21) piperacillin/tazobactam (ZOSYN) 3.375 g in sodium chloride 0.9% (NS) 100 mL IVPB (MB+), 3.375 g, Intravenous, Q6H* polyethylene glycol 3350 (MIRALAX) packet 17 g, 1 packet, Oral, QDAY senna/docusate (SENOKOT-S) tablet 1 tablet, 1 tablet, Oral, BID vancomycin (VANCOCIN) 1,000 mg in dextrose 5% (D5W) 250 mL IVPB ([id number]), 1,00 0 mg, Intravenous, Q12H* Continuous Infusions: sodium chloride 0.9 % infusion 50 mL/hr at 05/14/21 2354 PRN and Respiratory Meds:acetaminophen Q6H PRN, diphenhydrAMINE Q4H PRN, melaton in QHS PRN, ondansetron Q6H PRN OR ondansetron (ZOFRAN) IV Q6H PRN, oxyCODON E Q4H PRN, pancrelipase 20,880 Units/sodium bicarbonate 650 mg (KU CLOG DESTROYE R) PRN (In Service Coordinator from Rx), [DISCONTINUED] vancomycin (0-40 kg) IV Q12H* AND vancomycin, pharmacy to manage Per Pharmacy Review of Systems: A 14 point review of systems was negative except for: facial pain Vital Signs: Last Filed in 24 hours Vital Signs: 24 hour Range BP: 143/89 (05/15 800) Temp: 37.1 C (98.8 F) (05/15 800) Pulse: 81 (05/15 800) Respirations: 16 PER MINUTE (05/15 800) SpO2: 99 % (05/15 800) SpO2 Pulse: 89 (05/14 2000) BP: (121-143)/(72-94) Temp: [36.7 C (98 F)-37.1 C (98.8 F)] Pulse: [77-96] Respirations: [8 PER MINUTE-17 PER MINUTE] SpO2: [98 %-100 %] Physical Exam: General: Extremely drowsy but opens eyes to voice, falls asleep repeatedly duri ng interview, no distress Head: Skin graft noted on right ventral neck and jaw, open wound with drainage noted on right cheek Eyes: R periorbital swelling noted Neck: Supple, symmetrical, trachea midline, no JVD Lungs: Clear to auscultation bilaterally Heart: Regular rate and rhythm, S1, S2 normal, no murmur, click rub or gallop Abdomen: Soft, non-tender. Bowel sounds normal. No masses. No organomegaly. G-tube present. Extremities: Extremities normal, atraumatic, no cyanosis or edema Peripheral pulses: 2+ and symmetric, all extremities Neurologic: Oriented x4, but very drowsy, moves all extremities Psych: minimally responsive, but appropriate Lab/Radiology/Other Diagnostic Tests: 24-hour labs: Results for orders placed or performed during the hospital encounter of 05/13/21 (from the past 24 hour(s)) CBC AND DIFF Collection Time: 05/15/21 5:16 AM Result Value Ref Range White Blood Cells 3.7 (L) 4.5 - 11.0 K/UL RBC 3.81 (L) 4.4 - 5.5 M/UL Hemoglobin 11.1 (L) 13.5 - 16.5 GM/DL Hematocrit 33.1 (L) 40 - 50 % MCV 87.0 80 - 100 FL MCH 29.2 26 - 34 PG MCHC 33.6 32.0 - 36.0 G/DL RDW 14.5 11 - 15 % Platelet Count 268 150 - 400 K/UL MPV 6.0 (L) 7 - 11 FL Neutrophils 77 41 - 77 % Lymphocytes 11 (L) 24 - 44 % Monocytes 8 4 - 12 % Eosinophils 3 0 - 5 % Basophils 1 0 - 2 % Absolute Neutrophil Count 2.83 1.8 - 7.0 K/UL Absolute Lymph Count 0.42 (L) 1.0 - 4.8 K/UL Absolute Monocyte Count 0.31 0 - 0.80 K/UL Absolute Eosinophil Count 0.10 0 - 0.45 K/UL Absolute Basophil Count 0.04 0 - 0.20 K/UL COMPREHENSIVE METABOLIC PANEL Collection Time: 05/15/21 5:16 AM Result Value Ref Range Sodium 138 137 - 147 MMOL/L Potassium 4.4 3.5 - 5.1 MMOL/L Chloride 102 98 - 110 MMOL/L Glucose 115 (H) 70 - 100 MG/DL Blood Urea Nitrogen 10 7 - 25 MG/DL Creatinine 0.89 0.4 - 1.24 MG/DL Calcium 9.1 8.5 - 10.6 MG/DL Total Protein 5.9 (L) 6.0 - 8.0 G/DL Total Bilirubin 0.3 0.3 - 1.2 MG/DL Albumin 3.2 (L) 3.5 - 5.0 G/DL Alk Phosphatase 62 25 - 110 U/L AST (SGOT) 9 7 - 40 U/L CO2 29 21 - 30 MMOL/L ALT (SGPT) 5 (L) 7 - 56 U/L Anion Gap 7 3 - 12 eGFR Non >60 >60 mL/min eGFR >60 >60 mL/min Pertinent radiology reviewed. Jaymie Larkin MD Pager [phone] Associated attestation - Tramaine Toribio DO - 05/15/2021 4:22 PM CDT ATTESTATION I personally performed the smith portions of the E/M visit, discussed case with re sident and concur with resident documentation of history, physical exam, assessm ent, and treatment plan unless otherwise noted. Staff name: Tramaine Toribio DO Date: 05/15/2021 * Ani lAbert APRN-NP - 05/14/2021 1:13 PM CDT Associated Order(s): CONSULT INTERVENTIONAL RADIOLOGY PHYSICIAN Interventional Radiology Consult Note with Pre-procedural History and Physical Admission Date: 2021 LOS: 1 day Principal Problem: Cellulitis, face Active Problems: Moderate malnutrition (HCC) Reason for consult: Evaluate for aspiration in setting of abscess. 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 Benson and Chris. - Review of imaging significant for hyperenhancement of the right parotid gland with superimposed intraparenchymal lobular fluid collection favored represent ab scess. - A/O, NAD, endorses no complaints during exam - Labs, medications, and allergies meet procedural protocol. - Procedural code status: FULL - Platelet Count Date Value Ref Range Status 05/14/2021 285 150 - 400 K/UL Final ; INR Date Value Ref Range Status 10/21/2020 1.1 0.8 - 1.2 Final Plan: - This case has been reviewed and added onto the [facility] schedule for today . -Does not need to be kept n.p.o., we do not intend to sedate. - G tube flushes well. No intervention needed. We appreciate being able to participate in this patient's care. Please page with any questions or concerns. Valentin Ramey, MAJOR-CORK GRINDER Pgr [phone] IR Team Pager [phone] (After-hours and Weekends) Procedure: Right facial abscess aspiration IR Pre Procedure Notes: Ultrasound Chief Complaint: Abscess Previous Anesthetic/Sedation History: Reviewed. History of present illness: Faisal Claire III is a 51 y.o. male patient with PMH as described above in b rief. IR consulted for aspiration. See ROS below for current symptoms Review of Systems Constitutional: negative Ears, nose, mouth, throat, and face: Positive for mild right facial discomfort Respiratory: negative Cardiovascular: negative Gastrointestinal: negative Musculoskeletal:negative Neurological: negative Behavioral/Psych: negative Medications Scheduled Meds:enoxaparin (LOVENOX) syringe 40 mg, 40 mg, Subcutaneous, QDAY(21) piperacillin/tazobactam (ZOSYN) 3.375 g in sodium chloride 0.9% (NS) 100 mL IVPB (MB+), 3.375 g, Intravenous, Q6H* polyethylene glycol 3350 (MIRALAX) packet 17 g, 1 packet, Oral, QDAY senna/docusate (SENOKOT-S) tablet 1 tablet, 1 tablet, Oral, BID vancomycin (VANCOCIN) 1,000 mg in dextrose 5% (D5W) 250 mL IVPB ([id number]), 1,00 0 mg, Intravenous, Q12H* Continuous Infusions: PRN and Respiratory Meds:acetaminophen Q6H PRN, diphenhydrAMINE Q4H PRN, melaton in QHS PRN, ondansetron Q6H PRN OR ondansetron (ZOFRAN) IV Q6H PRN, oxyCODON E Q4H PRN, pancrelipase 20,880 Units/sodium bicarbonate 650 mg (KU CLOG DESTROYE R) PRN (In Service Coordinator from Rx), [DISCONTINUED] vancomycin (0-40 kg) IV Q12H* AND vancomycin, pharmacy to manage Per Pharmacy Objective Vital Signs: Last Filed Vital Signs: 24 Mateo r Range BP: 132/79 (05/14 755) Temp: 36.8 C (98.3 F) (05/14 755) Pulse: 71 (05/14 755) Respirations: 18 PER MINUTE (05/14 755) SpO2: 100 % (05/14 755) SpO2 Pulse: 87 (05/14 400) Height: 167.6 cm (65.98") (05/13 2200) BP: (96-134)/(60-79) Temp: [36.8 C (98.3 F)-37.6 C (99.6 F)] Pulse: [71-99] Respirations: [16 PER MINUTE-18 PER MINUTE] SpO2: [98 %-100 %] Intensity Pain Scale (Self Report): 10 (05/14/21 0941) Vitals: 05/13/21 2200 Weight: 68.9 kg (151 lb 14.4 oz) Intake/Output Summary: (Last 24 hours) Intake/Output Summary (Last 24 hours) at 05/14/2021 1313 Last data filed at 05/14/2021 0800 Gross per 24 hour Intake 235 ml Output 1580 ml Net -1345 ml Physical Exam General appearance: alert and no distress appreciable Neurologic: Grossly normal, at baseline Lungs: Nonlabored with normal effort Abdomen: soft, non-tender. Extremities: extremities normal, atraumatic, no cyanosis or edema Airway: N/A Anesthesia Classification: ASA III (A patient with a severe systemic disease th at limits activity, but is not incapacitating) Pre procedure anxiolysis plan: N/A Intra-procedural Sedation/Medication Plan: Lidocaine Personal history of sedation complications: Denies adverse event. Family history of sedation complications: Denies adverse event. Medications for Reversal: None Discussion/Reviews: Physician has discussed risks and alternatives of this type of sedation and above planned procedures with patient NPO Status: Acceptable Status: N/A Lab/Radiology/Other Diagnostic Tests: Labs: 24-hour labs: Results for orders placed or performed during the hospital encounter of 05/13/21 (from the past 24 hour(s)) CBC AND DIFF Collection Time: 05/13/21 8:28 PM Result Value Ref Range White Blood Cells 5.0 4.5 - 11.0 K/UL RBC 3.72 (L) 4.4 - 5.5 M/UL Hemoglobin 11.1 (L) 13.5 - 16.5 GM/DL Hematocrit 32.1 (L) 40 - 50 % MCV 86.2 80 - 100 FL MCH 29.8 26 - 34 PG MCHC 34.6 32.0 - 36.0 G/DL RDW 14.3 11 - 15 % Platelet Count 316 150 - 400 K/UL MPV 6.2 (L) 7 - 11 FL Neutrophils 83 (H) 41 - 77 % Lymphocytes 6 (L) 24 - 44 % Monocytes 8 4 - 12 % Eosinophils 2 0 - 5 % Basophils 1 0 - 2 % Absolute Neutrophil Count 4.17 1.8 - 7.0 K/UL Absolute Lymph Count 0.31 (L) 1.0 - 4.8 K/UL Absolute Monocyte Count 0.37 0 - 0.80 K/UL Absolute Eosinophil Count 0.08 0 - 0.45 K/UL Absolute Basophil Count 0.03 0 - 0.20 K/UL COMPREHENSIVE METABOLIC PANEL Collection Time: 05/13/21 8:28 PM Result Value Ref Range Sodium 136 (L) 137 - 147 MMOL/L Potassium 3.8 3.5 - 5.1 MMOL/L Chloride 100 98 - 110 MMOL/L Glucose 103 (H) 70 - 100 MG/DL Blood Urea Nitrogen 10 7 - 25 MG/DL Creatinine 1.05 0.4 - 1.24 MG/DL Calcium 8.9 8.5 - 10.6 MG/DL Total Protein 6.2 6.0 - 8.0 G/DL Total Bilirubin 0.4 0.3 - 1.2 MG/DL Albumin 3.4 (L) 3.5 - 5.0 G/DL Alk Phosphatase 72 25 - 110 U/L AST (SGOT) 11 7 - 40 U/L CO2 27 21 - 30 MMOL/L ALT (SGPT) 6 (L) 7 - 56 U/L Anion Gap 9 3 - 12 eGFR Non >60 >60 mL/min eGFR >60 >60 mL/min TYPE & CROSSMATCH Collection Time: 05/13/21 8:28 PM Result Value Ref Range Units Ordered 0 Crossmatch Expires 05/16/2021,9759 Record Check FOUND ABO/RH(D) A POS Antibody Screen NEG Electronic Crossmatch YES LACTIC ACID(LACTATE) Collection Time: 05/13/21 8:28 PM Result Value Ref Range Lactic Acid 1.7 0.5 - 2.0 MMOL/L MAGNESIUM Collection Time: 05/13/21 8:28 PM Result Value Ref Range Magnesium 1.8 1.6 - 2.6 mg/dL PHOSPHORUS Collection Time: 05/13/21 8:28 PM Result Value Ref Range Phosphorus 3.4 2.0 - 4.5 MG/DL CBC AND DIFF Collection Time: 05/14/21 3:25 AM Result Value Ref Range White Blood Cells 4.3 (L) 4.5 - 11.0 K/UL RBC 3.71 (L) 4.4 - 5.5 M/UL Hemoglobin 10.9 (L) 13.5 - 16.5 GM/DL Hematocrit 32.1 (L) 40 - 50 % MCV 86.3 80 - 100 FL MCH 29.4 26 - 34 PG MCHC 34.0 32.0 - 36.0 G/DL RDW 14.4 11 - 15 % Platelet Count 285 150 - 400 K/UL MPV 6.2 (L) 7 - 11 FL Neutrophils 78 (H) 41 - 77 % Lymphocytes 11 (L) 24 - 44 % Monocytes 8 4 - 12 % Eosinophils 2 0 - 5 % Basophils 1 0 - 2 % Absolute Neutrophil Count 3.35 1.8 - 7.0 K/UL Absolute Lymph Count 0.47 (L) 1.0 - 4.8 K/UL Absolute Monocyte Count 0.34 0 - 0.80 K/UL Absolute Eosinophil Count 0.08 0 - 0.45 K/UL Absolute Basophil Count 0.05 0 - 0.20 K/UL COMPREHENSIVE METABOLIC PANEL Collection Time: 05/14/21 3:25 AM Result Value Ref Range Sodium 138 137 - 147 MMOL/L Potassium 4.4 3.5 - 5.1 MMOL/L Chloride 104 98 - 110 MMOL/L Glucose 92 70 - 100 MG/DL Blood Urea Nitrogen 8 7 - 25 MG/DL Creatinine 0.98 0.4 - 1.24 MG/DL Calcium 8.5 8.5 - 10.6 MG/DL Total Protein 6.2 6.0 - 8.0 G/DL Total Bilirubin 0.4 0.3 - 1.2 MG/DL Albumin 3.3 (L) 3.5 - 5.0 G/DL Alk Phosphatase 65 25 - 110 U/L AST (SGOT) 10 7 - 40 U/L CO2 27 21 - 30 MMOL/L ALT (SGPT) 6 (L) 7 - 56 U/L Anion Gap 7 3 - 12 eGFR Non >60 >60 mL/min eGFR >60 >60 mL/min Radiology: Reviewed. * Valerie Gomez - 05/14/2021 10:52 AM CDT Associated Order(s): CONSULT DIETITIAN CLINICAL NUTRITION Clinical Nutrition Initial Assessment Name: Faisal Claire III : 1970 Age: 51 y.o. Admission Date: 2021 LOS: 1 day Recommendation: Recommend IsoSource 1.5 @ 1 carton (250mL) 3x per day to provide 1,125kcals, 51g protein, and 570mL free water with an additional 30mL water flush before and af ter each bolus to maintain tube patency. Recommend diet textures per FLOOR HAND, no therapeutic diet needed. Comments: Mr. Claire is a 51yoM with PMH notable for EtOH abuse, and tobacco abuse, and pT4aN1 R lower lip invasive SCC s/p composite resection, R MRND, and reconstruct ion with osteocutaneous free fibula flap and radial forearm flap (10/23/20) and possible adjuvant XRT at OSH. Presents with R face cellulitis and abscess and ex posed mandibular hardware. Met with pt at bedside. Pt reported good appetite [employer] . Denied N/V. Endorsed difficulty chewing, on a soft diet at home. Typical intak e includes breakfast of eggs and sausage, lunch of leftovers, and dinner of a po rk sandwich. Pt reported no recent weight changes. Cited UBW as 150lb inconsiste nt with documented weight history. Estimated 13% weight loss from 05/13 (151lb) to 10/2020 (173lb) (significant). Mild muscle wasting observed. Pt had G-tube plac ed (10/2020). Inquired about TF. Pt supplementing PO intake with EN. Pt consumin g 3x protein shakes of unknown brand (~1,050kcals) per day via G-tube. EN meetin g ~51% of energy needs. No additional supplements reported. Encouraged continued efforts at PO intake. EN recommendations provided. Will continue to follow. Nutrition Assessment of Patient: Admit Weight: 68.9 kg (2021); Usual Weight: 78.8 kg (10/21/2020) BMI (Calculated): 24.53; BMI Categories Adult: Acceptable: 18.5-24.9; Appearance : Appropriate Pertinent Allergies/Intolerances: none noted Pertinent Labs: ALT 6; Pertinent Meds: Zofran, senna, Miralax; Unintentional Yariel ght Loss: (13% in 8 months) Oral Diet Order: NPO at midnight; Current Oral Intake: NPO Estimated Calorie Needs: 5561-6133 (30-35 kcal/kg of actual weight) Estimated Protein Needs: 83-103 (1.2-1.5 g/kg of actual weight) Malnutrition Assessment: Malnutrition present; ICD-10 code E44: Chronic illness/Moderate non-severe malnu trition; Weight loss: 10% x 6 months, Mild loss of muscle mass; Nutrition Focused Physical Assessment: Loss of Subcutaneous Fat: No Muscle Wasting: Yes; Severity: Mild; Location: Clavicle, Deltoid Edema: Yes; Severity: Mild; Location: (R Facial) Pressure Injury: No Nutrition Diagnosis: Altered GI function Etiology: s/p lower lip reconstruction Signs & Symptoms: EN to meet about 50% nutrition needs Intervention / Plan: EN recommendations Monitor weights, labs, medications, and PO intake Monitor EN for adequacy and tolerance Goals: EN tolerated and meeting >50% of nutritional needs Time Frame: Throughout stay Patient to consume >75% of meals/supplements Time Frame: Throughout stay Valerie Valencia Virology Teacher Available on [employer] Associated attestation - Verenice Trinh - 05/14/2021 12:56 PM CDT Agree with inclusion intern's documentation and EN recommendations. Will wait to hear back from primary team via Volate before placing EN order. Verenice Trinh, MS, RD, LD Office Phone [phone] Available on [employer] Id * Roger Bates MD - 05/14/2021 7:49 AM CDT Associated Order(s): CONSULT INFECTIOUS DISEASES PHYSICIAN Infectious Diseases Initial Consult Today's Date: 05/14/2021 Admission Date: 2021 Reason for this consultation: Right face cellulitis, concern for abscess vs meta static disease Assessment: Facial cellulitis Preceptal Cellulitis Right facial abscess Osteomyelitis of anterior osteotomy graft Hardware failure with likely infection - treated with keflex for "3 days" and Augmentin for "5 days" at [facility] - CT neck 05/13: hyperenhancement of the right parotid gland with superimposed int raparenchymal lobular fluid collection, concerning for abscess. Right oral cavit y mass reconstruction with hardware migration and exposure. Superimposed erosion s of right parasymphysis and anterior osteotomy graft, concerning for osteomyeli tis or cellulitis v metastasis. Retropharyngeal space effusion with intradiscal gas C6-C7. Development of moderate right periorbital edema without organized flu id collection. -scheduled for ID of abscess 05/14 R lower lip invasive SCC s/p composite resection and reconstruction 10/2020 -osteocutaneous free fibula flap and radial forearm flap Recommendations: 1. Continue empiric vancomycin and Zosyn for now, as ordered. Will direct anti microbial therapy pending culture results. 2. Follow results of IR aspiration and drain. Obtain routine culture: Aerobic, anaerobic, AFB with Gram stain. 3. ID will continue to follow closely Patient seen and discussed with MD Herman Hall, DO Internal Medicine, PGY-2 Available on [email or web address] Pager [phone] ATTESTATION I have personally seen and examined the patient, and reviewed all diagnostic grayson ts available. I have discussed the case with Dr. Yusuf and agree with his a ssessment and recommendations. Changes to the text were made where appropriate. As above, very complex case. Will monitor culture results in progress, and will discuss with Plastic Surgery future surgical plans. Staff name: Roger Bates MD Division of Infectious Diseases Voalte, or pager [phone] Date: 05/14/2021 History of Present Illness Faisal Claire III is a 51 y.o. 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 He had positive lymph nodes and was recomm ended for adjuvant XRT, but was lost to follow up. He presents this admission wi th complaint of right face swelling and redness. Mr Claire reports a two week history of facial redness and a one month history of right facial swelling. He reports that both the swelling and redness have be en progressive since onset. He reports associated chills for the past week, but denies fever at home. On interview, he reports that he feels like himself and d oes not feel ill compared to how he feels normally. Patient denies any recent s inusitis, tooth pain, recent dental work. He reports that he uses G tube without difficulty and has not noticed any surrou nding changes to the area. He reports that he maintains a soft diet at home to s upplement his nutrition. He reports that he was previously seen in [place], [place] in the ED and in urgent care and prescribed a short course of keflex for "3 days" and a course of Augme ntin for "5 days." He reports that he stopped taking the Augmentin because he ra n out of pills "about a week ago. Due to the progressive nature of his symptoms he followed up in [facility] where he was found to have facial cellulitis and there was concern for fa cial cellulitis. CT of the neck was obtained which showed abscess formation christiano cribed as above. Antimicrobial Start date End date Zosyn 05/13/21 current Vancomycin 05/13/21 current Estimated Creatinine Clearance: 85.9 mL/min (based on SCr of 0.98 mg/dL). Past Medical History Medical History: Diagnosis Date Alcohol abuse KALTAG (hard of hearing) Squamous cell carcinoma, lip Tobacco abuse Past Surgical History Surgical History: Procedure Laterality Date GASTROSTOMY TUBE PLACEMENT 10/21/2020 TRACHEOSTOMY PLANNED N/A 10/21/2020 Performed by Eric Benson MD at [facility] OR EXTRACTION TOOTH N/A 10/21/2020 Performed by Eric Benson MD at [facility] OR ALVEOLOPLASTY - EACH QUADRANT N/A 10/21/2020 Performed by Eric Benson MD at [facility] OR ESOPHAGOGASTRODUODENOSCOPY WITH PLACEMENT PERCUTANEOUS GASTROSTOMY TUBE N/A 10/21/2020 Performed by Oscar Batista Jr., MD at [facility] OR RADICAL RESECTION TUMOR SOFT TISSUE 2.0 CM OR MORE - FACE/ SCALP Right 10/23 Performed by Eric Benson MD at [facility] OR TISSUE TRANSFER FREE SKIN FLAP WITH MICROVASCULAR ANASTOMOSIS Right 10/23/20 20 Performed by Eric Benson MD at [facility] OR SPLIT THICKNESS SKIN AUTOGRAFT 100 SQ CM OR LESS OR 1% BODY AREA OF CHILD- U PPER EXTREMITY Left 10/23/2020 Performed by Eric Benson MD at [facility] OR CERVICAL LYMPHADENECTOMY Right 10/23/2020 Performed by Eric Benson MD at [facility] OR GLOSSECTOMY COMPOSITE WITHOUT RADIAL NECK DISSECTION N/A 10/23/2020 Performed by Eric Benson MD at [facility] OR TISSUE TRANSFER FREE OSTEOCUTANEOUS FLAP WITH MICROVASCULAR ANASTOMOSIS Righ t 10/23/2020 Performed by Eric Benson MD at [facility] OR Social History Marital status/area of residence: Lives at home with his Job/occupation: Disabled, previously worked 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 [employer]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 Sexual history: Monogamous with Travel history: Denies travel outside the state Animal, bird exposures: Has dogs and cats in the home, denies any animal bites o r scratches Environmental/outdoor/food exposures: Denies Recent ill contacts: Denies TB exposure: Denies Drugs of abuse: Reports occasional alcohol use approximately 5-6 nights per week approximately 2 cans, reports tobacco use with chewing tobacco, denies illicit substance use Social History Tobacco Use Smoking status: Never Smoker Smokeless tobacco: Current User Types: Chew Substance Use Topics Alcohol use: Yes Alcohol/week: 10.0 - 12.0 standard drinks Types: 10 - 12 Cans of beer per week Family History History reviewed. No pertinent family history. Allergies Allergies Allergen Reactions Ibuprofen SWOLLEN TONGUE Review of Systems A comprehensive 14-point review of systems was negative with exception of the re view of systems as noted in the history of present illness. Medications Scheduled Meds:enoxaparin (LOVENOX) syringe 40 mg, 40 mg, Subcutaneous, QDAY(21) piperacillin/tazobactam (ZOSYN) 3.375 g in sodium chloride 0.9% (NS) 100 mL IVPB (MB+), 3.375 g, Intravenous, Q6H* polyethylene glycol 3350 (MIRALAX) packet 17 g, 1 packet, Oral, QDAY senna/docusate (SENOKOT-S) tablet 1 tablet, 1 tablet, Oral, BID vancomycin (VANCOCIN) 1,000 mg in dextrose 5% (D5W) 250 mL IVPB (Ndoa2Saw), 1,00 0 mg, Intravenous, Q12H* Continuous Infusions: PRN and Respiratory Meds:acetaminophen Q6H PRN, diphenhydrAMINE Q4H PRN, melaton in QHS PRN, ondansetron Q6H PRN OR ondansetron (ZOFRAN) IV Q6H PRN, oxyCODON E Q4H PRN, [DISCONTINUED] vancomycin (0-40 kg) IV Q12H* AND vancomycin, pha rmacy to manage Per Pharmacy Physical Examination Vital Signs: Most Recent Vital Signs: 24 H our Range BP: 124/72 (05/14 400) Temp: 37.6 C (99.6 F) (05/14 336) Pulse: 87 (05/14 336) Respirations: 16 PER MINUTE (05/13 2040) SpO2: 98 % (05/14 400) SpO2 Pulse: 87 (05/14 400) Height: 167.6 cm (65.98") (05/13 2200) BP: (96-134)/(60-72) Temp: [37.3 C (99.1 F)-37.6 C (99.6 F)] Pulse: [87-99] Respirations: [16 PER MINUTE] SpO2: [98 %-99 %] General appearance: Lethargic and difficult to arouse, however alert and oriente d x3 HENT: Patient with skin grafting noted to right ventral neck, right mandibular j aw. Patient with open, draining wound to right cheek. Patient with scarring of right maxillary and mandibular jaw is evidence of prior reconstruction surgery. Eyes: Periorbital swelling of right eye. PERRL, EOM grossly intact and without pain on eye movement, Conj nl Neck: Changes as noted above in HEENT Lungs: Decreased breath sounds bilaterally without wheezing or rhonchi Heart: Regular rhythm, normal rate, with no murmur, rub, gallop Abdomen: G-tube in left upper abdomen without surrounding erythema or purulence. Soft, non-tender, non-distended, normoactive bowel sounds, no hepatosplenomega ly, no masses Ext: No clubbing, cyanosis or edema Musculo: no joint swelling or effusions Skin: no rashes/lesions Vascular: normal radial/dorsalis pedis pulses Lymph: no cervical, axillary or inguinal adenopathy Neuro: Lethargic, but oriented, interactive, moves all extremities Psych: normal mood and affect Lines: G tube 10/21/2020 Lab Review Hematology Recent Labs 05/13/21202705/14/21 0325 WBC 5.0 4.3* HGB 11.1* 10.9* HCT 32.1* 32.1* PLTCT 316 285 Chemistry Recent Labs 05/13/21202705/14/21 0325 NA 136* 138 K 3.8 4.4 CL 100 104 CO2 27 27 BUN 10 8 CR 1.05 0.98 GFR >60 >60 GLU 103* 92 CA 8.9 8.5 PO4 3.4 -- ALBUMIN 3.4* 3.3* ALKPHOS 72 65 AST 11 10 ALT 6* 6* TOTBILI 0.4 0.4 Microbiology, Radiology and other Diagnostics Review Microbiology data reviewed. Pertinent radiology images viewed. Impression: CT chest without contrast 05/13: 1. Several tiny pulmonary nodules remain unchanged and likely represent scars or granulomas. No new or enlarging pulmonary nodules are appreciated. An additional follow-up chest CT in 6-12 months is suggested to assess for long-term stability. 2. No thoracic lymphadenopathy. 3. Persistent complicated left renal cyst. Ultrasound evaluation is again suggested if not previously performed. CT neck 05/13: IMPRESSION 1. Hyperenhancement of the right parotid gland with superimposed intraparenchymal lobular fluid collection, favored to represent abscess. Metastatic disease could appear similar. Recommend aspiration and biopsy for further evaluation. 2. Composite right oral cavity mass resection and reconstruction with multifocal periprosthetic lucency, hardware migration and exposure, and superimposed erosions in the [place] right parasymphysis and anterior osteotomy graft. This is also suspicious for infection/osteomyelitis/cellulitis. Metastatic disease could appear similar. 3. Development of a small retropharyngeal space effusion without discrete rim enhancement. This could be reactive related to extensive inflammatory changes in the floor of mouth and right neck. Given the presence of new intradiscal gas C6-C7 (without vertebral body cortical loss), MRI of the cervical spine with contrast is recommended as a more sensitive evaluation for any possible discitis as an etiology for the retropharyngeal space effusion. 4. Development of moderate right periorbital edema without organized orbital fluid collection or suspicious enhancement, likely reactive edema. Herman Yusuf, Pager Please contact preferentially via [facility] Division of Infectious Diseases documented in this encounter Miscellaneous Notes * Case Mgmt DC Nieves Jennings Jaymie Perez - 05/19/2021 11:46 AM CDT Medicaid Transportation Summary for Faisal Claire III Requesting Hadoop Engineer: DIVINE Mendez Date: 05/19/2021 Medicaid [facility] Counsell[facility] [phone] [facility] Subscriber Subscriber # Faisal Claire III [id number] Address Phone [address] [address] [place] [address] Destination: [address] [place] [address] / [phone] Transportation Arrival Window: 1200 - 1500 Transportation to Contact Unit 15 Prior to Arrival: Yes Patient to be Waiting in Lobby: Yes Trip Reservation Number: [id number] Notified [phone] and provided update. Updated [facility]. Jaymie Perez Parts Sales Counterperson * Case Mgmt DC Plan - Sandrita Momin LMSW - 05/19/2021 11:37 AM CDT Case Management Progress Note NAME:Faisal Claire III DO B:1970 AGE: 51 y.o. ADMISSION DATE: 2021 DAYS ADMITTED: LOS: 6 days Todays Date: 05/19/2021 Plan Patient will discharge home today. Medicaid transport will be arranged. Interventions Support Info or Referral Discharge Planning Patient is medically stable for DC. SW notified by RNCM patient needs Medicaid transportation arranged at discharge. SW requested DC orders from primary team. ARLEEN called [facility], to discuss transportation and informed Me dicaid will have 3 hour window once scheduled. ARLEEN tasked [facility] to arrange transport to [address] [place] [address] [place] [address]. Medication Needs Financial Legal Other Disposition Expected Discharge Date 05/19/2021 1:00 PM Transportation Does the patient need discharge transport arranged?: Yes Transportation Name, Phone and Availability #1: Medicaid Transport Does the patient use Medicaid Transportation?: Yes Next Level of Care (Acute Psych discharges only) Discharge Disposition Selected Continued Care - Admitted Since 2021 Dialysis/Infusion Service Provider Selected Services Address Phone Fax Patient Preferred [facility] ([facility] Home Infusion and Injection [id number] [facility] [address] Sandrita Momin LMSW Please Contact on Voalte * Care Plan - Maisha Mathur RN - 05/19/2021 10:45 AM CDT Problem: Discharge Planning Goal: Participation in plan of care Outcome: Goal Ongoing Goal: Knowledge regarding plan of care Outcome: Goal Ongoing Goal: Prepared for discharge Outcome: Goal Ongoing Problem: Pain Goal: Management of pain Outcome: Goal Ongoing Goal: Knowledge of pain management Outcome: Goal Ongoing Goal: Progress Toward Pain Management Goals Outcome: Goal Ongoing Problem: Self-Care Deficit Goal: Maximize ADL functioning Outcome: Goal Ongoing Problem: Nutrition Deficit Goal: Adequate nutritional intake Outcome: Goal Ongoing Problem: Infection, Risk of, Central Venous Catheter-Associated Bloodstream Infe ction Goal: Absence of CVC Associated Bloodstream infection Outcome: Goal Ongoing Problem: Infection, Risk of Goal: Absence of infection Outcome: Goal Ongoing Goal: Knowledge of Infection Control Procedures Outcome: Goal Ongoing Problem: Skin Integrity Goal: Skin integrity intact Outcome: Goal Ongoing Goal: Healing of skin (Wound & Incision) Outcome: Goal Ongoing Goal: Healing of skin (Pressure Injury) Outcome: Goal Ongoing * Case Mgmt DC Plan - Valerie Beasley RN - 05/19/2021 10:06 AM CDT Case Management Progress Note NAME:Faisal Claire III DO B:1970 AGE: 51 y.o. ADMISSION DATE: 2021 DAYS ADMITTED: LOS: 6 days Todays Date: 05/19/2021 Plan -Per team, patient ready to d/c with IV abx. -There is no agency in patient's area able to accept his ins. -RNCM spoke to infusion clinic at [facility] in [place], [place] ([phone]). They are able to do weekly labs and line care and will co ntact him and plan to see him this Tuesday to start (once they receive orders). -[facility] infusion pharmacy is on board and able to come today for bedside teach an d to get patient started on home infusion. -RNCM spoke to patient , Jing. She is 2 hours away and can't come for be d side teach but is comfortable administering patient's IV daily and taking him to clinic. She said [facility] can teach her at the bedside. [facility] will c all for Medicaid transport. -Team updated and Home IV orders sent for signature. Addenda: [facility] rep will call [facility] and will plan to have meds delivered to patient home this evening in time for 2100 dose. She will provide written and live phone in structions to patient's . They also have 24 hour support if needed. -Signed orders faxed to [facility] and [facility] -[facility] to arrange Medicaid transport. Interventions Support Info or Referral Discharge Planning Medication Needs Financial Legal Other Disposition Expected Discharge Date 05/19/2021 Transportation Does the patient need discharge transport arranged?: No Transportation Name, Phone and Availability #1: family Does the patient use Medicaid Transportation?: Yes Next Level of Care (Acute Psych discharges only) Discharge Disposition Selected Continued Care - Admitted Since 2021 [facility] Dialysis/Infusion Service Provider Selected Services Address Phone Fax Patient Preferred [facility] ([facility] Home Infusion and Injection [phone] [facility] [address] [phone] Kenneth Beasley RN, [facility] Integrated Machine [employer]le [employer]older *[phone] * Care Plan - Mikhail Philippe RN - 05/19/2021 5:42 AM CDT Problem: Discharge Planning Goal: Participation in plan of care Outcome: Goal Ongoing Goal: Knowledge regarding plan of care Outcome: Goal Ongoing Goal: Prepared for discharge Outcome: Goal Ongoing Problem: Pain Goal: Management of pain Outcome: Goal Ongoing Goal: Knowledge of pain management Outcome: Goal Ongoing Goal: Progress Toward Pain Management Goals Outcome: Goal Ongoing Problem: Self-Care Deficit Goal: Maximize ADL functioning Outcome: Goal Ongoing Problem: Nutrition Deficit Goal: Adequate nutritional intake Outcome: Goal Ongoing Problem: Infection, Risk of, Central Venous Catheter-Associated Bloodstream Infe ction Goal: Absence of CVC Associated Bloodstream infection Outcome: Goal Ongoing Problem: Infection, Risk of Goal: Absence of infection Outcome: Goal Ongoing Goal: Knowledge of Infection Control Procedures Outcome: Goal Ongoing * Case Mgmt DC Plan - Valerie Beasley RN - 05/18/2021 9:11 AM CDT Case Management Admission Assessment NAME:Faisal Claire III :1970 AGE: 51 y.o. ADMISSION DATE: 2021 DAYS ADMITTED: LOS: 5 days Todays Date: 05/18/2021 Source of Information: RNKAMLESH and SW have been unable to reach patient by segun rocha to discuss d/c recommendations. -This patient is familiar to this RNCM. During last admission, RNKAMLESH was unable to find Home Health agency for patient near his home in [place], [place] who would accept his [employer] Medicaid. Patient went outpatient to wound clinic at that time to [facility]. -Patient currently needs home IV antibiotics for d/c. -RNCM faxed referral to [facility] home infusion pharmacy and several agencies in the area. Plan Plan: Assist PRN with SW/NCM Services Patient Address/Phone [address] [facility] [address] (home) Emergency Contact Extended Emergency Contact Information Primary Emergency Contact: Jing Claire Mobile Relation: Spouse Healthcare Directive Healthcare Directive: No, patient does not have a healthcare directive Would patient like to fill out a (a new) Healthcare Directive?: No, patient decl ined Psych Advance Directive (Psych unit only): No, patient does not have a Psych Adv ance Directive Transportation Does the patient need discharge transport arranged?: No Transportation Name, Phone and Availability #1: family Does the patient use Medicaid Transportation?: Yes Expected Discharge Date 05/19/2021 Living Situation Prior to Admission Living Arrangements Type of Residence: Home, independent Living Arrangements: Spouse/significant other, Family members Bathroom Shower / Tub: Tub/Shower Unit How many levels in the residence?: 2 Can patient live on one level if needed?: Yes Does residence have entry and/or side stairs?: Yes(2) Assistance needed prior to admit or anticipated on discharge: No Who provides assistance or could if needed?: Are they in good health?: Yes Can support system provide 24/7 care if needed?: Maybe Level of Function Prior level of function: Independent Cognitive Abilities Financial Resources Coverage Primary Insurance: Medicaid Source of Income Source Of Income: SSDI Financial Assistance Needed? no Psychosocial Needs Mental Health Mental Health History: No Substance Use History Substance Use History Screen: No Other no Current/Previous Services PCP Geovanny Engel, , Pharmacy [facility] [address] [address] [id number] [place], [place] - [address] [facility] [address] [facility] [address] Durable Medical Equipment Durable Medical Equipment at home: None Home Health Receiving home health: No Hemodialysis or Peritoneal Dialysis Undergoing hemodialysis or peritoneal dialysis: No Tube/Enteral Feeds Receive tube/enteral feeds: No Infusion Receive infusions: No Private Duty Private duty help used: No Home and Community Based Services Home and community based services: No [facility] [place]: N/A Hospice Hospice: No Outpatient Therapy PT: No OT: No FLOOR HAND: No Correction Facility/[facility] SNF: No NH: No Inpatient Rehab IPR: No Long-Term Acute Care Hospital LTACH: No Acute Hospital Stay Acute Hospital Stay: In the past Was patient's stay within the last 30 days?: No Kenneth Beasley RN, [facility] Integrated [employer] *[phone] * Care Plan - Elsie Mckeon RN - 05/16/2021 11:21 PM CDT Problem: Discharge Planning Goal: Participation in plan of care Flowsheets (Taken 05/16/20212318) Participation in Plan of Care: Involve patient/caregiver in care planning decisi on making Goal: Knowledge regarding plan of care Flowsheets (Taken 05/16/20212318) Knowledge regarding plan of care: Provide plan of care education Provide infection prevention education Provide VTE signs and symptoms education Provide fall prevention education Provide medication management education Provide admission education to parent/caregiver Goal: Prepared for discharge Flowsheets (Taken 05/16/20212318) Prepared for discharge: Complete ADL ability assessment Provide safe use medical equipment education Provide diet and oral health education Problem: Pain Goal: Management of pain Flowsheets (Taken 05/16/20212318) Management of pain: Complete pain assessment scale according to age, condition and ability to under stand. In the patient who cannot fully report, observational (behavior) tools are appr opriate. Manage pain. Assess opioid analgesia side-effects. Assess pain control barriers. Goal: Knowledge of pain management Flowsheets (Taken 05/16/20212318) Knowledge of pain management: Provide pain scale education Provide pain management methods education Provide pharmacological pain management education Goal: Progress Toward Pain Management Goals Flowsheets (Taken 05/16/20212318) Progress toward pain management goals: Progress toward pain management goals Assess progress toward pain management goals Problem: Nutrition Deficit Goal: Adequate nutritional intake Flowsheets (Taken 05/16/20212318) Adequate nutritional intake: Assess dietary preferences Promote oral fluid intake Manage tube feeding and enteral nutritional administration Speech therapy swallowing assessment and management Administer total parenteral nutrition Knowledge of nutritional diet Assess nutritional status Problem: Infection, Risk of, Central Venous Catheter-Associated Bloodstream Infe ction Goal: Absence of CVC Associated Bloodstream infection Flowsheets (Taken 05/16/2021 2319) Absence of CVC associated bloodstream infection: Assess for central line catheter infection (Monitor SIRS criteria) Manage central venous catheter Follow central line bundle components Provide education on central line home care * Anesthesia Post Op Day 1 - Jael Pruett SRNA - 05/16/2021 11:48 AM CDT Anesthesia Follow-Up Evaluation: Post-Procedure Day One Name: Faisal Claire III : 1970 Age: 51 y.o. Sex: male Procedure Date: 05/15/2021 Procedure: Procedure(s) with comments: REMOVAL HARDWARE -DEEP MANDIBLE - REQUEST 1300 START, 2 HOURS EXCISION BONE - MANDIBLE REPAIR COMPLEX WOUND 2.6 CM TO 7.5 CM - HEAD/ NECK REPAIR COMPLEX WOUND EACH ADDITIONAL 5 CM OR LESS- HEAD/ NECK - x2 Physical Assessment Height: 167.6 cm (65.98") Weight: 68.9 kg (151 lb 14.4 oz) Vital Signs (Last Filed in 24 hours) BP: 136/93 (05/16 800) Temp: 36.4 C (97.5 F) (05/16 743) Pulse: 82 (05/16 1015) Respirations: 14 PER MINUTE (05/16 743) SpO2: 99 % (05/16 1015) SpO2 Pulse: 79 (05/16 800) Patient History Allergies Allergies Allergen Reactions Ibuprofen SWOLLEN TONGUE Medications Scheduled Meds:bacitracin topical ointment, , Topical, BID enoxaparin (LOVENOX) syringe 40 mg, 40 mg, Subcutaneous, QDAY(21) piperacillin/tazobactam (ZOSYN) 3.375 g in sodium chloride 0.9% (NS) 100 mL IVPB (MB+), 3.375 g, Intravenous, Q6H* polyethylene glycol 3350 (MIRALAX) packet 17 g, 1 packet, Oral, QDAY senna/docusate (SENOKOT-S) tablet 1 tablet, 1 tablet, Oral, BID sodium chloride PF 0.9% flush 10 mL, 10 mL, Flush, FLUSH TID vancomycin (VANCOCIN) 1,000 mg in dextrose 5% (D5W) 250 mL IVPB (Mfas2Ujl), 1,00 0 mg, Intravenous, Q12H* Continuous Infusions: sodium chloride 0.9 % infusion 50 mL/hr at 05/15/212058 PRN and Respiratory Meds:acetaminophen Q6H PRN, diphenhydrAMINE Q4H PRN, melaton in QHS PRN, ondansetron Q6H PRN OR ondansetron (ZOFRAN) IV Q6H PRN, oxyCODON E Q4H PRN, pancrelipase 20,880 Units/sodium bicarbonate 650 mg ([facility] CLOG DESTROYE R) PRN (In Service Coordinator from Rx), [DISCONTINUED] vancomycin (0-40 kg) IV Q12H* AND vancomycin, pharmacy to manage Per Pharmacy Diagnostic Tests Hematology: Lab Results Component Value Date HGB 11.6 05/16/2021 HCT 33.4 05/16/2021 PLTCT 365 05/16/2021 WBC 7.5 05/16/2021 NEUT 91 05/16/2021 ANC 6.79 05/16/2021 ALC 0.30 05/16/2021 RACHELE 4 05/16/2021 AMC 0.29 05/16/2021 EOSA 0 05/16/2021 ABC 0.09 05/16/2021 MCV 85.7 05/16/2021 MCH 29.7 05/16/2021 MCHC 34.7 05/16/2021 MPV 6.1 05/16/2021 RDW 13.9 05/16/2021 General Chemistry: Lab Results Component Value Date NA 138 05/16/2021 K 4.5 05/16/2021 CL 102 05/16/2021 CO2 26 05/16/2021 GAP 10 05/16/2021 BUN 10 05/16/2021 CR 0.87 05/16/2021 GLU 125 05/16/2021 CA 8.7 05/16/2021 ALBUMIN 3.4 05/16/2021 LACTIC 1.7 2021 OBSCA 1.13 10/27/2020 MG 1.8 2021 TOTBILI 0.3 05/16/2021 PO4 3.4 2021 Coagulation: Lab Results Component Value Date PTT 27.5 10/21/2020 INR 1.1 10/21/2020 Follow-Up Assessment Patient location during evaluation: floor Anesthetic Complications: Anesthetic complications: The patient did not experience any anesthestic complic ations. Pain: Score: 2 Management:adequate Level of Consciousness: awake and alert Hydration:acceptable Airway Patency: patent Respiratory Status: acceptable and room air Cardiovascular Status:acceptable Regional/Neuroaxial: * Operative Report (DICTATED ONLY) - Eric Benson MD - 05/15/2021 3:37 PM CDT THE [address] [address] PATIENT NAME: FAISAL CLAIRE MR#/PT#: [id number] Page 1 OPERATIVE REPORT DATE OF OPERATION: 05/15/2021 SURGEON: Eric Benson MD STATISTICAL CLERK ADVERTISING(S): Resident, Dr. Jakob Louis. PREOPERATIVE DIAGNOSIS: Right facial abscess and hardware exposure. POSTOPERATIVE DIAGNOSIS: Same. OPERATIVE PROCEDURE: 1. Removal of deep mandibular hardware. 2. Excision of devitalized mandibular bone. 3. Neck soft tissue debridement. 4. Complex repair of right neck wound, 15 cm. ANESTHESIA: General endotracheal. 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 He underwent adjuvant radiation treatment in [place], but had a difficult time keeping his followup appointments and was not seen until this past week when he presented with progressive right facial swelling, erythema and exposure of his right mandibular plate. We discussed the plan to debride and w aysha out his right facial soft tissue after a failed attempt at aspirating a phle gmon versus abscess in both the clinic and the Interventional Radiology suite. We also discussed plans to remove his hardware, debride his bone and close his n batsheva. We discussed risks of facial nerve injury, recurrent cancer, residual infe ction, ongoing wound healing problems, and need for future staged intervention. He and his expressed understanding of this and agreed to proceed. DESCRIPTION AND FINDINGS OF OPERATIVE PROCEDURE: The patient was brought to the operating room where a time-out was performed to confirm the patient by name, date of , and medical record number. After in duction of general anesthesia and placement of an endotracheal tube, the patient 's head and neck were sterilely prepped and draped. We began by opening the rig ht rex-apron incision between the upper aspect of the radial forearm flap recon struction and the cervical skin. Dissection was carried down to the exposed man dibular plate along its entirety. Following exposure of the plate, the screws w ere removed and the plate was taken out. Following removal of the deep hardware , the [place] mandibular bone and the fibular bone was scraped with a #9 elevator to remove scar tissue and slough from the bone. Bone specimens from the anteri or and the posterior mandible were then collected with a rongeur and sent to [facility] and for microbiologic review. Of note, the anterior mandibular bone was soft and somewhat mushy. There was also evidence of fibrous union of the fibula r constructs. The bone was then drilled down with a watermelon jarad to healthy bleeding bone until there was no visible devitalized bone left. The fibular bon e and the [place] bone were confirmed to be bleeding nicely. We also debrided th e soft tissues of the cervical flap in the region of the parotid. We did aspira te the soft tissue flap and similar to his preoperative procedures did not retur n any collection of pus. Some of the scar tissue in the flap was excised with mahogany Jason and sent for pathology and culture. We then elevated skin flaps cephal ad and caudad with wide undermining with the Bovie beneath the radial forearm fl ap and the [place] skin flap. Hemostasis was then ensured and then a complex denis sure was completed over a 15 round Louis drain with deep 3-0 Monocryl suture and a combination of horizontal mattress and simple interrupted 2-0 nylon sutures t o approximate the skin edges. The total length of the complex neck closure was 15 cm. All sponge, needle, and instrument counts were correct and there were no complications. The patient tolerated the procedure well and was brought to the recovery area in good condition. ESTIMATED BLOOD LOSS: 100 mL. SPECIMENS REMOVED: 1. Right facial scar tissue. 2. Right anterior mandibular bone. 3. Right posterior mandibular bone. 4. Specimens were sent for both culture and pathologic analysis. Eric Benson MD RG / [employer] /[id number] cc: - Eric Benson MD * Procedures (Immed Post or Bedside) - Phoenix Louis MD - 05/15/2021 3:14 PM CDT Brief Operative Note Name: Faisal Claire III is a 51 y.o. male : 1970 MRN# : [id number] DATE OF OPERATION: 05/15/2021 Date: 05/15/2021 Preoperative Dx: Cellulitis, face [L03.211] Post-op Diagnosis * Cellulitis, face [L03.211] Procedure(s) (LRB): REMOVAL HARDWARE -DEEP MANDIBLE (Right) Surgeon(s) and Role: * Eric Benson MD - Primary * Phoenix Louis MD - Resident - Assisting Findings: Exposed hardware Estimated Blood Loss: 10 ml Specimen(s) Removed/Disposition: ID Type Source Tests Collected by Time Destination 1 : RIGHT FACIAL SCAR TISSUE Tissue Face SURGICAL PATHOLOGY Eric Benson MD 05/15/2021 1412 2 : RIGHT ANTERIOR MANDIBULAR BONE Tissue Mandible SURGICAL PATHOLOGY Eric Cox MD 05/15/2021 1416 3 : RIGHT POSTERIOR MANDIBLE BONE Tissue Mandible SURGICAL PATHOLOGY G Eric martin MD 05/15/2021 1418 A : RIGHT FACIAL SCAR TISSUE CULTURE Tissue Face CULTURE-ANAEROBIC, CULTURE-WOUN D/TISSUE/FLUID(AEROBIC ONLY)W/SENSITIVITY, CULTURE-TB (AFB), GRAM STAIN, CULTURE -FUNGAL,OTHER Eric Benson MD 05/15/2021 1413 B : RIGHT ANTERIOR MANDIBULAR BONE CULTURE Tissue Mandible CULTURE-ANAEROBIC, CU LTURE-WOUND/TISSUE/FLUID(AEROBIC ONLY)W/SENSITIVITY, CULTURE-TB (AFB), GRAM STAI N, CULTURE-FUNGAL,OTHER Eric Benson MD 05/15/2021 1417 C : RIGHT POSTERIOR MANDIBLE BONE CULTURE Tissue Mandible CULTURE-ANAEROBIC, CUL TURE-WOUND/TISSUE/FLUID(AEROBIC ONLY)W/SENSITIVITY, CULTURE-TB (AFB), GRAM STAIN , CULTURE-FUNGAL,OTHER Eric Benson MD 05/15/2021 1419 Complications: None Implants: None Drains: ELLIOTT x 1 Disposition: PACU - stable Phoenix Louis MD Pager * Care Plan - Shena Banerjee RN - 05/15/2021 2:01 PM CDT Problem: Discharge Planning Goal: Participation in plan of care Outcome: Goal Ongoing Goal: Knowledge regarding plan of care Outcome: Goal Ongoing Goal: Prepared for discharge Outcome: Goal Ongoing Problem: Pain Goal: Management of pain Outcome: Goal Ongoing Goal: Knowledge of pain management Outcome: Goal Ongoing Goal: Progress Toward Pain Management Goals Outcome: Goal Ongoing Problem: Self-Care Deficit Goal: Maximize ADL functioning Outcome: Goal Ongoing Problem: Nutrition Deficit Goal: Adequate nutritional intake Outcome: Goal Ongoing * Care Plan - Bibi Stevenson RN - 05/14/2021 11:45 PM CDT Problem: Discharge Planning Goal: Participation in plan of care Outcome: Goal Ongoing Goal: Knowledge regarding plan of care Outcome: Goal Ongoing Goal: Prepared for discharge Outcome: Goal Ongoing Problem: Pain Goal: Management of pain Outcome: Goal Ongoing Goal: Knowledge of pain management Outcome: Goal Ongoing Goal: Progress Toward Pain Management Goals Outcome: Goal Ongoing Problem: Self-Care Deficit Goal: Maximize ADL functioning Outcome: Goal Ongoing Problem: Nutrition Deficit Goal: Adequate nutritional intake Outcome: Goal Ongoing * Procedures (Immed Post or Bedside) - Tanvir Barros MD - 05/14/2021 3:52 PM CDT Immediate Post Procedure Note Date: 05/14/2021 Attending Physician: Dr. Delgadillo Performing Provider: Tanvir Barros MD Consent: Consent obtained from patient. Time out performed: Consent obtained, correct patient verified, correct procedur e verified, correct site verified, patient marked as necessary. Pre/Post Procedure Diagnosis: Right facial abscess Indications: Right facial abscess Procedure(s): US guided right facial abscess aspiration Findings: Patient was diffusely erythematous along the right side of the face. US demonstrated solid appearing phlegmatic material in the anterior right paroti d space. Needle aspiration attempted but no aspirate was able to to be obtained. Saline was attempted to be injected but patient was unable to tolerated due to pain. Procedure was terminated due to patients discomfort and no appreciable laurence in able fluid. Estimated Blood Loss: None/Negligible Specimen(s) Removed/Disposition: None Complications: None Patient Tolerated Procedure: Well Post-Procedure Condition: stable Tanvir Barros MD * Case Mgmt DC Plan - StallworthEmiliana sahulin - 05/14/2021 2:24 PM CDT SW attempted to call pt's ; Jing several times to complete admission asse ssment with no success. Home number: [phone] says number has been suspended . Cell phone:[phone]. Unable to be connected. SW will follow up tomorrow to complete admission assessment and evaluate needs a t discharge. Per chart review, pt needed Medicaid transport at discharge last ad mission. Pt currently in IR, scheduled to return to OR on Tuesday for REMOVAL HARDWARE -DE EP MANDIBLE. Pt has hag G Tube since 10/21/2020. Vale Stallworth LMSW Pager:[phone] * Care Plan - Shena Banerjee RN - 05/14/2021 10:43 AM CDT Problem: Pain Goal: Management of pain Outcome: Goal Ongoing Goal: Knowledge of pain management Outcome: Goal Ongoing Goal: Progress Toward Pain Management Goals Outcome: Goal Ongoing Problem: Self-Care Deficit Goal: Maximize ADL functioning Outcome: Goal Ongoing Problem: Discharge Planning Goal: Participation in plan of care Outcome: Goal Ongoing Goal: Knowledge regarding plan of care Outcome: Goal Ongoing Goal: Prepared for discharge Outcome: Goal Ongoing * Care Plan - Bibi Stevenson RN - 2021 10:42 PM CDT Problem: Discharge Planning Goal: Participation in plan of care Outcome: Goal Ongoing Goal: Knowledge regarding plan of care Outcome: Goal Ongoing Goal: Prepared for discharge Outcome: Goal Ongoing Problem: Pain Goal: Management of pain Outcome: Goal Ongoing Goal: Knowledge of pain management Outcome: Goal Ongoing Goal: Progress Toward Pain Management Goals Outcome: Goal Ongoing Problem: Self-Care Deficit Goal: Maximize ADL functioning Outcome: Goal Ongoing documented in this encounter Plan of Treatment Date/Time Name Type Priority Associated Diag noses 05/15/2021 2:13 PM CDT CULTURE-TB (AFB) Microbiology STAT Cellulitis, f george 05/15/2021 2:13 PM CDT CULTURE-FUNGAL,OTHER Microbiology STAT Celluliti s, face 05/15/2021 2:17 PM CDT CULTURE-FUNGAL,OTHER Microbiology STAT Celluliti s, face 05/15/2021 2:19 PM CDT CULTURE-TB (AFB) Microbiology STAT Cellulitis, f george 05/15/2021 2:19 PM CDT CULTURE-FUNGAL,OTHER Microbiology STAT Celluliti s, face Order Schedule Name Type Priority Associated Diag noses Once a Week Auto for 8 Occurrences start ing 05/19/2021 until 11/19/2021 CBC AND DIFF Lab Routine Cellulitis, fac e Squamous cell carcinoma, lip Once a Week Auto for 8 Occurrences start ing 05/19/2021 until 11/19/2021 COMPREHENSIVE METABOLIC Lab Routine Cellul itis, face PANEL Squamous cell carcinoma, lip documented as of this encounter Goals Goal Patient Associated Recent Progress Patient-Stat Aut hor Goal Type Problems ed? Recover from illness Hospital On track (05/14/2021 Yes Radha Ruiz, 1:07 AM CDT) RN Note: "To heal and recover and be as healthy as possible, quit chewing tobacco" documented as of this encounter Procedures Comments Procedure Name Priority Date/Time Associated Diag nosis HC CBC W/ AUTOMATED DIFF Routine 05/19/2021 4:17 AM CDT HC CBC W/ AUTOMATED DIFF STAT 05/18/2021 3:35 AM CDT HC COMPREHENSIVE Routine 05/18/2021 METABOLIC PANEL 3:35 AM CDT HC CBC W/ AUTOMATED DIFF STAT 05/17/2021 4:10 AM CDT HC COMPREHENSIVE 05/17/2021 METABOLIC PANEL 4:10 AM CDT HC CBC W/ AUTOMATED DIFF STAT 05/16/2021 3:07 AM CDT HC COMPREHENSIVE Routine 05/16/2021 METABOLIC PANEL 3:07 AM CDT HC VANCOMYCIN 2HR POST [...] VANCOMYCIN-TROUGH Routine 05/15/2021 8:56 AM CDT HC CBC W/ AUTOMATED DIFF STAT 05/15/2021 5:16 AM CDT HC COMPREHENSIVE Routine 05/15/2021 METABOLIC PANEL 5:16 AM CDT MRI ORBIT FACE AND/OR STAT 05/14/2021 NECK WO/W CONT 11:02 PM CDT IR ASPIRATION ONLY Routine 05/14/2021 DIAGNOSTIC 4:27 PM CDT US RENAL BLADDER COMPLETE Routine 05/14/2021 9:08 AM CDT HC CBC W/ AUTOMATED DIFF STAT 05/14/2021 3:25 AM CDT HC COMPREHENSIVE Routine 05/14/2021 METABOLIC PANEL 3:25 AM CDT HC CBC W/ AUTOMATED DIFF STAT 2021 8:28 PM CDT TYPE & CROSSMATCH Routine 2021 8:28 PM CDT HC PHOSPHOROUS, SERUM 2021 8:28 PM CDT HC MAGNESIUM 2021 8:28 PM CDT HC LACTIC ACID(LACTATE) 2021 8:28 PM CDT HC COMPREHENSIVE STAT 2021 METABOLIC PANEL 8:28 PM CDT TELEMETRY STRIPS-SCAN 2021 12:00 AM CDT ECG-SCAN 2021 12:00 AM CDT documented in this encounter Results * CBC AND DIFF (05/19/2021 4:17 AM CDT) White Blood 3.5 (L) 4.5 - 11.0 K/UL [facility] Cells RBC 3.81 (L) 4.4 - 5.5 M/UL [facility] Hemoglobin 11.1 (L) 13.5 - 16.5 GM/DL [facility] Hematocrit 32.4 (L) 40 - 50 % [facility] MCV 85.1 80 - 100 FL [facility] MCH 29.2 26 - 34 PG [facility] MCHC 34.3 32.0 - 36.0 G/DL [facility] RDW 13.8 11 - 15 % [facility] Platelet Count 281 150 - 400 K/UL [facility] MPV 6.0 (L) 7 - 11 FL [facility] Neutrophils 76 41 - 77 % [facility] Lymphocytes 12 (L) 24 - 44 % [facility] Monocytes 8 4 - 12 % [facility] Eosinophils 3 0 - 5 % [facility] Basophils 1 0 - 2 % [facility] Absolute 2.69 1.8 - 7.0 K/UL [facility] Neutrophil Count Absolute Lymph 0.41 (L) 1.0 - 4.8 K/UL [facility] Count Absolute 0.27 0 - 0.80 K/UL [facility] Monocyte Count Absolute 0.11 0 - 0.45 K/UL [facility] Eosinophil Count Absolute 0.05 0 - 0.20 K/UL [facility] Basophil Count Specimen Blood Performing Organization Address City/State/ZIP Code P josefina Number [facility] [address] [facility] [place] [address] * COMPREHENSIVE METABOLIC PANEL (05/18/2021 3:35 AM CDT) Sodium 140 137 - 147 MMOL/L [facility] Potassium 4.3 3.5 - 5.1 MMOL/L [facility] Chloride 103 98 - 110 MMOL/L [facility] Glucose 105 (H) 70 - 100 MG/DL [facility] Blood Urea 12 7 - 25 MG/DL [facility] Nitrogen Creatinine 0.72 0.4 - 1.24 MG/DL [facility] Calcium 8.7 8.5 - 10.6 MG/DL [facility] Total Protein 5.9 (L) 6.0 - 8.0 G/DL [facility] Total Bilirubin 0.2 (L) 0.3 - 1.2 MG/DL [facility] Albumin 3.2 (L) 3.5 - 5.0 G/DL [facility] Alk Phosphatase 56 25 - 110 U/L [facility] AST (SGOT) 13 7 - 40 U/L [facility] CO2 31 (H) 21 - 30 MMOL/L [facility] ALT (SGPT) 14 7 - 56 U/L [facility] Anion Gap 6 3 - 12 [facility] eGFR Non >60 >60 mL/min [facility] Comment: [place] The eGFR is not validated f or use in drug dosing adjustments. Continue to use estimated creatinine clearance per dosing reference text. Please contact the Clinical Pharmacist for questions. eGFR >60 >60 mL/min [facility] [place] Comment: The eGFR is not validated for use in drug dosing adjustments. Continue to use estimated creatinine clearance per dosing reference text. Please contact the Clinical Pharmacist for questions. Specimen Blood Performing Organization Address City/State/ZIP Code P josefina Number [facility] [address] [place] [address] * CBC AND DIFF (05/18/2021 3:35 AM CDT) White Blood 3.1 (L) 4.5 - 11.0 K/UL [facility] Cells RBC 3.48 (L) 4.4 - 5.5 M/UL [facility] Hemoglobin 10.5 (L) 13.5 - 16.5 GM/DL [facility] Hematocrit 30.2 (L) 40 - 50 % [facility] MCV 86.7 80 - 100 FL [facility] MCH 30.1 26 - 34 PG [facility] MCHC 34.8 32.0 - 36.0 G/DL [facility] RDW 13.8 11 - 15 % [facility] Platelet Count 260 150 - 400 K/UL [facility] MPV 5.9 (L) 7 - 11 FL [facility] Neutrophils 77 41 - 77 % [facility] Lymphocytes 11 (L) 24 - 44 % [facility] Monocytes 8 4 - 12 % [facility] Eosinophils 3 0 - 5 % [facility] Basophils 1 0 - 2 % [facility] Absolute 2.38 1.8 - 7.0 K/UL [facility] Neutrophil Count Absolute Lymph 0.33 (L) 1.0 - 4.8 K/UL [facility] Count Absolute 0.25 0 - 0.80 K/UL [facility] Monocyte Count Absolute 0.11 0 - 0.45 K/UL [facility] Eosinophil Count Absolute 0.04 0 - 0.20 K/UL [facility] Basophil Count Specimen Blood Performing Organization Address City/State/ZIP Code P josefina Number [facility] [address] [place] [address] * COMPREHENSIVE METABOLIC PANEL (05/17/2021 4:10 AM CDT) Sodium 139 137 - 147 MMOL/L [facility] Potassium 4.2 3.5 - 5.1 MMOL/L [facility] Chloride 104 98 - 110 MMOL/L [facility] Glucose 103 (H) 70 - 100 MG/DL [facility] Blood Urea 13 7 - 25 MG/DL [facility] Nitrogen Creatinine 0.81 0.4 - 1.24 MG/DL [facility] Calcium 8.2 (L) 8.5 - 10.6 MG/DL [facility] Total Protein 5.6 (L) 6.0 - 8.0 G/DL [facility] Total Bilirubin 0.2 (L) 0.3 - 1.2 MG/DL [facility] Albumin 3.1 (L) 3.5 - 5.0 G/DL [facility] Alk Phosphatase 53 25 - 110 U/L [facility] AST (SGOT) 10 7 - 40 U/L [facility] CO2 30 21 - 30 MMOL/L [facility] ALT (SGPT) 9 7 - 56 U/L [facility] Anion Gap 5 3 - 12 [facility] eGFR Non >60 >60 mL/min [facility] Comment: [place] The eGFR is not validated f or use in drug dosing adjustments. Continue to use estimated creatinine clearance per dosing reference text. Please contact the Clinical Pharmacist for questions. eGFR >60 >60 mL/min [facility] [place] Comment: The eGFR is not validated for use in drug dosing adjustments. Continue to use estimated creatinine clearance per dosing reference text. Please contact the Clinical Pharmacist for questions. Specimen Performing Organization Address City/State/ZIP Code P josefina Number [facility] [address] [place] [address] * CBC AND DIFF (05/17/2021 4:10 AM CDT) White Blood 3.6 (L) 4.5 - 11.0 K/UL [facility] Cells RBC 3.62 (L) 4.4 - 5.5 M/UL [facility] Hemoglobin 10.5 (L) 13.5 - 16.5 GM/DL [facility] Hematocrit 31.0 (L) 40 - 50 % [facility] MCV 85.6 80 - 100 FL [facility] MCH 28.9 26 - 34 PG [facility] MCHC 33.8 32.0 - 36.0 G/DL [facility] RDW 13.9 11 - 15 % [facility] Platelet Count 253 150 - 400 K/UL [facility] MPV 6.1 (L) 7 - 11 FL [facility] Neutrophils 79 (H) 41 - 77 % [facility] Lymphocytes 11 (L) 24 - 44 % [facility] Monocytes 6 4 - 12 % [facility] Eosinophils 3 0 - 5 % [facility] Basophils 1 0 - 2 % [facility] Absolute 2.87 1.8 - 7.0 K/UL [facility] Neutrophil Count Absolute Lymph 0.39 (L) 1.0 - 4.8 K/UL [facility] Count Absolute 0.22 0 - 0.80 K/UL [facility] Monocyte Count Absolute 0.11 0 - 0.45 K/UL [facility] Eosinophil Count Absolute 0.05 0 - 0.20 K/UL [facility] Basophil Count Specimen Blood Performing Organization Address City/State/ZIP Code P josefina Number [facility] [address] [place] [address] * COMPREHENSIVE METABOLIC PANEL (05/16/2021 3:07 AM CDT) Sodium 138 137 - 147 MMOL/L [facility] Potassium 4.5 3.5 - 5.1 MMOL/L [facility] Chloride 102 98 - 110 MMOL/L [facility] Glucose 125 (H) 70 - 100 MG/DL [facility] Blood Urea 10 7 - 25 MG/DL [facility] Nitrogen Creatinine 0.87 0.4 - 1.24 MG/DL [facility] Calcium 8.7 8.5 - 10.6 MG/DL [facility] Total Protein 6.5 6.0 - 8.0 G/DL [facility] Total Bilirubin 0.3 0.3 - 1.2 MG/DL [facility] Albumin 3.4 (L) 3.5 - 5.0 G/DL [facility] Alk Phosphatase 61 25 - 110 U/L [facility] AST (SGOT) 11 7 - 40 U/L [facility] CO2 26 21 - 30 MMOL/L [facility] ALT (SGPT) 6 (L) 7 - 56 U/L [facility] Anion Gap 10 3 - 12 [facility] eGFR Non >60 >60 mL/min [facility] Comment: [place] The eGFR is not validated f or use in drug dosing adjustments. Continue to use estimated creatinine clearance per dosing reference text. Please contact the Clinical Pharmacist for questions. eGFR >60 >60 mL/min [facility] [place] Comment: The eGFR is not validated for use in drug dosing adjustments. Continue to use estimated creatinine clearance per dosing reference text. Please contact the Clinical Pharmacist for questions. Specimen Blood Performing Organization Address City/[facility]/ZIP Code P josefina Number [facility] [address] [place] [address] * CBC AND DIFF (05/16/2021 3:07 AM CDT) White Blood 7.5 4.5 - 11.0 K/UL [facility] Cells RBC 3.90 (L) 4.4 - 5.5 M/UL [facility] Hemoglobin 11.6 (L) 13.5 - 16.5 GM/DL [facility] Hematocrit 33.4 (L) 40 - 50 % [facility] MCV 85.7 80 - 100 FL [facility] MCH 29.7 26 - 34 PG [facility] MCHC 34.7 32.0 - 36.0 G/DL [facility] RDW 13.9 11 - 15 % [facility] Platelet Count 365 150 - 400 K/UL [facility] MPV 6.1 (L) 7 - 11 FL [facility] Neutrophils 91 (H) 41 - 77 % [facility] Lymphocytes 4 (L) 24 - 44 % [facility] Monocytes 4 4 - 12 % [facility] Eosinophils 0 0 - 5 % [facility] Basophils 1 0 - 2 % [facility] Absolute 6.79 1.8 - 7.0 K/UL [facility] Neutrophil Count Absolute Lymph 0.30 (L) 1.0 - 4.8 K/UL [facility] Count Absolute 0.29 0 - 0.80 K/UL [facility] Monocyte Count Absolute 0.00 0 - 0.45 K/UL [facility] Eosinophil Count Absolute 0.09 0 - 0.20 K/UL [facility] Basophil Count Specimen Blood Performing Organization Address City/[facility]/ZIP Code P josefina Number [facility] [address] [place] [address] * VANCOMYCIN 2HR POST DOSE (05/15/2021 3:44 PM CDT) Vancomycin 2HR 22.2 ug/mL [facility] POST Dose Specimen Blood Performing Organization Address City/[facility]/ZIP Code P josefina Number [facility] [address] [place] [address] * GRAM STAIN (05/15/2021 2:19 PM CDT) Battery Name GRAM STAIN [facility] Report Status FINAL 05/15/2021 [facility] Specimen BONE SPECIMEN MANDIBLE RIGHT [facility] Description POSTERIOR Special NONE [facility] Requests Gram Stain NO NEUTROPHILS SEEN [facility] Gram Stain NO ORGANISMS SEEN [facility] Specimen Tissue - Mandible Performing Organization Address City/[facility]/ZIP Code P josefina Number [facility] [address] [place] [address] * CULTURE-WOUND/TISSUE/FLUID(AEROBIC ONLY)W/SENSITIVITY (05/15/2021 2:19 PM CDT) Battery Name ROUTINE CULTURE [facility] Report Status FINAL 05/20/2021 [facility] Specimen BONE SPECIMEN MANDIBLE RIGHT [facility] Description POSTERIOR Special NONE [facility] Requests Direct Gram NO NEUTROPHILS SEEN [facility] Stain Direct Gram NO ORGANISMS SEEN [facility] Stain Culture NO GROWTH 5 DAYS [facility] Specimen Tissue - Mandible Performing Organization Address City/[facility] P josefina Number [facility] [address] [place] [address] * CULTURE-ANAEROBIC (05/15/2021 2:19 PM CDT) Battery Name ANAEROBE CULTURE [facility] Report Status FINAL 05/20/2021 [facility] Specimen BONE SPECIMEN MANDIBLE RIGHT [facility] Description POSTERIOR Special NONE [facility] Requests Culture NO ANAEROBES ISOLATED [facility] Specimen Tissue - Mandible Performing Organization Address City/[facility]/ZIP Code P josefina Number [facility] [address] [place] [address] * GRAM STAIN (05/15/2021 2:17 PM CDT) Battery Name GRAM STAIN [facility] Report Status FINAL 05/15/2021 [facility] Specimen BONE SPECIMEN MANDIBLE RIGHT [facility] Description ANTERIOR Special NONE [facility] Requests Gram Stain NO NEUTROPHILS SEEN [facility] Gram Stain NO ORGANISMS SEEN [facility] Specimen Tissue - Mandible Performing Organization Address City/[facility]/ZIP Code P josefina Number [facility] [address] [place] [address] * CULTURE-WOUND/TISSUE/FLUID(AEROBIC ONLY)W/SENSITIVITY (05/15/2021 2:17 PM CDT) Battery Name ROUTINE CULTURE [facility] Report Status FINAL 05/19/2021 [facility] Specimen BONE SPECIMEN MANDIBLE RIGHT [facility] Description ANTERIOR Special NONE [facility] Requests Direct Gram NO NEUTROPHILS SEEN [facility] Stain Direct Gram NO ORGANISMS SEEN [facility] Stain Culture Three colonies [facility] METHICILLIN RESISTANT STAPHYLOCOCCUS AUREUS (A) Culture See previous susceptibility [facility] AB (A)Comment: from 05.13.21 Culture Three colonies [facility] PSEUDOMONAS AERUGINOSA (A) Comment: CRITICAL VALUE CALLED TO AND READ BACK BY/TIME/TECH Darcy Babcock/05.17.21 at 1145/dd Specimen Tissue - Mandible Antibiotic Method Susceptibility Organism Amikacin AWA (MCG/ML), INTERPRETATION, PHX <=8: Susceptible Pseudomonas aeruginosa Aztreonam AWA (MCG/ML), INTERPRETATION, PHX <=2: Susceptible Pseudomonas aeruginosa Ceftazidime AWA (MCG/ML), INTERPRETATION, PHX <=2: Susceptible Pseudomonas aeruginosa Cefepime AWA (MCG/ML), INTERPRETATION, PHX 2: Susceptible Pseudomonas aeruginosa Gentamicin AWA (MCG/ML), INTERPRETATION, PHX <=2: Susceptible Pseudomonas aeruginosa Levofloxacin AWA (MCG/ML), INTERPRETATION, PHX <=0.5: Susceptible Pseudomonas aeruginosa Meropenem AWA (MCG/ML), INTERPRETATION, PHX <=0.5: Susceptible Pseudomonas aeruginosa Piperacil/Tazobactam AWA (MCG/ML), INTERPRETATION, PHX 8/4: Susceptible Pseudomonas aeruginosa Tobramycin AWA (MCG/ML), INTERPRETATION, PHX <=2: Susceptible Pseudomonas aeruginosa Performing Organization Address City/State/ZIP Code P josefina Number [facility] [address] [place] [address] * CULTURE-ANAEROBIC (05/15/2021 2:17 PM CDT) Battery Name ANAEROBE CULTURE [facility] Report Status FINAL 05/18/2021 [facility] Specimen BONE SPECIMEN MANDIBLE RIGHT [facility] Description ANTERIOR Special NONE [facility] Requests Culture Three colonies [facility] PEPTONIPHILUS BRENNA Comment: CRITICAL VALUE CALLED TO AND READ BACK BY/TIME/TECH Gisselle Nunez)/[id number]/cl Specimen Tissue - Mandible Performing Organization Address City/State/ZIP Code P josefina Number [facility] [address] [place] [address] * GRAM STAIN (05/15/2021 2:13 PM CDT) Battery Name GRAM STAIN [facility] Report Status FINAL 05/15/2021 [facility] Specimen TISSUE RIGHT FACIAL SCAR [facility] Description Special NONE [facility] Requests Gram Stain NO NEUTROPHILS SEEN [facility] Gram Stain NO ORGANISMS SEEN [facility] Specimen Tissue - Face Performing Organization Address City/[facility]/ZIP Code P josefina Number [facility] [address] [place] [address] * CULTURE-WOUND/TISSUE/FLUID(AEROBIC ONLY)W/SENSITIVITY (05/15/2021 2:13 PM CDT) Battery Name ROUTINE CULTURE [facility] Report Status FINAL 05/20/2021 [facility] Specimen TISSUE RIGHT FACIAL SCAR [facility] Description Special NONE [facility] Requests Direct Gram NO NEUTROPHILS SEEN [facility] Stain Direct Gram NO ORGANISMS SEEN [facility] Stain Culture NO GROWTH 5 DAYS [facility] Specimen Tissue - Face Performing Organization Address [facility] Code P josefina Number [facility] [address] [place] [address] * CULTURE-ANAEROBIC (05/15/2021 2:13 PM CDT) Battery Name ANAEROBE CULTURE [facility] Report Status FINAL 05/20/2021 [facility] Specimen TISSUE RIGHT FACIAL SCAR [facility] Description Special NONE [facility] Requests Culture NO ANAEROBES ISOLATED [facility] Specimen Tissue - Face Performing Organization Address City/[facility]/ZIP Code P josefina Number [facility] [address] [place] [address] * SURGICAL PATHOLOGY (05/15/2021 2:12 PM CDT) PATHOLOGY [facility] [email or web address] Department of Pathology and Laboratory Medicine [address] [place] [id number] Surgical Pathology Office: [phone] SURGICAL PATHOLOGY REPORT NAME: FAISAL CLAIREJose SURG PATH #: [id number] MR #: [id number] SPECIMEN CLASS: SR BILLING #: [id number] ALT ID #: LOCATION: DISCHARGED DATE OF [...] fast and fungal organisms. Pursuant to the Pulling Unit Operator Program at the [facility] Pathology Department, selected slides from this [...] being submitted entirely in cassette C1. (valerie) 05/15/2021 Specimen Tissue - Face Tissue - Mandible Tissue - Mandible Performing Organization Address City/[facility]/ZIP Code P josefina Number MAIN LAB [address] [place] [address] * VANCOMYCIN TROUGH (05/15/2021 8:56 AM CDT) Vancomycin 15.4 10.0 - 20.0 MCG/ML [facility] Trough Specimen Blood, venous - Blood Performing Organization Address City/[facility]/ZIP [facility] P josefina Number MA[facility] [address] [place] [address] * COMPREHENSIVE METABOLIC PANEL (05/15/2021 5:16 AM CDT) Sodium 138 137 - 147 MMOL/L [facility] Potassium 4.4 3.5 - 5.1 MMOL/L [facility] Chloride 102 98 - 110 MMOL/L [facility] Glucose 115 (H) 70 - 100 MG/DL [facility] Blood Urea 10 7 - 25 MG/DL [facility] Nitrogen Creatinine 0.89 0.4 - 1.24 MG/DL [facility] Calcium 9.1 8.5 - 10.6 MG/DL [facility] Total Protein 5.9 (L) 6.0 - 8.0 G/DL [facility] Total Bilirubin 0.3 0.3 - 1.2 MG/DL [facility] Albumin 3.2 (L) 3.5 - 5.0 G/DL [facility] Alk Phosphatase 62 25 - 110 U/L [facility] AST (SGOT) 9 7 - 40 U/L [facility] CO2 29 21 - 30 MMOL/L [facility] ALT (SGPT) 5 (L) 7 - 56 U/L [facility] Anion Gap 7 3 - 12 [facility] eGFR Non >60 >60 mL/min [facility] Comment: [place] The eGFR is not validated f or use in drug dosing adjustments. Continue to use estimated creatinine clearance per dosing reference text. Please contact the Clinical Pharmacist for questions. eGFR >60 >60 mL/min [facility] [place] Comment: The eGFR is not validated for use in drug dosing adjustments. Continue to use estimated creatinine clearance per dosing reference text. Please contact the Clinical Pharmacist for questions. Specimen Blood Performing Organization Address City/State/ZIP Code P josefina Number [facility] [address] [place] [address] * CBC AND DIFF (05/15/2021 5:16 AM CDT) White Blood 3.7 (L) 4.5 - 11.0 K/UL [facility] Cells RBC 3.81 (L) 4.4 - 5.5 M/UL [facility] Hemoglobin 11.1 (L) 13.5 - 16.5 GM/DL [facility] Hematocrit 33.1 (L) 40 - 50 % [facility] MCV 87.0 80 - 100 FL [facility] MCH 29.2 26 - 34 PG [facility] MCHC 33.6 32.0 - 36.0 G/DL [facility] RDW 14.5 11 - 15 % [facility] Platelet Count 268 150 - 400 K/UL [facility] MPV 6.0 (L) 7 - 11 FL [facility] Neutrophils 77 41 - 77 % [facility] Lymphocytes 11 (L) 24 - 44 % [facility] Monocytes 8 4 - 12 % [facility] Eosinophils 3 0 - 5 % [facility] Basophils 1 0 - 2 % [facility] Absolute 2.83 1.8 - 7.0 K/UL [facility] Neutrophil Count Absolute Lymph 0.42 (L) 1.0 - 4.8 K/UL [facility] Count Absolute 0.31 0 - 0.80 K/UL [facility] Monocyte Count Absolute 0.10 0 - 0.45 K/UL [facility] Eosinophil Count Absolute 0.04 0 - 0.20 K/UL [facility] Basophil Count Specimen Blood Performing Organization Address City/State/ZIP Code P josefina Number [facility] [address] [place] [address] * MRI ORBIT FACE AND/OR NECK WO/W CONT (05/14/2021 11:02 PM CDT) Specimen Impressions Performed At 1. Significantly degraded examination by motion. [facility] RESULTS 2. Grossly unchanged findings of kirby a and abnormal enhancement at the anterior mandibulectomy margin involvin g the [place] parasymphysis and anterior graft, suspicious for osteomyelitis. [...] yperintensity through the center of the lower [id number]. Right mandibular segmental resection an d hardware reconstruction and right oral cavity mass resection and soft tissue f lap reconstruction are redemonstrated with hardware exposure anteriorly appea ring grossly similar. There are findings of abnormal T2 hyperintensity and likel y enhancement at the anterior osteotomy graft and [place] parasymphysis margins with overlying soft tissue edema [...] hyperintensity through the center of the lower [id number]. Right mandibular segmental resection and hardware reconstruction and right oral cavity mass resection and soft tissue flap reconstruction are redemonstrated with hardware exposure anteriorly appearing grossly similar. There are findings of abnormal T2 hyperintensity and likely enhancement at the anterior osteotomy graft and [place] parasymphysis margins with overlying soft tissue edema [...] at the anterior mandibulectomy margin involving the [place] parasymphysis and anterior graft, suspicious for osteomyelitis. [...] smith portions of the procedure with a or dlevel, resident, and/or fellow participating. Overlapping portions [...] radiologist, was present for the critical and msith portions of the procedure with a midlevel, [...] is made with a CT scan of [facility] chest of 2021. Kidneys are normal in [...] on 05/14/2021 9:09 AM. Performing Organization Address City/State/ZIP Code P josefina Number [facility] RES[facility] * COMPREHENSIVE METABOLIC PANEL (05/14/2021 3:25 AM CDT) Sodium 138 137 - 147 MMOL/L [facility] Potassium 4.4 3.5 - 5.1 MMOL/L [facility] Chloride 104 98 - 110 MMOL/L [facility] Glucose 92 70 - 100 MG/DL [facility] Blood Urea 8 7 - 25 MG/DL [facility] Nitrogen Creatinine 0.98 0.4 - 1.24 MG/DL [facility] Calcium 8.5 8.5 - 10.6 MG/DL [facility] Total Protein 6.2 6.0 - 8.0 G/DL [facility] Total Bilirubin 0.4 0.3 - 1.2 MG/DL [facility] Albumin 3.3 (L) 3.5 - 5.0 G/DL [facility] Alk Phosphatase 65 25 - 110 U/L [facility] AST (SGOT) 10 7 - 40 U/L [facility] CO2 27 21 - 30 MMOL/L [facility] ALT (SGPT) 6 (L) 7 - 56 U/L [facility] Anion Gap 7 3 - 12 [facility] eGFR Non >60 >60 mL/min [facility] Comment: [place] The eGFR is not validated f or use in drug dosing adjustments. Continue to use estimated creatinine clearance per dosing reference text. Please contact the Clinical Pharmacist for questions. eGFR >60 >60 mL/min [facility] [place] Comment: The eGFR is not validated for use in drug dosing adjustments. Continue to use estimated creatinine clearance per dosing reference text. Please contact the Clinical Pharmacist for questions. Specimen Blood Performing Organization Address City/State/ZIP Code P josefina Number [facility] [address] [place] [address] * CBC AND DIFF (05/14/2021 3:25 AM CDT) White Blood 4.3 (L) 4.5 - 11.0 K/UL [facility] Cells RBC 3.71 (L) 4.4 - 5.5 M/UL [facility] Hemoglobin 10.9 (L) 13.5 - 16.5 GM/DL [facility] Hematocrit 32.1 (L) 40 - 50 % [facility] MCV 86.3 80 - 100 FL [facility] MCH 29.4 26 - 34 PG [facility] MCHC 34.0 32.0 - 36.0 G/DL [facility] RDW 14.4 11 - 15 % [facility] Platelet Count 285 150 - 400 K/UL [facility] MPV 6.2 (L) 7 - 11 FL [facility] Neutrophils 78 (H) 41 - 77 % [facility] Lymphocytes 11 (L) 24 - 44 % [facility] Monocytes 8 4 - 12 % [facility] Eosinophils 2 0 - 5 % [facility] Basophils 1 0 - 2 % [facility] Absolute 3.35 1.8 - 7.0 K/UL [facility] Neutrophil Count Absolute Lymph 0.47 (L) 1.0 - 4.8 K/UL [facility] Count Absolute 0.34 0 - 0.80 K/UL [facility] Monocyte Count Absolute 0.08 0 - 0.45 K/UL [facility] Eosinophil Count Absolute 0.05 0 - 0.20 K/UL [facility] Basophil Count Specimen Blood Performing Organization Address City/State/ZIP Code P josefina Number [facility] [address] [place] [address] * PHOSPHORUS (2021 8:28 PM CDT) Phosphorus 3.4 2.0 - 4.5 MG/DL [facility] Specimen Performing Organization Address City/[facility]/ZIP Code P josefina Number [facility] [address] [place] [address] * MAGNESIUM (2021 8:28 PM CDT) Magnesium 1.8 1.6 - 2.6 mg/dL [facility] Specimen Performing Organization Address City/[facility]/ZIP Code P josefina Number [facility] [address] [place] [address] * LACTIC ACID(LACTATE) (2021 8:28 PM CDT) Lactic Acid 1.7 0.5 - 2.0 MMOL/L [facility] Specimen Performing Organization Address City/[facility]/ZIP Code P josefina Number [facility] [address] [place] [address] * TYPE & CROSSMATCH (2021 8:28 PM CDT) Units Ordered 0 [facility] Crossmatch 05/16/2021,2359 [facility] Expires Record Check FOUND [facility] ABO/RH(D) A POS [facility] Antibody Screen NEG [facility] Electronic YES [facility] Crossmatch Specimen Cervix Performing Organization Address City/State/ZIP Code P josefina Number [facility] [address] [place] [address] * COMPREHENSIVE METABOLIC PANEL (2021 8:28 PM CDT) Sodium 136 (L) 137 - 147 MMOL/L [facility] Potassium 3.8 3.5 - 5.1 MMOL/L [facility] Chloride 100 98 - 110 MMOL/L [facility] Glucose 103 (H) 70 - 100 MG/DL [facility] Blood Urea 10 7 - 25 MG/DL [facility] Nitrogen Creatinine 1.05 0.4 - 1.24 MG/DL [facility] Calcium 8.9 8.5 - 10.6 MG/DL [facility] Total Protein 6.2 6.0 - 8.0 G/DL [facility] Total Bilirubin 0.4 0.3 - 1.2 MG/DL [facility] Albumin 3.4 (L) 3.5 - 5.0 G/DL [facility] Alk Phosphatase 72 25 - 110 U/L [facility] AST (SGOT) 11 7 - 40 U/L [facility] CO2 27 21 - 30 MMOL/L [facility] ALT (SGPT) 6 (L) 7 - 56 U/L [facility] Anion Gap 9 3 - 12 [facility] eGFR Non >60 >60 mL/min [facility] Comment: [place] The eGFR is not validated f or use in drug dosing adjustments. Continue to use estimated creatinine clearance per dosing reference text. Please contact the Clinical Pharmacist for questions. eGFR >60 >60 mL/min [facility] [place] Comment: The eGFR is not validated for use in drug dosing adjustments. Continue to use estimated creatinine clearance per dosing reference text. Please contact the Clinical Pharmacist for questions. Specimen Blood Performing Organization Address City/[facility]/ZIP Code P josefina Number [facility] [address] [place] [address] * CBC AND DIFF (2021 8:28 PM CDT) White Blood 5.0 4.5 - 11.0 K/UL [facility] Cells RBC 3.72 (L) 4.4 - 5.5 M/UL [facility] Hemoglobin 11.1 (L) 13.5 - 16.5 GM/DL [facility] Hematocrit 32.1 (L) 40 - 50 % [facility] MCV 86.2 80 - 100 FL [facility] MCH 29.8 26 - 34 PG [facility] MCHC 34.6 32.0 - 36.0 G/DL [facility] RDW 14.3 11 - 15 % [facility] Platelet Count 316 150 - 400 K/UL [facility] MPV 6.2 (L) 7 - 11 FL [facility] Neutrophils 83 (H) 41 - 77 % [facility] Lymphocytes 6 (L) 24 - 44 % [facility] Monocytes 8 4 - 12 % [facility] Eosinophils 2 0 - 5 % [facility] Basophils 1 0 - 2 % [facility] Absolute 4.17 1.8 - 7.0 K/UL [facility] Neutrophil Count Absolute Lymph 0.31 (L) 1.0 - 4.8 K/UL [facility] Count Absolute 0.37 0 - 0.80 K/UL [facility] Monocyte Count Absolute 0.08 0 - 0.45 K/UL [facility] Eosinophil Count Absolute 0.03 0 - 0.20 K/UL [facility] Basophil Count Specimen Blood Performing Organization Address City/[facility]/ZIP Code P josefina Number [facility] [address] [place] [address] * ECG-SCAN (2021 12:00 AM CDT) Narrative Performed At This result has an attachment that is n ot available. Ordered by an unspecified provider. * TELEMETRY STRIPS-SCAN (2021 12:00 AM CDT) Narrative Performed At This result has an attachment that is n ot available. Ordered by an unspecified provider. 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 Moderate malnutrition (HCC) Malnutrition of moderate degree documented in this encounter Admitting Diagnoses Diagnosis Cellulitis, face Cellulitis and abscess of face documented in this encounter Administered Medications Action Date Dose Rate Site Medication Order MAR Action 05/19/2021 12:57 PM CDT 650 mg acetaminophen (TYLENOL) tablet 650 mg Given 650 mg, Oral, EVERY 6 HOURS PRN, Starting Tue05/13/21 at 1639, Until Tue05/19/21 at 1505, Pain non-opioid: may b e used alone or in combination with opioi d analgesia, TOTAL ACETAMINOPHEN DOSE NOT TO EXCEED 4GM DAILY, 650 mg Given 05/19/2021 6:31 AM CDT 650 mg Given 05/18/2021 10:22 PM CDT 650 mg Given 05/18/2021 4:55 PM CDT 650 mg Given 05/18/2021 9:23 AM CDT 650 mg Given 05/18/2021 4:28 AM CDT 650 mg Given 05/17/2021 8:48 PM CDT 650 mg Given 05/17/2021 8:47 AM CDT 650 mg Given 05/16/2021 4:35 PM CDT 650 mg Given 05/15/2021 10:42 PM CDT 650 mg Given 05/15/2021 8:16 AM CDT 650 mg Given 05/15/2021 1:14 AM CDT 650 mg Given 05/14/2021 4:24 AM CDT 650 mg Given 2021 7:54 PM CDT 05/19/2021 9:33 AM CDT Face bacitracin topical ointment Given Topical, TWICE DAILY, First dose on Tue05/15/21 at 2100, Until Discontinued, Apply to right neck incision, Given 05/18/2021 9:45 PM CDT Given 05/18/2021 9:24 AM CDT Given 05/17/2021 8:48 PM CDT Given 05/17/2021 8:48 AM CDT Given 05/16/2021 9:20 PM CDT Given 05/16/2021 11:55 AM CDT Given 05/15/2021 9:44 PM CDT diphenhydrAMINE (BENADRYL) injection 25 mg 25 mg, Intravenous, EVERY 4 HOURS PRN, Starting Tue05/13/21 at 1732, Until Tue05/19/21 at 1505, Itching Injectable 05/18/2021 9:45 PM CDT 40 mg Abdomina l Tissue enoxaparin (LOVENOX) syringe 40 mg Given 40 mg, Subcutaneous, DAILY, First dose on Tue05/13/21 at 2100, Until Discontinued, For patients undergoing surgery: Consult physician in advance - - enoxaparin is an anticoagulant and may need to be held for 12hr prior to surgery or invasive procedures. NOTE: This is a HIGH ALERT Medication., 40 mg Abdominal Tissue Given 05/16/2021 9:19 PM CDT 40 mg Abdominal Tissue Given 05/15/2021 8:58 PM CDT 05/15/2021 4:53 PM CDT 12.5 mcg fentaNYL citrate PF (SUBLIMAZE) Given injection 12.5-25 mcg 12.5-25 mcg, Intravenous, EVERY 5 MIN PRN, Starting Tue05/15/21 at 1455, Until Tue05/15/21 at 1805, Pain Injectable, Fo r Pain Score 4-6, For Pain Score 4-6 Maximum total dose 200 mcg Hold if RR < 10, PACU (only) 12.5 mcg Given 05/15/2021 4:27 PM CDT 05/14/2021 3:55 PM CDT 25 mcg fentaNYL citrate PF (SUBLIMAZE) Given injection 25 mcg 25 mcg, Intravenous, ONCE, 1 dose, [facility] 05/14/21 at 1645, Post op pain, 05/14/2021 11:15 PM CDT 15 mL gadobenate dimeglumine (MULTIHANCE) Given injection 15 mL 15 mL, Intravenous, ONCE, 1 dose, [facility] 05/14/21 at 2315, NOTE: This is a HIGH ALERT Medication., 05/14/2021 9:49 PM CDT 0.5 mg LORazepam (ATIVAN) injection 0.5 mg Given 0.5 mg, Intravenous, ONCE, 1 dose, [facility] 05/14/21 at 2230, PROTECT FROM LIGHT, 05/19/2021 2:26 AM CDT 3 mg melatonin tablet 3 mg Given 3 mg, Oral, AT BEDTIME PRN, Starting 05/13/21 at 1639, Until Tue05/19/21 at 1505, Insomnia 3 mg Given 05/17/2021 8:48 PM CDT 3 mg Given 05/16/2021 9:19 PM CDT 3 mg Given 05/15/2021 1:14 AM CDT ondansetron (ZOFRAN ODT) rapid dissolve tablet 4 mg 4 mg, Oral, EVERY 6 HOURS PRN, Startin g Tue05/13/21 at 1639, Until Tue05/19/21 a t 1505, Nausea/Vomiting PO, Place on tongue and allow to dissolve., ondansetron (ZOFRAN) injection 4 mg 4 mg, Intravenous, EVERY 6 HOURS PRN, Starting Tue05/13/21 at 1639, Until Tue05/19/21 at 1505, Nausea/Vomiting Injectable 05/19/2021 12:57 PM CDT 5 mg oxyCODONE (ROXICODONE) tablet 5-10 mg Given 5-10 mg, Oral, EVERY 4 HOURS PRN, Starting Tue05/13/21 at 1639, Until Tue05/19/21 at 1505, Pain PO 10 mg Given 05/19/2021 6:31 AM CDT 10 mg Given 05/19/2021 2:26 AM CDT 10 mg Given 05/18/2021 10:21 PM CDT 10 mg Given 05/18/2021 6:08 PM CDT 10 mg Given 05/18/2021 1:47 PM CDT 10 mg Given 05/18/2021 6:20 AM CDT 10 mg Given 05/18/2021 1:47 AM CDT 10 mg Given 05/17/2021 8:48 PM CDT 10 mg Given 05/17/2021 4:43 PM CDT 10 mg Given 05/17/2021 12:59 PM CDT 10 mg Given 05/17/2021 8:47 AM CDT 10 mg Given 05/17/2021 4:47 AM CDT 10 mg Given 05/17/2021 1:24 AM CDT 10 mg Given 05/16/2021 9:19 PM CDT 10 mg Given 05/16/2021 4:35 PM CDT 10 mg Given 05/16/2021 10:20 AM CDT 10 mg Given 05/16/2021 3:08 AM CDT 10 mg Given 05/15/2021 10:42 PM CDT 10 mg Given 05/15/2021 8:16 AM CDT 10 mg Given 05/15/2021 1:14 AM CDT 10 mg Given 05/14/2021 7:52 PM CDT 10 mg Given 05/14/2021 9:41 AM CDT 10 mg Given 05/14/2021 4:24 AM CDT 10 mg Given 2021 7:54 PM CDT pancrelipase 20,880 Units/sodium bicarbonate 650 mg ([facility] CLOG DESTROYER) Per NG tube, NEEDED (MICROMATIC HONE OPERATOR FROM RX), Starting Tue05/14/21 at 1359, Until Tue05/19/21 at 1505, Occluded Feeding Tube, 1. Crush one pancrelipase 20,880 unit tablet and one sodium bicarbonate 650 mg tablet. 2. Dissolve in 20 ml fabio e warm water. This will take ~ 1-2 minutes, with stirring required. Some sediment may be present. 3. Once dissolved, let solution sit for 1-2 minutes, 4. Draw enzyme/bicarbonate solution into oral syringe (avoid sediment as best possible). 5. Instill enzyme solution under light pressure, and use a light "back and forth" motion with plunger to help dislodge the clog. 6. Clamp the tube for 5-15 minutes, and then try to aspirate or flush with warm sterile water. May repeat x 1. Notify physician if tube remains occluded following administration., 05/19/2021 9:17 AM CDT 3.375 g 200 mL/hr piperacillin/tazobactam (ZOSYN) 3.375 g Given - New in sodium chloride 0.9% (NS) 100 mL IVPB Bag (MB+) 3.375 g, Intravenous, 100 mL, Administe r over 30 Minutes, EVERY 6 HOURS, First dose on Tue05/13/21 at 1830, Until Discontinued 3.375 g 200 mL/hr Given - New Bag 05/19/2021 4:09 AM CDT 3.375 g 200 mL/hr Given - New Bag 05/18/2021 9:45 PM CDT 3.375 g 200 mL/hr Given - New Bag 05/18/2021 3:51 PM CDT 3.375 g 200 mL/hr Given - New Bag 05/18/2021 9:24 AM CDT 3.375 g 200 mL/hr Given - New Bag 05/18/2021 3:36 AM CDT 3.375 g 200 mL/hr Given - New Bag 05/17/2021 10:24 PM CDT 3.375 g 200 mL/hr Given - New Bag 05/17/2021 4:11 PM CDT 3.375 g 200 mL/hr Given - New Bag 05/17/2021 10:58 AM CDT 3.375 g 200 mL/hr Given - New Bag 05/17/2021 4:13 AM CDT 3.375 g 200 mL/hr Given - New Bag 05/16/2021 9:18 PM CDT 3.375 g 200 mL/hr Given - New Bag 05/16/2021 3:41 PM CDT 3.375 g 200 mL/hr Given - New Bag 05/16/2021 10:21 AM CDT 3.375 g 200 mL/hr Given - New Bag 05/16/2021 3:00 AM CDT 3.375 g 200 mL/hr Given - New Bag 05/15/2021 9:00 PM CDT 3.375 g 200 mL/hr Given - New Bag 05/15/2021 3:53 PM CDT 3.375 g 200 mL/hr Given - New Bag 05/15/2021 10:06 AM CDT 3.375 g 200 mL/hr Given - New Bag 05/15/2021 4:14 AM CDT 3.375 g 200 mL/hr Given - New Bag 05/14/2021 11:33 PM CDT 3.375 g 200 mL/hr Given - New Bag 05/14/2021 4:41 PM CDT 3.375 g 200 mL/hr Given - New Bag 05/14/2021 9:25 AM CDT 3.375 g 200 mL/hr Given - New Bag 05/14/2021 3:22 AM CDT 3.375 g 200 mL/hr Given - New Bag 2021 9:52 PM CDT 05/19/2021 9:16 AM CDT 17 g polyethylene glycol 3350 (MIRALAX) Given packet 17 g 17 g (1 packet), Oral, DAILY, First dos e on Tue05/13/21 at 1745, Until Discontinued, 8.5 GRAMS = 0.5 PACKET 17 GRAMS = 1 PACKET 34 GRAMS = 2 PACKETS, 17 g Given 05/18/2021 9:23 AM CDT 17 g Given 2021 9:55 PM CDT 05/19/2021 9:16 AM CDT 1 tablet senna/docusate (SENOKOT-S) tablet 1 Given tablet 1 tablet, Oral, TWICE DAILY, First dose on Tue05/13/21 at 2100, Until Discontinued, Hold for loose stools, 1 tablet Given 05/18/2021 9:45 PM CDT 1 tablet Given 05/18/2021 9:23 AM CDT 1 tablet Given 05/17/2021 8:48 PM CDT 1 tablet Given 05/16/2021 9:19 PM CDT 1 tablet Given 05/14/2021 8:00 PM CDT 1 tablet Given 05/14/2021 8:20 AM CDT 1 tablet Given 2021 9:53 PM CDT 05/15/2021 8:59 PM CDT 50 mL/hr sodium chloride 0.9 % infusion Given - New 1,000 mL, Intravenous, at 50 mL/hr, Bag CONTINUOUS, Starting Tue05/15/21 at 0000 , Until 05/16/21 at 2359 Infusion Restarted 05/15/2021 2:01 PM CDT 50 mL/hr Given - New Bag 05/14/2021 11:54 PM CDT 05/14/2021 10:48 AM CDT 250 mL 10 mL/hr SODIUM CHLORIDE 0.9 % IV SOLP (Cabinet Given - New Override) Bag NOW, 1 dose, [facility] 05/14/21 at 1100, Create d by cabinet override, Created by cabinet override, 05/15/2021 11:12 AM CDT 250 mL 10 mL/hr SODIUM CHLORIDE 0.9 % IV SOLP (Cabinet Given - New Override) Bag NOW, 1 dose, Tue05/15/21 at 1115, Create d by cabinet override, Created by cabinet override, 05/17/2021 10:24 PM CDT 250 mL 10 mL/hr SODIUM CHLORIDE 0.9 % IV SOLP (Cabinet Given - New Override) Bag NOW, 1 dose, [place] 05/17/21 at 2215, Created by cabinet override, Created by cabinet override, 05/19/2021 9:19 AM CDT 10 mL sodium chloride PF 0.9% flush 10 mL Given 10 mL, Flush, FLUSH THREE TIMES DAILY, First dose on [facility] 05/16/21 at 0000, Unti l Discontinued, Flush central, Midline or PICC line, with 5-10 mL every 8 hours using the push-pause (turbulent) method . Flush all lumens that do not have a continuous infusion. After obtaining blood specimen, flush catheter with 20 mL., 10 mL Given 05/19/2021 12:13 AM CDT 10 mL Given 05/18/2021 3:55 PM CDT 10 mL Given 05/18/2021 9:00 AM CDT 10 mL Given 05/17/2021 8:48 PM CDT 10 mL Given 05/17/2021 4:43 PM CDT 10 mL Given 05/17/2021 8:47 AM CDT 10 mL Given 05/17/2021 1:25 AM CDT 10 mL Given 05/16/2021 10:27 AM CDT 05/19/2021 9:20 AM CDT 1,000 mg 250 mL/hr vancomycin (VANCOCIN) 1,000 mg in Given - New dextrose 5% (D5W) 250 mL IVPB ([id number]) Bag 1,000 mg, Intravenous, 250 mL, Administer over 60 Minutes, EVERY 12 HOURS, First dose on [place] 05/14/21 at 1000 , Until Discontinued, Note Pharmacokineti c Monitoring: Please record infusion start time (Action= Given) and stop driss e (Action= Completed) of dose when blood levels are drawn., 1,000 mg 250 mL/hr Given - New Bag 05/18/2021 10:22 PM CDT 1,000 mg 250 mL/hr Given - New Bag 05/18/2021 10:09 AM CDT 1,000 mg 250 mL/hr Given - New Bag 05/17/2021 10:25 PM CDT 1,000 mg 250 mL/hr Given - New Bag 05/17/2021 11:33 AM CDT 1,000 mg 250 mL/hr Given - New Bag 05/16/2021 9:19 PM CDT 1,000 mg 250 mL/hr Given - New Bag 05/16/2021 10:36 AM CDT 1,000 mg 250 mL/hr Given - New Bag 05/15/2021 9:44 PM CDT 1,000 mg 250 mL/hr Given - New Bag 05/15/2021 11:15 AM CDT 1,000 mg 250 mL/hr Given - New Bag 05/14/2021 11:33 PM CDT 1,000 mg 250 mL/hr Given - New Bag 05/14/2021 10:47 AM CDT 2021 9:52 PM CDT 1,250 mg 183 mL/hr vancomycin (VANCOCIN) 1,250 mg in sodium Given - New chloride 0.9% (NS) 275 mL IVPB Bag 1,250 mg (rounded from 1,360 mg = 20 mg/kg 68 kg), Intravenous, 275 mL, Administer over 90 Minutes, ONCE, 1 dose, Tue05/13/21 at 1830, Note Pharmacokinetic Monitoring: Please record infusion start time (Action= Given) and stop driss e (Action= Completed) of dose when blood levels are drawn., vancomycin, pharmacy to manage PER PHARMACY, 999 doses, Starting Tue05/13/21 at 1740, Until Tue05/19/21 at 1505, Indication for this medication: right face cellulitis, Pharmacy will page you if there are questions about your order. Pager number last four digits: [phone], This order is for informational use only. See separate order for administration and documentation of Vancomycin., documented in this encounter Discontinued Medications Start Date End Date Medication Sig Discontinue Reason 11/06/2020 05/19/2021 acetaminophen (TYLENOL) 20.3 mL by 160 mg/5 mL oral solution PEG Tube route every 6 hours as needed. 11/06/2020 05/19/2021 docusate (COLACE) 50 mg/5 Take 10 mL mL oral solution via feeding tube twice daily. 12/20/2020 05/19/2021 oxyCODONE (ROXICODONE) 5 Take one mg tablet tablet by mouth every 4 hours as needed for Pain 05/19/2021 acetaminophen (TYLENOL) Take 650 mg 325 mg tablet by mouth every 4 hours as needed for Pain. 11/06/2020 05/19/2021 polyethylene glycol 3350 one packet Reorder (MIRALAX) 17 g packet by Per G Tube route daily. 05/19/2021 05/19/2021 polyethylene glycol 3350 one packet Reorder (MIRALAX) 17 g packet by Per G Tube route daily. documented as of this encounter Historical Medications * This list may reflect changes made after this encounter. Start Date End Date Medication Sig Dispensed Refills aspirin EC 81 mg tablet Take 81 mg by 0 mouth daily. Take with food. 05/19/2021 acetaminophen (TYLENOL) Take 650 mg 0 325 mg tablet by mouth every 4 hours as needed for Pain. added in this encounter Orders First Ordered Date Medications Ordered That Might Not Have Count Last Ordered Date Been Administered bacitracin topical ointment 1 05/15/2021 EPINEPHrine PF (ADRENALIN) 1 mg in 1 07/2021 sodium chloride 0.9% (NS) 250 mL irrigation haloperidol lactate (HALDOL) injection 1 1 05/15/2021 mg lactated ringers infusion 1 05/15/2021 lidocaine PF 1% (10 mg/mL) injection 0.2 1 05/15/2021 mL metoclopramide (REGLAN) injection 10 mg 1 05/15/2021 vancomycin (VANCOCIN) 3,000 mg, 1 2020 gentamicin 240 mg in sodium chloride 0. 9 % irrigation bag 3,000 mL Irrigation DEXTROSE 5% IN WATER IV SOLP (Cabinet 1 05/14/2021 Override) LORazepam (ATIVAN) tablet 0.5 mg 1 05/14 pancrelipase 20,880 Units/sodium 1 05/14 bicarbonate 650 mg ([facility] CLOG DESTROYER) diphenhydrAMINE (BENADRYL) injection 25 1 2021 mg ondansetron (ZOFRAN ODT) rapid dissolve 1 2021 tablet 4 mg ondansetron (ZOFRAN) injection 4 mg 1 vancomycin (VANCOCIN) 1,020 mg in 1 05/2021 dextrose 5% (D5W) 270.4 mL IVPB (15-40 kg) vancomycin, pharmacy to manage 1 021 First Ordered Date Lab Orders Without Results Count Last Ordere d Date CYTOLOGY FLUIDS 1 05/14/2021 First Ordered Date Procedures Count Last Ordered Date CONSULT IV THERAPY TEAM 1 05/15/2021 First Ordered Date Diet Count Last Ordered Date DISCHARGE DIET ENTERAL FEEDING 1 021 DISCHARGE DIET MECHANICAL SOFT 1 07/13/2 021 First Ordered Date Nursing Count Last Ordered Date DISCHARGE ACTIVITY NORMAL 1 05/19/2021 DISCHARGE CONTACT 1 05/19/2021 DISCHARGE EDUCATION 1 05/19/2021 DISCHARGE RETURN APPOINTMENT 2 DISCHARGE SIGNS/SYMPTOMS 1 05/19/2021 DISCHARGE WOUND CARE 1 05/19/2021 WEIGH PATIENT 1 2021 First Ordered Date Consult Count Last Ordered Date CONSULT INTERNAL MEDICINE PHYSICIAN 1 CONSULT DIETITIAN 1 2021 CONSULT INFECTIOUS DISEASES PHYSICIAN 1 2021 CONSULT INTERVENTIONAL RADIOLOGY 1 05/13 PHYSICIAN First Ordered Date OT Count Last Ordered Date OT CONSULT OCCUPATIONAL THERAPY 1 2020 First Ordered Date PT Count Last Ordered Date PT CONSULT PHYSICAL THERAPY 1 2021 First Ordered Date Admission Count Last Ordered Date ADMIT TO INPATIENT 1 2021 First Ordered Date Discharge Count Last Ordered Date DISCHARGE PATIENT NOW 1 05/19/2021 First Ordered Date Equipment Count Last Ordered Date COMPRESSION DEVICE, LEG 1 2021 PUMP IV CONTROL UNIT W/MODULES 1 021 First Ordered Date Activity Count Last Ordered Date MOBILITY 1 2021 First Ordered Date SPECIALITY EQUIPMENT Count Last Ordered Date 2021 FAN 3 05/15/2021 First Ordered Date Intake & Output Count Last Ordered Date INTAKE AND OUTPUT [address] & Maintain Count Last Ordered Date PLACE AND MAINTAIN SCD 1 2021 First Ordered Date Case Request Count Last Ordered Date CASE REQUEST 1 05/14/2021 First Ordered Date DME/Home Health Count Last Ordered Date HOME HEALTH/DME 1 05/19/2021 documented in this encounter Additional Health Concerns Assessment Noted Time A fall risk assessment has been completed for the pat ient 05/19/2021 9:00 AM CDT documented as of this encounter
--- OUTSIDE RECORDS SUMMARY | 2021-06-14 17:39 | XMS REPORT | Encounter Summary ---
Author Author [facility] Organization [facility] Address Unknown Phone Unavailable Care Team Providers Care Parlor Maid Name Role Phone Toro Geovanny Tobin GONSALVES PCP Reason for Visit * Reason Onset Date Comments General Question 05/19/2021 Encounter Details Care Team Description Date Type Department Sergei Benson MD [address] [place] [address] General Question 05/19/2021 Telephone Plastic Surgery: Ma in [place] [address] [place] [address] [address] 3, [address] [place] [address] Social History Date Tobacco Use Types Packs/Day Years Used Never Smoker Smokeless Tobacco: Chew Current User Drinks/Week oz/Week Comments Alcohol Use 10-12 Cans of beer 10.0 - 12.0 Yes Sex Assigned at Date Recorded 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 She would like us to contact her at [phone]. This is the phone number for their brother wh o they are currently residing with. documented in this encounter Plan of Treatment Not on filedocumented as of this encounter Goals Goal Patient Associated Recent Progress Patient-Stat Aut hor Goal Type Problems ed? Recover from illness Hospital On track (05/14/2021 Yes JosephRadha, 1:07 AM CDT) RN Note: "To heal [...]
--- OUTSIDE RECORDS SUMMARY | 2021-06-14 17:39 | XMS REPORT | Encounter Summary ---
Author Author [facility] Organization [facility] Address Unknown Phone Unavailable Care Team Providers Care Dray Truck Driver Name Role Phone ToroGeovanny Tobin GONSALVES PCP Encounter Details Care Team Description Date Type Department Roger Bates MD [address] [facility] Orth[facility] [address] [place] [address] [phone] 05/20/2021 Outpt. Infectious Diseases : Main Antibiotic [place] Therapy 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 Bates Nurse:Kyara Wynn ID Appt:will be arranged towards end of May. Can coordinate with Plastics. Antibiotics: Zosyn 13.5 g IV Q 24 hours Vancomycin 1g IV Q 12 Hours END DATE: TBD. Labs: CBC&DIFF, CMP, Vancomycin trough Q Tue Start:05/22/21 Line: RDL PICC Labs/[facility] care at [place], [place] Infusion clinic [phone] ([phone]). Infusion Pharmacy: [facility] Ph# , Fax # HH/DME orders correct at discharge. documented in this encounter Plan of Treatment Order Schedule Name Type Priority Associated Diag noses Weekly for 12 Occurrences starting 05/20 until 08/20/2021, 3 completed CBC AND DIFF Lab Routine Cellulitis, fac e Facial abscess MRSA infection Pseudomonas aeruginosa infection Receiving intravenous antibiotic treatment at home Weekly for 12 Occurrences starting 05/20 until 08/20/2021, 3 completed COMPREHENSIVE METABOLIC Lab Routine Cellul itis, face PANEL Facial abscess MRSA infection Pseudomonas aeruginosa infection Receiving intravenous antibiotic treatment at home Weekly for 12 Occurrences starting 05/20 until 08/20/2021, 3 completed VANCOMYCIN TROUGH Lab Routine Cellulitis, face Facial abscess MRSA infection Pseudomonas [...] chewing tobacco" documented as of this encounter Results * VANCOMYCIN TROUGH (06/12/2021 12:00 PM CDT) [...] OUTSIDE LAB eGFR Non OTHER OUTSIDE LAB Guatemalan eGFR OTHER OUTSIDE Guatemalan LAB Anion Gap OTHER OUTSIDE LAB Specimen Blood - Blood Performing Organization Address City/State/ZIP Code P josefina Number OTHER OUTSIDE LAB * CBC AND DIFF (06/12/2021 12:00 PM CDT) Pathologist [facility] White Blood 4.8 OTHER OUTSIDE Cells LAB [...] Number OTHER OUTSIDE LAB * VANCOMYCIN TROUGH (06/05/2021 1:00 PM CDT) [facility] Vancomycin 25.4 OTHER OUTSIDE Trough LAB Specimen Blood, venous - Blood Performing Organization Address City/[facility]/ZIP Code P josefina Number OTHER OUTSIDE LAB * COMPREHENSIVE METABOLIC PANEL (06/05/2021 1:00 PM CDT) [facility] Sodium OTHER OUTSIDE LAB Potassium 3.7 OTHER [...] OUTSIDE LAB eGFR Non OTHER OUTSIDE LAB Guatemalan eGFR OTHER OUTSIDE [place] LAB Anion Gap OTHER OUTSIDE LAB Specimen Blood - Blood Performing Organization Address City/State/ZIP Code P josefina Number OTHER OUTSIDE LAB * CBC AND DIFF (06/05/2021 1:00 PM CDT) [facility] White Blood 4.3 OTHER OUTSIDE Cells LAB [...] OUTSIDE LAB eGFR Non OTHER OUTSIDE LAB [place] eGFR OTHER OUTSIDE [place] LAB Anion Gap OTHER OUTSIDE LAB Specimen Blood - Blood Performing Organization Address City/State/ZIP Code P josefina Number OTHER OUTSIDE LAB * CBC AND DIFF (05/29/2021 2:54 PM [...] - Primary Cellulitis and abscess of face Facial abscess [...]
--- OUTSIDE RECORDS SUMMARY | 2021-06-14 17:40 | XMS REPORT | Encounter Summary ---
Author Author [facility] Organization [facility] Address Unknown Phone Unavailable Care Team Providers Care Foaming Machine Operator Name Role Phone Geovanny Engel APRN PCP Reason for Visit * Reason Comments Follow Up * Auth/Cert Referred By Contact Referred To Contact Status Reason Specialty Diagnoses / Procedures Diagnoses SCC (squamous cell carcinoma), face SCC (squamous cell carcinoma), face [C44.320] P rocedures FL RAD RESECTION TUMOR SOFT TISS FACE/SCALP 2 CM/> FL FREE SKIN FLAP W/MICROVASCULAR ANASTOMOSIS FL SPLIT AGRFT T/A/L 1ST 100 CM/&/1% BDY INFT/CHLD FL CERVICAL LYMPHADEC MODIFIED RADICAL NECK DSJ FL GLSSC COMPOSIT W/RESCJ FLOOR & MANDIBULAR RESCJ FL FREE OSTQ FLAP W/MVASC ANAST METAR/GREAT TOE [...] Date Type Department Eric Benson MD [address] [place] [address] SCC (squamous cell carcinoma), face (Bozena radha Dx) 2021 Office Visit Plastic Surgery: Ma in [place] [address] [facility] [address] [place] [address] Social History Date Tobacco Use Types Packs/Day Years Used Never Smoker Smokeless Tobacco: Chew Current User Drinks/Week oz/Week Comments Alcohol Use 10-12 Cans of beer 10.0 - 12.0 Yes Sex Assigned at Date Recorded 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 documented as of this encounter Last Filed Vital Signs Reading Time Taken Comments Vital Sign 96/61 2021 4:15 PM CDT Blood Pressure 99 2021 4:15 PM CDT Pulse - - Temperature - - Respiratory Rate - - Oxygen Saturation - - Inhaled Oxygen Concentration 68 kg (150 lb) 2021 4:15 PM CDT Weight 167.6 cm (5' 6") 2021 4:15 PM CDT Height 24.21 2021 4:15 PM CDT Body Mass Index documented in this encounter Functional Status Date of Assessment Functional Status Response 10/22/2020 Does the patient have a hearing impairment: Yes documented as of this encounter Progress Notes * Eric Benson MD - 2021 3:45 PM CDT Minor Procedure Date of Procedure: 2021 Pre-op Diagnosis: Right-sided facial fluid collection Procedure: Aspiration of right face fluid collection Indications: Faisal Claire is a 51 y.o. male who presents for aspiration and d rainage of a right-sided facial fluid collection seen on CT. He understands al l risks, benefits, indications, potential complications, and alternatives, and f reely consents to the procedure. He also understands the option of performing no surgery, the risk for scarring, and the technique of the procedure. Location: Right face Anesthesia: Local (Lidocaine 1% with 1: 100,000 Epinephrine) Technique: After informed consent was obtained, 1% lidocaine with epinephrine fo r anesthetic was injected into the surrounding subcutaneous tissue in the area o f interest on the right face seen on CT scan. The skin was prepped with betadine and draped. After appropriate anesthesia was obtained, a #15 blade was used to incise an approximately 1 cm area of skin over the presumed tract seen on imagin g. This right face skin tissue was then passed off the field and sent to Patholo for further analysis. An 18-gauge needle and syringe were used to aspirate th e fluid collection with collection of roughly < 1 cc of purulent fluid obtained. The fluid was passed off the field for cytology and culture. A 4-0 chromic suture was used to close the incision. A band-aid was applied to the exposed hardware over the chin. He tolerated the procedure well and without complications. Tramaine Bernabe M.D. PGY-3 [facility] Department of Plastic Surgery Attestation: I reviewed the documented history and exam, and discussed the patient with the r esident at the time of treatment. Also, I was physically present to examine and develop a plan of care for the patient. I concur with the history, physical exam , assessment, and treatment plan unless otherwise noted. I performed the procedure with the resident's assistance. Eric Benson MD Plastic and Maxillofacial Surgery [facility] * Eric Benson MD - 2021 3:45 PM CDT Plastic and Maxillofacial Surgery HPI: Mr. Claire, is a 51 y.o. 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 Benson and Chris. He had po sitive lymph nodes with no LIZANDRO, no LVI or PNI. Discussed at head and neck TB. Re commendations for adjuvant XRT. He was last seen in our clinic in November and gallardo bsequently missed multiple scheduled and rescheduled appointments and was lost t o follow-up. He and his Yecenia report that he completed his adjuvant radia tion in [place]. Their history is vague but they were seen in the emergency r oom there multiple times and he was started on antibiotics for facial cellulitis . Post radiation he also developed exposure of his right mandibular plate. They think this may have happened a couple of weeks ago. Faisal says he otherwise fee ls great. He has been eating a soft diet and not using his G tube. Focused Past Med Hx: has a past medical history of Alcohol abuse, [place] (hard of hearing), Squamous cell carcinoma, lip, and Tobacco abuse. Family Hx: family history is not on file. Social Hx: reports that he has never smoked. His smokeless tobacco use includes chew. He reports current alcohol use of about 10.0 - 12.0 standard drinks of al cohol per week. He reports that he does not use drugs. ROS: Constitutional: +generalized fatigue and some anxiety [...] No speech problems or new limb weakness Meds: has a current medication list which includes the following prescription(s): acet aminophen, docusate, glycopyrrolate, lidocaine, oxycodone, and polyethylene glyc ol 3350, and the following Facility-Administered Medications: acetaminophen, dip henhydramine, enoxaparin, melatonin, ondansetron OR ondansetron, oxycodone, piperacillin/tazobactam (ZOSYN) 3.375 g in sodium chloride 0.9% (NS) 100 mL IVPB (MB+), polyethylene glycol 3350, senna/docusate, and vancomycin (VANCOCIN) 1,02 0 mg in dextrose 5% (D5W) 270.4 mL IVPB (15-40 kg) AND vancomycin, pharmacy to manage. Exam: General: Alert, NAD Focused maxillofacial/head and neck [...] Hands: warm, without visible cyanosis or eschar Imaging: CT neck complete showing R facial abscess; final review pending A/P: Discussed with Faisal and his at length the importance of complying wi th postoperative instructions and not missing his appointments. They expressed u nderstanding of this and said he would make all future appointments. Today I rec ommend that we perform an aspiration of his R facial abscess and send fluid for cytology and culture. We also would take a skin sample for pathology. He will ne ed removal and coverage of the exposed hardware but it is important that we firs t rule out recurrent cancer. I emphasized that if he does not have recurrence no w, he may in the future given the fact that he has stage 4 disease and that foll ow-up is critical. Given his abscess and facial cellulitis we will admit him for drainage and IV antibiotics and formulate a plan pending review of his patholog y. They were in agreement and expressed understanding of the plan of care. documented in this encounter Plan of Treatment Date/Time Name Type Priority Associated Diag noses 2021 5:11 PM CDT CULTURE-FUNGAL,OTHER Microbiology Routine SCC (squa mous cell carcinoma), face 2021 3:45 PM CDT CYTOLOGY SPECIMEN LABEL Pathology SCC (squamous cell carcinoma), face 2021 3:45 PM CDT CULTURE-FUNGAL,OTHER Microbiology SCC (squamous sonia l carcinoma), face 2021 3:45 PM CDT CULTURE-TB (AFB) Microbiology Order Schedule Name Type Priority Associated Diag noses Ordered: 2021 CYTOLOGY FLUIDS Pathology Routine SCC (squamous cell carcinoma), face documented as of this encounter Goals Goal Patient Associated Recent Progress Patient-Stat Aut hor Goal Type Problems ed? Recover from illness Hospital On track (05/14/2021 Yes Radha Ruiz, 1:07 AM CDT) RN Note: "To heal and recover and be as healthy as possible, quit chewing tobacco" documented as of this encounter Procedures Comments Procedure Name Priority Date/Time Associated Diag nosis HC LVL IV SRG PTH, GROSS Routine 2021 SCC ( squamous cell & MICRO 5:00 PM CDT carcinoma), face CULTURE-FUNGAL,OTHER 2021 SCC (squamous ce ll 3:45 PM CDT carcinoma), face GRAM STAIN 2021 SCC (squamous cell 3:45 PM CDT carcinoma), face CULTURE-TB (AFB) 2021 3:45 PM CDT CULTURE-WOUND/TISSUE/FLUI 2021 SCC (squamo us cell D(AEROBIC 3:45 PM CDT carcinoma), face ONLY)W/SENSITIVITY CULTURE-ANAEROBIC 2021 SCC (squamous cell 3:45 PM CDT carcinoma), face documented in this encounter Results * CULTURE-WOUND/TISSUE/FLUID(AEROBIC ONLY)W/SENSITIVITY (2021 5:11 PM CDT) Battery Name ROUTINE CULTURE KU MAIN LAB Report Status EDITED RESULT - FINAL MAIN LAB 05/17/2021 Specimen SWAB FACE RIGHT CHEEK KU MAIN LAB Description Special NONE KU MAIN LAB Requests Direct Gram NO NEUTROPHILS SEEN KU MAIN LAB Stain Direct Gram MANY KU MAIN LAB Stain SQUAMOUS EPITHELIAL CELLS Direct Gram NO ORGANISMS SEEN KU MAIN LAB Stain Culture One colony MAIN LAB METHICILLIN RESISTANT STAPHYLOCOCCUS AUREUS Positive for PBP2A, indicating that isolate is MRSA (A) Culture One colony MAIN LAB ACINETOBACTER LWOFFII (A) Comment: Modified Report susceptibility released. Specimen Swab - Other (Specify) Antibiotic Method Susceptibility Organism Clindamycin AWA (MCG/ML), INTERPRETATION, PHX <=0.5: Resistant Methicillin resistant staphylococcus aureus Erythromycin AWA (MCG/ML), INTERPRETATION, PHX >4: Resistant Methicillin resistant staphylococcus aureus Oxacillin AWA (MCG/ML), INTERPRETATION, PHX >2: Resistant Methicillin resistant staphylococcus aureus Vancomycin AWA (MCG/ML), INTERPRETATION, PHX 1: Susceptible Methicillin resistant staphylococcus aureus Tetracycline AWA (MCG/ML), INTERPRETATION, PHX >8: Resistant Methicillin resistant staphylococcus aureus Trimethsulfa AWA (MCG/ML), INTERPRETATION, PHX <=1/19: Susceptible Methicillin resistant staphylococcus aureus Gentamicin AWA (MCG/ML), INTERPRETATION, PHX <=2: Susceptible Methicillin resistant staphylococcus aureus Rifampin AWA (MCG/ML), INTERPRETATION, PHX <=0.5: Susceptible Methicillin resistant staphylococcus aureus Linezolid AWA (MCG/ML), INTERPRETATION, PHX 1: Susceptible Methicillin resistant staphylococcus aureus Minocycline INTERPRETATION, PATEL KING Susceptible Acinetobacter lwoffii Ampicillin/Sulbactam AWA (MCG/ML), INTERPRETATION, PHX <=1/0.5: Susceptible Acinetobacter lwoffii Cefepime AWA (MCG/ML), INTERPRETATION, PHX <=1: Susceptible Acinetobacter lwoffii Ceftriaxone AWA (MCG/ML), INTERPRETATION, PHX 4: Susceptible Acinetobacter lwoffii Gentamicin AWA (MCG/ML), INTERPRETATION, PHX <=2: Susceptible Acinetobacter lwoffii Levofloxacin AWA (MCG/ML), INTERPRETATION, PHX <=0.5: Susceptible Acinetobacter lwoffii Meropenem AWA (MCG/ML), INTERPRETATION, PHX <=0.5: Susceptible Acinetobacter lwoffii Tobramycin AWA (MCG/ML), INTERPRETATION, PHX <=2: Susceptible Acinetobacter lwoffii Trimethsulfa AWA (MCG/ML), INTERPRETATION, PHX >2/38: Resistant Acinetobacter lwoffii Performing Organization Address City/[facility]/ZIP Code P josefina Number MAIN LAB [address] [place] [address] * GRAM STAIN (2021 5:11 PM CDT) Battery Name GRAM STAIN MAIN LAB Report Status FINAL 2021 MAIN LAB Specimen SWAB FACE RIGHT CHEEK MAIN LAB Description Special NONE MAIN LAB Requests Gram Stain NO NEUTROPHILS SEEN MAIN LAB Gram Stain MANY MAIN LAB SQUAMOUS EPITHELIAL CELLS Gram Stain NO ORGANISMS SEEN MAIN LAB Specimen Swab - Other (Specify) Performing Organization Address City/State/ZIP Code P josefina Number MAIN LAB [address] [place] [address] * CULTURE-ANAEROBIC (2021 5:11 PM CDT) Battery Name ANAEROBE CULTURE MAIN LAB Report Status FINAL 05/18/2021 MAIN LAB Specimen SWAB FACE RIGHT CHEEK KU MAIN LAB Description Special NONE KU MAIN LAB Requests Culture NO ANAEROBES ISOLATED [facility] LAB Specimen Swab - Other (Specify) Performing Organization Address City/State/ZIP Code P josefina Number [facility] LAB [address] [place] [address] * PATHOLOGY SURGICAL < 5 SPECIMENS (2021 5:00 PM CDT) PATHOLOGY [email or web address] Department of Pathology and Laboratory Medicine [address] [place] [address] Surgical Pathology Office: [phone] SURGICAL PATHOLOGY REPORT NAME: FAISAL CLAIRE SURG PATH #: [id number] MR #: [id number] SPECIMEN CLASS: SR BILLING #: [id number] ALT ID #: LOCATION: [id number] DATE OF PROCEDURE: 2021 AGE: 51 SEX: [...] fragments, submitted whole, all in B1. (cg) kr/05/14/2021 Specimen Other (Specify) Performing Organization Address City/State/ZIP Code P josefina Number MAIN LAB [address] [place] [address] * CULTURE-WOUND/TISSUE/FLUID(AEROBIC ONLY)W/SENSITIVITY (2021 3:45 PM CDT) Battery Name ROUTINE CULTURE MAIN LAB Report Status FINAL 05/19/2021 MAIN LAB Specimen TISSUE FACE RIGHT MAIN LAB Description Special NONE MAIN LAB Requests Direct Gram NO NEUTROPHILS SEEN KU MAIN LAB Stain Direct Gram FEW KU MAIN LAB Stain SQUAMOUS EPITHELIAL CELLS Direct Gram NO ORGANISMS SEEN KU MAIN LAB Stain Culture NO GROWTH 5 DAYS KU MAIN LAB Specimen Tissue Performing Organization Address City/[facility]/ZIP Code P josefina Number MAIN LAB [address] [place] [address] * GRAM STAIN (2021 3:45 PM CDT) Battery Name GRAM STAIN MAIN LAB Report Status FINAL 05/14/2021 KU MAIN LAB Specimen TISSUE FACE RIGHT MAIN LAB Description Special NONE MAIN LAB Requests Gram Stain NO NEUTROPHILS SEEN MAIN LAB Gram Stain FEW MAIN LAB SQUAMOUS EPITHELIAL CELLS Gram Stain NO ORGANISMS SEEN MAIN LAB Specimen Tissue Performing Organization Address City/[facility]/ZIP Code P josefina Number MAIN LAB [address] [place] [address] * CULTURE-ANAEROBIC (2021 3:45 PM CDT) Battery Name ANAEROBE CULTURE MAIN LAB Report Status FINAL 05/19/2021 KU MAIN LAB Specimen TISSUE FACE RIGHT MAIN LAB Description Special NONE MAIN LAB Requests Culture NO ANAEROBES ISOLATED MAIN LAB Specimen Tissue Performing Organization Address City/State/ZIP Code P josefina Number MAIN LAB [address] [place] [address] documented in this encounter Visit Diagnoses Diagnosis SCC (squamous cell carcinoma), face - P rimary Squamous cell carcinoma of skin of othe r and unspecified parts of face documented in this encounter Additional Health Concerns Assessment Noted Time A fall risk assessment has been completed for the pat ient 2021 7:54 PM CDT documented as of this encounter
--- OUTSIDE RECORDS SUMMARY | 2021-06-14 17:40 | XMS REPORT | Encounter Summary ---
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
--- OUTSIDE RECORDS SUMMARY | 2021-06-14 17:40 | XMS REPORT | Encounter Summary ---
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
--- OUTSIDE RECORDS SUMMARY | 2021-06-14 17:40 | XMS REPORT | Encounter Summary ---
Author Author [facility] Organization [facility] Address Unknown Phone Unavailable Care Team Providers Care Account Development Associate Name Role Phone Geovanny Engel WIRELINE FIELD OPERATOR PCP Reason for Visit * Auth/Cert Referred By Contact Referred To Contact Status Reason Specialty Diagnoses / Procedures Diagnoses SCC (squamous cell carcinoma), face SCC (squamous cell carcinoma), face [C44.320] P rocedures WY RAD RESECTION TUMOR SOFT TISS FACE/SCALP 2 CM/> WY FREE SKIN FLAP W/MICROVASCULAR ANASTOMOSIS WY SPLIT AGRFT T/A/L 1ST 100 CM/&/1% BDY INFT/CHLD WY CERVICAL LYMPHADEC MODIFIED RADICAL NECK DSJ WY GLSSC COMPOSIT W/RESCJ FLOOR & MANDIBULAR RESCJ WY FREE OSTQ FLAP W/MVASC ANAST METAR/GREAT TOE [...] Details Care Team Description Date Type Department Zhen Marvin MD [address] [address] [place], [place] [id number] Kaushal Brunner SRNA 05/15/2021 Anesthesia Operating Room: [facility] 4000 [facility] Level 2 [place] [address] Anesthesia Record Responsible Anesthesiologist Anesthesia Start Time Anesthesi a Stop Time Procedure Name Zhen Marvin MD 05/15/21 1300 05/15/21 1538 REMOVAL HARDWARE -DEEP MANDIBLE (Right Face) Date Time Event Comment 1254 AN Equip Check 2020 1257 1258 In Room 1300 Anes Start 1300 An Start Data 1310 An Induction The patient was ree valuated immediately before moderate or deep sedation use and before anesthesia induction. 1310 An Intubation 1313 Anesthesia Ready 1322 Antibiotic Given 1326 Proc Start 1345 an christie now ETT removed by surg anaya accidentally. MD notified, DL by GUIDANCE COUNSELOR. Grade 1 view via Mac 4. Unable to pass 7 ETT because cords were closed. Propofol and Succs given and patient bag mask ventil ated via 2 hand ventilation easily. Glidescope used, mac 4 with grade 1 vie w. 6.5 ETT passed without difficulty. 1345 An Extubation ETT removed by surg anaya accidentally. MD notified, DL by GUIDANCE COUNSELOR. Grade 1 view via Mac 4. Unable to pass 7 ETT because cords were closed. Propofol and Succs given and patient bag mask ventil ated via 2 hand ventilation easily. Glidescope used, mac 4 with grade 1 vie w. 6.5 ETT passed without difficulty. Secured at 23 cm with sutur es through the cheek by surgeon 1351 An Intubation 6.5 ett secured at 23 cm with sutures through the cheek by surgeon 1530 An Extubation 1537 an stop data 1538 Handoff to RN I completed my SBAR handoff to the receiving nurse. 1538 An Stop Meds Name Total midazolam (VERSED) 1 mg/mL injection 2 mg fentaNYL PF (SUBLIMAZE) injection 100 mcg lidocaine PF 2% 100mg/5mL vial 60 mg propofol (DIPRIVAN) 200 mg/ 20 mL 170 mg injection (VIAL) succinylcholine (ANECTINE) injection 160 mg (VIAL) rocuronium (ZEMURON) injection 20 mg ondansetron (ZOFRAN) injection 4 mg dexamethasone (DECADRON) 4 mg/mL 8 mg injection phenylephrine (ESTEFANÍA-SYNEPHRINE) 0.1 mg/mL 250 mcg injection syr sugammadex (BRIDION) 100 mg/mL iv soln 200 mg artificial tears (GENTEAL TEARS; BION 2 drop TEARS) single dose solution ceFAZolin (ANCEF) 2 g HYDROmorphone (DILUADID) 0.5 mg sodium chloride 0.9 % infusion 1,500 mL lactated ringers infusion 0 mL * Name O2 N2O Inspired N2O Sevoflurane Inspired Sevoflurane * No blood administrations on file. Removal Type Details Placement Gastrostom 10/21/20; 1038; Abdomen, Left Upper 1038 by Latisha y Tube Medial CYNDY Velazquez Douglas 05/15/21; 1428; Right; Head; 15 FR; #1 05/15/21 1428 by Anju Reddy RN Drain 05/19/21 1305 by Tomas, Employee Communications Manager Wounds 05/13/21; 2030; Ulcer (not from 2030 by armin Stevenson); Right; Face; 05/19/21; 1305 CYNDY Mtz 05/15/212024 by Madan Garcia RN Peripheral 05/13/21; 2039; RN; R; Forearm; 20 G; 05/13/212039 by ASHER Stevenson (removed secondary to picc placement); CYNDY Mtz 05/15/21; 202405/15/21 1345 by Sher Gustafson CRNA ETT 05/15/21; 1310; Ventilated by mask with 05/15/21 1310 by Sj oral airway (2); Video laryngoscopy; Sher Gonzalez CRNA Single-Lumen, Cuffed; ETT Size: 7mm; Mac; Blade Size: 4; Oral; 1-Full view o f the glottis; 1 insertion attempt; ETCO2 Detector, Auscultation; Vol of Air in Cuff: 8 mL; Taped at Gums: 24 centimeters; 05/15/21; 1345 documented in this encounter Social History Date Tobacco Use Types Packs/Day Years Used Never Smoker Smokeless Tobacco: Chew Current User Drinks/Week oz/Week Comments Alcohol Use 10-12 Cans of beer 10.0 - 12.0 Yes Sex Assigned at Date Recorded 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 documented as of this encounter Functional Status Date of Assessment Functional Status Response 05/14/2021 Does the patient have a hearing impairment: Yes documented as of this encounter OR Notes * Anesthesia Postprocedure Evaluation - Sabino Rudd MD - 05/15/2021 5:18 PM CDT Post-Anesthesia Evaluation Name: Sher Carrizales III : 1970 Age: 51 y.o. Sex: male Procedure Information Anesthesia Start Date/Time: 05/15/21 1300 Procedures: REMOVAL HARDWARE -DEEP MANDIBLE (Right Face) - REQUEST 1300 START, 2 HOURS EXCISION BONE - MANDIBLE (Right Face) REPAIR COMPLEX WOUND 2.6 CM TO 7.5 CM - HEAD/ NECK (Right Face) REPAIR COMPLEX WOUND EACH ADDITIONAL 5 CM OR LESS- HEAD/ NECK (Right Face) - x2 Location: MAIN OR 16 / Main OR/Periop Surgeons: Sergei Benson MD Post-Anesthesia Vitals BP: 133/74 (05/15 1700) Pulse: 80 (05/15 1700) Respirations: 10 PER MINUTE (05/15 1700) SpO2: 99 % (05/15 1700) SpO2 Pulse: 80 (05/15 1700) Vitals Value Taken Time BP 133/74 05/15/21 1700 Temp 36.3 C (97.3 F) 05/15/21 1534 Pulse 80 05/15/21 1700 Respirations 10 PER MINUTE 05/15/21 1700 SpO2 99 % 05/15/21 1700 Post Anesthesia Evaluation Note Evaluation location: pre/post Patient participation: recovered; patient participated in evaluation Level of consciousness: alert Pain score: 2 Pain management: adequate Hydration: normovolemia Temperature: 36.0C - 38.4C Airway patency: adequate Perioperative Events Post-op nausea and vomiting: no PONV Postoperative Status Cardiovascular status: hemodynamically stable Respiratory status: spontaneous ventilation Additional comments: Post-Anesthesia Evaluation Attestation: The indicated post-anethesia care was pr ovided. Staff name: Sabino Rudd MD Perioperative Events Perioperative Event: No Emergency Case Activation: No * Anesthesia Preprocedure Evaluation - Zhen Marvin MD - 05/15/2021 12:52 PM CDT Anesthesia Pre-Procedure Evaluation Name: Sher Carrizales III : 1970 Age: 51 y.o. Sex: male Procedure Info: Procedure Information Date/Time: 05/15/21 1300 Procedure: REMOVAL HARDWARE -DEEP MANDIBLE (Right ) - REQUEST 1300 START, 2 TAMEKA RS Location: MAIN OR 16 / Main OR/Periop Surgeons: Sergei Benson MD Physical Assessment Vital Signs (last filed in past 24 hours): BP: 143/98 (05/15 1200) Temp: 36.6 C (97.9 F) (05/15 1200) Pulse: 76 (05/15 1200) Respirations: 16 PER MINUTE (05/15 1200) SpO2: 100 % (05/15 1200) Patient History Allergies Allergen Reactions Ibuprofen SWOLLEN TONGUE Current Medications Medication Directions acetaminophen (TYLENOL) 160 mg/5 mL oral solution 20.3 mL by PEG Tube route ever y 6 hours as needed. docusate (COLACE) 50 mg/5 mL oral solution Take 10 mL via feeding tube twice virginie ly. glycopyrrolate (ROBINUL) 1 mg/5 mL (0.2 mg/mL) soln oral solution 5 mL by PEG Tu be route three times daily. lidocaine (LIDODERM) 5 % topical patch Apply one patch topically to affected are a every 24 hours. Apply patch for 12 hours, then remove for 12 hours before repe ating. oxyCODONE (ROXICODONE) 5 mg tablet Take one tablet by mouth every 4 hours as nee ded for Pain polyethylene glycol 3350 (MIRALAX) 17 g packet one packet by Per G Tube route da janette. Review of Systems/Medical History Patient summary reviewed Pertinent labs reviewed PONV Screening: Non-smoker and Postoperative opioids Airway - negative Pulmonary - negative Cardiovascular Exercise tolerance: >4 METS Beta Rosa therapy: No Beta blockers within 24 hours: No GI/Hepatic/Renal - negative Neuro/Psych - negative Musculoskeletal - negative Endocrine/Other Malignancy Constitution - negative Physical Exam Airway Findings Mallampati: III TM distance: >3 FB Neck ROM: limited Mouth opening: limited Airway patency: difficult Comments: Large tumor on R lower lip Cardiovascular Findings: Negative Rhythm: regular Rate: normal Pulmonary Findings: Negative Breath sounds clear to auscultation. Abdominal Findings: Abdominal exam deferred Neurological Findings: Negative Alert and oriented x 3 Constitutional findings: Negative Other Findings: Patient is s/p head and neck surgery on 10-26-20. Patient is edentulous. Patient has swelling of right side of face and neck secon julieta to cellulitis. Limited mouth opening due to pain. Diagnostic Tests Hematology: Lab Results Component Value Date HGB 11.1 05/15/2021 HCT 33.1 05/15/2021 PLTCT 268 05/15/2021 WBC 3.7 05/15/2021 NEUT 77 05/15/2021 ANC 2.83 05/15/2021 ALC 0.42 05/15/2021 RACHELE 8 05/15/2021 AMC 0.31 05/15/2021 EOSA 3 05/15/2021 ABC 0.04 05/15/2021 MCV 87.0 05/15/2021 MCH 29.2 05/15/2021 MCHC 33.6 05/15/2021 MPV 6.0 05/15/2021 RDW 14.5 05/15/2021 General Chemistry: Lab Results Component Value Date NA 138 05/15/2021 K 4.4 05/15/2021 CL 102 05/15/2021 CO2 29 05/15/2021 GAP 7 05/15/2021 BUN 10 05/15/2021 CR 0.89 05/15/2021 GLU 115 05/15/2021 CA 9.1 05/15/2021 ALBUMIN 3.2 05/15/2021 LACTIC 1.7 2021 OBSCA 1.13 10/27/2020 MG 1.8 2021 TOTBILI 0.3 05/15/2021 PO4 3.4 2021 Coagulation: Lab Results Component Value Date PTT 27.5 10/21/2020 INR 1.1 10/21/2020 Anesthesia Plan ASA score: 3 Plan: general Induction method: intravenous NPO status: acceptable Informed Consent Anesthetic plan and risks discussed with patient. Use of blood products discussed with patient Blood Consent: consented Plan discussed with: anesthesiologist and GUIDANCE COUNSELOR. documented in this encounter Plan of Treatment [...] Diagnoses Not on filedocumented in this encounter Administered Medications Action Date Dose Rate Site Medication Order MAR Action 05/15/2021 1:10 PM CDT 2 drops artificial tears single dose ophthalmic Given solution Both Eyes, INTRA-PROCEDURE MED, Startin g Tue05/15/21 at 1310, Until Tue05/15/21 at 1538, Anesthesia Intra-op 05/15/2021 1:22 PM CDT 2 g ceFAZolin (ANCEF) injection Given Intravenous, INTRA-PROCEDURE MED, Starting Tue05/15/21 at 1322, Until Tue05/15/21 at 1538, Anesthesia Intra-op 05/15/2021 2:01 PM CDT 4 mg dexamethasone (DECADRON) injection Given Intravenous, INTRA-PROCEDURE MED, Starting Tue05/15/21 at 1318, Until Tue05/15/21 at 1538, Anesthesia Intra-op 4 mg Given 05/15/2021 1:18 PM CDT 05/15/2021 1:10 PM CDT 100 mcg fentaNYL citrate PF (SUBLIMAZE) Given injection Intravenous, INTRA-PROCEDURE MED, Starting Tue05/15/21 at 1310, Until Tue05/15/21 at 1538, Anesthesia Intra-op 05/15/2021 2:21 PM CDT 0.5 mg HYDROmorphone injection (DILAUDID) Given Intravenous, INTRA-PROCEDURE MED, Starting Tue05/15/21 at 1421, Until Tue05/15/21 at 1538, Anesthesia Intra-op 05/15/2021 1:10 PM CDT 60 mg lidocaine PF 20 mg/mL (2 %) injection Given Intravenous, INTRA-PROCEDURE MED, Starting Tue05/15/21 at 1310, Until Tue05/15/21 at 1538, Anesthesia Intra-op 05/15/2021 1:00 PM CDT 2 mg midazolam (VERSED) injection Given Intravenous, INTRA-PROCEDURE MED, Starting Tue05/15/21 at 1300, Until Tue05/15/21 at 1538, Anesthesia Intra-op 05/15/2021 3:02 PM CDT 4 mg ondansetron (ZOFRAN) injection Given Intravenous, INTRA-PROCEDURE MED, Starting Tue05/15/21 at 1502, Until Tue05/15/21 at 1538, Anesthesia Intra-op 05/15/2021 2:52 PM CDT 100 mcg phenylephrine (ESTEFANÍA-SYNEPHRINE) injection Given syringe Intravenous, INTRA-PROCEDURE MED, Starting Tue05/15/21 at 1447, Until Tue05/15/21 at 1538, Anesthesia Intra-op 100 mcg Given 05/15/2021 2:47 PM CDT 50 mcg Given 05/15/2021 2:46 PM CDT 05/15/2021 1:50 PM CDT 70 mg propofol (DIPRIVAN) injection Given Intravenous, INTRA-PROCEDURE MED, Starting Tue05/15/21 at 1310, Until Tue05/15/21 at 1538, Anesthesia Intra-op 100 mg Given 05/15/2021 1:10 PM CDT 05/15/2021 2:42 PM CDT 20 mg rocuronium injection Given Intravenous, INTRA-PROCEDURE MED, Starting Tue05/15/21 at 1442, Until Tue05/15/21 at 1538, Anesthesia Intra-op 05/15/2021 8:59 PM CDT 50 mL/hr sodium chloride 0.9 % infusion Given - New 1,000 mL, Intravenous, at 50 mL/hr, Bag CONTINUOUS, Starting Tue05/15/21 at 0000 , Until 05/16/21 at 2359 Infusion Restarted 05/15/2021 2:01 PM CDT 50 mL/hr Given - New Bag 05/14/2021 11:54 PM CDT 05/15/2021 1:50 PM CDT 60 mg succinylcholine (ANECTINE) injection Given Intravenous, INTRA-PROCEDURE MED, Starting Tue05/15/21 at 1310, Until Tue05/15/21 at 1538, Anesthesia Intra-op 100 mg Given 05/15/2021 1:10 PM CDT 05/15/2021 3:02 PM CDT 200 mg sugammadex (BRIDION) injection Given Intravenous, INTRA-PROCEDURE MED, Starting Tue05/15/21 at 1502, Until Tue05/15/21 at 1538, Anesthesia Intra-op documented in this encounter Additional Health Concerns Assessment Noted Time A fall risk assessment has been completed for the pat ient 05/15/2021 9:00 PM CDT documented as of this encounter
--- OUTSIDE RECORDS SUMMARY | 2021-06-14 17:40 | XMS REPORT | Encounter Summary ---
Author Author [facility] Organization [facility] Address Unknown Phone Unavailable Care Team Providers Care Records Section Supervisor Name Role Phone Geovanny Engel APRN PCP Reason for Visit * Reason Onset Date Comments Appointment 04/20/2021 Encounter Details Care Team Description Date Type Department Sergei Benson MD [address] [place] [address] Appointment 04/20/2021 Telephone Plastic Surgery: [facility] [place] [address] [place] [address] [address], [address] [place] [address] Social History Date Tobacco Use Types Packs/Day Years Used Never Smoker Smokeless Tobacco: Chew Current User Drinks/Week oz/Week Comments Alcohol Use 10-12 Cans of beer 10.0 - 12.0 Yes Sex Assigned at Date Recorded 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 Benson. His called today about 30 dorothy grayson prior to appointment time and states that their transportation service did n ot show up. Appointment was rescheduled. CT neck and chest also rescheduled for same day. The patients repeated the appointment date and time back to me an d says they will go to his PCP or the ER if anything urgent arises. 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
--- OUTSIDE RECORDS SUMMARY | 2021-06-14 17:40 | XMS REPORT | Encounter Summary ---
Author Author [facility] Organization [facility] Address Unknown Phone Unavailable Care Team Providers Care Tar Worker Name Role Phone Geovanny Engel PROGRAM ENGAGEMENT DIRECTOR PCP Reason for Visit * Auth/Cert Referred By Contact Referred To Contact Status Reason Specialty Diagnoses / Procedures Diagnoses SCC (squamous cell carcinoma), face SCC (squamous cell carcinoma), face [C44.320] P rocedures AL RAD RESECTION TUMOR SOFT TISS FACE/SCALP 2 CM/> AL FREE SKIN FLAP W/MICROVASCULAR ANASTOMOSIS AL SPLIT AGRFT T/A/L 1ST 100 CM/&/1% BDY INFT/CHLD AL CERVICAL LYMPHADEC MODIFIED RADICAL NECK DSJ AL GLSSC COMPOSIT W/RESCJ FLOOR & MANDIBULAR RESCJ AL FREE OSTQ FLAP W/MVASC ANAST METAR/GREAT TOE [...] Date Type Department Sergei Benson MD [address] [place] [address] Squamous cell carcinoma of skin of unspe cified parts of face 2021 Hospital Laboratory: [facility] [address] [place] [address] [address], [address] [place] [address] Social History Date Tobacco Use Types Packs/Day Years Used Never Smoker Smokeless Tobacco: Chew Current User Drinks/Week oz/Week Comments Alcohol Use 10-12 Cans of beer 10.0 - 12.0 Yes Sex Assigned at Date Recorded 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 documented as of this encounter Functional Status Date of Assessment Functional Status Response 10/22/2020 Does the patient have a hearing impairment: Yes documented as of this encounter Medications at Time of Discharge [...] g packet Per G Tube route daily. 11/06/2020 05/19/2021 acetaminophen (TYLENOL) 20.3 mL by 960 mL 0 160 mg/5 mL oral solution PEG Tube route every 6 hours as needed. 05/19/2021 acetaminophen (TYLENOL) Take 650 mg 0 325 mg tablet by mouth every 4 hours as needed for Pain. 11/06/2020 05/19/2021 docusate (COLACE) 50 mg/5 Take 10 mL 473 mL 0 mL oral solution via feeding tube twice daily. 12/20/2020 05/19/2021 oxyCODONE (ROXICODONE) 5 Take one 10 tablet 0 mg tablet tablet by mouth every 4 hours as needed for Pain 05/19/2021 05/19/2021 polyethylene glycol 3350 one packet by 30 each 0 (MIRALAX) 17 g packet Per G Tube route daily. 11/06/2020 05/19/2021 polyethylene glycol 3350 one packet by 30 each 0 (MIRALAX) 17 g packet Per G Tube route daily. 05/19/2021 06/08/2021 vancomycin (VANCOCIN) Administer 0 1000 mg/20 mL 1,000 mg in one thousand dextrose 5% (D5W) 250 mL mg through IVPB ([id number]) vein every 12 hours. documented as of this encounter Discharge Disposition Code Departure Means Destination Disposition Home Home or Self Care documented in this encounter Plan of Treatment Date/Time Name Type Priority Associated Diag noses 2021 5:11 PM CDT CULTURE-FUNGAL,OTHER Microbiology Routine SCC (squa mous cell carcinoma), face documented as of this encounter Goals Goal Patient Associated Recent Progress Patient-Stat Aut hor Goal Type Problems ed? Recover from illness Hospital On track (05/14/2021 Yes Radha Ruiz, 1:07 AM CDT) RN Note: "To heal and recover and be as healthy as possible, quit chewing tobacco" documented as of this encounter Procedures Comments Procedure Name Priority Date/Time Associated Diag nosis CULTURE-FUNGAL,OTHER Routine 2021 SCC (squa mous cell 5:11 PM CDT carcinoma), face GRAM STAIN Routine 2021 SCC (squamous c ell 5:11 PM CDT carcinoma), face CULTURE-WOUND/TISSUE/FLUI Routine 2021 SCC (squamous cell D(AEROBIC 5:11 PM CDT carcinoma), face ONLY)W/SENSITIVITY CULTURE-ANAEROBIC Routine 2021 SCC (squamou s cell 5:11 PM CDT carcinoma), face documented in this encounter Results * CULTURE-WOUND/TISSUE/FLUID(AEROBIC ONLY)W/SENSITIVITY (2021 5:11 PM CDT) Battery Name ROUTINE CULTURE [facility] MAIN LAB Report Status EDITED RESULT - FINAL MAIN LAB 05/17/2021 Specimen SWAB FACE RIGHT CHEEK MAIN LAB Description Special NONE KU MAIN [...] >2/38: Resistant Acinetobacter lwoffii Performing Organization Address City/[facility] Code P josefina Number MAIN LAB [address] [place] [address] * GRAM STAIN (2021 5:11 PM CDT) Battery Name GRAM STAIN [facility] MAIN LAB Report Status FINAL 2021 KU MAIN LAB Specimen SWAB FACE RIGHT CHEEK KU MAIN LAB Description Special NONE [facility] MAIN LAB Requests Gram Stain NO NEUTROPHILS SEEN [facility] MAIN LAB Gram Stain MANY [facility] MAIN LAB SQUAMOUS EPITHELIAL CELLS Gram Stain NO ORGANISMS SEEN [facility] MAIN LAB Specimen Swab - Other (Specify) Performing Organization Address [facility] P josefina Number MAIN LAB [address] [place] [address] * CULTURE-ANAEROBIC (2021 5:11 PM CDT) Battery Name ANAEROBE CULTURE MAIN LAB Report Status FINAL 05/18/2021 KU MAIN LAB Specimen SWAB FACE RIGHT CHEEK MAIN LAB Description Special NONE KU MAIN LAB Requests Culture NO ANAEROBES ISOLATED [facility] MAIN LAB Specimen Swab - Other (Specify) Performing Organization Address [facility] P josefina Number MAIN LAB [address] [place] [address] documented in this encounter Visit Diagnoses Diagnosis SCC (squamous cell carcinoma), face Squamous cell carcinoma of skin of othe r and unspecified parts of face documented in this encounter Additional Health Concerns Assessment Noted Time A fall risk assessment has been completed for the pat ient 2021 7:54 PM CDT documented as of this encounter
--- OUTSIDE RECORDS SUMMARY | 2021-06-14 17:40 | XMS REPORT | Encounter Summary ---
Author Author [facility] Organization [facility] Address Unknown Phone Unavailable Care Team Providers Care Electrical Subcontractor Name Role Phone Geovanny Engel FITTING ROOM SUPERVISOR PCP Reason for Visit * Auth/Cert Referred By Contact Referred To Contact Status Reason Specialty Diagnoses / Procedures Diagnoses SCC (squamous cell carcinoma), face SCC (squamous cell carcinoma), face [C44.320] P rocedures OR RAD RESECTION TUMOR SOFT TISS FACE/SCALP 2 CM/> OR FREE SKIN FLAP W/MICROVASCULAR ANASTOMOSIS OR SPLIT AGRFT T/A/L 1ST 100 CM/&/1% BDY INFT/CHLD OR CERVICAL LYMPHADEC MODIFIED RADICAL NECK DSJ OR GLSSC COMPOSIT W/RESCJ FLOOR & MANDIBULAR RESCJ OR FREE OSTQ FLAP W/MVASC ANAST METAR/GREAT TOE [...] Date Type Department Eric Benson MD [address] [place] [address] REMOVAL HARDWARE -DEEP MANDIBLE 05/15/2021 Surgery Operating Room: [facility] [address] [place] [address] Surgery Details Trauma Case? Date/Time Status Location OR Service Patient Class Case Class Case Type 05/15/21 Posted [facility] OR OR 16 Plastics Inpatient Elective - 1:00 PM Surgery Treating conditions that are not life or limb threatenin g Panel 1 Procedure LRB Anes Op Region Wound Class Com ments REMOVAL HARDWARE -DEEP Right General Face Clean REQUEST 1300 START, 2 MANDIBLE HOURS EXCISION BONE - MANDIBLE Right Defer to Face D irty or Anesthesia Infected REPAIR COMPLEX WOUND 2.6 Right Defer to Face D irty or CM TO 7.5 CM - HEAD/ NECK Anesthesia Infected REPAIR COMPLEX WOUND EACH Right Defer to Face Dirty or x2 ADDITIONAL 5 CM OR LESS- Anesthesia Infected HEAD/ NECK Panel Surgeon Surgeon Role Service 1 Eric Benson MD Primary Plastics Surgery 1 Phoenix Louis MD Resident - Assisting Plastics Surge ry Social History Date Tobacco Use Types Packs/Day Years Used Never Smoker Smokeless Tobacco: Chew Current User Drinks/Week oz/Week Comments Alcohol Use 10-12 Cans of beer 10.0 - 12.0 Yes Sex Assigned at Date Recorded 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 documented as of this encounter Last Filed Vital Signs Reading Time Taken Comments Vital Sign 143/87 05/15/2021 4:00 PM CDT Blood Pressure 95 05/15/2021 4:00 PM CDT Pulse 36.3 C (97.3 F) 05/15/2021 3:34 PM CDT Temperature - - Respiratory Rate 100% 05/15/2021 4:00 PM CDT Oxygen Saturation - - Inhaled Oxygen [...] as of this encounter Discharge Summaries * Ravinder Heck PA-C - 05/19/2021 1:04 PM CDT Physician Discharge Summary Name: Faisal Claire III Date Of : 1970 Age: 51 years Admit date: 2021 Discharge date: 05/19/2021 1:04 PM Attending Physician: Dr. Eric Benson MD Service: Surgery-Plastic 1 Physician Summary completed by: Phoenix Louis MD Reason for hospitalization: Right Face Cellulitis ; Cellulitis, face Significant PMH: Medical History: Diagnosis Date Alcohol abuse [place] (hard of hearing) Squamous cell carcinoma, lip [...] Results to be faxed to Dr. Bates [phone] Release to patient Immediate Comprehensive Metabolic Panel (CMP) Standing Status: Standing Number of Occurrences: 8 Standing Exp. Date: 11/19/21 Results to be faxed to Dr. Bates [phone] Release to patient Immediate Mechanical Soft Diet Your diet will need to consist of moist, well cooked, soft, or ground foods. If you have questions about your diet after you go home, you can call a dietitia n at [phone]. Tube Feeding Continue your home supplement regimen [...] or concerns regarding your hospital stay, call [phone]. Discharging attending physician: ERIC BENSON [[id number]] Activity as Tolerated It is important to [...] to this appointment [facility] Provider ERIC BENSON [[id number]] Appointment date: 05/27/2021 Return Appointment You will [...] dextrose 5% (D5W) 250 mL IVPB (V [id number]) Administer one thousand mg through vein every [...] They have a 24x7 line if questions: [phone]. CYNDY Marshall [facility] will contact you and walk your through the first dose Tuesday evening. [facility] infusion clinic will call you to set up a weekly appointme nt for lab draws and PICC line care starting this Tuesday. [phone] documented in this encounter Medications at Time [...] 5% (D5W) 250 mL mg through IVPB (Hcot7Hua) vein every 12 hours. documented as of [...] 5% (D5W) 250 mL mg through IVPB ([id number]) vein every 12 hours. documented in this [...] days" and Augmentin for "5 days" at [facility] - CT neck 05/13: hyperenhancement of [...] of MRSA and Pseudomona aeruginosa. Peptoniphil us harei also growing in culture, patient will benefit [...] Division of Infectious Diseases Voalte, or pager [phone] Date: 05/19/2021 Interval History Faisal Claire III [...] reports that he was previously seen in [place], [place] in the ED and in urgent [...] in dextrose 5% (D5W) 250 mL IVPB ([id number]), 1,00 0 mg, Intravenous, Q12H* Continuous Infusions: PRN and Respiratory Meds:acetaminophen Q6H PRN, diphenhydrAMINE Q4H PRN, melaton in QHS PRN, ondansetron Q6H PRN OR ondansetron (ZOFRAN) IV Q6H PRN, oxyCODON E Q4H PRN, pancrelipase 20,880 Units/sodium bicarbonate 650 mg ([facility] CLOG DESTROYE R) PRN (Merchandise Worker from Rx), [DISCONTINUED] vancomycin (0-40 kg) IV [...] tube 10/21/2020 Lab Review Hematology Recent Labs 05/17/210 05/18/2133405/19/21416 WBC 3.6* 3.1* 3.5* HGB 10.5* 10.5* 11.1* HCT 31.0* 30.2* 32.4* PLTCT 253 260 281 Chemistry Recent Labs 05/17/210 07/12/21 0335 NA 139 140 K 4.2 4.3 [...] at the anterior mandibulectomy margin involving the [place] parasymphysis and anterior graft, suspicious for osteomyelitis. [...] and exposure, and superimposed erosions in the [place] right parasymphysis and anterior osteotomy graft. This [...] Infectious Diseases Pager - Voalte * Cally Carpenter OT - 05/19/2021 10:35 AM CDT OCCUPATIONAL [...] composite resection and reconstruction 10/2020. He had / positive lymph nodes and was recommended for adjuvant XRT, but was lost to follow up. He presents t his admissionas direct admission to plastic surgery team from outpatient clin[facility] complaint of right face swelling and [...] of Home: House Prior Function Level Of [place]: Independent with ADLs and functional transfers Lives With: Spouse Vision Current Vision: (functional with adls) ADL's: 05/19/21: pt continues to perform all adls with stand by assist at times for lines/IVs. Pt has assist from family at home. No issues with toileting or dr carlitos. Good rom to [facility] for grooming and [...] continue to assess any needs) Therapist: PAT Jiang/Jael [id number] Date: 05/19/2021 * Ravinder Heck PA-C - [...] III is a 51 y.o. Male with w/dufF5fG8 R lower lip invasi ve SCC s/p [...] up appointment at discharge - Bowel regimen, Field Coordinator consulted, appreciate recommendations - PT/OT consult - [...] continue mech anical soft diet and encourage zimbabwean yogurt and milk with meals Ravinder Heck PA-C If questions, page please page plastic surgery "Black" team [phone] (6AM-6PM M-F) On-call resident all other times or consult pager [phone] * Roger Bates MD - 05/18/2021 3:07 [...] days" and Augmentin for "5 days" at [facility] care - CT neck 05/13: hyperenhancement [...] Division of Infectious Diseases Voalte, or pager [phone] Date: 05/18/2021 Interval History Faisal Claire III [...] reports that he was previously seen in [place], [place] in the ED and in urgent [...] in dextrose 5% (D5W) 250 mL IVPB ([id number]), 1,00 0 mg, Intravenous, Q12H* Continuous Infusions: PRN and Respiratory Meds:acetaminophen Q6H PRN, diphenhydrAMINE Q4H PRN, melaton in QHS PRN, ondansetron Q6H PRN OR ondansetron (ZOFRAN) IV Q6H PRN, oxyCODON E Q4H PRN, pancrelipase 20,880 Units/sodium bicarbonate 650 mg ([facility] CLOG DESTROYE R) PRN (Merchandise Worker from Rx), [DISCONTINUED] vancomycin (0-40 kg) IV [...] 10/21/2020 Lab Review Hematology Recent Labs 05/16/21 0307 05/17/21 0410 05/18/21 0335 WBC 7.5 3.6* 3.1* HGB [...] at the anterior mandibulectomy margin involving the [place] parasymphysis and anterior graft, suspicious for osteomyelitis. [...] and exposure, and superimposed erosions in the [place] right parasymphysis and anterior osteotomy graft. This [...] diet as ordered Encourage pt to order Yoruba yogurt and milk with meals Comments: RD [...] educated on impo rtance of post surgical [facility] soft diet. Pt communicated understanding. RD [...] Mercado RD, LD Available on Voalte * bAundio Bautista MD - 05/18/2021 7:01 AM CDT Plastic Surgery Progress Note 05/18/2021 S: No acute events overnight. Continues to express frustration about being in ho spital. O: Vital Signs: Last Filed Vital Signs: 24 Hour Ran ge BP: 118/75 (05/180) Temp: 37 C (98.6 F) (05/18 500) Pulse: 71 (05/18 500) Respirations: 18 PER MINUTE (05/18 500) SpO2: 100 % (05/18 500) BP: (118-140)/(75-100) [...] III is a 51 y.o. Male with w/epoU3pW9 R lower lip invasi ve SCC s/p [...] up appointment at discharge - Bowel regimen, Field Coordinator consult - PT/OT consult - Discussed with social work assisting with discharge planning Abundio Bautista MD If questions, page please page plastic surgery "Black" team [phone] (6AM-6PM M-F) On-call resident all other times or consult pager [phone] * Phoenix Louis MD - 05/17/2021 8:55 AM CDT Plastic Surgery Progress Note 05/17/2021 S: Resting comfortably this morning. Frustrated by having to be in the hospital. Discussed surgery plan with patient. No recorded fevers overnight. O: Vital Signs: Last Filed Vital Signs: 24 Hour Ran ge BP: 133/85 (05/170) Temp: 36.7 C (98.1 F) (05/17 400) [...] III is a 51 y.o. Male with w/ighU0rZ2 R lower lip invasi ve SCC s/p [...] up appointment at discharge - Bowel regimen, Field Coordinator consult - PT/OT consult - Discussed with social work assisting with discharge planning Phoenix Louis MD If questions, page please page plastic surgery "Black" team [phone] (6AM-6PM M-F) On-call resident all other times or consult pager [phone] * Viv Barron MD - 05/16/2021 10:54 PM CDT Progress note: Plastics paged as patient's has been inappropriate with staff throughout t he day and wanting to take patient outside to smoke. Patient threatened to leave AMA. Once arrived, patient was dressed and sitting at bedside. Discussed import ance of staying to finish coordinating worm sorter antibiotics. Patient was tearfu l but agreeable [...] directed plan of care. Viv Barron MD [phone] * Shanna Noriega RN - 05/16/2021 6:10 PM CDT Patient/family refused high fall risk bundle. RN provided education on the importance of the high fall risk bundle. RN escalated high fall risk to risk management professional. Patient continued to refuse high fall risk [...] I reminded her I had paged the social worker health services to assess their needs and they woul d follow-up on possibility of meal vouchers and any other basic needs. Shower was re-offered to her as their is a unit on the 6th floor [facility]. She stated she knew but [...] acknowledged and stated she may consider. Phone surveillance supervisor was also addressed by reminding the patient of the guest grant kong the unit that had phone chargers available. [...] Comments: Pt able to bend down to picker tender objects from floor without any loss of [...] Patient Currently Requires Equipment: None Therapist Marielle Babcock, PT Date 05/16/2021 * Shanna Noriega RN [...] updated family and his significant other that social worker health services/ case managemen t was notified to follow-up with any social/supportive needs he has. They acknow ledged. 1402: Patient left unit. 1413: Provider on the unit, patient has not returned. Provider acknowledged. * Shanna Noriega RN - 05/16/2021 12:24 PM CDT 1224: Paged social worker health services gas station clerk. Regarding patient's concerns with shahram g increased physical/financial assistance and needs. 1333: Repaged social work gas station clerk. 1339: still worker helper on the unit and acknowledged. She stated [...] of Home: House Prior Function Level Of [place]: Independent with ADLs and functional transfers Lives [...] of pt with spoon provided for his ashlyn hairston. call button next to pt as well [...] continue to assess any needs) Therapist: PAT Jiang/Jael [id number] Date: 05/16/2021 * Rona Mo, LASHONDAD - 05/16/2021 10:24 AM CDT Pharmacy Vancomycin Note Subjective: Faisal Claire III is a 51 y.o. male being treated for right face cellulitis. Objective: Current Vancomycin Orders Medication Dose Route Frequency vancomycin (VANCOCIN) 1,000 mg in dextrose 5% (D5W) 250 mL IVPB (Rkyl7Bbw) 1,000 mg Intravenous Q12H* vancomycin, pharmacy to [...] 4.3 (L) 4.5 - 11.0 K/UL Final 05/13/20212027 5.0 4.5 - 11.0 K/UL Final [...] session about plans to return for OT. Cally Carpenter OTR/L [id number] * Phoenix Louis MD - 05/16/2021 8:02 [...] III is a 51 y.o. Male with w/szlQ5hO6 R lower lip invasi ve SCC s/p [...] up appointment at discharge - Bowel regimen, Field Coordinator consult - PT/OT consult - Discussed with social work assisting with discharge planning Phoenix Louis MD If questions, page please page plastic surgery "Black" team [phone] (6AM-6PM M-F) On-call resident all other times or consult pager [phone] * Shena Banerjee RN - 05/15/2021 12:37 [...] today. OT/PT will continue to follow. Therapist: JOLIE Cortez Date: 05/15/2021 * Roger Bates MD - [...] days" and Augmentin for "5 days" at [facility] care - CT neck 05/13: hyperenhancement [...] field Patient seen and discussed with MD Herman Hall, DO Internal Medicine, PGY-2 Available on Voalte Pager [phone] ATTESTATION I have personally seen and examined the patient, and reviewed all diagnostic grayson ts available. I have discussed the case with Dr. Yusuf and agree with his a ssessment and recommendations. Changes to the text were made where appropriate. Staff name: Roger Bates MD Division of Infectious Diseases Voalte, or pager [phone] Date: 05/15/2021 History of Present Illness Faisal [...] reports that he was previously seen in [place], [place] in the ED and in urgent [...] in dextrose 5% (D5W) 250 mL IVPB (Qplf3Jtx), 1,00 0 mg, Intravenous, Q12H* Continuous Infusions: sodium chloride 0.9 % infusion 50 mL/hr at 05/14/21 2354 PRN and Respiratory Meds:acetaminophen Q6H PRN, diphenhydrAMINE Q4H PRN, melaton in QHS PRN, ondansetron Q6H PRN OR ondansetron (ZOFRAN) IV Q6H PRN, oxyCODON E Q4H PRN, pancrelipase 20,880 Units/sodium bicarbonate 650 mg ([facility] CLOG DESTROYE R) PRN (Merchandise Worker from Rx), [DISCONTINUED] vancomycin (0-40 kg) IV [...] Lab Review Hematology Recent Labs 05/13/21202705/14/21 0325 05/15/21 0516 WBC 5.0 4.3* 3.7* HGB 11.1* 10.9* 11.1* HCT 32.1* 32.1* 33.1* PLTCT 316 285 268 Chemistry Recent Labs 05/13/21202705/14/21 0325 05/15/21 0516 NA 136* 138 138 K 3.8 [...] at the anterior mandibulectomy margin involving the [place] parasymphysis and anterior graft, suspicious for osteomyelitis. [...] and exposure, and superimposed erosions in the [place] right parasymphysis and anterior osteotomy graft. This [...] Herman Yusuf, Internal Medicine, PGY-[address] [facility] Pager [phone] Please contact preferentially via [facility] Division of Infectious Diseases * Abundio Bautista MD - 05/15/2021 6:52 AM CDT Plastic Surgery Progress Note 05/15/2021 S: No acute events overnight. Went for attempted IR drainage which was unsuccess ful. MRI C-spine completed yesterday O: Vital Signs: Last Filed Vital Signs: 24 Hour Ran ge BP: 121/82 (05/15 414) Temp: 36.9 C [...] III is a 51 y.o. Male with w/zyfP0cD1 R lower lip invasi ve SCC s/p [...] with Tylenol and Oxycodone - Bowel regimen, Field Coordinator consult - PT/OT consult Abundio Bautista MD If questions, page please page plastic surgery "Black" team [phone] (6AM-6PM M-F) On-call resident all other times or consult pager [phone] Associated attestation - Eric Benson MD - [...] Eric Benson MD Plastic and Maxillofacial Surgery [facility] * Mackenzie Esquivel RN - 05/14/2021 10:48 PM CDT Report given to CYNDY Mtz. Patient is off the unit for MRI. Unable to comp lete bedside safety check. * Mackenzie Esquivel RN - 05/14/2021 9:38 PM CDT Pt left unit with [employer] via wheelchair to go to MRI at [...] Last Filed Vital Signs: 24 Hour Ran [employer] BP: 124/72 (05/14 400) Temp: 37.6 C [...] III is a 51 y.o. Male with w/xdrV3uS1 R lower lip invasi ve SCC s/p [...] with Tylenol and Oxycodone - Bowel regimen, Field Coordinator consult - PT/OT consult Ravinder Heck PA-C If questions, page please page plastic surgery "Black" team [phone] (6AM-6PM M-F) On-call resident all other times or consult pager [phone] * Shania Cardozo, PHARMD - 2021 9:42 PM CDT Pharmacy Vancomycin Note Subjective: Faisal Claire III is a 51 y.o. male being treated for right face cellulitis. Objective: Current Vancomycin Orders Medication Dose Route Frequency [START ON 05/14/2021] vancomycin (VANCOCIN) 1,000 mg in dextrose 5% (D5W) 250 mL IVPB (Rrqn4Zwv) 1,000 mg Intravenous Q12H* vancomycin (VANCOCIN) 1,250 [...] at 2021 2143 Last data filed at 05/13/20211999 Gross per 24 hour Intake 60 ml [...] Bernabe MD - 2021 6:26 PM CDT Plastic Surgery H&P 2021 Patient: Faisal Claire [...] with Tylenol and Oxycodone - Bowel regimen, Field Coordinator consult - PT/OT consult Discussed plan of [...] he completed his adjuvan t radiation in [place]. Their history is vague but they were seen in the [facility] room there multiple times and he was started on antibiotics for facial sonia lulitis. Post radiation he also developed exposure of his right mandibular plate . They think this may have happened a couple of weeks ago. Faisal says he otherw ise feels great. He has been eating a soft diet and not using his G tube. Medical History: Diagnosis Date Alcohol abuse [place] (hard of hearing) Squamous cell carcinoma, lip Tobacco abuse Surgical History: Procedure Laterality Date GASTROSTOMY TUBE PLACEMENT 10/21/2020 TRACHEOSTOMY PLANNED N/A 10/21/2020 Performed by Eric Benson MD at [facility] OR EXTRACTION TOOTH N/A 10/21/2020 Performed by Eric Benson MD at [facility] OR ALVEOLOPLASTY - EACH QUADRANT N/A 10/21/2020 Performed by Eric Benson MD at [facility] OR ESOPHAGOGASTRODUODENOSCOPY WITH PLACEMENT PERCUTANEOUS GASTROSTOMY TUBE N/A 10/21/2020 Performed by Oscar Batista Jr., MD at [facility] OR RADICAL RESECTION TUMOR SOFT TISSUE 2.0 CM OR MORE - FACE/ SCALP Right 10/23 Performed by Eric Benson MD at [facility] OR TISSUE TRANSFER FREE SKIN FLAP WITH MICROVASCULAR ANASTOMOSIS Right 10/23/20 20 Performed by Eric Benson MD at [facility] OR SPLIT THICKNESS SKIN AUTOGRAFT 100 SQ CM OR LESS OR 1% BODY AREA OF CHILD- U PPER EXTREMITY Left 10/23/2020 Performed by Eric Benson MD at [facility] OR CERVICAL LYMPHADENECTOMY Right 10/23/2020 Performed by Eirc Benson MD at [facility] OR GLOSSECTOMY COMPOSITE WITHOUT RADIAL NECK DISSECTION N/A 10/23/2020 Performed by Eric Benson MD at [facility] OR TISSUE TRANSFER FREE OSTEOCUTANEOUS FLAP WITH MICROVASCULAR ANASTOMOSIS Rig t 10/23/2020 Performed by Eric Benson MD at [facility] OR No family history on file. Social [...] Date/Time NA 142 11/05/2020 0551 K 4.3 11/05/202051 CL 106 11/05/202051 CO2 29 11/05/202051 BUN 21 11/05/202051 CR 0.88 11/05/202051 IR ASPIRATION ONLY DIAGNOSTIC (Results Pending) Imaging: CT neck complete showing R facial abscess; final review pending Amos Bernabe MD Team Pager: [phone] documented in this encounter Procedure Notes * Madan Garcia RN - 05/15/2021 8:28 PM CDT PICC Line Insertion Procedure Note NAME:Faisal Claire III 654 :1970 AGE: 51 y.o. ADMISSION DATE: 2021 DAYS ADMITTED: LOS: 2 days Procedure Details: Informed consent was obtained for the procedure. Risks of in fection, blood clot, and nerve or vessel damage were discussed. Indications: Longterm IV therapy Procedure: Under sterile conditions the [...] plastic surgery team from outpatient clinic wi th complaint of right face swelling [...] - pain control oxycodone 5-10mg q4h PRN ([employer] DIVISION MANAGER oxycodone 5mg q4h PRN) and APAP, gambino [...] would like care in vs home in [place] once closer to discharge. Medicine consult team will sign off at this time. Please reengage team if medic ine team can be of further assistance. Seen and discussed with Dr. Toribio. Jaymie Larkin Internal Medicine, PGY-2 Pager: [phone] Available on Voalte Thank you for the consult. Note: All patient care calls should be directed firs t to the primary service. If the primary service needs further assistance, the service should page [phone] (24 hours a day/7 days a week) to discuss the case. History of Present Illness: Faisal Claire III is a 51 y.o. male with history noted above. Initially presented to [facility] 05/13 as direct admit from [...] a PCP, Dr. Engel, near home in [place], but says "he's no longer my doctor. " On review of care everywhere, appears previous PCP was following for excessiv e sleepiness and anxiety. Denies feeling more drowsy at this time. Shakes his head no when asked if he sn ores. Says he does not use any illicit drugs or take any medications that are n ot prescribed to him. Reports only [employer]NAGER medications are oxycodone and viagra. Lives at [...] one. Medical History: Diagnosis Date Alcohol abuse [place] (hard of hearing) Squamous cell carcinoma, lip Tobacco abuse Surgical History: Procedure Laterality Date GASTROSTOMY TUBE PLACEMENT 10/21/2020 TRACHEOSTOMY PLANNED N/A 10/21/2020 Performed by Eric Benson MD at [facility] OR EXTRACTION TOOTH N/A 10/21/2020 Performed by Eric Benson MD at [facility] OR ALVEOLOPLASTY - EACH QUADRANT N/A 10/21/2020 Performed by Eric Benson MD at [facility] OR ESOPHAGOGASTRODUODENOSCOPY WITH PLACEMENT PERCUTANEOUS GASTROSTOMY TUBE N/A 10/21/2020 Performed by Oscar Batista Jr., MD at [facility] OR RADICAL RESECTION TUMOR SOFT TISSUE 2.0 CM OR MORE - FACE/ SCALP Right 10/23 Performed by Eric Benson MD at [facility] OR TISSUE TRANSFER FREE SKIN FLAP WITH MICROVASCULAR ANASTOMOSIS Right 10/23/20 20 Performed by Eric Benson MD at [facility] OR SPLIT THICKNESS SKIN AUTOGRAFT 100 SQ CM OR LESS OR 1% BODY AREA OF CHILD- U PPER EXTREMITY Left 10/23/2020 Performed by Eric Benson MD at [facility] OR CERVICAL LYMPHADENECTOMY Right 10/23/2020 Performed by Eric Benson MD at [facility] OR GLOSSECTOMY COMPOSITE WITHOUT RADIAL NECK DISSECTION N/A 10/23/2020 Performed by Eric Benson MD at [facility] OR TISSUE TRANSFER FREE OSTEOCUTANEOUS FLAP WITH MICROVASCULAR ANASTOMOSIS Righ t 10/23/2020 Performed by Eric Benson MD at [facility] OR Social History Socioeconomic History Marital status: [...] in dextrose 5% (D5W) 250 mL IVPB (Vncs3Ggr), 1,00 0 mg, Intravenous, Q12H* Continuous Infusions: sodium chloride 0.9 % infusion 50 mL/hr at 05/14/21 2354 PRN and Respiratory Meds:acetaminophen Q6H PRN, diphenhydrAMINE Q4H PRN, melaton in QHS PRN, ondansetron Q6H PRN OR ondansetron (ZOFRAN) IV Q6H PRN, oxyCODON E Q4H PRN, pancrelipase 20,880 Units/sodium bicarbonate 650 mg ([facility] CLOG DESTROYE R) PRN (Merchandise Worker from Rx), [DISCONTINUED] vancomycin (0-40 kg) IV [...] Pertinent radiology reviewed. Jaymie Larkin MD Pager [phone] Associated attestation - Tramaine Toribio DO - 05/15/2021 4:22 PM CDT ATTESTATION I personally performed the smith portions of the E/M visit, discussed case with re sident and concur with resident documentation of history, physical exam, assessm ent, and treatment plan unless otherwise noted. Staff name: Tramaine Toribio DO Date: 05/15/2021 * Ani Albert APRN-MIRROR DEPARTMENT SUPERVISOR - 05/14/2021 1:13 PM CDT Associated Order(s): [...] and radial forearm flap on 10/23/20 by DrsJose Bell. - Review of imaging significant for hyperenhancement [...] has been reviewed and added onto the [place] [facility] schedule for today . -Does not need to be kept n.p.o., we do not intend to sedate. - G tube flushes well. No intervention needed. We appreciate being able to participate in this patient's care. Please page with any questions or concerns. Valentin Ramey, MAJOR-MIRROR DEPARTMENT SUPERVISOR Pgr [phone] IR Team Pager [phone] (After-hours and Weekends) Procedure: Right facial abscess [...] in dextrose 5% (D5W) 250 mL IVPB ([id number]), 1,00 0 mg, Intravenous, Q12H* Continuous Infusions: PRN and Respiratory Meds:acetaminophen Q6H PRN, diphenhydrAMINE Q4H PRN, melaton in QHS PRN, ondansetron Q6H PRN OR ondansetron (ZOFRAN) IV Q6H PRN, oxyCODON E Q4H PRN, pancrelipase 20,880 Units/sodium bicarbonate 650 mg (KU CLOG DESTROYE R) PRN (Merchandise Worker from Rx), [DISCONTINUED] vancomycin (0-40 kg) IV Q12H* AND vancomycin, pharmacy to manage Per Pharmacy Objective Vital Signs: Last Filed Vital Signs: 24 Mateo r Range BP: 132/79 (05/14 755) Temp: 36.8 C (98.3 F) (05/14 755) Pulse: 71 (05/14 755) Respirations: 18 PER MINUTE (05/14 755) SpO2: 100 % (05/14 755) SpO2 Pulse: 87 (05/140) Height: 167.6 cm (65.98") (05/13 2200) BP: (96-134)/(60-79) Temp: [36.8 C (98.3 F)-37.6 C (99.6 F)] Pulse: [71-99] Respirations: [16 PER MINUTE-18 PER MINUTE] SpO2: [98 %-100 %] Intensity Pain Scale (Self Report): 10 (05/14/21 0941) Vitals: 05/13/212199 Weight: 68.9 kg (151 lb 14.4 oz) [...] Ref Range Units Ordered 0 Crossmatch Expires 05/16/2021,6059 Record Check FOUND ABO/RH(D) A POS Antibody [...] maintain tube patency. Recommend diet textures per MORTGAGE CLERK, no therapeutic diet needed. Comments: Mr. Claire [...] pt at bedside. 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 Denied N/V. Endorsed difficulty chewing, on [...] Current Oral Intake: NPO Estimated Calorie Needs: 9139-3682 (30-35 kcal/kg of actual weight) Estimated Protein [...] meals/supplements Time Frame: Throughout stay Valerie Valencia Link Trainer Maintenance Worker Available on ScaleMP Associated attestation - Verenice Trinh - 05/14/2021 12:56 PM CDT Agree with quality intern's documentation and EN recommendations. Will wait to hear back from primary team via Volate before placing EN order. Verenice Trinh, MS, RD, LD Office Phone [phone] Available on ScaleMP Me * Roger Bates MD - 05/14/2021 7:49 [...] days" and Augmentin for "5 days" at [facility] - CT neck 05/13: hyperenhancement of [...] Hall, DO Internal Medicine, PGY-2 Available on Voalte Pager [phone] ATTESTATION I have personally seen and examined [...] Division of Infectious Diseases Voalte, or pager [phone] Date: 05/14/2021 History of Present Illness Faisal [...] reports that he was previously seen in [place], [place] in the ED and in urgent [...] History Medical History: Diagnosis Date Alcohol abuse [place] (hard of hearing) Squamous cell carcinoma, lip Tobacco abuse Past Surgical History Surgical History: Procedure Laterality Date GASTROSTOMY TUBE PLACEMENT 10/21/2020 TRACHEOSTOMY PLANNED N/A 10/21/2020 Performed by Eric Benson MD at [facility] OR EXTRACTION TOOTH N/A 10/21/2020 Performed by Eric Benson MD at [facility] OR ALVEOLOPLASTY - EACH QUADRANT N/A 10/21/2020 Performed by Eric Benson MD at [facility] OR ESOPHAGOGASTRODUODENOSCOPY WITH PLACEMENT PERCUTANEOUS GASTROSTOMY TUBE N/A 10/21/2020 Performed by Oscar Batista Jr., MD at [facility] OR RADICAL RESECTION TUMOR SOFT TISSUE 2.0 CM OR MORE - FACE/ SCALP Right 10/23 Performed by Eric Benson MD at [facility] OR TISSUE TRANSFER FREE SKIN FLAP WITH MICROVASCULAR ANASTOMOSIS Right 10/23/20 20 Performed by Eric Benson MD at [facility] OR SPLIT THICKNESS SKIN AUTOGRAFT 100 SQ CM OR LESS OR 1% BODY AREA OF CHILD- U PPER EXTREMITY Left 10/23/2020 Performed by Eric Benson MD at [facility] OR CERVICAL LYMPHADENECTOMY Right 10/23/2020 Performed by Eric Benson MD at [facility] OR GLOSSECTOMY COMPOSITE WITHOUT RADIAL NECK DISSECTION N/A 10/23/2020 Performed by Eric Benson MD at [facility] OR TISSUE TRANSFER FREE OSTEOCUTANEOUS FLAP WITH MICROVASCULAR ANASTOMOSIS Righ t 10/23/2020 Performed by Eric Benson MD at [facility] OR Social History Marital status/area of residence: Lives at home with his Job/occupation: 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 This [...] or suspicious enhancement, likely reactive edema. Herman Yusuf DO Pager Please contact preferentially via Voalte Division of Infectious Diseases documented in this encounter Miscellaneous Notes * Case Mgmt DC Nieves - ChrisSarah santiagohel - 05/19/2021 11:46 AM CDT Medicaid Transportation Summary for Faisal Claire MIGDALIA Requesting Associate Professor Of Management: DIVINE Mendez Date: 05/19/2021 Medicaid Roads Supervisor: Gerard [phone] T MEDICAID/[facility] Subscriber Subscriber # Faisal Claire III [id number] Address Phone [address] [address] [place] [address] Destination: [facility] [place] [address] / [phone] Transportation Arrival Window: 1200 - [phone] Transportation to Contact [address] 15 Prior to Arrival: Yes Patient to be Waiting in Lobby: Yes Trip Reservation Number: [id number] Notified [phone] and provided update. Updated [facility]. Jaymie Perez Bunch Maker * Case Mgmt DC Plan - Sandrita [...] SW requested DC orders from primary team. SW called [facility], to discuss transportation and informed Me dicaid will have 3 hour window once scheduled. SW tasked [facility] to arrange transport to [address] [place] [id number]. Medication Needs Financial Legal Other Disposition Expected [...] [facility] Home Infusion and Injection [id number] [facility] [address] [phone] Sandrita Momin LMSW Please Contact on Voalte [...] ins. -RNCM spoke to infusion clinic at [facility] in [place], [place] ([phone]). They are able to do weekly labs and line care and will co ntact him and plan to see him this Tuesday to start (once they receive orders). -[facility] is on board and able to come today for bedside teach an d to get patient started on home infusion. -RNCM spoke to patient , [facility]. She is 2 hours away and can't come for be d side teach but is comfortable administering patient's IV daily and taking him to clinic. She said [facility] can teach her at the bedside. [facility] will c all for Medicaid transport. -Team updated and Home IV orders sent for signature. Addenda: [facility] rep will call [facility] and will plan to have meds delivered to patient home this evening in time for 2100 dose. She will provide written and live phone in structions to patient's . They also have 24 hour support if needed. -Signed orders faxed to [facility] to arrange Medicaid transport. Interventions Support Info [...] [facility] Home Infusion and Injection [address] [facility] [address] Kenneth Beasley RN, [facility] Integrated Operations Assistant *[phone] * Care Plan - Mikhail Philippe [...] days Todays Date: 05/18/2021 Source of Information: RNCM and SWCM have been unable to reach patient by segun rocha to discuss d/c recommendations. -This patient is familiar to this RNCM. During last admission, RNCM was unable to find Home Health agency for patient near his home in [place], [place] who would accept his [employer] Medicaid. Patient went outpatient to wound clinic at that time to [facility]. -Patient currently needs home IV antibiotics for d/c. -RNCM faxed referral to [facility] home infusion pharmacy and several agencies in the area. Plan Plan: Assist PRN with SW/NCM Services Patient Address/Phone [address] [facility] [phone] (home) Emergency Contact Extended Emergency Contact Information [...] Current/Previous Services PCP Geovanny Engel, , Pharmacy [facility] [address] [facility] [address] [facility][id number] [place] - [address] [facility] [address] [facility] [address] Durable Medical Equipment Durable Medical Equipment at home: None Home Health Receiving home health: No Hemodialysis or Peritoneal Dialysis Undergoing hemodialysis or peritoneal dialysis: No Tube/Enteral Feeds Receive tube/enteral feeds: No Infusion Receive infusions: No Private Duty Private duty help used: No Home and Community Based Services Home and community based services: No [facility] White: N/A Hospice Hospice: No Outpatient Therapy PT: No OT: No MORTGAGE CLERK: No Prison Facility/Detention SNF: No NH: No Inpatient Rehab IPR: No Long-Term Acute Care Hospital LTACH: No Acute Hospital Stay Acute Hospital Stay: In the past Was patient's stay within the last 30 days?: No Kenneth Beasley RN, [facility] Integrated Operations Assistant *[phone] * Care Plan - Elsie Mckeon [...] of CVC Associated Bloodstream infection Flowsheets (Taken 05/16/20212318) Absence of CVC associated bloodstream infection: Assess [...] (LOVENOX) syringe 40 mg, 40 mg, Subcutaneous, QDAY() piperacillin/tazobactam (ZOSYN) 3.375 g in sodium chloride 0.9% (NS) 100 mL IVPB (MB+), 3.375 g, Intravenous, Q6H* polyethylene glycol 3350 (MIRALAX) packet 17 g, 1 packet, Oral, QDAY senna/docusate (SENOKOT-S) tablet 1 tablet, 1 tablet, Oral, BID sodium chloride PF 0.9% flush 10 mL, 10 mL, Flush, FLUSH TID vancomycin (VANCOCIN) 1,000 mg in dextrose 5% (D5W) 250 mL IVPB ([id number]), 1,00 0 mg, Intravenous, Q12H* Continuous Infusions: sodium chloride 0.9 % infusion 50 mL/hr at 05/15/212058 PRN and Respiratory Meds:acetaminophen Q6H PRN, diphenhydrAMINE Q4H PRN, melaton in QHS PRN, ondansetron Q6H PRN OR ondansetron (ZOFRAN) IV Q6H PRN, oxyCODON E Q4H PRN, pancrelipase 20,880 Units/sodium bicarbonate 650 mg (KU CLOG DESTROYE R) PRN (Merchandise Worker from Rx), [DISCONTINUED] vancomycin (0-40 kg) IV [...] MD - 05/15/2021 3:37 PM CDT THE [address] [address] PATIENT NAME: FAISAL CLAIRE MR#/PT#: [id number] Page 1 OPERATIVE REPORT DATE OF OPERATION: 05/15/2021 SURGEON: Eric Benson MD TRIPOLER(S): Resident, Dr. Jakob Louis. PREOPERATIVE DIAGNOSIS: Right [...] Oct. He underwent adjuvant radiation treatment in [place], but had a difficult time keeping his [...] removal of the deep hardware , the [place] mandibular bone and the fibular bone was scraped with a #9 elevator to remove scar tissue and slough from the bone. Bone specimens from the anteri or and the posterior mandible were then collected with a rongeur and sent to [facility] and for microbiologic review. Of note, the anterior mandibular bone was soft and somewhat mushy. There was also evidence of fibrous union of the fibula r constructs. The bone was then drilled down with a watermelon jarad to healthy bleeding bone until there was no visible devitalized bone left. The fibular bon e and the [place] bone were confirmed to be bleeding nicely. We also debrided th e soft tissues of the cervical flap in the region of the parotid. We did aspira te the soft tissue flap and similar to his preoperative procedures did not retur n any collection of pus. Some of the scar tissue in the flap was excised with mahogany crow Bovie and sent for pathology and culture. We then elevated skin flaps cephal ad and caudad with wide undermining with the Bovie beneath the radial forearm fl ap and the [place] skin flap. Hemostasis was then ensured and [...] pathologic analysis. Eric Benson MD RG / MEDQ /[id number] cc: - Eric Benson MD * Procedures (Immed Post or Bedside) - Phoenix Louis MD - 05/15/2021 3:14 PM CDT Brief Operative Note Name: Faisal Claire III is a 51 y.o. male : 1970 MRN# : [id number] DATE OF OPERATION: 05/15/2021 Date: 05/15/2021 Preoperative [...] POSTERIOR MANDIBLE BONE Tissue Mandible SURGICAL PATHOLOGY Eric Cox MD 05/15/2021 1418 A : RIGHT FACIAL [...] MD * Case Mgmt DC Plan - Vale Stallworth - 05/14/2021 2:24 PM CDT SW attempted to call pt's Kevin Ch several times to complete admission asse ssment with no success. Home number: [phone] says number has been suspended . Cell phone:[phone]. Unable to be connected. SW will follow up tomorrow to complete admission assessment and evaluate needs a t discharge. Per chart review, pt needed Medicaid transport at discharge last ad mission. Pt currently in IR, scheduled to return to OR on Tuesday for REMOVAL HARDWARE -DE EP MANDIBLE. Pt has hag G Tube since 10/21/2020. Vale Stallworth LMSW Pager:[phone] * Care Plan - Shena Banerjee RN [...] P josefina Number [facility] [address] [place] [address] * COMPREHENSIVE METABOLIC PANEL (05/18/2021 3:35 AM [...] >60 >60 mL/min [facility] Comment: [place] The eGFR is not validated f or use in drug dosing adjustments. Continue to use estimated creatinine clearance per dosing reference text. Please contact the Clinical Pharmacist for questions. eGFR >60 >60 mL/min [facility] [place] Comment: The eGFR is not validated for use in drug dosing adjustments. Continue to use estimated creatinine clearance per dosing reference text. Please contact the Clinical Pharmacist for questions. Specimen Blood Performing Organization Address City/State/ZIP Code P josefina Number [facility] [address] [place] [address] * CBC AND DIFF (05/18/2021 3:35 AM [...] josefina Number [facility] [address] [place] [address] * COMPREHENSIVE METABOLIC PANEL (05/17/2021 4:10 AM [...] >60 >60 mL/min [facility] Comment: [place] The eGFR is not validated f or use in drug dosing adjustments. Continue to use estimated creatinine clearance per dosing reference text. Please contact the Clinical Pharmacist for questions. eGFR >60 >60 mL/min [facility] [place] Comment: The eGFR is not validated for use in drug dosing adjustments. Continue to use estimated creatinine clearance per dosing reference text. Please contact the Clinical Pharmacist for questions. Specimen Performing Organization Address City/[facility]/ZIP Code P josefina Number [facility] [address] [place] [phone] * CBC AND DIFF (05/17/2021 4:10 AM [...] Basophil Count Specimen Blood Performing Organization Address [facility]/ZIP Code P josefina Number [facility] [address] [place] [address] * COMPREHENSIVE METABOLIC PANEL (05/16/2021 3:07 AM [...] >60 >60 mL/min [facility] Comment: [place] The eGFR is not validated f or use in drug dosing adjustments. Continue to use estimated creatinine clearance per dosing reference text. Please contact the Clinical Pharmacist for questions. eGFR >60 >60 mL/min [facility] [place] Comment: The eGFR is not validated for use in drug dosing adjustments. Continue to use estimated creatinine clearance per dosing reference text. Please contact the Clinical Pharmacist for questions. Specimen Blood Performing Organization Address City/State/ZIP Code P josefina Number [facility] [address] [place] [address] * CBC AND DIFF (05/16/2021 3:07 AM [...] Basophil Count Specimen Blood Performing Organization Address City/[facility]/ZIP Code P josefina Number [facility] [address] [place] [address] * VANCOMYCIN 2HR POST DOSE (05/15/2021 3:44 PM CDT) Vancomycin 2HR 22.2 ug/mL [facility] POST Dose Specimen Blood Performing Organization Address [facility] P josefina Number [facility] [address] [place] [address] * GRAM STAIN (05/15/2021 2:19 PM CDT) Battery Name GRAM STAIN MAIN LAB Report Status FINAL 05/15/2021 [facility] Specimen BONE SPECIMEN MANDIBLE RIGHT MAIN LAB Description POSTERIOR Special NONE [facility] Requests Gram Stain NO NEUTROPHILS SEEN [facility] Gram Stain NO ORGANISMS SEEN [facility] Specimen Tissue - Mandible Performing Organization Address [facility]/ZIP Code P josefina Number [facility] [address] [place] [address] * CULTURE-WOUND/TISSUE/FLUID(AEROBIC ONLY)W/SENSITIVITY (05/15/2021 2:19 PM CDT) Battery Name ROUTINE CULTURE [facility] Report Status FINAL 05/20/2021 [facility] Specimen BONE SPECIMEN MANDIBLE RIGHT MAIN LAB Description POSTERIOR Special NONE [facility] Requests Direct Gram NO NEUTROPHILS SEEN [facility] Stain Direct Gram NO ORGANISMS SEEN [facility] Stain Culture NO GROWTH 5 DAYS [facility] Specimen Tissue - Mandible Performing Organization Address City/[facility]/ZIP Code P josefina Number [facility] [address] [place] [address] * CULTURE-ANAEROBIC (05/15/2021 2:19 PM CDT) Battery Name ANAEROBE CULTURE [facility] Report Status FINAL 05/20/2021 [facility] Specimen BONE SPECIMEN MANDIBLE RIGHT [facility] Description POSTERIOR Special NONE [facility] Requests Culture NO ANAEROBES ISOLATED [facility] Specimen Tissue - Mandible Performing Organization Address City/State/ZIP Code P josefina Number [facility] [address] [place] [address] * GRAM STAIN (05/15/2021 2:17 PM CDT) [...] P josefina Number [facility] [address] [place] [address] * CULTURE-WOUND/TISSUE/FLUID(AEROBIC ONLY)W/SENSITIVITY (05/15/2021 2:17 PM CDT) Battery Name ROUTINE CULTURE MAIN LAB Report Status FINAL 05/19/2021 [facility] Specimen BONE SPECIMEN MANDIBLE RIGHT MAIN LAB Description ANTERIOR Special NONE [facility] Requests Direct Gram NO NEUTROPHILS SEEN [facility] Stain Direct Gram NO ORGANISMS SEEN [facility] Stain Culture Three colonies [facility] METHICILLIN RESISTANT STAPHYLOCOCCUS AUREUS (A) Culture See previous susceptibility MAIN L AB (A)Comment: from 05.13.21 Culture Three colonies MAIN LAB PSEUDOMONAS AERUGINOSA (A) Comment: CRITICAL VALUE CALLED TO AND READ BACK BY/TIME/CARLA Babcock/05.17.21 at 1145/dd Specimen Tissue - Mandible [...] P josefina Number [facility] [address] [place] [address] * CULTURE-ANAEROBIC (05/15/2021 2:17 PM CDT) Battery Name ANAEROBE CULTURE [facility] Report Status FINAL 05/18/2021 [facility] Specimen BONE SPECIMEN MANDIBLE RIGHT [facility] Description ANTERIOR Special NONE [facility] Requests Culture Three colonies [facility] PEPTONIPHILUS HAREI Comment: CRITICAL VALUE CALLED TO AND READ BACK BY/TIME/TECH Gisselle Philippe(CYNDY)/[id number]/cl Specimen Tissue - Mandible Performing Organization Address City/[facility] P josefina Number [facility] [address] [place] [phone] * GRAM STAIN (05/15/2021 2:13 PM CDT) Battery Name GRAM STAIN MAIN LAB Report Status FINAL 05/15/2021 MAIN LAB Specimen TISSUE RIGHT FACIAL SCAR [facility] Description Special NONE [facility] Requests Gram Stain NO NEUTROPHILS SEEN [facility] Gram Stain NO ORGANISMS SEEN [facility] Specimen Tissue - Face Performing Organization Address City/[facility]/ZIP Code P josefina Number [facility] [address] [place] [address] * CULTURE-WOUND/TISSUE/FLUID(AEROBIC ONLY)W/SENSITIVITY (05/15/2021 2:13 PM CDT) [...] Specimen Tissue - Face Performing Organization Address City/[facility]/ZIP Code P josefina Number [facility] [address] [place] [address] * CULTURE-ANAEROBIC (05/15/2021 2:13 PM CDT) Battery Name ANAEROBE CULTURE [facility] Report Status FINAL 05/20/2021 [facility] Specimen TISSUE RIGHT FACIAL SCAR [facility] Description Special NONE [facility] Requests Culture NO ANAEROBES ISOLATED [facility] Specimen Tissue - Face Performing Organization Address City/State/ZIP Code P josefina Number [facility] [address] [place] [address] * SURGICAL PATHOLOGY (05/15/2021 2:12 PM CDT) PATHOLOGY [facility] [email or web address] Department of Pathology and Laboratory Medicine [address] [place] [address] Surgical Pathology Office: [phone] SURGICAL PATHOLOGY REPORT NAME: FAISAL CLAIRE SURG PATH #: [id number] MR #: [id number] SPECIMEN CLASS: SR BILLING #: [id number] ALT ID #: LOCATION: DISCHARGED DATE OF [...] fast and fungal organisms. Pursuant to the [employer] Teachers Program at the [facility] Pathology Department, selected slides from this case [...] Mandible Tissue - Mandible Performing Organization Address City/[facility]/ZIP Code P josefina Number [facility] [address] [place] [address] * VANCOMYCIN TROUGH (05/15/2021 8:56 AM CDT) Vancomycin 15.4 10.0 - 20.0 MCG/ML [facility] Trough Specimen Blood, venous - Blood Performing Organization Address [facility]/RUST Code P josefina Number [facility]IN LAB [address] [place] [address] * COMPREHENSIVE METABOLIC PANEL (05/15/2021 5:16 AM [...] >60 >60 mL/min [facility] Comment: [place] The eGFR is not validated f or use in drug dosing adjustments. Continue to use estimated creatinine clearance per dosing reference text. Please contact the Clinical Pharmacist for questions. eGFR >60 >60 mL/min [facility] [place] Comment: The eGFR is not validated for use in drug dosing adjustments. Continue to use estimated creatinine clearance per dosing reference text. Please contact the Clinical Pharmacist for questions. Specimen Blood Performing Organization Address City/State/ZIP Code P josefina Number [facility] [address] [place] [address] * CBC AND DIFF (05/15/2021 5:16 AM [...] P josefina Number [facility] [address] [place] [address] * MRI ORBIT FACE AND/OR NECK WO/W CONT (05/14/2021 11:02 PM CDT) Specimen Impressions Performed At 1. Significantly degraded examination by motion. K U RAD RESULTS 2. Grossly unchanged findings of kirby a and abnormal enhancement at the anterior mandibulectomy margin involvin g the [place] parasymphysis and anterior graft, suspicious for osteomyelitis. [...] yperintensity through the center of the lower [id number]. Right mandibular segmental resection an d hardware reconstruction and right oral cavity mass resection and soft tissue f lap reconstruction are redemonstrated with hardware exposure anteriorly appea ring grossly similar. There are findings of abnormal T2 hyperintensity and likel y enhancement at the anterior osteotomy graft and [place] parasymphysis margins with overlying soft tissue edema [...] hyperintensity through the center of the lower [id number]. Right mandibular segmental resection and hardware reconstruction and right oral cavity mass resection and soft tissue flap reconstruction are redemonstrated with hardware exposure anteriorly appearing grossly similar. There are findings of abnormal T2 hyperintensity and likely enhancement at the anterior osteotomy graft and [place] parasymphysis margins with overlying soft tissue edema [...] at the anterior mandibulectomy margin involving the [place] parasymphysis and anterior graft, suspicious for osteomyelitis. [...] smith portions of the procedure with a nm dlevel, resident, and/or fellow participating. Overlapping portions [...] is made with a CT [facility] of 2021. Kidneys are normal [...] >60 >60 mL/min [facility] Comment: [place] The eGFR is not validated f or use in drug dosing adjustments. Continue to use estimated creatinine clearance per dosing reference text. Please contact the Clinical Pharmacist for questions. eGFR >60 >60 mL/min [facility] [place] Comment: The eGFR is not validated for use in drug dosing adjustments. Continue to use estimated creatinine clearance per dosing reference text. Please contact the Clinical Pharmacist for questions. Specimen Blood Performing Organization Address City/State/ZIP Code P josefina Number [facility] [address] [phone] * CBC AND DIFF (05/14/2021 3:25 AM [...] Basophil Count Specimen Blood Performing Organization Address City/[facility]/ZIP Code P josefina Number [facility] [address] [phone] * PHOSPHORUS (2021 8:28 PM CDT) Phosphorus 3.4 2.0 - 4.5 MG/DL [facility] Specimen Performing Organization Address [facility]/RUST Code P josefina Number [facility] [address] [place] [address] * MAGNESIUM (2021 8:28 PM CDT) Magnesium 1.8 1.6 - 2.6 mg/dL [facility] Specimen Performing Organization Address [facility] P josefina Number [facility] [address] [place] [address] * LACTIC ACID(LACTATE) (2021 8:28 PM CDT) Lactic Acid 1.7 0.5 - 2.0 MMOL/L [facility] Specimen Performing Organization Address [facility] P josefina Number [facility] [address] [place] [address] * TYPE & CROSSMATCH (2021 8:28 PM CDT) Units Ordered 0 [facility] Crossmatch 05/16/2021,2359 [facility] Expires Record Check FOUND [facility] ABO/RH(D) A POS [facility] Antibody Screen NEG [facility] Electronic YES [facility] Crossmatch Specimen Cervix Performing Organization Address [facility] P josefina Number [facility] [address] [place] [address] * COMPREHENSIVE METABOLIC PANEL (2021 8:28 PM [...] >60 >60 mL/min [facility] Comment: Israeli The eGFR is not validated f or use in drug dosing adjustments. Continue to use estimated creatinine clearance per dosing reference text. Please contact the Clinical Pharmacist for questions. eGFR >60 >60 mL/min [facility] [place] Comment: The eGFR is not validated for use in drug dosing adjustments. Continue to use estimated creatinine clearance per dosing reference text. Please contact the Clinical Pharmacist for questions. Specimen Blood Performing Organization Address City/State/ZIP Code P josefina Number [facility] [address] [place] [address] * CBC AND DIFF (2021 8:28 PM [...] Count Absolute 0.03 0 - 0.20 [facility] Basophil Count Specimen Blood Performing Organization Address City/State/ZIP Code P josefina Number [facility] [address] [place] [address] * ECG-SCAN (2021 12:00 AM CDT) Narrative [...] abscess of face documented in this encounter Admitting Diagnoses Diagnosis [...] 650 mg Given 2021 7:54 PM CDT 05/15/2021 3:02 PM CDT 1 Dose Face bacitracin topical ointment Given INTRA-PROCEDURE MED, Starting Tue 1 at 1502, Until Tue05/15/21 at 1538, Intra-op 05/19/2021 9:33 AM CDT Face bacitracin topical [...] Tissue Given 05/15/2021 8:58 PM CDT 05/15/2021 1:32 PM CDT 9 mL EPINEPHrine PF (ADRENALIN) 1 mg in Given sodium chloride 0.9% (NS) 250 mL irrigation 250 mL, INTRA-PROCEDURE MED, Starting Tue05/15/21 at 1332, Until Tue05/15/21 at 1538, Intra-op 05/19/2021 2:26 AM CDT 3 mg melatonin [...] ([facility] CLOG DESTROYER) Per NG tube, NEEDED (PRINCIPAL NETWORK ENGINEER FROM RX), Starting Tue05/14/21 at 1359, Until [...] 1 tablet Given 2021 9:53 PM CDT 05/19/2021 9:19 AM CDT 10 mL sodium chloride PF 0.9% flush 10 mL Given 10 mL, Flush, FLUSH THREE TIMES DAILY, First dose on 05/16/21 at 0000, Unti l Discontinued, Flush [...] New dextrose 5% (D5W) 250 mL IVPB ([id number]) Bag 1,000 mg, Intravenous, 250 mL, Administer over 60 Minutes, EVERY 12 HOURS, First dose on Tue05/14/21 at 1000 , Until Discontinued, Note Pharmacokineti [...] - New Bag 05/14/2021 10:47 AM CDT vancomycin, pharmacy to manage PER PHARMACY, 999 doses, Starting Tue05/13/21 at 1740, Until Tue05/19/21 at 1505, Indication for this medication: right face cellulitis, Pharmacy will page you if there are questions about your order. Pager number last four digits: [phone], This order is for informational use only. [...] Have Count Last Ordered Date Been Administered 05/14/2021 SODIUM CHLORIDE 0.9 % IV SOLP (Cabinet 3 05/17/2021 Override) bacitracin topical ointment 1 05/15/2021 fentaNYL citrate PF (SUBLIMAZE) 1 2020 injection 12.5-25 mcg haloperidol lactate (HALDOL) injection 1 1 05/15/2021 mg lactated ringers infusion 1 05/15/2021 lidocaine PF 1% (10 mg/mL) injection 0.2 1 05/15/2021 mL metoclopramide (REGLAN) injection 10 mg 1 05/15/2021 sodium chloride PF 0.9% flush 10 mL 1 vancomycin (VANCOCIN) 3,000 mg, 1 2020 gentamicin 240 mg in sodium chloride 0. 9 % irrigation bag 3,000 mL Irrigation DEXTROSE 5% IN WATER IV SOLP (Cabinet 1 05/14/2021 Override) fentaNYL citrate PF (SUBLIMAZE) 1 2020 injection 25 mcg gadobenate dimeglumine (MULTIHANCE) 1 injection 15 mL LORazepam (ATIVAN) injection 0.5 mg 1 LORazepam (ATIVAN) tablet 0.5 mg 1 05/14 pancrelipase 20,880 Units/sodium 1 05/14 bicarbonate 650 mg ([facility] CLOG DESTROYER) sodium chloride 0.9 % infusion 1 05/14 acetaminophen (TYLENOL) tablet 650 mg 1 2021 diphenhydrAMINE (BENADRYL) injection 25 1 2021 mg enoxaparin (LOVENOX) syringe 40 mg 1 05/2021 melatonin tablet 3 mg 1 2021 ondansetron (ZOFRAN ODT) rapid dissolve 1 2021 tablet 4 mg ondansetron (ZOFRAN) injection 4 mg 1 oxyCODONE (ROXICODONE) tablet 5-10 mg 1 2021 piperacillin/tazobactam (ZOSYN) 3.375 g 1 2021 in sodium chloride 0.9% (NS) 100 mL IVP B (MB+) polyethylene glycol 3350 (MIRALAX) 1 05/2021 packet 17 g senna/docusate (SENOKOT-S) tablet 1 1 tablet vancomycin (VANCOCIN) 1,000 mg in 1 05/2021 dextrose 5% (D5W) 250 mL IVPB ([id number] ) vancomycin (VANCOCIN) 1,020 mg in 1 05/2021 dextrose 5% (D5W) 270.4 mL IVPB (15-40 kg) vancomycin (VANCOCIN) 1,250 mg in sodium 1 2021 chloride 0.9% (NS) 275 mL IVPB vancomycin, pharmacy to manage 1 021 First Ordered Date Lab Orders Without Results Count Last Ordere d Date CYTOLOGY FLUIDS 1 05/14/2021 First Ordered Date Procedures Count Last Ordered Date CONSULT IV THERAPY TEAM 1 05/15/2021 First Ordered Date Diet Count Last Ordered Date DISCHARGE DIET ENTERAL FEEDING 1 021 DISCHARGE DIET MECHANICAL SOFT 1 021 First Ordered Date Nursing Count Last [...]
--- OUTSIDE RECORDS SUMMARY | 2021-06-14 17:40 | XMS REPORT | Encounter Summary ---
Author Author [facility] Organization [facility] Address Unknown Phone Unavailable Care Team Providers Care Facing Cutting Machine Operator Name Role Phone Geovanny Engel APRN PCP Encounter Details Care Team Description Date Type Department Jael Chavarria MD [address] [place] [address] 2021 Documentation Admissions: Main [facility], [facility] 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
--- OUTSIDE RECORDS SUMMARY | 2021-06-14 17:40 | XMS REPORT | Encounter Summary ---
Author Author [facility] Organization [facility] Address Unknown Phone Unavailable Care Team Providers Care Vacuum Cleaner Operator Name Role Phone Geovanny Engel APRN PCP Reason for Visit * Reason Onset Date Comments Appointment 04/16/2021 Encounter Details Care Team Description Date Type Department Sergei Benson MD [address] [place] [address] Appointment 04/16/2021 Telephone Plastic Surgery: Ma in [place], [facility] [address] [place] [address] [address], [address] [place] [address] Social History Date Tobacco Use Types Packs/Day Years Used Never Smoker Smokeless Tobacco: Chew Current User Drinks/Week oz/Week Comments Alcohol Use 10-12 Cans of beer 10.0 - 12.0 Yes Sex Assigned at Date Recorded 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 He has a new phone ingrid hoyt. I will update the new number in his chart ([phone]). His states he was recently seen in the ER at [facility] in [facility] on 04/07 where they d iagnosed him with cellulitis of his reconstructed area. They gave him Keflex and he took the last pill today. She says there is still a bubble. He has been having a lot of pain. They are following up with on 04/20. He would like surveillance imaging, CT Neck/Chest, however radiology does not have availabil ity. states they will come back for imaging another day. We will schedule t his at appointment Tuesday. She has no further questions. documented in this encounter Plan of Treatment [...] for the pat ient 11/10/2020 1:42 PM TELEVISION ENGINEER documented as of this encounter
--- OUTSIDE RECORDS SUMMARY | 2021-06-14 17:40 | XMS REPORT | Encounter Summary ---
Author Author [facility] Organization [facility] Address Unknown Phone Unavailable Care Team Providers Care Air Support Control Officer Name Role Phone Geovanny Engel CARD FOLDER PCP Reason for Referral * Radiology Services (Routine) Referred By Contact Referred To Contact Status Reason Specialty Diagnoses / Procedures Sergei Benson MD [address] [place] [address] [place] [phone] Authorized Radiology Diagnoses SCC (squamous cell carcinoma), face P rocedures CT CHEST W CONTRAST Electronically signed by Sergei Benson MD at * Radiology Services (Routine) Referred By Contact Referred To Contact Status Reason Specialty Diagnoses / Procedures Sergei Benson MD [address] [place] [address] [place] [address] Authorized Radiology Diagnoses SCC (squamous cell carcinoma), face P rocedures CT NECK W/CONTRAST Electronically signed by Sergei Benson MD at Reason for Visit * Auth/Cert Referred By Contact Referred To Contact Status Reason Specialty Diagnoses / Procedures Diagnoses SCC (squamous cell carcinoma), face SCC (squamous cell carcinoma), face [C44.320] P rocedures [place] RAD RESECTION TUMOR SOFT TISS FACE/SCALP 2 CM/> WV FREE SKIN FLAP W/MICROVASCULAR ANASTOMOSIS WV SPLIT AGRFT T/A/L 1ST 100 CM/&/1% BDY INFT/CHLD WV CERVICAL LYMPHADEC MODIFIED RADICAL NECK DSJ WV GLSSC COMPOSIT W/RESCJ FLOOR & MANDIBULAR RESCJ WV FREE OSTQ FLAP W/MVASC ANAST METAR/GREAT TOE [...] Date Type Department Sergei Benson MD [address] [place] [address] 2021 Hospital Imaging, CT: Main C amp[facility], Encounter [facility] 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 documented as of [...] Procedure Name Priority Date/Time Associated Diag nosis CT CHEST W CONTRAST Routine 2021 SCC (squam ous cell 3:58 PM CDT carcinoma), face CT NECK W/CONTRAST Routine 2021 SCC (squamo us cell 3:58 PM CDT carcinoma), face documented in this encounter Results * CT CHEST W CONTRAST (2021 3:58 PM CDT) Specimen Impressions Performed At 1. Several tiny pulmonary nodules rem ain unchanged and likely represent scars [facility] or granulomas. No new or enlarging pulm onary nodules are appreciated. An additional follow-up chest CT in 6-12 m [facility] is suggested to assess for long-term stability. 2. No thoracic lymphadenopathy. 3. Persistent complicated left renal cyst. Ultrasound evaluation is again suggested if not previously performed. Finalized by John Martin M.D. on 05/13/20 5:27 PM. Dictated by [...] and exposure, and superimposed erosions in the grindstone rig ht parasymphysis and anterior osteotomy graft. [...] reactive edema. Preliminary findings were discussed wit Dr. Benson by Dr. Booth by telephone [...] face; exam requested by plastic surgery; surveilla nce imaging Technique: Multiple contiguous axial im ages [...] displacement of hardware, most notably at the grindstone parasymphysis and body osseous graft. T here [...] displacement of hardware, most notably at the grindstone parasymphysis and body osseous graft. There is [...] and exposure, and superimposed erosions in the grindstone right parasymphysis and anterior osteotomy graft. This [...] Code P josefina Number [facility] documented in this encounter Visit Diagnoses Diagnosis SCC (squamous cell carcinoma), face Squamous cell carcinoma of skin of othe r and unspecified parts of face documented in this encounter Administered Medications Action Date Dose Rate Site Medication Order MAR Action 2021 3:45 PM CDT 120 mL iohexoL (OMNIPAQUE-350) 350 mg/mL Given injection 120 mL 120 mL, Intravenous, ONCE, 1 dose, Tue05/13/21 at 1600, NOTE: This is a HIGH ALERT Medication., 2021 3:45 PM CDT 50 mL sodium chloride PF 0.9% injection 50 mL Given 50 mL, Intravenous, ONCE, 1 dose, Tue05/13/21 at 1600, DO NOT SEND this medication unless it is requested. This med is usually available in floor stock., Intra-procedure (IR) documented in this encounter Additional Health Concerns Assessment Noted Time A fall risk assessment has been completed for the pat ient 2021 7:54 PM CDT documented as of this encounter
== END 2021-06-12 11:24 | disposition home or self-care (01) ==
LOC: EDUNIT# 10:15 → ER 10:16
DX: R51.9 Headache, unspecified (principal); K13.0 Diseases of lips; Z87.891 Personal history of nicotine dependence
CPT/HCPCS: 99283

== ENCOUNTER 2021-06-23 09:08 | Outpatient (RCR) | payer MEDICAID ==
[2021-05-29 14:15] VITALS: BP 124/82
[2021-05-29 15:57] LABS: BASOPHILS % (AUTO) 1 % (0-10); EOSINOPHILS # (AUTO) 0.1 10^3/uL (0.0-0.3); EOSINOPHILS % (AUTO) 2 % (0-10); HEMATOCRIT 29 % (40-54); HEMOGLOBIN 9.5 g/dL (13.3-17.7); LYMPHOCYTES # (AUTO) 0.4 10^3/uL (1.0-4.0); LYMPHOCYTES % (AUTO) 9 % (12-44); MEAN CORPUSCULAR HEMOGLOBIN 29 pg (25-34); MEAN CORPUSCULAR HGB CONC 33 g/dL (32-36); MEAN CORPUSCULAR VOLUME 88 fL (80-99); MEAN PLATELET VOLUME 8.3 fL (9.0-12.2); MONOCYTES # (AUTO) 0.3 10^3/uL (0.0-1.0); MONOCYTES % (AUTO) 7 % (0-12); NEUTROPHILS # (AUTO) 3.8 10^3/uL (1.8-7.8); NEUTROPHILS % (AUTO) 82 % (42-75); PLATELET COUNT 289 10^3/uL (130-400); WHITE BLOOD COUNT 4.6 10^3/uL (4.3-11.0)
[2021-05-29 16:04] LABS: ALBUMIN 3.5 GM/DL (3.2-4.5); POTASSIUM 3.7 MMOL/L (3.6-5.0)
[2021-05-29 16:05] LABS: CALCIUM 8.9 MG/DL (8.5-10.1)
[2021-05-29 16:06] LABS: TOTAL PROTEIN 6.7 GM/DL (6.4-8.2)
[2021-05-29 16:08] LABS: BILIRUBIN,TOTAL 0.3 MG/DL (0.1-1.0)
[2021-05-29 16:10] LABS: CREATININE SERUM 0.86 MG/DL (0.60-1.30)
[2021-05-29 16:19] LABS: VANCOMYCIN,TROUGH 20.9 UG/ML (10.0-20.0)
[2021-05-29 16:20] LABS: BAND NEUTROPHILS 0 %; BASOPHILS % (MANUAL) 0 %; EOSINOPHILS % (MANUAL) 2 %; LYMPHOCYTES % (MANUAL) 11 %; MONOCYTES % (MANUAL) 2 %; NEUTROPHILS % (MANUAL) 85 %; ROULEAUX SLIGHT
[2021-06-05 12:30] VITALS: BP 132/83
[2021-06-05 13:15] LABS: BASOPHILS # (AUTO) 0.1 10^3/uL (0.0-0.1); BASOPHILS % (AUTO) 2 % (0-10); EOSINOPHILS # (AUTO) 0.1 10^3/uL (0.0-0.3); EOSINOPHILS % (AUTO) 3 % (0-10); HEMATOCRIT 32 % (40-54); HEMOGLOBIN 10.6 g/dL (13.3-17.7); LYMPHOCYTES # (AUTO) 0.3 10^3/uL (1.0-4.0); LYMPHOCYTES % (AUTO) 7 % (12-44); MEAN CORPUSCULAR HEMOGLOBIN 29 pg (25-34); MEAN CORPUSCULAR HGB CONC 33 g/dL (32-36); MEAN CORPUSCULAR VOLUME 88 fL (80-99); MEAN PLATELET VOLUME 8.3 fL (9.0-12.2); MONOCYTES # (AUTO) 0.3 10^3/uL (0.0-1.0); MONOCYTES % (AUTO) 8 % (0-12); NEUTROPHILS # (AUTO) 3.4 10^3/uL (1.8-7.8); NEUTROPHILS % (AUTO) 80 % (42-75); PLATELET COUNT 247 10^3/uL (130-400); WHITE BLOOD COUNT 4.3 10^3/uL (4.3-11.0)
[2021-06-05 13:29] LABS: ALBUMIN 3.6 GM/DL (3.2-4.5); POTASSIUM 3.7 MMOL/L (3.6-5.0)
[2021-06-05 13:30] LABS: CALCIUM 9.4 MG/DL (8.5-10.1)
[2021-06-05 13:32] LABS: TOTAL PROTEIN 6.7 GM/DL (6.4-8.2)
[2021-06-05 13:33] LABS: BILIRUBIN,TOTAL 0.4 MG/DL (0.1-1.0)
[2021-06-05 13:35] LABS: CREATININE SERUM 1.32 MG/DL (0.60-1.30)
[2021-06-05 13:43] LABS: BAND NEUTROPHILS 2 %; BASOPHILS % (MANUAL) 0 %; EOSINOPHILS % (MANUAL) 2 %; LYMPHOCYTES % (MANUAL) 5 %; MONOCYTES % (MANUAL) 8 %; NEUTROPHILS % (MANUAL) 83 %; RBC MORPH NORMAL
[2021-06-05 13:48] LABS: VANCOMYCIN,TROUGH 25.4 UG/ML (10.0-20.0)
[2021-06-12 11:40] VITALS: BP 121/78
[2021-06-12 12:12] LABS: BASOPHILS # (AUTO) 0.1 10^3/uL (0.0-0.1); BASOPHILS % (AUTO) 1 % (0-10); EOSINOPHILS # (AUTO) 0.2 10^3/uL (0.0-0.3); EOSINOPHILS % (AUTO) 4 % (0-10); HEMATOCRIT 32 % (40-54); HEMOGLOBIN 10.6 g/dL (13.3-17.7); LYMPHOCYTES # (AUTO) 0.3 10^3/uL (1.0-4.0); LYMPHOCYTES % (AUTO) 6 % (12-44); MEAN CORPUSCULAR HEMOGLOBIN 29 pg (25-34); MEAN CORPUSCULAR HGB CONC 33 g/dL (32-36); MEAN CORPUSCULAR VOLUME 88 fL (80-99); MEAN PLATELET VOLUME 8.3 fL (9.0-12.2); MONOCYTES # (AUTO) 0.4 10^3/uL (0.0-1.0); MONOCYTES % (AUTO) 8 % (0-12); NEUTROPHILS # (AUTO) 3.9 10^3/uL (1.8-7.8); NEUTROPHILS % (AUTO) 81 % (42-75); PLATELET COUNT 210 10^3/uL (130-400); WHITE BLOOD COUNT 4.8 10^3/uL (4.3-11.0)
[2021-06-12 12:31] LABS: ALBUMIN 3.3 GM/DL (3.2-4.5); BILIRUBIN,TOTAL 0.3 MG/DL (0.1-1.0); CALCIUM 9.1 MG/DL (8.5-10.1); CREATININE SERUM 1.25 MG/DL (0.60-1.30); TOTAL PROTEIN 6.4 GM/DL (6.4-8.2)
[2021-06-12 12:49] LABS: VANCOMYCIN,TROUGH 26.2 UG/ML (10.0-20.0)
[2021-06-12 13:12] LABS: EOSINOPHILS % (MANUAL) 7 %; LYMPHOCYTES % (MANUAL) 4 %; MONOCYTES % (MANUAL) 6 %; NEUTROPHILS % (MANUAL) 83 %; RBC MORPH NORMAL
[2021-06-22 15:55] VITALS: BP 129/91
[2021-06-22 16:17] LABS: BASOPHILS # (AUTO) 0.1 10^3/uL (0.0-0.1); BASOPHILS % (AUTO) 2 % (0-10); EOSINOPHILS # (AUTO) 0.2 10^3/uL (0.0-0.3); EOSINOPHILS % (AUTO) 4 % (0-10); HEMATOCRIT 29 % (40-54); HEMOGLOBIN 9.7 g/dL (13.3-17.7); LYMPHOCYTES # (AUTO) 0.3 X 10^3 (1.0-4.0); LYMPHOCYTES % (AUTO) 9 % (12-44); MEAN CORPUSCULAR HEMOGLOBIN 29 pg (25-34); MEAN CORPUSCULAR HGB CONC 34 g/dL (32-36); MEAN CORPUSCULAR VOLUME 86 fL (80-99); MEAN PLATELET VOLUME 8.1 fL (9.0-12.2); MONOCYTES # (AUTO) 0.3 X 10^3 (0.0-1.0); MONOCYTES % (AUTO) 8 % (0-12); NEUTROPHILS # (AUTO) 2.6 X 10^3 (1.8-7.8); NEUTROPHILS % (AUTO) 76 % (42-75); PLATELET COUNT 243 10^3/uL (130-400); WHITE BLOOD COUNT 3.4 10^3/uL (4.3-11.0)
[2021-06-22 16:22] LABS: ALBUMIN 3.4 GM/DL (3.2-4.5)
[2021-06-22 16:23] LABS: POTASSIUM 3.9 MMOL/L (3.6-5.0)
[2021-06-22 16:24] LABS: CALCIUM 9.4 MG/DL (8.5-10.1)
[2021-06-22 16:25] LABS: TOTAL PROTEIN 6.6 GM/DL (6.4-8.2)
[2021-06-22 16:27] LABS: BILIRUBIN,TOTAL 0.4 MG/DL (0.1-1.0)
[2021-06-22 16:29] LABS: CREATININE SERUM 1.47 MG/DL (0.60-1.30)
[2021-06-22 16:41] LABS: VANCOMYCIN,TROUGH 29.2 UG/ML (10.0-20.0)
[~2021-06-23 09:08] MED LIST changes: +HYDR-3817 PO
[2021-06-23 09:30] VITALS: BP 124/80
[2021-06-25] MEDS ORDERED: ALTEPLASE 2 MG (CATHFLO) IV ONE (08:15)
== END 2021-07-02 06:09 | disposition home or self-care (01) ==
LOC: SDC 09:08
PROVIDERS: ATTEND Plastic Surgery
DX: A49.02 Methicillin resistant Staphylococcus aureus infection, unspecified site (principal); L03.211 Cellulitis of face; L02.01 Cutaneous abscess of face; A49.8 Other bacterial infections of unspecified site; Z79.2 Long term (current) use of antibiotics
CPT/HCPCS: 36415; 36591; 36592; 80053; 80202; 85007; 85025; 85027; 99211

== ENCOUNTER 2021-07-06 04:47 | Emergency (ER) | payer MEDICAID ==
[~2021-07-06] VITALS: Ht 167 cm; Wt 59.0 kg
--- OUTSIDE RECORDS SUMMARY | 2021-07-06 04:54 | XMS REPORT | Encounter Summary ---
Author Author [facility] Organization [facility] Address Unknown Phone Unavailable Care Team Providers Care Machinist Tool And Die Name Role Phone Geovanny Engel APRN PCP Reason for Visit * Reason Onset Date Comments Critical Result 06/22/2021 Encounter Details Care Team Description Date Type Department Anil Saravia DO [address] [place] [address] Critical Result 06/22/2021 Telephone Infectious Diseases : Main [place], [address], [address] [address] Social History Date Tobacco Use Types Packs/Day Years Used Never Smoker Smokeless Tobacco: Chew Current User Comments Alcohol Use Standard Drinks/Week Yes 10 (1 standard drink = 0.6 oz pure alcohol) Sex Assigned at Date Recorded Male 10/06/2020 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 documented as of this encounter Functional Status Date of Assessment Functional Status Response 05/14/2021 Does the patient have a hearing impairment: Yes documented as of this encounter Miscellaneous Notes * Telephone Encounter - Anil Saravia DO - 06/22/2021 5:19 PM CDT Received call from Mere with [facility] stating patient had labs done today and his Vanco trough returned to 29.2, however he infused at 4 AM and this trough was not appropriate timing. She also states he only took 1000 mg this m orning when he is supposed to be taking 1500 mg daily. This is the first time h e has taken the incorrect dose because he did not have his 1500 mg doses availab le and had a leftover 1000 mg dose. Instructed to have her have the patient hold tomorrow morning's dose and have th e patient come in as soon as possible in the morning to get an accurate trough l dejahel. She will contact the patient and let them know. They will need an order faxed for a Vanco trough level tomorrow morning, we will forward this to Dr. Bates's RN to help arrange order. [facility] Anil Saravia DO Pager: [phone] Fellow of Infectious Diseases documented in this encounter Plan of Treatment [...]
--- OUTSIDE RECORDS SUMMARY | 2021-07-06 04:54 | XMS REPORT | Encounter Summary ---
Author Author [facility] Organization [facility] Address Unknown Phone Unavailable Care Team Providers Care Staff Appraiser Name Role Phone Geovanny Engel APRN PCP Reason for Visit * Reason Onset Date Comments Other 06/12/2021 Encounter Details Care Team Description Date Type Department Sergei Benson MD [address] [place] [address] Other 06/12/2021 Telephone Plastic Surgery: Ma in [place], [facility] [address] [place] [address] [address], [address] [place] [address] Social History Date Tobacco Use Types Packs/Day Years Used Never Smoker Smokeless Tobacco: Chew Current User Comments Alcohol Use Standard Drinks/Week Yes 10 (1 standard drink = 0.6 oz pure alcohol) Sex Assigned at Date Recorded 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 Nisha Sullivan, CYNDY documented in this encounter Plan of Treatment [...]
--- OUTSIDE RECORDS SUMMARY | 2021-07-06 04:54 | XMS REPORT | Encounter Summary ---
Author Author [facility] Organization [facility] Address Unknown Phone Unavailable Care Team Providers Care Clay Worker Name Role Phone Geovanny Engel APRN PCP Reason for Visit * Reason Onset Date Comments Outpatient Antibiotic 07/01/2021 Therapy (Opat) Encounter Details Care Team Description Date Type Department Roger Bates MD [address] [address] [place] [address] Outpatient Antibiotic Therapy (Opat) 07/01/2021 Telephone Infectious Diseases : Main [place], [facility] 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 documented as of this encounter Functional Status Date of Assessment Functional Status Response 05/14/2021 Does the patient have a hearing impairment: Yes documented as of this encounter Miscellaneous Notes * Telephone Encounter - Kyara Jeffers RN - 07/01/2021 1:26 PM CDT Confirmed with Susan marie at [facility], patient's line was a lteplased last week. She will look for any labs if available past 06/23/21 and fa x, but Saida GAUTAM had already called the lab today and they do not have any. documented in this encounter Plan of Treatment [...]
--- OUTSIDE RECORDS SUMMARY | 2021-07-06 04:54 | XMS REPORT | Encounter Summary ---
Author Author [facility] Organization [facility] Address Unknown Phone Unavailable Care Team Providers Care Plateman Name Role Phone Geovanny Engel APRN PCP Reason for Referral * Consult, Test & Treat (Routine) Referred By Contact Referred To Contact Status Reason Specialty Diagnoses / Procedures Trev Schneider MD [address] [facility] L[facility] [address] [place] [address] Joseph Neumann MD [address] [place] [address] Authorized Specialty Services Oncology Diagnoses Required Head and neck cancer (HCC) Answer Question facial squamous cell carcinoma Referral Electronically signed by Trev Schneider MD at * Consult, Test & Treat (Routine) Referred By Contact Referred To Contact Status Reason Specialty Diagnoses / Procedures Trev Schneider MD [address] [facility] [address] [place] [address] Cc - Ww Palliative Cl [address] [place] [address]. [place], [place] Authorized Specialty Services Palliative Care Diagnoses Required Head and neck cancer (HCC) Answer Question Cancer Care area? Comments Facial squamous cell carcinoma- mets Electronically signed by Trev Schneider MD at Reason for Visit * Reason Comments Follow Up Encounter Details Care Team Description Date Type Department Trev Schneider MD [address] [facility] [address] [place] [address] [phone] Head and neck cancer (HCC) (Primary Dx); Squamous cell carcinoma, lip 07/01/2021 Office Visit Otolaryngology: [facility], [address], [address] [place] [id number] Social History Date Tobacco Use Types Packs/Day Years Used Never Smoker Smokeless Tobacco: Chew Current User Comments Alcohol Use Standard Drinks/Week Yes 10 (1 standard drink = 0.6 oz pure alcohol) Sex Assigned at Date Recorded 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 documented as of this encounter Last Filed Vital Signs Reading Time Taken Comments Vital Sign 115/77 07/01/2021 3:20 PM CDT Blood Pressure 93 07/01/2021 3:20 PM CDT Pulse - - Temperature - - Respiratory Rate - - Oxygen Saturation - - Inhaled Oxygen Concentration 60.8 kg (134 lb) 07/01/2021 3:20 PM CDT Weight 170.2 cm (5' 7") 07/01/2021 3:20 PM CDT Height 20.99 07/01/2021 3:20 PM CDT Body Mass Index documented in this encounter Functional Status Date of Assessment Functional Status Response 05/14/2021 Does the patient have a hearing impairment: Yes documented as of this encounter Ordered Prescriptions Start Date End Date Prescription Sig Dispensed Refills 07/01/2021 oxyCODONE (ROXICODONE) 5 Take one 50 tablet 0 mg tablet tablet by mouth every 4 hours as needed for Pain 07/01/2021 oxyCODONE (ROXICODONE) 5 Take one 50 tablet 0 mg tablet tablet by mouth every 6 hours as needed for Pain documented in this encounter Progress Notes * Trev Schneider MD - 07/01/2021 3:30 PM CDT Chief Complaint Patient presents with Follow Up History of Present Illness: Faisal Claire is a 51 y.o. year old male evaluated on 07/02/2021, in the Otolar yngology-Head and Neck Surgery Clinic at the [facility] . The patient was referred by Dr. Engel for evaluation of right neck mass. 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 Benson and Chris. He had positive lymph nodes w ith no LIZANDRO, no LVI or PNI. Discussed at head and neckTB. Recommendations for a djuvant XRT.He underwent adjuvant XRT through [facility] from -03/02/21 and received 6,000 cGy of treatment. He reports that he missed quite a few treatments but "was never told it was important not to miss treatment." Af ter being lost to follow-up, he recently presented with evidence of facial absce ss vs recurrence. He went to the OR on 05/15/[address] Benson and the facial plast ic surgery team for removal of his hardware, bone and soft tissue debridement an d closure of his neck wound. 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 Biopsy on 06/15/21 showed s quamous cell carcinoma. PDL-1 is negative. Since then his disease has progressed and he has a large ulcerated mass involving his right face. In a lot of pain cu rrently and he feels that his pain is not being adequately managed. Imaging show s recurrent cancer involving surgical bed and encasing external carotid artery. Cancer treatment summary: Cancer Staging Squamous cell carcinoma, lip Staging form: Oral Cavity, AJCC 8th Edition - Clinical stage from 07/02/2021: Stage IVB (ycT4b, cN0, cM0) - Signed by Cecilia Schneider MD on 07/02/2021 Past Medical/Surgical History He has a past medical history of Alcohol abuse, [place] (hard of hearing), Squamous cell carcinoma, lip, and Tobacco abuse. Surgical History: Procedure Laterality Date GASTROSTOMY TUBE PLACEMENT 10/21/2020 TRACHEOSTOMY PLANNED N/A 10/21/2020 Performed by Eric Benson MD at [facility] OR EXTRACTION TOOTH N/A 10/21/2020 Performed by Eric Benson MD at [facility] OR ALVEOLOPLASTY - EACH QUADRANT N/A 10/21/2020 Performed by Eric Benson MD at [facility] OR ESOPHAGOGASTRODUODENOSCOPY WITH PLACEMENT PERCUTANEOUS GASTROSTOMY TUBE N/A 10/21/2020 Performed by Oscar Batista Jr., MD at [facility] OR RADICAL RESECTION TUMOR SOFT TISSUE 2.0 CM OR MORE - FACE/ SCALP Right 10/23 Performed by Eric Benson MD at [facility] OR TISSUE TRANSFER FREE SKIN FLAP WITH MICROVASCULAR ANASTOMOSIS Right 10/23/20 20 Performed by Eric Benson MD at [facility] OR SPLIT THICKNESS SKIN AUTOGRAFT 100 SQ CM OR LESS OR 1% BODY AREA OF CHILD- U PPER EXTREMITY Left 10/23/2020 Performed by Eric Benson MD at [facility] OR CERVICAL LYMPHADENECTOMY Right 10/23/2020 Performed by Eric Benson MD at [facility] OR GLOSSECTOMY COMPOSITE WITHOUT RADIAL NECK DISSECTION N/A 10/23/2020 Performed by Eric Benson MD at [facility] OR TISSUE TRANSFER FREE OSTEOCUTANEOUS FLAP WITH MICROVASCULAR ANASTOMOSIS Righ t 10/23/2020 Performed by Eric Benson MD at [facility] OR REMOVAL HARDWARE -DEEP MANDIBLE Right 05/15/2021 Performed by Eric Benson MD at [facility] OR EXCISION BONE - MANDIBLE Right 05/15/2021 Performed by Eric Benson MD at [facility] OR REPAIR COMPLEX WOUND 2.6 CM TO 7.5 CM - HEAD/ NECK Right 05/15/2021 Performed by Eric Benson MD at [facility] OR REPAIR COMPLEX WOUND EACH ADDITIONAL 5 CM OR LESS- HEAD/ NECK Right 05/15/2021 Performed by Eric Benson MD at [facility] OR Past surgical history reviewed and is otherwise noncontributory. Past Family/Social History Family history reviewed and is otherwise noncontributory. He reports that he has never smoked. His smokeless tobacco use includes chew. Claudette e reports current alcohol use of about 10.0 - 12.0 standard drinks of alcohol pe r week. He reports that he does not use drugs. Medications/Allergies/Immunizations His current medication(s) include: Current Outpatient Medications Medication Sig Dispense Refill acetaminophen (TYLENOL) 325 mg tablet Take two tablets by mouth every 6 hour s as needed. aspirin EC 81 mg tablet Take 81 mg by mouth daily. Take with food. bacitracin 500 unit/g topical ointment Apply to the incision site after aldo sonia twice a day 28 g 0 glycopyrrolate (ROBINUL) 1 mg/5 mL (0.2 mg/mL) soln oral solution 5 mL by PE G Tube route three times daily. 473 mL 0 Iodoform 1 X 5 "-yard bndg Back in the right facial wound twice a day. Tobias eduardo old packing first 2 each 0 lidocaine (LIDODERM) 5 % topical patch Apply one patch topically to affected area every 24 hours. Apply patch for 12 hours, then remove for 12 hours before repeating. 30 patch 0 oxyCODONE (ROXICODONE) 5 mg tablet Take one tablet by mouth every 6 hours as needed for Pain 50 tablet 0 oxyCODONE (ROXICODONE) 5 mg tablet Take one tablet by mouth every 4 hours as needed for Pain 50 tablet 0 oxyCODONE (ROXICODONE) 5 mg tablet Take one tablet by mouth every 6 hours as needed for Pain 10 tablet 0 polyethylene glycol 3350 (MIRALAX) 17 g packet one packet by Per G Tube rout e daily. 30 each 0 No current facility-administered medications for this visit. Allergies: Ibuprofen Review of Systems Constitutional: Negative for fever, weight loss and weight gain. Skin: Negative for rash, itchiness, dryness HENT: Negative for ear pain, sore throat and hoarseness. Negative for difficult y swallowing. Cardiovascular: Negative for chest pain and dyspnea on exertion (Can climb up 2 floors). Respiratory: Is not experiencing shortness of breath. Gastrointestinal: Negative for nausea and vomiting. Neurological: Negative for headaches. Lymph/Heme: Negative for lymphadenopathy or easy bruising Musculoskeletal: Negative for joint or muscle pain Psychiatric: The patient is not nervous/anxious. All other systems are negative except for that listed in the HPI. PHYSICAL EXAM: Vital Signs: BP 115/77 | Pulse 93 | Ht 170.2 cm (67") | Wt 60.8 kg (134 lb) | BMI 20.99 kg/m General: Thin male Communication and Voice: Clear pitch and clarity Hearing: Hearing adequate for verbal communication bilaterally Inspection: Prior forearm and fibula flaps with vestibuloplasty and commissurep lasty. Large ulcerative facial mass on the right that is fixed to the underlying mandible/flap reconstruction. Parotid Glands: Large mass overlying the parotid with ulceration through the sk in. 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 Pinna: External ear intact and fully developed Oral cavity, Lips, Teeth, and Gums: Trismus, intraorally and at commissure post operative changes from flap reconstruction. Oropharynx: No erythema or exudate, no masses or ulcerations, non-obstructive to nsils Neck, Trachea, Lymphatics: Mass extends to level 2 right neck Thyroid: No mass or nodularity Respiratory effort: Equal inspiration and expiration without stridor PATHOLOGY REVIEW: PATHOLOGY REPORT [facility] [email or web address] Department of Pathology and Laboratory Medicine [address] [place] [id number] Surgical Pathology Office: [phone] SURGICAL PATHOLOGY REPORT NAME: FAISAL CLAIRE SURG PATH #: [id number] MR #: [id number] SPECIMEN CLASS: SR BILLING #: [id number] ALT ID #: LOCATION: [id number] DATE OF PROCEDURE: 06/15/2021 AGE: 51 SEX: M DATE RECEIVED: 06/16/2021 : 1970 TIME RECEIVED: 07:44 PHYSICIAN: ERIC BENSON MD DATE OF REPORT: 06/17/2021 COPY TO: DATE OF PRINTIN06/19/2021 Procedures/Addenda Addendum Date Ordered: 06/19/2021 Status: Signed Out Date Complete: 06/19/2021 By: Chuy Fong MD, PhD Date Reported: 06/19/2021 Addendum Diagnosis The diagnosis is unchanged. Addendum Comment Per request, PD-L1 stain was performed. PD-L1: Block: A1 Tumor Proportion Score (TPS): <1% TPS less than 1%: Yes Comment: PD-L1 test name: DAKO PD-L1 IHC 22C3 pharmDX Cell types evaluated: Tumor cells ######################################################################## Final Diagnosis: A. Right facial: -- Squamous cell carcinoma, deep margin positive Attestation: By this signature, I attest that I have personally formulated the final interpretation expressed in this report and that the above diagnosis is based upon my examination of the slides and/or other material indicated in this report. +++ +++ hd/06/17/2021 ######################################################################## Material Received: A: Right facial History: A. SCC Gross Description: A. Received in NBF, labeled "right facial skin lesion" is a disrupted 0.8 x 0.7 x 0.7 cm cyst-like structure, friable, trisected, sales donor recruitment representative sections submitted in A1. (wlm) wlm/06/16/2021 If immunohistochemical stains and/or in situ hybridization are cited in this report, the performance characteristics were determined by the Department of Pathology and Laboratory Medicine of the [facility] ([employer]) in compliance with CLIA'88 regulations. Some of these tests rely on the use of "analyte specific reagents" and are subject to specific labeling requirements by the FDA. The stains are performed on formalin-fixed, paraffin-embedded tissue, unless otherwise stated. Known positive and negative control tissues demonstrate appropriate staining. Results should be interpreted with caution given the likelihood of false negativity on decalcified specimens. This testing was developed by the Department of Pathology and Laboratory Medicine of the [facility]. It has not been cleared or approved by the FDA. The FDA has determined that such clearance or approval is not necessary. RADIOLOGIC REVIEW: IMPRESSION: My impression is that Mr. Claire has recurrent/persistent oral cavity SCCa - o riginally T4aN1 which I would tentatively stage as a ycT4b lesion based on exam ination and available imaging. The lesion is partially encasing the external car otid artery and there is extensive involvement of the interactive media marketing strategist space. PLAN: After review of the various options including the risks, benefits and alternativ es, Mr. Claire has opted to proceed with symptom palliation as part of his ove rall management which I believe is reasonable for his condition. We discussed th e feasibility of salvage surgery which would involve radical resection of the ri ght face, mandible, interactive media marketing strategist space and neck. Unfortunately, this has a very lo w likelihood of cure. I had a long discussion today with the patient and his regarding patient's recurrent cancer and manager terminal poor prognosis. He has now undergone major oncolo gic and reconstructive surgery followed by adjuvant radiation completed in February 2021. He now has very aggressive locoregional recurrence involving the right pa rotid gland, face, prior reconstruction, and oral cavity. His recent pathology r eports shows that PDL1 is negative unfortunately so he is not a candidate for im munotherapy. We discussed palliative chemotherapy as one potential avenue. We discussed that survival is difficult to predict with or without treatment. Ev en with very aggressive surgical resection, chance of cure is very low. However, he does not appear to have any lung metastasis, so locoregional control might y ield small chance at cure. Surgery would include total parotidectomy, facial ner ve sacrifice, radical neck dissection. Pectoralis flap likely would be used to r epair defect. Recommend palliative care consultation - pain management and goals of care discu ssion. I would also like him to meet with medical oncology to discuss palliative systemic therapy options. I believe that Mr. Claire has a good understanding of the issues involved and I answered all of his questions. ATTESTATION I personally performed the smith portions of the E/M visit, discussed case with re tam and concur with resident documentation of history, physical exam, assessm ent, and treatment plan unless otherwise noted. Staff name: Trev Schneider MD Date: 07/02/2021 documented in this encounter Plan of Treatment Order Schedule Name Type Priority Associated Diag noses Ordered: 07/01/2021 AMB REFERRAL PALLIATIVE Outpatient Routine Head a nd neck cancer CARE Referral (HCC) Ordered: 07/01/2021 AMB REFERRAL TO ONCOLOGY Outpatient Routine Head and neck cancer Referral (HCC) documented as of this encounter Goals Goal Patient Associated Recent Progress Patient-Stat Aut hor Goal Type Problems ed? Recover from illness Hospital On track (05/14/2021 Yes Radha Ruiz, 1:07 AM CDT) RN Note: "To heal and recover and be as healthy as possible, quit chewing tobacco" documented as of this encounter Visit Diagnoses Diagnosis Head and neck cancer (HCC) - Primary Malignant neoplasm of head, face, and n batsheva Squamous cell carcinoma, lip Squamous cell carcinoma of skin of lip documented in this encounter Discontinued Medications Start Date End Date Medication Sig Discontinue Reason 07/01/2021 07/01/2021 oxyCODONE (ROXICODONE) 5 Take one Duplicate mg tablet tablet by Order mouth every 6 hours as needed for Pain documented as of this encounter Additional Health Concerns Assessment Noted Time A fall risk assessment has been completed for the pat ient 05/19/2021 9:00 AM CDT documented as of this encounter
--- OUTSIDE RECORDS SUMMARY | 2021-07-06 04:54 | XMS REPORT | Encounter Summary ---
Author Author [facility] Organization [facility] Address Unknown Phone Unavailable Care Team Providers Care Sanitary Landfill Operator Name Role Phone Geovanny Engel APRN PCP Encounter Details Care Team Description Date Type Department Sergei Benson MD [address] [place] [address] 06/15/2021 Orders Only Plastic Surgery: [facility] [place] [address] [place] [address] [address], [address] [place] [address] Social History Date Tobacco Use Types Packs/Day Years Used Never Smoker Smokeless Tobacco: Chew Current User Comments Alcohol Use Standard Drinks/Week Yes 10 (1 standard drink = 0.6 oz pure alcohol) Sex Assigned at Date Recorded Male 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 Removal old packing first documented in this encounter Plan of Treatment [...] Diagnoses Not on filedocumented in this encounter Discontinued Medications Start Date End Date Medication Sig Discontinue Reason 06/15/2021 06/15/2021 Iodoform 1 X 5 "-yard Back in the Reorder bndg right facial wound twice a day. Removal old packing first documented as of this encounter Additional Health Concerns Assessment Noted Time A fall risk assessment has been completed for the pat ient 05/19/2021 9:00 AM CDT documented as of this encounter
--- OUTSIDE RECORDS SUMMARY | 2021-07-06 04:54 | XMS REPORT | Encounter Summary ---
Author Author [facility] Organization [facility] Address Unknown Phone Unavailable Care Team Providers Care Information Assurance Engineer Name Role Phone Geovanny Engel APRN PCP Reason for Visit * Reason Comments Post Operative Visit f/u * Consult, Test & Treat (Routine) Referred By Contact Referred To Contact Status Reason Specialty Diagnoses / Procedures New Request Encounter Details Care Team Description Date Type Department Eric Benson MD [address] [place] [address] SCC (squamous cell carcinoma), face (Bozena radha Dx); Lip mass; Facial abscess 06/15/2021 Office Visit Plastic Surgery: Ma in [place], [facility] [address] [facility] [address] [place] [address] Social History Date Tobacco Use Types Packs/Day Years Used Never Smoker Smokeless Tobacco: Chew Current User Comments Alcohol Use Standard Drinks/Week Yes 10 (1 standard drink = 0.6 oz pure alcohol) Sex Assigned at Date Recorded Male 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 documented as of this encounter Last Filed Vital Signs Reading Time Taken Comments Vital Sign 139/75 06/15/2021 12:17 PM CDT Blood Pressure 91 06/15/2021 12:17 PM CDT Pulse - - Temperature - - Respiratory Rate - - Oxygen Saturation - - Inhaled Oxygen Concentration 60.8 kg (134 lb) 06/15/2021 12:17 PM CDT Weight 170.2 cm (5' 7") 06/15/2021 12:17 PM CDT Height 20.99 06/15/2021 12:17 PM CDT Body Mass Index documented in this encounter Functional Status Date of Assessment Functional Status Response 05/14/2021 Does the patient have a hearing impairment: Yes documented as of this encounter Patient Instructions * Patient Instructions* Yecenia Virgen BSN - 06/15/2021 1:00 PM CDT May shower daily. Remove the packing first and then shower. after showering th en irrigate the wound and then pack the wound and place a band-aid over to cover . Expect drainage from the wound. Pack the wound twice a day documented in this encounter Ordered Prescriptions Start Date End Date Prescription Sig Dispensed Refills 06/15/2021 06/15/2021 Iodoform 1 X 5 "-yard Back in the 2 each 0 bndg right facial wound twice a day. Removal old packing first documented in this encounter Progress Notes * Eric Benson MD - 06/15/2021 1:00 PM CDT Date of Service: 06/15/2021 Subjective: Faisal Claire III is a 51 y.o. male. History of Present Illness Presents to clinic due to right facial swelling for [address] for imag ing prior to the visit. is with him and states they have been compliant wi th antibiotics that he is taking the zosyn and the vancomycin. No fever or chil ls and states has been feeling better except for this new area of swelling. Medical History: Diagnosis Date Alcohol abuse TANGIRNAQ (hard of hearing) Squamous cell carcinoma, lip Tobacco abuse Surgical History: Procedure Laterality Date GASTROSTOMY TUBE PLACEMENT 10/21/2020 TRACHEOSTOMY PLANNED N/A 10/21/2020 Performed by Eric Benson MD at [facility] OR EXTRACTION TOOTH N/A 10/21/2020 Performed by Eric Benson MD at [facility] OR ALVEOLOPLASTY - EACH QUADRANT N/A 10/21/2020 Performed by Eric Benson MD at [facility] OR ESOPHAGOGASTRODUODENOSCOPY WITH PLACEMENT PERCUTANEOUS GASTROSTOMY TUBE N/A 10/21/2020 Performed by Oscar Batista Jr., MD at [facility] OR RADICAL RESECTION TUMOR SOFT TISSUE 2.0 CM OR MORE - FACE/ SCALP Right 10/23 Performed by Eric Benson MD at [facility] OR TISSUE TRANSFER FREE SKIN FLAP WITH MICROVASCULAR ANASTOMOSIS Right 10/23/20 20 Performed by Eric Benson MD at [facility] OR SPLIT THICKNESS SKIN AUTOGRAFT 100 SQ CM OR LESS OR 1% BODY AREA OF CHILD- U PPER EXTREMITY Left 10/23/2020 Performed by Eric Benson MD at [facility] OR CERVICAL LYMPHADENECTOMY Right 10/23/2020 Performed by Eric Benson MD at [facility] OR GLOSSECTOMY COMPOSITE WITHOUT RADIAL NECK DISSECTION N/A 10/23/2020 Performed by Eric Benson MD at [facility] OR TISSUE TRANSFER FREE OSTEOCUTANEOUS FLAP WITH MICROVASCULAR ANASTOMOSIS Righ t 10/23/2020 Performed by Eric Benson MD at [facility] OR REMOVAL HARDWARE -DEEP MANDIBLE Right 05/15/2021 Performed by Eric Benson MD at [facility] OR EXCISION BONE - MANDIBLE Right 05/15/2021 Performed by Eric Benson MD at [facility] OR REPAIR COMPLEX WOUND 2.6 CM TO 7.5 CM - HEAD/ NECK Right 05/15/2021 Performed by Eric Benson MD at [facility] OR REPAIR COMPLEX WOUND EACH ADDITIONAL 5 CM OR LESS- HEAD/ NECK Right 05/15/2021 Performed by Eric Benson MD at [facility] OR No family history on file. Social History Socioeconomic History Marital status: Spouse [...] file Social History Narrative Not on file Vaping/E-liquid Use Vaping Use Never User Review of Systems Constitutional: Negative. HENT: Negative. [...] Per G Tube rout e daily. vancomycin 1.5 gram solr Administer 1.5 g through vein daily. Vitals: 06/15/21 1217 BP: 139/75 Pulse: 91 Weight: 60.8 kg (134 lb) Height: 170.2 cm (67") Body mass index is 20.99 kg/m. Physical Exam Vitals and nursing note reviewed. HENT: Head: Normocephalic. Eyes: Pupils: Pupils are equal, round, and reactive to light. Cardiovascular: Rate and Rhythm: Normal rate. Pulmonary: Effort: Pulmonary effort is normal. Musculoskeletal: General: Normal range of motion. Neurological: General: No focal deficit present. Mental Status: He is alert. Psychiatric: Mood and Affect: Mood normal. Thought Content: Thought content normal. Judgment: Judgment normal. Skin: right side facial abscess of the cheek/mandibular region near the angle of the mandible, erythema and induration present Remainder the flap reconstruction intact. Seen with Dr. Benson Assessment and Plan: 51 yo male with right side facial abscess - complex discussion had with pt and Dr. Benson regarding the abscess. The prefer ence was to go to the operating room to do the I&D and be admitted to the hospital but the patient and did not want to be admitted due to it being their anniversary. Risks and benefits of bedside I&D discussed with a then possible worsening of condition and pt and understood and still wanted to proceed with the outpatient procedure instead of being admitted and going to the operating room. - bedside Incision and drainage - Bedside teaching of packing given to the - confirmation of antibiotic use - follow up with Dr. Benson on 06/24 - cultures and specimen taken today Attestation: I reviewed the documented history and exam, and discussed the patient with the P A at the time of treatment. I concur with the history, physical exam, assessment , and treatment plan unless otherwise noted. Discussed at length with patient and my recommendation for admission but [place] will[place] refused due to it being their anniversary. Sent skin specimen for path to r/o malignancy and drainage for culture. Instructed how to irrigate wound a nd change packing. Continue IV abx as guided by ID. And f/u 1 week. They were in agreement and expressed appreciation for cares provided. Eric Benson MD Plastic and Maxillofacial Surgery [facility] documented in this encounter Procedure Notes * Ravinder Heck PA-C - 06/15/2021 1:00 PM CDT Associated Order(s): INCISION AND DRAINAGE (I&D) - HP Pre-Procedure Diagnose(s): Facial abscess Minor Procedure Date of Procedure: 06/15/2021 Pre-op Diagnosis: 1. SCC (squamous cell carcinoma), face PATHOLOGY SURGICAL < 5 SPECIMENS CULTURE-TB (AFB) CULTURE-WOUND/TISSUE/FLUID(AEROBIC ONLY)W/SENSITIVITY CULTURE-FUNGAL,OTHER CULTURE-ANAEROBIC GRAM STAIN 2. Lip mass 3. Facial abscess INCISION AND DRAINAGE (I&D) - HP Procedure: Incision and drainage of right facial abscess Indications: Faisal Claire III is a 51 y.o. male who presents for minor skin surgery. He understands all risks, benefits, indications, potential complicatio ns, and alternatives, and freely consents to the procedure. He also understands the option of performing no surgery, the risk for scarring, and the technique of the procedure. Location: [facility] Anesthesia: Local Technique: After informed consent was obtained, and after the skin was prepped w ith betadine and draped, 1% Lidocaine with epinephrine for anesthetic was inject ed to the right side of the facial abscess. Then a 15 blade was used to make a 2 cm opening. Thick yellowish material was drainage out of the abscess, the cav ity was explored and any septate where opened using jailene forceps. The abscess w as deep the mandibular bone. Cultures were taken and tissue samples were taken. The cavity was thoroughly irrigate an then a 1/2" iodoform packing was use to pack the wound A dressing was applied and wound care instructions were provided . Faisal tolerated the procedure well and without complications. He will be aler t for any signs of cutaneous infection and will follow up as instructed. Dr. Benson was present for the procedure documented in this encounter Plan of Treatment Date/Time Name Type Priority Associated Diag noses 06/15/2021 1:23 PM CDT CULTURE-TB (AFB) Microbiology Routine SCC (squamous cell carcinoma), face 06/15/2021 1:23 PM CDT CULTURE-FUNGAL,OTHER Microbiology Routine SCC (squa [...] HC LVL IV SRG PTH, GROSS Routine 06/15/2021 SCC ( squamous cell & MICRO 1:23 PM CDT carcinoma), face INCISION AND DRAINAGE Routine 06/15/2021 Facial a bscess (I&D) - HP 1:00 PM CDT documented in this encounter Results * GRAM STAIN (06/15/2021 1:23 PM CDT) Battery Name GRAM STAIN [facility] Report Status FINAL 06/16/2021 [facility] Specimen SWAB RIGHT FACE [facility] Description Special NONE [facility] Requests Gram Stain NO NEUTROPHILS SEEN [facility] Gram Stain NO ORGANISMS SEEN [facility] Specimen Swab - Other (Specify) Performing Organization Address [facility] P josefina Number [facility] [address] [place] [address] * CULTURE-ANAEROBIC (06/15/2021 1:23 PM CDT) Battery Name ANAEROBE CULTURE [facility] Report Status FINAL 06/20/2021 [facility] Specimen SWAB RIGHT FACE [facility] Description Special NONE [facility] Requests Culture NO ANAEROBES ISOLATED [facility] Specimen Swab - Other (Specify) Performing Organization Address [facility] Code P josefina Number [facility] [address] [place] [address] * PATHOLOGY SURGICAL < 5 SPECIMENS (06/15/2021 1:23 PM CDT) PATHOLOGY [email or web address] Department of Pathology and Laboratory Medicine [address] [place] [address] Surgical Pathology Office: [phone] SURGICAL PATHOLOGY REPORT NAME: FAISAL CLAIRE SURG PATH #: [id number] MR #: [id number] SPECIMEN CLASS: SR BILLING #: [id number] ALT ID #: LOCATION: [facility] DATE OF PROCEDURE: 06/15/2021 AGE: 51 SEX: [...] 22C3 pharmDX Cell types evaluated: Tumor cells ############################## ############################## ############ Final Diagnosis: A. Right facial: -- Squamous cell carcinoma, deep margin positive Attestation: By this signature, I attest that I have personally formulated the final interpretation expressed in this report and that the above diagnosis is based upon my examination of the slides and/or other material indicated in this report. +++ +++ hd/06/17/2021 ############################## ############################## ############ Material Received: A: Right facial History: A. SCC Gross Description: A. Received in NB, labeled "right facial skin lesion" is a disrupted 0.8 x 0.7 x 0.7 cm cyst-like structure, friable, trisected, service center representative sections submitted in A1. ([facility]) [facility]/06/16/2021 If immunohistochemical stains and/or in situ hybridization are cited in this report, the performance characteristics were determined by the Department of Pathology and Laboratory Medicine of the [facility] ([employer]) in compliance with CLIA'88 [...] of Pathology and Laboratory Medicine of the [facility]. It has not been cleared or approved by the FDA. The FDA has determined that such clearance or approval is not necessary. Specimen Other (Specify) Performing Organization Address City/State/ZIP Code P josefina Number [facility] [address] [place] [address] * INCISION AND DRAINAGE (I&D) - HP (06/15/2021 1:00 PM CDT) Narrative Performed At Ravinder Heck PA-C 06/15/2021 1:24 PM IN CLINIC Minor Procedure Date of Procedure: 06/15/2021 Pre-op Diagnosis: 1. SCC (squamous cell carcinoma), face PATHOLOGY SURGICAL < 5 SPECIMENS CULTURE-TB (AFB) CULTURE-WOUND/TISSUE/FLUID(AEROBIC ONLY )W/SENSITIVITY CULTURE-FUNGAL,OTHER CULTURE-ANAEROBIC GRAM STAIN 2. Lip mass 3. Facial abscess INCISION AND DRAINA GE (I&D) - HP Procedure: Incision and drainage of rig ht facial abscess Indications: Faisal Claire III is a 51 y.o. male who presents for minor skin surgery. He understands all risks, benefits, indications, potential complications, a nd alternatives, and freely consents to the procedure. He al so understands the option of performing no surgery, the risk for scarring, and the technique of the procedure. Location: [facility] Anesthesia: Local Technique: After informed consent was o btained, and after the skin was prepped with betadine and drap ed, 1% Lidocaine with epinephrine for anesthetic was injected to the right side of the facial abscess. Then a 15 blade was u sed to make a 2 cm opening. Thick yellowish material was drainage o ut of the abscess, the cavity was explored and any septate whe re opened using jailene forceps. The abscess was deep the cipriano bular bone. Cultures were taken and tissue samples were taken. The cavity was thoroughly irrigate an then a 1/2" iodoform packin g was use to pack the wound A dressing was applied and woun d care instructions were provided. Faisal tolerated the procedur e well and without complications. He will be alert for any signs of cutaneous infection and will follow up as instruc tristan. Dr. Benson was present for the procedure Performing Organization Address City/State/ZIP Code P josefina Number IN CLINIC documented in this encounter Visit Diagnoses Diagnosis SCC (squamous cell carcinoma), face - P rimary Squamous cell carcinoma of skin of othe r and unspecified parts of face Lip mass Diseases of lips Facial abscess Cellulitis and abscess of face documented in this encounter Orders First Ordered Date Lab Orders Without Results Count Last Ordere d Date CULTURE-WOUND/TISSUE/FLUID(AEROBIC 1 07/2021 ONLY)W/SENSITIVITY documented in this encounter Additional Health Concerns Assessment Noted Time A fall risk assessment has been completed for the pat ient 05/19/2021 9:00 AM CDT documented as of this encounter
--- OUTSIDE RECORDS SUMMARY | 2021-07-06 04:54 | XMS REPORT | Encounter Summary ---
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
--- OUTSIDE RECORDS SUMMARY | 2021-07-06 04:54 | XMS REPORT | Encounter Summary ---
Author Author [facility] Organization [facility] Address Unknown Phone Unavailable Care Team Providers Care Pump House Operator Name Role Phone Toro Geovanny Tobin GONSALVES PCP Reason for Visit * Reason Onset Date Comments Palliative Care 07/03/2021 Encounter Details Care Team Description Date Type Department Mariaelena Bar coagulation operator 07/03/2021 Telephone Palliative Care: We [address] 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 They wan t to find a doc where they live. I told them if they need a family doctor to ch [place] with family and friends they might have one they really like. She said they are almost out. I explained that we do not have an appt soon and they live in [place] so we cannot see them [place] for the first visit and prescribe opioids. There are no open visits inperson for weeks in palliative care. Plus they cannot drive d own at this time. Also they do not have an active mychart Closing referral documented in this encounter Plan of Treatment [...]
--- OUTSIDE RECORDS SUMMARY | 2021-07-06 04:54 | XMS REPORT | Encounter Summary ---
Author Author [facility] Organization [facility] Address Unknown Phone Unavailable Care Team Providers Care Manager Relationship Name Role Phone Geovanny Engel APRN PCP Reason for Visit * Reason Onset Date Comments Pt Ed 06/17/2021 Encounter Details Care Team Description Date Type Department Sergei Benson MD [address] [place] [address] Pt Ed 06/17/2021 Telephone Plastic Surgery: Ma in [place] [address] [place] [address] [address], [address] [place] [address] Social History Date Tobacco Use Types Packs/Day Years Used Never Smoker Smokeless Tobacco: Chew Current User Comments Alcohol Use Standard Drinks/Week Yes 10 (1 standard drink = 0.6 oz pure alcohol) Sex Assigned at Date Recorded 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 Let hi m know that Tuesday's biopsy shows squamous cell cancer and that my partner Dr. Che brush has left our institution, so I am going to have him evaluated by my colle ague Dr. Schneider. They were appreciative of the update. documented in this encounter Plan of Treatment [...]
--- OUTSIDE RECORDS SUMMARY | 2021-07-06 04:54 | XMS REPORT | Encounter Summary ---
Author Author [facility] Organization [facility] Address Unknown Phone Unavailable Care Team Providers Care Rn Case Manager Hospice Name Role Phone Geovanny Engel APRN PCP Reason for Referral * Radiology Services (Routine) Referred By Contact Referred To Contact Status Reason Specialty Diagnoses / Procedures Segrei Benson MD [address] [place] [address] [address] [facility] [address] [address] [facility]. [address], [address] [place] [address] Authorized Radiology Diagnoses Squamous cell carcinoma, lip P rocedures CT NECK W/CONTRAST Electronically signed by Sergei Benson MD at Encounter Details Care Team Description Date Type Department Sergei Benson MD [address] [place] [address] Squamous cell carcinoma, lip (Primary Dx ) 06/12/2021 Orders Only Plastic Surgery: Ma in [place], [facility] [address] [facility]. 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 Large subcutaneous fluid collectio n involving the superficial right parotid [facility] gland, masseter musculature, and abutti ng the superficial posterior periosteal graft margins, consistent with suspecte d abscess. 2. Previous right oral cavity mass re section, segmental mandibulectomy, and flap reconstruction with interval remov al of surgical hardware. Persistent nonunion and similar osteolysis at the graft margins without obvious new osseous destruction. 3. Cutaneous thinning at the anterior mandibular graft margin. 4. No cervical lymphadenopathy or sof t tissue neck mass. Dr. Aleman and Dr. Scruggs discussed fi ndings via telephone with Ravinder Heck PA-C on 06/15/2021 12:42 PM Approved by Giuliano Aleman M.D. on 06/15/2021 1:07 PM By my electronic signature, I attest th at I have personally reviewed the images for this examination and formulated the interpretations and opinions expressed in this report Finalized by Oscar Scruggs M.D. on 1:12 PM. Dictated by Giuliano Aleman M.D. on 06/15/2021 12:41 PM. Narrative Performed At CT NECK WITH CONTRAST [facility] HISTORY: 51 years old Male, possible fl uid collection TECHNIQUE: CT images of the neck were a cquired with intravenous contrast. COMPARISON: CT neck 2021, MRI s uprahyoid neck May 14, 2012 FINDINGS: INTRACRANIAL STRUCTURES AND ORBITS: Unr emarkable. SINUSES AND MASTOIDS: Grossly well aera tristan. PHARYNGEAL MUCOSA: Normal nasopharynx, oropharynx and hypopharynx. ORAL CAVITY, SALIVARY GLANDS, AND OSSEO US STRUCTURES: Prior composite right oral cavity mass resection with segmental ma ndibulectomy and flap and graft reconstruction. Interval removal of the surgical hardware. Persistent nonunion and similar osteolysis at the graft mar gins. No obvious new osseous destruction. Persistent cutaneous thinning at the an terior graft margins. Large subcutaneous fluid collection involving the superfic ial right parotid gland, masseter musculature, and abutting the superfici al posterior periosteal graft margins measuring 5.3 x 3.7 cm (series 6, image 42). The right submandibular gland is absent. The left parotid and submandibu lar glands are unremarkable. Oral cavity is otherwise unremarkable. Cervical spo ndylosis with at least mild degenerative central spinal stenosis at C5-C6 and mu ltilevel degenerative foraminal stenosis, greatest of severe degree bilaterally a t C5-C6. LARYNX AND TRACHEA: Normal supraglottic , glottic and subglottic larynx. Normal trachea. LYMPH NODES AND SOFT TISSUES: No suspic ious lymph nodes. Diffuse soft tissue edema and retropharyngeal fluid have im proved and/or resolved since the prior exam. THYROID: Normal. VESSELS AND CAROTID SPACE: Partially vi sualized indwelling right PICC. 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 UPPER THORAX: Stable tiny scattered nod ules in the visualized lung apices, described in better detail on recent CT chest. Procedure Note Interface, Radiant Results - 06/15/2021 1:[address] NECK WITH CONTRAST HISTORY: 51 years old Male, possible fluid collection TECHNIQUE: CT images of the neck were acquired with intravenous contrast. COMPARISON: CT neck 2021, MRI suprahyoid neck May 14, 2012 FINDINGS: INTRACRANIAL STRUCTURES AND ORBITS: Unremarkable. SINUSES AND MASTOIDS: Grossly well aerated. PHARYNGEAL MUCOSA: Normal nasopharynx, oropharynx and hypopharynx. ORAL CAVITY, SALIVARY GLANDS, AND OSSEOUS STRUCTURES: Prior composite right oral cavity mass resection with segmental mandibulectomy and flap and graft reconstruction. Interval removal of the surgical hardware. Persistent nonunion and similar osteolysis at the graft margins. No obvious new osseous destruction. Persistent cutaneous thinning at the anterior graft margins. Large subcutaneous fluid collection involving the superficial right parotid gland, masseter musculature, and abutting the superficial posterior periosteal graft margins measuring 5.3 x 3.7 cm (series 6, image 42). The right submandibular gland is absent. The left parotid and submandibular glands are unremarkable. Oral cavity is otherwise unremarkable. Cervical spondylosis with at least mild degenerative central spinal stenosis at C5-C6 and multilevel degenerative foraminal stenosis, greatest of severe degree bilaterally at C5-C6. LARYNX AND TRACHEA: Normal supraglottic, glottic and subglottic larynx. Normal trachea. LYMPH NODES AND SOFT TISSUES: No suspicious lymph nodes. Diffuse soft tissue edema and retropharyngeal fluid have improved and/or resolved since the prior exam. THYROID: Normal. VESSELS AND CAROTID SPACE: Partially visualized indwelling right PICC. Persistent severe stenosis of the mid to upper right internal jugular vein. UPPER THORAX: Stable tiny scattered nodules in the visualized lung apices, described in better detail on recent CT chest. IMPRESSION 1. Large subcutaneous fluid collection involving the superficial right parotid gland, masseter musculature, and abutting the superficial posterior periosteal graft margins, consistent with suspected abscess. 2. Previous right oral cavity mass rese ction, segmental mandibulectomy, and flap reconstruction with interval removal of surgical hardware. Persistent nonunion and similar osteolysis at the graft margins without obvious new osseous destruction. 3. Cutaneous thinning at the anterior m andibular graft margin. 4. No cervical lymphadenopathy or soft tissue neck mass. Dr. Aleman and Dr. Scruggs discussed findings via telephone with Ravinder Heck PA- C on 06/15/2021 12:42 PM Approved by Giuliano Aleman M.D. on 06/15/2021 1:07 PM By my electronic signature, I attest that I have personally reviewed the images for this examination and formulated the interpretations and opinions expressed in this report Finalized by Oscar Srcuggs M.D. on 06/15/2021 1:12 PM. Dictated by Giuliano Aleman M.D. on 06/15/2021 12:41 PM. 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
--- OUTSIDE RECORDS SUMMARY | 2021-07-06 04:54 | XMS REPORT | Encounter Summary ---
Author Author [facility] Organization [facility] Address Unknown Phone Unavailable Care Team Providers Care Clinical Scientist Name Role Phone Geovanny Engel APRN PCP Reason for Visit * Reason Comments Post Operative Visit * Consult, Test & Treat (Routine) Referred By Contact Referred To Contact Status Reason Specialty Diagnoses / Procedures New Request Encounter Details Care Team Description Date Type Department Sergei Benson MD [address] [place] [address] SCC (squamous cell carcinoma), face (Bozena sabrina Dx) 07/01/2021 Office Visit Plastic Surgery: Ma in [place] [address] [place] [address] [address] 3, [address] [place] [address] Social History Date Tobacco Use Types Packs/Day Years Used Never Smoker Smokeless Tobacco: Chew Current User Comments Alcohol Use Standard Drinks/Week Yes 10 (1 standard drink = 0.6 oz pure alcohol) Sex Assigned at Date Recorded 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 documented as of this encounter Last Filed Vital Signs Reading Time Taken Comments Vital Sign 118/85 07/01/2021 1:40 PM CDT Blood Pressure 113 07/01/2021 1:40 PM CDT Pulse - - Temperature - - Respiratory Rate - - Oxygen Saturation - - Inhaled Oxygen Concentration 60.8 kg (134 lb) 07/01/2021 1:40 PM CDT Weight - - Height 20.99 06/15/2021 12:17 PM CDT Body Mass Index documented in this encounter Functional Status Date of Assessment Functional Status Response 05/14/2021 Does the patient have a hearing impairment: Yes documented as of this encounter Ordered Prescriptions Start Date End Date Prescription Sig Dispensed Refills 07/01/2021 07/01/2021 oxyCODONE (ROXICODONE) 5 Take one 20 tablet 0 mg tablet tablet by mouth every 6 hours as needed for Pain documented in this encounter Progress Notes * Sergei Benson MD - 07/01/2021 2:15 PM CDT Subjective: History of Present Illness Sher Carrizales III is a 51 y.o. 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 Review of Systems Constitutional: Negative. HENT: Negative. [...] PE G Tube route three times daily. Iodoform 1 X 5 "-yard bndg Back in the right facial wound twice a day. Tobias eduardo old packing first lidocaine (LIDODERM) 5 % topical patch Apply one patch topically to affected area every 24 hours. Apply patch for 12 hours, then remove for 12 hours before repeating. oxyCODONE (ROXICODONE) 5 mg tablet Take one tablet by mouth every 6 hours as needed for Pain piperacillin/tazobactam (ZOSYN) 3.375 g/15 mL 3.375 g in sodium chloride 0.9 % (NS) 0.9 % 100 mL IVPB (MB+) Administer 3.375 g through vein every 6 hours. polyethylene glycol 3350 (MIRALAX) 17 g packet one packet by Per G Tube rout e daily. vancomycin 1.5 gram solr Administer 1.5 g through vein daily. Vitals: 07/01/21 1340 BP: 118/85 BP Source: Arm, Left Upper Patient Position: Sitting Pulse: 113 Weight: 60.8 kg (134 lb) PainSc: Nine Body mass index is 20.99 kg/m. Physical Exam Large ulcerated mass overlying R parotid. Prior flap reconstruction of left mandible and neck Assessment and Plan: Prior resection and flap reconstruction in 10/[address] Perez Now with recurrent cancer. He is seeing Dr. Schneider today to discuss options for add itional surgical resection and will also be seeing palliative care Offered him a one time prescription for pain management but let him know he will need to work with his primary provider or a pain specialist locally for ongoing pain management He and his were in agreement and appreciative of the recommendations. documented in this encounter Plan of Treatment Not on filedocumented as of this encounter Goals Goal Patient Associated Recent Progress Patient-Stat Aut hor Goal Type Problems ed? Recover from illness Hospital On track (05/14/2021 Yes Sabrina Ruiz, 1:07 AM CDT) RN Note: "To heal and recover and be as healthy as possible, quit chewing tobacco" documented as of this encounter Visit Diagnoses Diagnosis SCC (squamous cell carcinoma), face - P rimary Squamous cell carcinoma of skin of othe r and unspecified parts of face documented in this encounter Discontinued Medications Start Date End Date Medication Sig Discontinue Reason 05/19/2021 07/01/2021 oxyCODONE (ROXICODONE) 5 Take one mg tablet tablet by mouth every 6 hours as needed 05/22/2021 07/01/2021 oxyCODONE (ROXICODONE) 5 Take one mg tablet tablet by mouth every 4 hours as needed documented as of this encounter Additional Health Concerns Assessment Noted Time A fall risk assessment has been completed for the pat ient 05/19/2021 9:00 AM CDT documented as of this encounter
--- OUTSIDE RECORDS SUMMARY | 2021-07-06 04:54 | XMS REPORT | Encounter Summary ---
Author Author [facility] Organization [facility] Address Unknown Phone Unavailable Care Team Providers Care Licensed Nuclear Control Room Operator Name Role Phone Toro Geovanny Tobin GONSALVES PCP Reason for Referral * Radiology Services (Routine) Referred By Contact Referred To Contact Status Reason Specialty Diagnoses / Procedures Sergei Benson MD [address] [place] [address], [address] [place] [phone] Authorized Radiology Diagnoses Squamous cell carcinoma, lip P rocedures CT NECK W/CONTRAST Electronically signed by Sergei Benson MD at Reason for Visit * Radiology Services (Routine) Referred By Contact Referred To Contact Status Reason Specialty Diagnoses / Procedures Sergei Benson MD [address] [place] [id number], [address] [place] [phone] Authorized Radiology Diagnoses Squamous cell carcinoma, lip P rocedures CT NECK W/CONTRAST Encounter Details Care Team Description Date Type Department Sergei Benson MD [address] [place] [address] 06/15/2021 Hospital Imaging, CT: Main C ampus, Encounter [facility] 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 06/15/2021 Iodoform 1 X 5 "-yard Back in the 2 each 0 bndg right facial wound twice a day. Removal old packing first 11/06/2020 lidocaine (LIDODERM) 5 % Apply one 30 patch 0 topical patch patch topically to affected area every 24 hours. Apply patch for 12 hours, then remove for 12 hours before repeating. 05/19/2021 polyethylene glycol 3350 one packet by 30 each 0 (MIRALAX) 17 g packet Per G Tube route daily. 05/22/2021 07/01/2021 oxyCODONE (ROXICODONE) 5 Take one 30 tablet 0 mg tablet tablet by mouth every 4 hours as needed 05/19/2021 07/01/2021 oxyCODONE (ROXICODONE) 5 Take one 25 tablet 0 mg tablet tablet by mouth every 6 hours as needed 05/19/2021 07/01/2021 piperacillin/tazobactam Administer 0 (ZOSYN) 3.375 g/15 mL 3.375 g 3.375 g in sodium through vein chloride 0.9% (NS) 0.9 % every 6 100 mL IVPB (MB+) hours. 06/09/2021 07/01/2021 vancomycin 1.5 gram solr Administer 0 1.5 g through vein daily. documented as of this encounter Discharge Disposition Code Departure Means Destination Disposition Home Home or Self Care documented in this encounter Plan of Treatment Date/Time Name Type Priority Associated Diag noses 06/15/2021 1:23 PM CDT CULTURE-FUNGAL,OTHER Microbiology Routine SCC (squa mous cell carcinoma), face 06/15/2021 1:23 PM CDT CULTURE-TB (AFB) Microbiology Routine SCC (squamous cell carcinoma), face documented [...] Priority Date/Time Associated Diag nosis CULTURE-FUNGAL,OTHER Routine 06/15/2021 SCC (squa mous cell 1:23 PM CDT carcinoma), face GRAM STAIN Routine 06/15/2021 SCC (squamous c ell 1:23 PM CDT carcinoma), face CULTURE-TB (AFB) Routine 06/15/2021 SCC (squamous cell 1:23 PM CDT carcinoma), face CULTURE-WOUND/TISSUE/FLUI 06/15/2021 SCC (squamo us cell D(AEROBIC 1:23 PM CDT carcinoma), face ONLY)W/SENSITIVITY CULTURE-ANAEROBIC Routine 06/15/2021 SCC (squamou s cell 1:23 PM CDT carcinoma), face CT NECK W/CONTRAST Routine 06/15/2021 Squamous ce ll carcinoma, 12:05 PM CDT lip documented in this encounter Results * CULTURE-WOUND/TISSUE/FLUID(AEROBIC ONLY)W/SENSITIVITY (06/15/2021 1:23 PM CDT) Battery Name ROUTINE CULTURE [facility] Report Status FINAL 06/20/2021 [facility] Specimen SWAB RIGHT FACE [facility] Description Special NONE [facility] Requests Direct Gram NO NEUTROPHILS SEEN [facility] Stain Direct Gram NO ORGANISMS SEEN [facility] Stain Culture NO GROWTH 5 DAYS [facility] Specimen Swab Performing Organization Address City/[facility]/ZIP Code P josefina Number [facility] [address] [place] [address] * GRAM STAIN (06/15/2021 1:23 PM CDT) Battery Name GRAM STAIN [facility] Report Status FINAL 06/16/2021 [facility] Specimen SWAB RIGHT FACE [facility] Description Special NONE [facility] Requests Gram Stain NO NEUTROPHILS SEEN [facility] Gram Stain NO ORGANISMS SEEN [facility] Specimen Swab - Other (Specify) Performing Organization Address [facility]/ZIP Code P josefina Number MAIN LAB [address] [place] [address] * CULTURE-ANAEROBIC (06/15/2021 1:23 PM CDT) Battery Name ANAEROBE CULTURE [facility] Report Status FINAL 06/20/2021 [facility] Specimen SWAB RIGHT FACE [facility] Description Special NONE [facility] Requests Culture NO ANAEROBES ISOLATED [facility] Specimen Swab - Other (Specify) Performing Organization Address [facility] Code P josefina Number MAIN LAB [address] [place] [address] * CT NECK W/CONTRAST (06/15/2021 12:05 PM [...] report Finalized by Oscar Scruggs M.D. on 021 1:12 PM. Dictated by Giuliano Aleman M.D. [...] report Finalized by Oscar Scruggs M.D. on 06/15/2021 1:12 PM. Dictated by Giuliano Aleman M.D. on 06/15/2021 12:41 PM. 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 06/15/2021 12:15 PM CDT 50 mL sodium chloride PF 0.9% injection 50 mL Given 50 mL, Intravenous, ONCE, 1 dose, On Mo n 06/15/21 at 1215, Intra-procedure (IR) documented in this encounter Additional Health Concerns Assessment Noted Time A fall risk assessment has been completed for the pat ient 05/19/2021 9:00 AM CDT documented as of this encounter
--- OUTSIDE RECORDS SUMMARY | 2021-07-06 04:54 | XMS REPORT | Encounter Summary ---
Author Author [facility] Organization [facility] Address Unknown Phone Unavailable Care Team Providers Care Email Marketing Processor Name Role Phone Geovanny Engel APRN PCP Reason for Visit * Reason Onset Date Comments Appointment 06/22/2021 Encounter Details Care Team Description Date Type Department Sergei Benson MD [address] [place] [address] Appointment 06/22/2021 Telephone Plastic Surgery: Ma in [place], [facility] [address] [place] [address] [address], [address] [place] [address] Social History Date Tobacco Use Types Packs/Day Years Used Never Smoker Smokeless Tobacco: Chew Current User Comments Alcohol Use Standard Drinks/Week Yes 10 (1 standard drink = 0.6 oz pure alcohol) Sex Assigned at Date Recorded 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 Rescheduled for next Tuesday. She also states Sher hobson not go to get his blood work or antibiotics on Tuesday as he was not feeling we ll. She has questions for ID team as well. Forwarded these on to Kyara Jeffers RN. Patients states they will be at appointment on 07/01. All other questions a nswered. documented in this encounter Plan of Treatment [...]
--- OUTSIDE RECORDS SUMMARY | 2021-07-06 04:54 | XMS REPORT | Encounter Summary ---
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
--- OUTSIDE RECORDS SUMMARY | 2021-07-06 04:54 | XMS REPORT | Encounter Summary ---
Author Author [facility] Organization [facility] Address Unknown Phone Unavailable Care Team Providers Care Assistant Front End Manager Name Role Phone Toro Geovanny Tobin KAURN PCP Reason for Referral * Consult, Test & Treat Referred By Contact Referred To Contact Status Reason Specialty Diagnoses / Procedures Roger Bates MD [address] [facility] Lvl [address] [place] [phone] New Request Specialty Services Diagnoses Required MRSA infection Scheduling Instructions No action needed. OPAT RN will address. Answer Question ID OPAT orders to: - Fax # Referral Comments Infectious Diseases Outpatient Orders: Today's Date: 07/01/[address] Bates, 1. Patient has completed IV antibiotic therapy. 2. PICC was removed in clinic. 3. DC weekly labs. Fax all lab results to [phone] and call ID RN for any Critical lab results during normal business hours. After Hrs: If Labs Outside of Normal Range any time on weekends or holidays please page ID fellow scientific publications editor to [phone]. Electronically signed by Roger Bates MD at Reason for Visit * Reason Comments Infection * Consult, Test & Treat (Routine) Referred By Contact Referred To Contact Status Reason Specialty Diagnoses / Procedures Roger Bates MD [address] [facility] Lvl [address] [place] [phone] New Request Infectious Diseases Encounter Details Care Team Description Date Type Department Roger Bates MD [address] [facility] Lvl [address] [place] [phone] MRSA infection (Primary Dx); Acute osteomyelitis of facial bone (HCC); SCC (squamous cell carcinoma); FDC (current) use of antibiotics 07/01/2021 Office Visit Infectious Diseases : [facility], [address], [address] [address] Social History Date Tobacco Use Types Packs/Day Years Used Never Smoker Smokeless Tobacco: Chew Current User Comments Alcohol Use Standard Drinks/Week Yes 10 (1 standard drink = 0.6 oz pure alcohol) Sex Assigned at Date Recorded 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 documented as of this encounter Functional Status Date of Assessment Functional Status Response 05/14/2021 Does the patient have a hearing impairment: Yes documented as of this encounter Progress Notes * Roger Bates MD - 07/01/2021 2:30 PM CDT Date of Service: 07/01/2021 Subjective: Sher Carrizales III is a 51 y.o. male. History of Present Illness Sher Carrizales III is a 51 y.o. 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 He had / positive lymph nodes and was recomm ended for adjuvant XRT, but was lost to follow up. He presents this admission wi th complaint of right face swelling and redness. Mr Carrizales reports a two week history of facial [...] reports that he was previously seen in [place], [place] in the ED and in urgent [...] showed abscess formation christiano cribed as above. -scheduled for ID of abscess 05/14, unable [...] 15 cm. Cultures: MRSA and Pseudomona aeruginosa Patient was discharged on IV Zosyn + IV Vancomycin He comes today for follow-up Treatment with IV antibiotics has been irregular due to different issues. His wi fe reports to me that he has not received any antibiotics for at least 1 week Review of Systems Local facial discomfort, not severe pain No fever, no constitutional symptoms No N/V/D or abdominal pain Objective: acetaminophen (TYLENOL) 325 mg tablet Take [...] every 6 hours as needed for Pain oxyCODONE (ROXICODONE) 5 mg tablet Take one tablet by mouth every 4 hours as needed for Pain oxyCODONE (ROXICODONE) 5 mg tablet Take one tablet by mouth every 6 hours as needed for Pain polyethylene glycol 3350 (MIRALAX) 17 g packet one packet by Per G Tube rout e daily. There were no vitals filed for this visit. There is no height or weight on file to calculate BMI. Physical Exam General appearance: Awake, alert, cooperative HENT: Large ulcerative facial mass on the right that is fixed to the underlying mandible/flap reconstruction. Parotid Glands: Large mass overlying the parotid with ulceration through the sk in. 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 Trismus, intraorally and at commissure postoperative changes from flap reconst ruction. Eyes: Periorbital swelling of right eye is [...] Lumen 05/15/21 Brachial, Right G tube 10/21/2020 Assessment and Plan: Facial cellulitis Preceptal Cellulitis Right facial abscess Osteomyelitis of anterior osteotomy graft Hardware failure with likely infection Retropharyngeal space Effusion - treated with keflex for "3 days" and Augmentin for "5 days" at [facility] care - CT neck 05/13: [...] 15 cm. Cultures: MRSA and Pseudomona aeruginosa Recurrent/persistent oral cavity SCCa - originally T4aN1 which I would tentative ly stage as a ycT4b lesion based on examination and available imaging. 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 PLAN: After review of the various options including the risks, benefits and alternativ es, Mr. Carrizales has opted to proceed with symptom palliation as part of his ove rall management which I believe is reasonable for his condition. We discussed th e feasibility of salvage surgery which would involve radical resection of the ri ght face, mandible, director of marketing and promotions space and neck. Unfortunately, this has a very lo w likelihood of cure. 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 He has now undergone major [...] oncology to discuss palliative systemic therapy options. R lower lip invasive SCC s/p composite resection and reconstruction 10/2020 -osteocutaneous free fibula flap and radial forearm flap Leukopenia Recommendations: Persistence of infection, given large exposed area, and intermittent use of I V Abx. Patient's discussion with Dr Schneider noted, given recurrence of cancer, and high complexity of surgical procedure he has opted for Palliative care My plan is to discontinue IV Abx today - PICC line was D/C'd by my office kilo se, the procedure was uncomplicated. I will start PO Augmentin to be administered through feeding tube, I will dillon ns on a 3-month course, but I will consider stopping it much sooner according to Palliative Care plans, since treatment would not be curative I will be available for f/u as needed Discussed in detail with patient and his * Kyara Jeffers, CYNDY - 07/01/2021 2:[address] Bates, 1. Patient has completed IV antibiotic therapy. 2. PICC was removed in clinic. 3. DC weekly labs. Orders sent via [employer] Fax to [facility]. Notified Albina [facility] at [facility]. * Rea Barajas RN - 07/01/2021 2:30 PM CDT Removed double lumen PICC from right basilic per doctor's order. Insertion site was dry, clean and intact. Catheter tip intact. No bleeding noted. Patient karen ated procedure well. Pressure dressing placed and instructed pt to leave dressin g for 24 hours. Instructed to limit the amount of weight lifted with that arm to 5-7lbs for a couple of days. Pt demonstrated understanding and had no further q uestions. Rea Barajas RN documented in this encounter Plan of Treatment Order Schedule Name Type Priority Associated Diag noses Ordered: 07/01/2021 AMB REFERRAL TO HOME CARE Outpatient Routine MRSA infection Referral documented as of this encounter Goals Goal Patient Associated Recent Progress Patient-Stat Aut hor Goal Type Problems ed? Recover from illness Hospital On track (05/14/2021 Yes Radha Ruiz, 1:07 AM CDT) RN Note: "To heal and recover and be as healthy as possible, quit chewing tobacco" documented as of this encounter Visit Diagnoses Diagnosis MRSA infection - Primary Methicillin resistant Staphylococcus au reus in conditions classified elsewhere and of unspecified site Acute osteomyelitis of facial bone (HCC ) Acute osteomyelitis, other specified si te SCC (squamous cell carcinoma) Squamous cell carcinoma of skin, site u nspecified FDC (current) use of antibiotics documented in this encounter Discontinued Medications Start Date End Date Medication Sig Discontinue Reason 05/19/2021 07/01/2021 piperacillin/tazobactam Administer Therapy (ZOSYN) 3.375 g/15 mL 3.375 g completed 3.375 g in sodium through vein chloride 0.9% (NS) 0.9 % every 6 100 mL IVPB (MB+) hours. 06/09/2021 07/01/2021 vancomycin 1.5 gram solr Administer Therapy 1.5 g completed through vein daily. documented as of this encounter Additional Health Concerns Assessment Noted Time A fall risk assessment has been completed for the pat ient 05/19/2021 9:00 AM CDT documented as of this encounter
--- OUTSIDE RECORDS SUMMARY | 2021-07-06 04:54 | XMS REPORT | Encounter Summary ---
Author Author [facility] Organization [facility] Address Unknown Phone Unavailable Care Team Providers Care Glass Edger Name Role Phone Geovanny Engel APRN PCP Reason for Referral * Consult, Test & Treat Referred By Contact Referred To Contact Status Reason Specialty Diagnoses / Procedures Rogre Bates MD [address] [facility] Lvl [address] [place] [phone] New Request Specialty Services Diagnoses Required Cellulitis, face Facial abscess MRSA infection Pseudomonas aeruginosa infection Receiving intravenous antibiotic treatment at home Scheduling Instructions No action needed. OPAT RN will address. Answer Question ID OPAT orders to: - Fax # Referral Comments Infectious Diseases Outpatient Orders: Today's Date: 06/23/[address] Bates, 1. Administer alteplase 2mg IV to occluded PICC PRN, starting at patient's next visit. (I left a message for the patient to call). 2. Continue weekly CBC&DIFF, CMP, Vancomycin troughs. Fax results to [phone]. 3. Call Kyara Infectious Diseases RN at [phone] with any questions or concerns. Fax all lab results to [phone] and call ID RN for any Critical lab results during normal business hours. After Hrs: If Labs Outside of Normal Range any time on weekends or holidays please page ID fellow underwriter solicitation director to [phone]. Electronically signed by Roger Bates MD at Encounter Details Care Team Description Date Type Department Roger Bates MD [address] [facility] Lvl [address] [place] [phone] 06/23/2021 Outpt. Infectious Diseases : [facility] Therapy [address] [facility]. 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 She reports patient did not miss any doses of his antibiotic th is weekend, but now, has not infused since yesterday. Informed her we sent order s to the infusion clinic and she can call to arrange for the line evaluation and alteplase treatment. Discussed again timing of lab draws vs dose administration times. Reiterated to her labs have to be drawn 1 hour prior to vancomycin administration. She states she spoke to a nurse or doctor and explained they do the antibiotics at night because Sher gets "grumpy and in a bad mood" with the vancomycin, and its better tolerated at night. Informed her we have not received 1 true trough throughout his treatment, and is very important to follow this closely, especial ly now that his kidney function is trending up. She states she has an infusion c enter appt for lab draw on 06/26/21 at 2pm, instructed to then give vancomycin at 3pm every day, and go to the lab at 2pm (and not give the dose until after lab draw). Jing then started talking about Sher's pain at night and requested pain med ications from Dr. Bates. She states he has a recent cancer diagnosis and is sti ll not sure what is going to happen and does not have a "reliable" local doctor. Informed her ID does not prescribe pain medications, they should follow up as [place] with Dr. Benson's office to discuss further treatment plans or referrals, b ut he needs to get in or establish with a general practitioner that can handle h is pain medications appropriately. Encouraged her to call the infusion center today before they close to arrange an appointment for alteplase tomorrow, she states she will do it. * Kyara Chakraborty RN - 06/23/2021 9:53 AM CDT Donna [facility] at [facility] reported patient missed vancomycin dosing over the weekend as they were not able to reach him for delivery. Informed her we need to contin ue until follow up. Jing, pt's left a message stating one of the lumen's is not working. [facility] appointment was rescheduled to 07/01/21 as they could not make it this week due to transportation issues. Left a message for Jing to call us to discuss dosing, and PICC issues. Discussed with CYNDY Severino at [facility] infusion [facility]. Pt's reported she d id administer the vancomycin throughout the weekend, only on 06/21/21 at 4am, she gave a 1g dose they had from previous delivery as they had ran out. She reported the line not flushing for a couple days, but has been using [address] both abx. Per Mere, purple lumen is clogged, and red is now sluggish. They had given direc t instructions to show up for vanco trough today at 7am, but patient showed up u ntil 9:10am despite nurse calling them this morning. Pt did NOT infuse prior to lab draw. Dr. Bates notified of situation, and increase in creatinine. He would like to c ontinue current doses. Per Dr. Bates, 1. Administer alteplase 2mg IV to occluded PICC PRN, starting at patient's next visit. (I left a message for the patient to call). 2. Continue weekly CBC&DIFF, CMP, Vancomycin troughs. Fax results to [phone]. 3. Call Kyara Infectious Diseases RN at [phone] with any questions or conc erns. Orders sent via [employer] Fax to [facility]. Updated Donna SHRESTHA at [facility]. documented in this encounter Miscellaneous Notes * Addendum Note - Kyara Chakraborty RN - 06/23/2021 9:53 AM CDT Addended by: KYARA CHAKRABORTY on: 06/23/2021 12:17 PM Modules accepted: Orders * Addendum Note - Saida Ivory - 06/23/2021 9:53 AM CDT Addended by: SAIDA IVORY on: 06/23/2021 11:40 AM Modules accepted: Orders documented in this encounter Plan of Treatment Order Schedule Name Type Priority Associated Diag noses Ordered: 06/23/2021 AMB REFERRAL TO HOME CARE Outpatient Routine [...] Procedure Name Priority Date/Time Associated Diag nosis VANCOMYCIN TROUGH Routine 06/23/2021 Cellulitis, face 9:15 AM CDT Facial abscess MRSA infection Pseudomonas aeruginosa infection Receiving intravenous antibiotic treatment at home CBC AND DIFF Routine 06/22/2021 Cellulitis, fac e 3:50 PM CDT Facial abscess MRSA infection Pseudomonas aeruginosa infection Receiving intravenous antibiotic treatment at home VANCOMYCIN TROUGH Routine 06/22/2021 Cellulitis, face 3:50 PM CDT Facial abscess MRSA infection Pseudomonas aeruginosa infection Receiving intravenous antibiotic treatment at home COMPREHENSIVE METABOLIC Routine 06/22/2021 Cellul itis, face PANEL 3:50 PM CDT Facial abscess MRSA infection Pseudomonas aeruginosa infection Receiving intravenous antibiotic treatment at home documented in this encounter Results * VANCOMYCIN TROUGH (06/23/2021 9:15 AM CDT) Pathologist [facility] Vancomycin 16.1 OTHER OUTSIDE Trough LAB Specimen Blood, venous - Blood Narrative Performed At This result has an attachment that is n ot available. Performing Organization Address City/State/ZIP Code P josefina Number OTHER OUTSIDE LAB * VANCOMYCIN TROUGH (06/22/2021 3:50 PM CDT) [facility] Vancomycin 29.2 OTHER OUTSIDE Trough LAB Specimen Blood, venous - Blood Performing Organization Address City/[facility]/ZIP [facility] [place] Number OTHER OUTSIDE LAB * COMPREHENSIVE METABOLIC PANEL (06/22/2021 3:50 PM CDT) [facility] Sodium OTHER OUTSIDE LAB Potassium 3.9 OTHER OUTSIDE LAB Chloride OTHER OUTSIDE LAB CO2 OTHER OUTSIDE LAB Blood Urea 12 OTHER OUTSIDE Nitrogen LAB Creatinine 1.47 OTHER OUTSIDE LAB Glucose OTHER OUTSIDE LAB Calcium OTHER OUTSIDE LAB Total Protein OTHER OUTSIDE LAB Total Bilirubin OTHER OUTSIDE LAB Albumin OTHER OUTSIDE LAB Alk Phosphatase 85 OTHER OUTSIDE LAB AST (SGOT) 19 OTHER OUTSIDE LAB ALT (SGPT) 27 OTHER OUTSIDE LAB eGFR Non OTHER OUTSIDE LAB [place] eGFR OTHER OUTSIDE [place] LAB Anion Gap OTHER OUTSIDE LAB Specimen Blood - Blood Performing Organization Address City/[facility]/ZIP Code P josefina Number OTHER OUTSIDE LAB * CBC AND DIFF (06/22/2021 3:50 PM CDT) [facility] White Blood 3.4 OTHER OUTSIDE Cells LAB RBC OTHER OUTSIDE LAB Hemoglobin 9.7 OTHER OUTSIDE LAB Hematocrit OTHER OUTSIDE LAB MCV OTHER OUTSIDE LAB MCH OTHER OUTSIDE LAB [facility] OTHER OUTSIDE LAB Platelet Count 243 OTHER OUTSIDE LAB MPV OTHER OUTSIDE LAB [...]
--- OUTSIDE RECORDS SUMMARY | 2021-07-06 04:54 | XMS REPORT | Encounter Summary ---
Author Author [facility] Organization [facility] Address Unknown Phone Unavailable Care Team Providers Care Dealer Development Manager Name Role Phone Geovanny Engel APRN PCP Reason for Visit * Reason Onset Date Comments Pain 06/24/2021 Encounter Details Care Team Description Date Type Department Sanchez Lucas MD [address] [place] [address] Pain 06/24/2021 Telephone Otolaryngology: Heather n [address] [place] [address] Social History Date Tobacco Use Types Packs/Day Years Used Never Smoker Smokeless Tobacco: Chew Current User Comments Alcohol Use Standard Drinks/Week Yes 10 (1 standard drink = 0.6 oz pure alcohol) Sex Assigned at Date Recorded Male 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 Patient has an upcoming appointment with Dr. Schneider on 07/01/2021 for evaluation of above. Having significant pain along mandib le, which may be related to recent I&D performed in Dr. Benson's office on 06/15/2021. Told patient that I would prescribe few pain pills to help him deal with pain until their visit with Dr. Schneider. documented in this encounter Plan of Treatment [...]
--- OUTSIDE RECORDS SUMMARY | 2021-07-06 04:54 | XMS REPORT | Clinical Summary ---
Author Author [facility] Organization [facility] Address Unknown Phone Unavailable Care Team Providers Care Billing Coordinator Name Role Phone Geovanny Engel APRN PCP Source Comments Some departments are not documenting in the electronic medical record. If you d o not see the information that you expected, contact Release of Information in [facility] [email or web address] Information Management department at [phone] for further assistan ce in locating additional records.[facility] Allergies Comments Active Allergy Reactions Severity Noted Date Ibuprofen SWOLLEN High 09/08/2020 TONGUE Medications End Date Status Medication Sig Dispensed Refills Start Date Active glycopyrrolate (ROBINUL) 5 mL by PEG 473 mL 0 1 1 mg/5 mL (0.2 mg/mL) Tube route 0 soln oral solution three times daily. Active lidocaine (LIDODERM) 5 % Apply one 30 patch 0 1 topical patch patch 0 topically to affected area every 24 hours. Apply patch for 12 hours, then remove for 12 hours before repeating. Active acetaminophen (TYLENOL) Take two 0 325 mg tablet tablets by 1 mouth every 6 hours as needed. Active bacitracin 500 unit/g Apply to the 28 g 0 topical ointment incision site 1 after cleaning twice a day Active aspirin EC 81 mg tablet Take 81 mg by 0 mouth daily. Take with food. Active polyethylene glycol 3350 one packet by 30 each 0 (MIRALAX) 17 g packet Per G Tube 1 route daily. Active Iodoform 1 X 5 "-yard Back in the 2 each 0 08/ bndg right facial 1 wound twice a day. Removal old packing first Active oxyCODONE (ROXICODONE) 5 Take one 10 tablet 0 0 mg tablet tablet by 1 mouth every 6 hours as needed for Pain Active oxyCODONE (ROXICODONE) 5 Take one 50 tablet 0 0 8/25/202 mg tablet tablet by 1 mouth every 6 hours as needed for Pain Active oxyCODONE (ROXICODONE) 5 Take one 50 tablet 0 0 8/25/202 mg tablet tablet by 1 mouth every 4 hours as needed for Pain 07/01/2021 Discontinued oxyCODONE (ROXICODONE) 5 Take one 25 tablet 0 0 7/13/202 mg tablet tablet by 1 mouth every 6 hours as needed 07/01/2021 Discontinued (Therapy comple tristan) piperacillin/tazobactam Administer 0 (ZOSYN) 3.375 g/15 mL 3.375 g 1 3.375 g in sodium through vein chloride 0.9% (NS) 0.9 % every 6 100 mL IVPB (MB+) hours. 06/08/2021 Discontinued (Dose adjustmen t) vancomycin (VANCOCIN) Administer 0 05/19/20 2 1000 mg/20 mL 1,000 mg in one thousand 1 dextrose 5% (D5W) 250 mL mg through IVPB ([id number]) vein every 12 hours. 07/01/2021 Discontinued oxyCODONE (ROXICODONE) 5 Take one 30 tablet 0 0 7/16/202 mg tablet tablet by 1 mouth every 4 hours as needed 07/01/2021 Discontinued (Therapy comple tristan) vancomycin 1.5 gram solr Administer 0 06/09 1.5 g through 1 vein daily. 06/15/2021 Discontinued (Reorder) Iodoform 1 X 5 "-yard Back in the 2 each 0 bndg right facial 1 wound twice a day. 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 from 06/08: Stage IVB (ycT4b, cN0, cM0) - Signed by Trev Schneider MD on 021 Alcohol abuse Postoperative anemia due to acute blood loss Resolved Problems Problem Noted Date Resolved Date Hyponatremia 10/23/2020 10/24/2020 Encounters Care Team Description Date Type Specialty Mariaelena Bar RN Palliative Care 07/03/2021 Telephone Palliative Care Roger Bates MD MRSA infection (Primary Dx); Acute osteomyelitis of facial bone (HCC); SCC (squamous cell carcinoma); custodial (current) use of antibiotics 07/01/2021 Office Visit Infectious Diseases Trev Shcneider MD Head and neck cancer (HCC) (Primary Dx); Squamous cell carcinoma, lip 07/01/2021 Office Visit Otolaryngology Eric Benson MD SCC (squamous cell carcinoma), face ([facility] radha Dx) 07/01/2021 Office Visit Plastic Surgery 07/01/2021 Travel Roger Bates MD Outpatient Antibiotic Therapy (Opat) 07/01/2021 Telephone Infectious Diseases Sanchez Lucas MD Pain 06/24/2021 Telephone Otolaryngology Roger Bates MD 06/23/2021 Outpt. Infectious Diseases Antibiotic Therapy Anil Saravia, Critical Result 06/22/2021 Telephone Infectious Diseases Eric Benson MD Appointment 06/22/2021 Telephone Plastic Surgery Eric Benson MD Pt Ed 06/17/2021 Telephone Plastic Surgery Eric Benson MD SCC (squamous cell carcinoma), face ([facility] radha Dx); Lip mass; Facial abscess 06/15/2021 Office Visit Plastic Eric Flores MD 06/15/2021 Hospital Radiology Encounter Eric Benson MD 06/15/2021 Orders Only Plastic Surgery 06/15/2021 Hospital Encounter 06/15/2021 Travel Eric Benson MD Other 06/12/2021 Telephone Plastic Eric Flores MD Squamous cell carcinoma, lip (Primary Dx [...] ANNED performed by Eric Benson MD at [facility] OR TOOTH EXTRACTION 10/21/2020 Mouth/N/A EXTRACTION TO OTH performed by Eric Benson MD at [facility] OR GASTROSTOMY TUBE 10/21/2020 Abdomen/N/A ESOPHAGOGASTR ODUODENOSCOPY WITH PLACEMENT PLACEMENT PERCUTANEOUS GASTROSTOMY TU BE performed by Oscar Batista Jr., MD at [facility] OR GASTROSTOMY TUBE 10/21/2020 PLACEMENT TUMOR EXCISION 10/23/2020 Face/Right RADICAL RESECTI ON TUMOR SOFT TISSUE 2.0 CM OR MORE - FACE/ SCALP performed by Eric Benson MD at [facility] OR Medical devices from this surgery are i n the Implants section. TISSUE TRANSFER 10/23/2020 Face/Right TISSUE TRANSFE R FREE SKIN FLAP WITH MICROVASCULAR ANASTOMOSIS performed by Eric Benson MD at [facility] OR Medical devices from this surgery are i n the Implants section. SKIN GRAFT 10/23/2020 Leg Upper/Left SPLIT THICKNESS SKIN AUTOGRAFT 100 SQ CM OR LESS OR 1% BODY AREA OF CHILD- UPPER EXTREMI TY performed by Erci Benson MD at [facility] OR Medical devices from this surgery are i n the Implants section. LYMPHADENECTOMY 10/23/2020 Neck/Right CERVICAL LYMPH ADENECTOMY performed by Eric Benson MD at [facility] OR Medical devices from this surgery are i n the Implants section. NECK SURGERY 10/23/2020 Mouth/N/A GLOSSECTOMY COM POSITE WITHOUT RADIAL NECK DISSECTION performed by Eric Benson M D at [facility] OR Medical devices from this surgery are i n the Implants section. TISSUE TRANSFER 10/23/2020 Face/Right TISSUE TRANSFE R FREE OSTEOCUTANEOUS FLAP WITH MICROVASCULAR ANASTOMOSIS performed by Eric Benson MD at [facility] OR Medical devices from this surgery are i n the Implants section. HARDWARE REMOVAL 05/15/2021 Face/Right REMOVAL HARDW ARE -DEEP MANDIBLE performed by Eric Benson MD at [facility] OR Medical devices from this surgery are i n the Implants section. EXCISION BONE 05/15/2021 Face/Right EXCISION BONE - MANDIBLE performed by Eric Benson MD at [facility] OR Medical devices from this surgery are i n the Implants section. WOUND REPAIR 05/15/2021 Face/Right REPAIR COMPLEX WOUND 2.6 CM TO 7.5 CM - HEAD/ NECK performed by Eric Benosn MD at [facility] OR Medical devices from this surgery are i n the Implants section. WOUND REPAIR 05/15/2021 Face/Right REPAIR COMPLEX WOUND EACH ADDITIONAL 5 CM OR LESS- HEAD/ NECK performed by Eric Benson M D at [facility] OR Medical devices from this surgery are i n the Implants section. 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 Last Filed Vital Signs Reading Time Taken Comments Vital Sign 115/77 07/01/2021 3:20 PM CDT Blood Pressure 93 07/01/2021 3:20 PM CDT Pulse 36.6 C (97.9 F) 05/19/2021 8:14 AM CDT Temperature - - Respiratory Rate 99% 05/19/2021 8:14 AM CDT Oxygen Saturation - - Inhaled Oxygen Concentration 60.8 kg (134 lb) 07/01/2021 3:20 PM CDT Weight 170.2 cm (5' 7") 07/01/2021 3:20 PM CDT Height 20.99 07/01/2021 3:20 PM CDT Body Mass Index Plan of [...] ot Implanted Type Area Manufactur er 2025 [id number] / [id number] / [id number] [employer] Anastomosis 4mm [place] Right: Mandible [employer]NOVIS Microvascular Sterile Disposable - MICRO [id number] Implanted: Qty: 1 on 10/23/2020 by Eric Harper MD at [facility] [id number] / [id number] / [id number] [employer] Anastomosis 2mm [place] Right: Mandible [employer]NOVIS Microvascular Sterile Disposable - MICRO [id number] Implanted: Qty: 1 on 10/23/2020 by Eric Harper MD at [facility] 07/07/2025 [id number] / [id number] / [id number] Online [employer] Anastomosis 3.5mm [place] Mandible SYNOVIS Microvascular Sterile - MICRO [id number] COMPNY Implanted: Qty: 1 on 10/23/2020 by Eric Harper MD at [facility] Device Identifier Shelf Expiration Date Model / Serial / L ot Explanted Type Area Manufactur er [id number] / [id number] / [id number] Mandible Implant Right: Mandible MEETA DELORIS Implanted: Qty: 1 on 10/23/2020 by Eric Meyer MD at [facility] Explanted: Qty: 1 on 05/15/2021 at [facility] / / Screw Titanium 7mm 2mm Taper Right: Mandible [employer] Oralmaxillofacial Self - LP Implanted: Qty: 3 on 10/23/2020 by Eric Benson MD at [facility] Explanted: Qty: 3 on 05/15/2021 by Eric Benson MD at [facility] / / Screw Titanium 9mm 2mm Taper Right: Mandible [employer] Oralmaxillofacial Self - LP [id number] Implanted: Qty: 3 on 10/23/2020 by Eric Benson MD at [facility] Explanted: Qty: 3 on 05/15/2021 by Eric Benson MD at [facility] / / Screw Titanium 11mm 2mm Taper Right: Mandible [employer] Oralmaxillofacial Self - LP [id number] Implanted: Qty: 1 on 10/23/2020 by Eric Benson MD at [facility] Explanted: Qty: 1 on 05/15/2021 by Eric Benson MD at [facility] / / Screw Titanium 13mm 2mm Taper Right: Mandible [employer] Oralmaxillofacial Self - LP [id number] Implanted: Qty: 2 on 10/23/2020 by Eric Benson MD at [facility] Explanted: Qty: 2 on 05/15/2021 by Eric Benson MD at [facility] Procedures Comments Procedure Name Priority Date/Time [...] Receiving intravenous antibiotic treatment at home HC LVL IV SRG PTH, GROSS Routine 06/15/2021 SCC ( squamous cell & MICRO 1:23 PM CDT carcinoma), face CULTURE-WOUND/TISSUE/FLUI 06/15/2021 SCC (squamo us cell D(AEROBIC 1:23 PM CDT carcinoma), face ONLY)W/SENSITIVITY GRAM STAIN Routine 06/15/2021 SCC (squamous c ell 1:23 PM CDT carcinoma), face CULTURE-TB (AFB) Routine 06/15/2021 SCC (squamous cell 1:23 PM CDT carcinoma), face CULTURE-FUNGAL,OTHER Routine 06/15/2021 SCC (squa mous cell 1:23 PM CDT carcinoma), face CULTURE-ANAEROBIC Routine 06/15/2021 SCC (squamou s cell 1:23 PM CDT carcinoma), face INCISION AND DRAINAGE Routine 06/15/2021 Facial a bscess (I&D) - HP 1:[address] NECK W/CONTRAST Routine 06/15/2021 Squamous ce ll carcinoma, 12:05 PM CDT lip COMPREHENSIVE METABOLIC Routine 06/12/2021 Cellul itis, face [...] CDT from Last 3 Months Results * VANCOMYCIN TROUGH (06/23/2021 9:15 AM CDT) Only the most recent of 6 results within the time period is included. Vancomycin 16.1 OTHER OUTSIDE Trough LAB Specimen Blood, venous - Blood Narrative Performed At This result has an attachment that is n ot available. Performing Organization Address City/State/ZIP Code P j[place] Number OTHER OUTSIDE LAB * CBC AND DIFF (06/22/2021 3:50 PM CDT) Only the most recent of 11 results within the time period is included. White Blood 3.4 OTHER OUTSIDE Cells LAB [...] COMPREHENSIVE METABOLIC PANEL (06/22/2021 3:50 PM CDT) Only the most recent of 10 results within the time period is included. Sodium OTHER OUTSIDE LAB Potassium 3.9 OTHER [...] OUTSIDE LAB eGFR Non OTHER OUTSIDE LAB [place] eGFR OTHER OUTSIDE [place] LAB Anion Gap OTHER OUTSIDE LAB Specimen Blood - Blood Performing Organization Address City/State/ZIP Code P [place] Number OTHER OUTSIDE LAB * PATHOLOGY SURGICAL < 5 SPECIMENS (06/15/2021 1:23 PM CDT) Only the most recent of 2 results within the time period is included. PATHOLOGY [facility] [place] [facility] [email or web address] Department of Pathology and Laboratory Medicine [address] [place] [address] Surgical Pathology Office: [phone] SURGICAL PATHOLOGY REPORT NAME: FAISAL CLAIRE. SURG PATH #: [id number] MR #: [id number] SPECIMEN CLASS: SR BILLING #: [id number] ALT ID #: [facility] DATE OF PROCEDURE: 06/15/2021 AGE: 51 SEX: [...] A. SCC Gross Description: A. Received in [facility], labeled "right facial skin lesion" is a disrupted 0.8 x 0.7 x 0.7 cm cyst-like structure, friable, trisected, manufacturer's service representative sections submitted in A1. (wlm) wlm/06/16/2021 If immunohistochemical stains and/or in situ hybridization are cited in this report, the performance characteristics were determined by the Department of Pathology and Laboratory Medicine of the [facility] ([employer]) in compliance with [...] of Pathology and Laboratory Medicine of the [facility]. It has not been cleared or approved by the FDA. The FDA has determined that such clearance or approval is not necessary. Specimen Other (Specify) Performing Organization Address City/[facility]/ZIP Code P josefina Number [facility] [address] [place] [address] * GRAM STAIN (06/15/2021 1:23 PM CDT) Only the most recent of 6 results within the time period is included. Battery Name GRAM STAIN [facility] Report Status FINAL 06/16/2021 [facility] Specimen SWAB RIGHT FACE [facility] Description Special NONE [facility] Requests Gram Stain NO NEUTROPHILS SEEN [facility] Gram Stain NO ORGANISMS SEEN [facility] Specimen Swab - Other (Specify) Performing Organization Address City/[facility]/ZIP Code P j[place]fina Number [facility] [address] [place] [address] * CULTURE-WOUND/TISSUE/FLUID(AEROBIC ONLY)W/SENSITIVITY (06/15/2021 1:23 PM CDT) Only the most recent of 6 results within the time period is included. [...] MAIN LAB Specimen Swab Performing Organization Address City/[facility]/ZIP Code P josefina Number [facility] [address] [place] [address] * CULTURE-ANAEROBIC (06/15/2021 1:23 PM CDT) Only the most recent of 6 results within the time period is included. Battery Name ANAEROBE CULTURE [facility] Report Status FINAL 06/20/2021 [facility] Specimen SWAB RIGHT FACE [facility] Description Special NONE MAIN LAB Requests Culture NO ANAEROBES ISOLATED [facility] Specimen Swab - Other (Specify) Performing Organization Address City/State/ZIP Code P j[place]fina Number MAIN LAB [address] [place] [address] * INCISION AND DRAINAGE (I&D) - HP [...] and the technique of the procedure. Location: [facility] Anesthesia: Local Technique: After informed consent was [...] City/State/ZIP Code P j[place] Number IN CLINIC * CT NECK W/CONTRAST (06/15/2021 12:05 PM CDT) Only the most recent of 2 results within the time period is included. Specimen Impressions Performed At 1. Large subcutaneous [...] P j[place]fina Number [facility] RAD RESULTS * VANCOMYCIN 2HR POST DOSE (05/15/2021 3:44 PM CDT) Vancomycin 2HR 22.2 ug/mL [facility] POST Dose Specimen Blood Performing Organization Address City/State/ZIP Code P j[place]fina Number [facility] [address] [place] [address] * CULTURE-FUNGAL,OTHER (05/15/2021 2:19 PM CDT) Only the most recent of 5 results within the time period is included. Battery Name FUNGUS CULTURE [facility] Report Status FINAL 06/15/2021 [facility] Specimen BONE SPECIMEN MANDIBLE RIGHT [facility] Description POSTERIOR Special NONE [facility] Requests Culture NO GROWTH OF FUNGUS AT 4 WEEKS [facility] Specimen Tissue - Mandible Performing Organization Address City/State/ZIP Code P j[place]fina Number [facility] [address] [place] [address] * SURGICAL PATHOLOGY (05/15/2021 2:12 PM CDT) PATHOLOGY [email or web address] Department of Pathology and Laboratory Medicine [address] [place] [address] Surgical Pathology Office: [phone] SURGICAL PATHOLOGY REPORT NAME: FAISAL CLAIRE SURG PATH #: [id number] MR #: [id number] SPECIMEN CLASS: SR BILLING #: [id number] ALT ID #: LOCATION: DISCHARGED DATE OF [...] fast and fungal organisms. Pursuant to the Market Research Manager Program at the [facility] Pathology Department, selected slides from this [...] being submitted entirely in cassette C1. (valerie) /05/15/2021 Specimen Tissue - Face Tissue - Mandible Tissue - Mandible Performing Organization Address City/State/ZIP Code P j[place] Number MAIN LAB [address] [place] [address] * MRI ORBIT FACE AND/OR NECK WO/W CONT (05/14/2021 11:02 PM CDT) Specimen Impressions Performed At 1. Significantly degraded examination by motion. [facility] RAD RESULTS 2. Grossly unchanged findings of kirby a and abnormal enhancement at the anterior mandibulectomy margin involvin g the beaver parasymphysis and anterior graft, suspicious for osteomyelitis. [...] yperintensity through the center of the lower [id number]. Right mandibular segmental resection an d hardware reconstruction and right oral cavity mass resection and soft tissue f lap reconstruction are redemonstrated with hardware exposure anteriorly appea ring grossly similar. There are findings of abnormal T2 hyperintensity and likel y enhancement at the anterior osteotomy graft and beaver parasymphysis margins with overlying soft tissue edema [...] hyperintensity through the center of the lower [id number]. Right mandibular segmental resection and hardware reconstruction and right oral cavity mass resection and soft tissue flap reconstruction are redemonstrated with hardware exposure anteriorly appearing grossly similar. There are findings of abnormal T2 hyperintensity and likely enhancement at the anterior osteotomy graft and beaver parasymphysis margins with overlying soft tissue edema [...] at the anterior mandibulectomy margin involving the beaver parasymphysis and anterior graft, suspicious for osteomyelitis. [...] appreciable drainable fluid and intolerable patient pain. Bryant, Naren Delgadillo M.D, the attending radi ologist, was present for the critical and smith portions of the procedure with a ri dlevel, resident, and/or fellow participating. Overlapping portions [...] is made with a CT scan of e chest of 2021. Kidneys are normal in [...] FOUND [facility] ABO/RH(D) A POS MAIN LAB Antibody Screen NEG MAIN LAB Electronic YES MAIN LAB Crossmatch Specimen Cervix Performing Organization Address City/[facility]/ZIP Code P josefina Number [facility] [address] [place] [address] * PHOSPHORUS (2021 8:28 PM CDT) Phosphorus 3.4 2.0 - 4.5 MG/DL [facility] Specimen Performing Organization Address [facility] Code P josefina Number [facility] [address] [place] [address] * MAGNESIUM (2021 8:28 PM CDT) Magnesium 1.8 1.6 - 2.6 mg/dL [facility] Specimen Performing Organization Address [facility] Code P josefina Number [facility] [address] [place] [address] * LACTIC ACID(LACTATE) (2021 8:28 PM CDT) Lactic Acid 1.7 0.5 - 2.0 MMOL/L [facility] Specimen Performing Organization Address [facility] Code P josefina Number MAIN LAB [address] [place] [address] * CT CHEST W CONTRAST (2021 3:58 PM CDT) Specimen Impressions Performed At 1. Several tiny pulmonary nodules rem ain unchanged and likely represent scars [facility] RESULTS or granulomas. No new or enlarging pulm onary nodules are appreciated. An additional follow-up chest CT in 6-12 m [facility] is suggested to assess for long-term stability. [...] Organization Address City/State/ZIP Code P josefina Number RAD RESULTS * CULTURE-TB (AFB) (2021 3:45 PM CDT) Battery Name AFB CULTURE [facility] Report Status FINAL 06/29/2021 MAIN LAB Specimen TISSUE FACE RIGHT MAIN LAB Description Special NONE MAIN LAB Requests Culture NO GROWTH OF MYCOBACTERIA AT 6 [facility] N [facility] WEEKS Specimen Tissue Performing Organization Address City/State/ZIP Code P josefina Number MAIN LAB [address] [place] [address] * TELEMETRY STRIPS-SCAN (2021 12:00 AM CDT) [...] Plan / Dates Group AETNA MEDICAID AETNA [id number] 2018-P [facility] Advance Directives Patient Supplemental Manager Explanation Type Date Recorded Advance 2021 7:26 [...]
--- OUTSIDE RECORDS SUMMARY | 2021-07-06 04:54 | XMS REPORT | Encounter Summary ---
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
--- OUTSIDE RECORDS SUMMARY | 2021-07-06 04:55 | XMS REPORT | Encounter Summary ---
Author Author [facility] Organization [facility] Address Unknown Phone Unavailable Care Team Providers Care Fourdrinier Tender Name Role Phone Geovanny Engel APRN PCP Reason for Referral * Consult, Test & Treat Referred By Contact Referred To Contact Status Reason Specialty Diagnoses / Procedures Roger Bates MD [address] [facility] [address] [place] [id number] [facility]) [address] [place] [id number] New Request Specialty Services Diagnoses Required Cellulitis, [...] 2. Call Kyara Infectious Diseases RN at [phone] with any questions or concerns. Fax all lab results to [phone] and call ID RN for any Critical lab results during normal business hours. After Hrs: If Labs Outside of Normal Range any time on weekends or holidays please page ID fellow instrument person to [phone]. Electronically signed by Roger Bates MD at Encounter Details Care Team Description Date Type Department Roger Bates MD [address] [facility] [address] [place] [address] [id number] 06/08/2021 Outpt. Infectious Diseases : Main Antibiotic [place], [facility] Therapy [address] [facility] [address] [address] Social History Date Tobacco Use Types Packs/Day Years Used Never Smoker Smokeless Tobacco: Chew Current User Comments Alcohol Use Standard Drinks/Week Yes 10 (1 standard drink = 0.6 oz pure alcohol) Sex Assigned at Date Recorded Male 10/06/2020 7:51 AM [employer] Date Recorded COVID-19 Exposure Response 05/27/2021 2:39 [...] End Date Prescription Sig Dispensed Refills 06/09/2021 07/01/2021 vancomycin 1.5 gram solr Administer [...] IV Q 24 Hours. Orders sent via [employer] Fax to [facility]. Discussed with Jaymie [facility], asked her to di martyuss timing with patient to fit his infusion [...] Blood, venous - Blood Performing Organization Address City/[facility]/ZIP Code P josefina Number OTHER OUTSIDE [...] 5% (D5W) 250 mL mg through IVPB ([id number]) vein every 12 hours. documented as of this encounter Additional Health Concerns Assessment Noted Time A fall risk assessment has been completed for the pat ient 05/19/2021 9:00 AM CDT documented as of this encounter
--- OUTSIDE RECORDS SUMMARY | 2021-07-06 04:55 | XMS REPORT | Encounter Summary ---
Author Author [facility] Organization [facility] Address Unknown Phone Unavailable Care Team Providers Care Magician Helper Name Role Phone Geovanny Engel APRN PCP Reason for Visit * Auth/Cert Referred By Contact Referred To Contact Status Reason Specialty Diagnoses / Procedures Diagnoses SCC (squamous cell carcinoma), face SCC (squamous cell carcinoma), face [C44.320] P rocedures NE RAD RESECTION TUMOR SOFT TISS FACE/SCALP 2 CM/> NE FREE SKIN FLAP W/MICROVASCULAR ANASTOMOSIS NE SPLIT AGRFT T/A/L 1ST 100 CM/&/1% BDY INFT/CHLD NE CERVICAL LYMPHADEC MODIFIED RADICAL NECK DSJ NE GLSSC COMPOSIT W/RESCJ FLOOR & MANDIBULAR RESCJ NE FREE OSTQ FLAP W/MVASC ANAST METAR/GREAT TOE [...] Date Type Department Eric Benson MD [address] [place] [address] Cellulitis, face 2021 Hospital Intensive Care Unit 52: - Encounter Main [place], Main 05/19/[address] [place] [address] [address] [place] [address] Social History Date Tobacco Use Types Packs/Day Years Used Never Smoker Smokeless Tobacco: Chew Current User Comments Alcohol Use Standard Drinks/Week Yes 10 (1 standard drink = 0.6 oz pure alcohol) Sex Assigned at Date Recorded Male 10/06/2020 7:51 AM PRINCIPAL LIBRARIAN Date Recorded COVID-19 Exposure Response 2021 3:23 [...] PMH: Medical History: Diagnosis Date Alcohol abuse RAMPART (hard of hearing) Squamous cell carcinoma, lip [...] Results to be faxed to Dr. Bates [phone] Release to patient Immediate Comprehensive Metabolic Panel (CMP) Standing Status: Standing Number of Occurrences: 8 Standing Exp. Date: 11/19/21 Results to be faxed to Dr. Bates [phone] Release to patient Immediate Mechanical Soft Diet Your diet will need to consist of moist, well cooked, soft, or ground foods. If you have questions about your diet after you go home, you can call a dietitia n at [phone]. Tube Feeding Continue your home supplement regimen [...] or concerns regarding your hospital stay, call [phone]. Discharging attending physician: ERIC BENSON [[id number]] Activity as Tolerated It is important to [...] to this appointment [facility] Provider ERIC BENSON [[id number]] Appointment date: 05/27/2021 Return Appointment You will [...] machinery, or drinking alcohol while taking opioid nova n medication. This may be unsafe. Pain [...] dextrose 5% (D5W) 250 mL IVPB (V [id number]) Administer one thousand mg through vein every [...] They have a 24x7 line if questions: [phone]. CYNDY Marshall f [facility] will contact you and walk your through the first dose Tuesday evening. [facility] infusion clinic will call you to set up a weekly appointme nt for lab draws and PICC line care starting this Tuesday. [phone] documented in this encounter Medications at Time [...] 6 100 mL IVPB (MB+) hours. 05/19/2021 06/08/2021 vancomycin (VANCOCIN) Administer 0 1000 mg/20 mL 1,000 mg in one thousand dextrose 5% (D5W) 250 mL mg through IVPB (Gepx0Yox) vein every 12 hours. documented as of this encounter Ordered Prescriptions Start Date End Date Prescription Sig Dispensed Refills 05/19/2021 polyethylene glycol 3350 one packet by 30 each 0 (MIRALAX) 17 g packet Per G Tube route daily. 05/19/2021 bacitracin 500 unit/g Apply to the 28 g 0 topical ointment incision site after cleaning twice a day 05/19/2021 acetaminophen (TYLENOL) Take two 0 325 mg tablet tablets by mouth every 6 hours as needed. 05/22/2021 07/01/2021 oxyCODONE (ROXICODONE) 5 Take one 30 tablet 0 mg tablet tablet by mouth every 4 hours as needed 05/19/2021 05/19/2021 polyethylene glycol 3350 one packet by 30 each 0 (MIRALAX) 17 g packet Per G Tube route daily. 05/19/2021 06/08/2021 vancomycin (VANCOCIN) Administer 0 1000 mg/20 mL 1,000 mg in one thousand dextrose 5% (D5W) 250 mL mg through IVPB (Zmrz2Uub) vein every 12 hours. 05/19/2021 07/01/2021 piperacillin/tazobactam Administer 0 (ZOSYN) 3.375 g/15 mL 3.375 g 3.375 g in sodium through vein chloride 0.9% (NS) 0.9 % every 6 100 mL IVPB (MB+) hours. 05/19/2021 07/01/2021 oxyCODONE (ROXICODONE) 5 Take one 25 tablet 0 mg tablet tablet by mouth every 6 hours as needed documented in this encounter Discharge Disposition Code [...] days" and Augmentin for "5 days" at [facility] - CT neck 05/13: hyperenhancement of the [...] Division of Infectious Diseases Voalte, or pager [phone] Date: 05/19/2021 Interval History Faisal Claire III [...] reports that he was previously seen in [place], [place] in the ED and in urgent [...] sweats. He denies any facial pain, no nova n on eye movement. He reports that [...] in dextrose 5% (D5W) 250 mL IVPB (Eubk2Cme), 1,00 0 mg, Intravenous, Q12H* Continuous Infusions: PRN and Respiratory Meds:acetaminophen Q6H PRN, diphenhydrAMINE Q4H PRN, melaton in QHS PRN, ondansetron Q6H PRN OR ondansetron (ZOFRAN) IV Q6H PRN, oxyCODON E Q4H PRN, pancrelipase 20,880 Units/sodium bicarbonate 650 mg (KU CLOG DESTROYE R) PRN (Cnc Lathe Machinist from Rx), [DISCONTINUED] vancomycin (0-40 kg) IV [...] 253 260 281 Chemistry Recent Labs 05/17/210 05/18/21 0335 NA 139 140 K 4.2 [...] at the anterior mandibulectomy margin involving the burns paiute parasymphysis and anterior graft, suspicious for osteomyelitis. [...] and exposure, and superimposed erosions in the burns paiute right parasymphysis and anterior osteotomy graft. This [...] to plastic surgery team from outpatient clini [facility] complaint of right face swelling and redness.Medicine [...] of Home: House Prior Function Level Of [place]: Independent with ADLs and functional transfers Lives With: Spouse Vision Current Vision: (functional with adls) ADL's: 05/19/21: pt continues to perform all adls with stand by assist at times for lines/IVs. Pt has assist from family at home. No issues with toileting or dr urbina. Good rom to [facility] for grooming and [...] to assess any needs) Therapist: PAT Jiang/Jael [id number] Date: 05/19/2021 * Ravinder Heck PA-C - [...] III is a 51 y.o. Male with w/hpfB5eM3 R lower lip invasi ve SCC s/p [...] up appointment at discharge - Bowel regimen, Granite Worker consulted, appreciate recommendations - PT/OT consult - [...] continue mech anical soft diet and encourage palauan yogurt and milk with meals Ravinder Heck PA-C If questions, page please page plastic surgery "Black" team [phone] (6AM-6PM M-F) On-call resident all other times or consult pager [phone] * Roger Bates MD - 05/18/2021 3:07 [...] days" and Augmentin for "5 days" at [facility] - CT neck 05/13: hyperenhancement of the [...] Division of Infectious Diseases Voalte, or pager [phone] Date: 05/18/2021 Interval History Faisal Claire III is a 51 y.o. 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 He had positive lymph nodes and was recomm ended for adjuvant XRT, but was lost to follow up. He presents this admission wi th complaint of right face swelling and redness. Mr Cliare reports a two week history of facial [...] reports that he was previously seen in [place] in the ED and in urgent [...] sweats. He denies any facial pain, no nova n on eye movement. He reports that [...] in dextrose 5% (D5W) 250 mL IVPB (Dufg1Kuh), 1,00 0 mg, Intravenous, Q12H* Continuous Infusions: PRN and Respiratory Meds:acetaminophen Q6H PRN, diphenhydrAMINE Q4H PRN, melaton in QHS PRN, ondansetron Q6H PRN OR ondansetron (ZOFRAN) IV Q6H PRN, oxyCODON E Q4H PRN, pancrelipase 20,880 Units/sodium bicarbonate 650 mg (KU CLOG DESTROYE R) PRN (Cnc Lathe Machinist from Rx), [DISCONTINUED] vancomycin (0-40 kg) IV [...] PLTCT 365 253 260 Chemistry Recent Labs 05/16/2130605/17/2140905/18/21 0335 NA 138 139 140 K 4.5 [...] at the anterior mandibulectomy margin involving the burns paiute parasymphysis and anterior graft, suspicious for osteomyelitis. [...] and exposure, and superimposed erosions in the burns paiute right parasymphysis and anterior osteotomy graft. This [...] Infectious Diseases Pager - Voalte * Gretchen Mercado, PANCHO - 05/18/2021 2:15 PM CDT CLINICAL NUTRITION Clinical Nutrition Follow Up Name: Faisal Claire III : 1970 Age: 51 y.o. Admission Date: 2021 LOS: 5 days Recommendation: Continue enteral nutrition as ordered Continue mechanical soft diet as ordered Encourage pt to order Cameroonian yogurt and milk with meals Comments: RD [...] educated on impo rtance of [facility] soft diet. Pt communicated understanding. RD also [...] 0500) Temp: 37 C (98.6 F) (05/18 0500) Pulse: 71 (05/18 0500) Respirations: 18 PER MINUTE (05/18 0500) SpO2: 100 % (05/18 0500) BP: (118-140)/(75-100) Temp: [36.7 C (98.1 F)-37.3 [...] III is a 51 y.o. Male with w/dekY0bQ9 R lower lip invasi ve SCC s/p composite resection, R MRND, and reconstruction with osteocutaneous f ree fibula flap and radial forearm flap on 10/23/[address] Ray. He presents now as a direct admit [...] up appointment at discharge - Bowel regimen, Granite Worker consult - PT/OT consult - Discussed with social work assisting with discharge planning Abundio Bautista MD If questions, page please page plastic surgery "Black" team [phone] (6AM-6PM M-F) On-call resident all other times or consult pager [phone] * Phoenix Louis MD - 05/17/2021 8:55 AM CDT Plastic Surgery Progress Note 05/17/2021 S: Resting comfortably this morning. Frustrated by having to be in the hospital. Discussed surgery plan with patient. No recorded fevers overnight. O: Vital Signs: Last Filed Vital Signs: 24 Hour Ran ge BP: 133/85 (05/17 400) Temp: 36.7 C [...] III is a 51 y.o. Male with w/hwmR7pX7 R lower lip invasi ve SCC s/p [...] up appointment at discharge - Bowel regimen, Granite Worker consult - PT/OT consult - Discussed with social work assisting with discharge planning Phoenix Louis MD If questions, page please page plastic surgery "Black" team [phone] (6AM-6PM M-F) On-call resident all other times or consult pager [phone] * Viv Barron MD - 05/16/2021 10:54 PM CDT Progress note: Plastics paged as patient's has been inappropriate with staff throughout t he day and wanting to take patient outside to smoke. Patient threatened to leave AMA. Once arrived, patient was dressed and sitting at bedside. Discussed import ance of staying to finish coordinating intermediate teacher antibiotics. Patient was tearfu l but agreeable [...] directed plan of care. Viv Barron MD 9 * Shanna Noriega RN - 05/16/2021 6:10 PM CDT Patient/family refused high fall risk bundle. RN provided education on the importance of the high fall risk bundle. RN escalated high fall risk to hop weigher. Patient continued to refuse high fall risk [...] I reminded her I had paged the school social worker to assess their needs and they woul d follow-up on possibility of meal vouchers and any other basic needs. Shower was re-offered to her as their is a unit on the 6th floor that is [facility]. She stated she knew but didn't have [...] acknowledged and stated she may consider. Phone nut feeder was also addressed by reminding the patient of the guest farhatunge ou tside the unit that had phone chargers available. [...] Comments: Pt able to bend down to flower picker objects from floor without any loss [...] updated family and his significant other that school social worker/ case managemen t was notified to follow-up with any social/supportive needs he has. They acknow ledged. 1402: Patient left unit. 1413: Provider on the unit, patient has not returned. Provider acknowledged. * Shanna Noriega RN - 05/16/2021 12:24 PM CDT 1224: Paged school social worker pond scaler. Regarding patient's concerns with shahram yates increased physical/financial assistance and needs. 1333: Repaged social work pond scaler. 1339: fish house worker on the unit and acknowledged. She [...] of Home: House Prior Function Level Of [place]: Independent with ADLs and functional transfers Lives [...] (will continue to assess any needs) Therapist: Cally Carpenter OTR/Jael [id number] Date: 05/16/2021 * Rona Mo, PHARMD - 05/16/2021 10:24 AM CDT Pharmacy Vancomycin Note Subjective: Faisal Claire III is a 51 y.o. male being treated for right face cellulitis. Objective: Current Vancomycin Orders Medication Dose Route Frequency vancomycin (VANCOCIN) 1,000 mg in dextrose 5% (D5W) 250 mL IVPB ([id number]) 1,000 mg Intravenous Q12H* vancomycin, pharmacy to [...] plans to return for OT. PAT Jiang/Jael [id number] * Phoenix Louis MD - 05/16/2021 8:02 [...] III is a 51 y.o. Male with w/lhxH2aQ0 R lower lip invasi ve SCC s/p [...] up appointment at discharge - Bowel regimen, Granite Worker consult - PT/OT consult - Discussed with social work assisting with discharge planning Phoenix Louis MD If questions, page please page plastic surgery "Black" team [phone] (6AM-6PM M-F) On-call resident all other times or consult pager [phone] * Shena Banerjee RN - 05/15/2021 12:37 [...] days" and Augmentin for "5 days" at [facility] - CT neck 05/13: hyperenhancement of the [...] seen and discussed with MD Herman Hall, Internal Medicine, PGY-2 Available on Voalte Pager [phone] ATTESTATION I have personally seen and examined the patient, and reviewed all diagnostic grayson ts available. I have discussed the case with Dr. Yusuf and agree with his a ssessment and recommendations. Changes to the text were made where appropriate. Staff name: Roger Bates MD Division of Infectious Diseases Voalte, or pager [phone] Date: 05/15/2021 History of Present Illness Faisal [...] reports that he was previously seen in [place] in the ED and in urgent [...] sweats. He denies any facial pain, no nova n on eye movement. He reports that [...] in dextrose 5% (D5W) 250 mL IVPB (Ocxx0Vfe), 1,00 0 mg, Intravenous, Q12H* Continuous Infusions: sodium chloride 0.9 % infusion 50 mL/hr at 05/14/21 2354 PRN and Respiratory Meds:acetaminophen Q6H PRN, diphenhydrAMINE Q4H PRN, melaton in QHS PRN, ondansetron Q6H PRN OR ondansetron (ZOFRAN) IV Q6H PRN, oxyCODON E Q4H PRN, pancrelipase 20,880 Units/sodium bicarbonate 650 mg (KU CLOG DESTROYE R) PRN (Cnc Lathe Machinist from Rx), [DISCONTINUED] vancomycin (0-40 kg) IV [...] PLTCT 316 285 268 Chemistry Recent Labs 05/13/21202705/14/215 05/15/21 0516 NA 136* 138 138 K [...] at the anterior mandibulectomy margin involving the burns paiute parasymphysis and anterior graft, suspicious for osteomyelitis. [...] and exposure, and superimposed erosions in the burns paiute right parasymphysis and anterior osteotomy graft. This [...] Herman Yusuf, Internal Medicine, PGY-2 Available on [facility] Pager [phone] Please contact preferentially via [facility] Division of Infectious Diseases * Abundio Bautista [...] III is a 51 y.o. Male with w/htzQ0hK9 R lower lip invasi ve SCC s/p [...] with Tylenol and Oxycodone - Bowel regimen, Granite Worker consult - PT/OT consult Abundio Bautista MD If questions, page please page plastic surgery "Black" team [phone] (6AM-6PM M-F) On-call resident all other times or consult pager [phone] Associated attestation - Eric Benson MD - [...] Eric Benson MD Plastic and Maxillofacial Surgery [facility] * Mackenzie Esquivel RN - 05/14/2021 10:48 PM CDT Report given to CYNDY Mtz. Patient is off the unit for MRI. Unable to comp lete bedside safety check. * Mackenzie Esquivel RN - 05/14/2021 9:38 PM CDT Pt left [facility] to go to MRI at [...] III is a 51 y.o. Male with w/pkxU3nF4 R lower lip invasi ve SCC s/p [...] with Tylenol and Oxycodone - Bowel regimen, Granite Worker consult - PT/OT consult Ravinder Maria R PA-C If questions, page please page plastic surgery "Black" team [phone] (6AM-6PM M-F) On-call resident all other times or consult pager [phone] * Cas Shania, PHARMD - 2021 9:42 PM CDT Pharmacy Vancomycin Note Subjective: Faisal Claire III is a 51 y.o. male being treated for right face cellulitis. Objective: Current Vancomycin Orders Medication Dose Route Frequency [START ON 05/14/2021] vancomycin (VANCOCIN) 1,000 mg in dextrose 5% (D5W) 250 mL IVPB ([id number]) 1,000 mg Intravenous Q12H* vancomycin (VANCOCIN) 1,250 [...] mL/min Intake/Output Summary (Last 24 hours) at 05/13/20213 Last data filed at 05/13/20211999 Gross per [...] with Tylenol and Oxycodone - Bowel regimen, Granite Worker consult - PT/OT consult Discussed plan of [...] he completed his adjuvan t radiation in [place]. Their history is vague but they were seen in the [facility] room there multiple times and he was started on antibiotics for facial sonia lulitis. Post radiation he also developed exposure of his right mandibular plate . They think this may have happened a couple of weeks ago. Faisal says he otherw ise feels great. He has been eating a soft diet and not using his G tube. Medical History: Diagnosis Date Alcohol abuse RAMPART (hard of hearing) Squamous cell carcinoma, lip Tobacco abuse Surgical History: Procedure Laterality Date GASTROSTOMY TUBE PLACEMENT 10/21/2020 TRACHEOSTOMY PLANNED N/A 10/21/2020 Performed by Eric Benson MD at [facility] OR EXTRACTION TOOTH N/A 10/21/2020 Performed by Eric Benson MD at [facility] OR ALVEOLOPLASTY - EACH QUADRANT N/A 10/21/2020 Performed by Eric Benson MD at [facility] OR ESOPHAGOGASTRODUODENOSCOPY WITH PLACEMENT PERCUTANEOUS GASTROSTOMY TUBE N/A 10/21/2020 Performed by Oscar Batista Jr., MD at [facility] OR RADICAL RESECTION TUMOR SOFT TISSUE 2.0 CM OR MORE - FACE/ SCALP Right 10/23 Performed by Eric Benson MD at [facility] OR TISSUE TRANSFER FREE SKIN FLAP WITH MICROVASCULAR ANASTOMOSIS Right 10/23/20 20 Performed by Eric Benson MD at [facility] OR SPLIT THICKNESS SKIN AUTOGRAFT 100 SQ CM OR LESS OR 1% BODY AREA OF CHILD- U PPER EXTREMITY Left 10/23/2020 Performed by Eric Benson MD at [facility] OR CERVICAL LYMPHADENECTOMY Right 10/23/2020 Performed by Eric Benson MD at [facility] OR GLOSSECTOMY COMPOSITE WITHOUT RADIAL NECK DISSECTION N/A 10/23/2020 Performed by Eric Benson MD at [facility] OR TISSUE TRANSFER FREE OSTEOCUTANEOUS FLAP WITH MICROVASCULAR ANASTOMOSIS Righ t 10/23/2020 Performed by Eric Benson MD at [facility] OR No family history on file. [...] review pending Amos Bernabe MD Team Pager: [phone] documented in this encounter Procedure Notes * Madan Garcia RN - 05/15/2021 8:28 PM CDT PICC Line Insertion Procedure Note NAME:Faisal Claire III 653 :1970 AGE: 51 y.o. ADMISSION DATE: 2021 DAYS ADMITTED: LOS: 2 days Procedure Details: Informed consent was obtained for the procedure. Risks of in fection, blood clot, and nerve or vessel damage were discussed. Indications: Scroll Saw Operator IV therapy Procedure: Under sterile conditions the [...] mposite resection and reconstruction 10/2020. He had / positive lymph nodes a nd was recommended [...] - pain control oxycodone 5-10mg q4h PRN (PROOFER APPRENTICE oxycodone 5mg q4h PRN) and APAP, gambino [...] would like care in vs home in [place] once closer to discharge. Medicine consult team will sign off at this time. Please reengage team if medic ine team can be of further assistance. Seen and discussed with Dr. Toribio. Jaymie Larkin Internal Medicine, PGY-2 Pager: [phone] Available on Voalte Thank you for the consult. Note: All patient care calls should be directed firs t to the primary service. If the primary service needs further assistance, the service should page [phone] (24 hours a day/7 days a week) to discuss the case. History of Present Illness: Faisal Claire III is a 51 y.o. male with history noted above. Initially presented to [facility] 05/13 as direct admit from Plastic Surgery [...] a PCP, Dr. Engel, near home in [place], but says "he's no longer my doctor. " On review of care everywhere, appears previous PCP was following for excessiv e sleepiness and anxiety. Denies feeling more drowsy at this time. Shakes his head no when asked if he sn ores. Says he does not use any illicit drugs or take any medications that are n ot prescribed to him. Reports only PROOFER APPRENTICE medications are oxycodone and viagra. Lives at [...] one. Medical History: Diagnosis Date Alcohol abuse RAMPART (hard of hearing) Squamous cell carcinoma, lip Tobacco abuse Surgical History: Procedure Laterality Date GASTROSTOMY TUBE PLACEMENT 10/21/2020 TRACHEOSTOMY PLANNED N/A 10/21/2020 Performed by Eric Benson MD at [facility] OR EXTRACTION TOOTH N/A 10/21/2020 Performed by Eric Benson MD at [facility] OR ALVEOLOPLASTY - EACH QUADRANT N/A 10/21/2020 Performed by Eric Benson MD at [facility] OR ESOPHAGOGASTRODUODENOSCOPY WITH PLACEMENT PERCUTANEOUS GASTROSTOMY TUBE N/A 10/21/2020 Performed by Oscar Batista Jr., MD at [facility] OR RADICAL RESECTION TUMOR SOFT TISSUE 2.0 CM OR MORE - FACE/ SCALP Right 10/23 Performed by Eric Benson MD at [facility] OR TISSUE TRANSFER FREE SKIN FLAP WITH MICROVASCULAR ANASTOMOSIS Right 10/23/20 20 Performed by Eric Benson MD at [facility] OR SPLIT THICKNESS SKIN AUTOGRAFT 100 SQ CM OR LESS OR 1% BODY AREA OF CHILD- U PPER EXTREMITY Left 10/23/2020 Performed by Eric Benson MD at [facility] OR CERVICAL LYMPHADENECTOMY Right 10/23/2020 Performed by Eric Benson MD at [facility] OR GLOSSECTOMY COMPOSITE WITHOUT RADIAL NECK DISSECTION N/A 10/23/2020 Performed by Eric Benson MD at [facility] OR TISSUE TRANSFER FREE OSTEOCUTANEOUS FLAP WITH MICROVASCULAR ANASTOMOSIS Rig t 10/23/2020 Performed by Eric Benson MD at [facility] OR Social History Socioeconomic History Marital [...] in dextrose 5% (D5W) 250 mL IVPB ([id number]), 1,00 0 mg, Intravenous, Q12H* Continuous Infusions: sodium chloride 0.9 % infusion 50 mL/hr at 05/14/21 2354 PRN and Respiratory Meds:acetaminophen Q6H PRN, diphenhydrAMINE Q4H PRN, melaton in QHS PRN, ondansetron Q6H PRN OR ondansetron (ZOFRAN) IV Q6H PRN, oxyCODON E Q4H PRN, pancrelipase 20,880 Units/sodium bicarbonate 650 mg (KU CLOG DESTROYE R) PRN (Cnc Lathe Machinist from Rx), [DISCONTINUED] vancomycin (0-40 kg) IV [...] Pertinent radiology reviewed. Jaymie Larkin MD Pager [phone] Associated attestation - Tramaine Toribio DO - 05/15/2021 4:22 PM CDT ATTESTATION I personally performed the smith portions of the E/M visit, discussed case with re sident and concur with resident documentation of history, physical exam, assessm ent, and treatment plan unless otherwise noted. Staff name: Tramaine Toribio DO Date: 05/15/2021 * Ani Albert APRN-CLINICAL OPERATIONS SPECIALIST - 05/14/2021 1:13 PM CDT Associated Order(s): [...] Please page with any questions or concerns. LATONIA Villaseñor Pgr [phone] IR Team Pager [phone] (After-hours and Weekends) Procedure: Right facial abscess [...] in dextrose 5% (D5W) 250 mL IVPB ([id number]), 1,00 0 mg, Intravenous, Q12H* Continuous Infusions: PRN and Respiratory Meds:acetaminophen Q6H PRN, diphenhydrAMINE Q4H PRN, melaton in QHS PRN, ondansetron Q6H PRN OR ondansetron (ZOFRAN) IV Q6H PRN, oxyCODON E Q4H PRN, pancrelipase 20,880 Units/sodium bicarbonate 650 mg (KU CLOG DESTROYE R) PRN (Cnc Lathe Machinist from Rx), [DISCONTINUED] vancomycin (0-40 kg) IV [...] Ref Range Units Ordered 0 Crossmatch Expires 05/16/2021,2359 Record Check FOUND ABO/RH(D) A POS Antibody [...] maintain tube patency. Recommend diet textures per APPLIER, no therapeutic diet needed. Comments: Mr. Claire [...] pt at bedside. Pt reported good appetite PROOFER APPRENTICE . Denied N/V. Endorsed difficulty chewing, on [...] Current Oral Intake: NPO Estimated Calorie Needs: 2207-3134 (30-35 kcal/kg of actual weight) Estimated Protein [...] of meals/supplements Time Frame: Throughout stay Valerie Valencia, Manufacturing Machine Operator Available on Voalte Associated attestation - Verenice Trinh - 05/14/2021 12:56 PM CDT Agree with international specialist's documentation and EN recommendations. Will wait to hear back from primary team via [employer] before placing EN order. Verenice Trihn, MS, RD, LD Office Phone [phone] Available on [facility] * Roger Bates MD - 05/14/2021 7:49 [...] days" and Augmentin for "5 days" at [facility] - CT neck 05/13: hyperenhancement of the [...] Hall, DO Internal Medicine, PGY-2 Available on [facility] Pager [phone] ATTESTATION I have personally seen and examined [...] Division of Infectious Diseases Voalte, or pager [phone] Date: 05/14/2021 History of Present Illness Faisal [...] reports that he was previously seen in [place], [place] in the ED and in urgent [...] History Medical History: Diagnosis Date Alcohol abuse RAMPART (hard of hearing) Squamous cell carcinoma, lip Tobacco abuse Past Surgical History Surgical History: Procedure Laterality Date GASTROSTOMY TUBE PLACEMENT 10/21/2020 TRACHEOSTOMY PLANNED N/A 10/21/2020 Performed by Eric Benson MD at [facility] OR EXTRACTION TOOTH N/A 10/21/2020 Performed by Eric Benson MD at [facility] OR ALVEOLOPLASTY - EACH QUADRANT N/A 10/21/2020 Performed by Eric Benson MD at [facility] OR ESOPHAGOGASTRODUODENOSCOPY WITH PLACEMENT PERCUTANEOUS GASTROSTOMY TUBE N/A 10/21/2020 Performed by Oscar Batista Jr., MD at [facility] OR RADICAL RESECTION TUMOR SOFT TISSUE 2.0 CM OR MORE - FACE/ SCALP Right 10/23 Performed by Eric Benson MD at [facility] OR TISSUE TRANSFER FREE SKIN FLAP WITH MICROVASCULAR ANASTOMOSIS Right 10/23/20 20 Performed by Eric Benson MD at [facility] OR SPLIT THICKNESS SKIN AUTOGRAFT 100 SQ CM OR LESS OR 1% BODY AREA OF CHILD- U PPER EXTREMITY Left 10/23/2020 Performed by Eric Benson MD at [facility] OR CERVICAL LYMPHADENECTOMY Right 10/23/2020 Performed by Eric Benson MD at [facility] OR GLOSSECTOMY COMPOSITE WITHOUT RADIAL NECK DISSECTION N/A 10/23/2020 Performed by Eric Benson MD at [facility] OR TISSUE TRANSFER FREE OSTEOCUTANEOUS FLAP WITH MICROVASCULAR ANASTOMOSIS Righ t 10/23/2020 Performed by Eric Benson MD at [facility] OR Social History Marital status/area of residence: Lives at home with his Job/occupation: Disabled, 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 This [...] Yusuf DO Pager Please contact preferentially via [facility] Division of Infectious Diseases documented in this encounter Miscellaneous Notes * Case Mgmt DC Jaymie Ashraf - 05/19/2021 11:46 AM CDT Medicaid Transportation Summary for Faisal Elder All NEGRON Requesting Geospatial Developer: DIVINE Mendez Date: 05/19/2021 Medicaid Plastic Sheeting Cutter: [facility] [phone] [employer] [facility]ICAID[facility] Subscriber Subscriber # Faisal Claire III [id number] Address Phone [address] [address] [place] [address] Destination: [address] [place] [address] / [phone] Transportation Arrival Window: 1200 - 1500 Transportation to Contact [address] 15 Prior to Arrival: Yes Patient to be Waiting in Lobby: Yes Trip Reservation Number: [phone] Notified [phone] and provided update. Updated [facility]. Jaymie Perez Lift Supervisor * Case Mgmt DC Plan - Sandrita [...] DC orders from primary team. ARLEEN called , Jing, to discuss transportation and informed Me dicaid will have 3 hour window once scheduled. SW tasked BANQUET DIRECTOR to arrange transport to [address] [place] [address]. Medication Needs Financial Legal Other Disposition Expected [...] [facility] ([facility]) Home Infusion and Injection [id number] [facility] [address] Sandrita Momin LMSW Please Contact on Voalte [...] ins. -RNCM spoke to infusion clinic at [facility] in [place], [place] ([phone]). They are able to do weekly labs and line care and will co ntact him and plan to see him this Tuesday to start (once they receive orders). -[facility] infusion pharmacy is on board and able [...] -Signed orders faxed to [facility] infusion [facility] -[facility] to arrange Medicaid transport. Interventions Support Info [...] [facility] ([facility]) Home Infusion and Injection [address] [facility] [place] [address] [phone] Kenneth Beasley RN, [facility] Integrated Paraprofessional Education Assistant *[phone] * Care Plan - Mikhail [...] agency for patient near his home in [place], [place] who would accept his [facility] Medicaid. Patient went outpatient to wound clinic at that time to [facility]. -Patient currently needs home IV antibiotics for d/c. -RNCM faxed referral to [facility] infusion pharmacy and several agencies in the area. Plan Plan: Assist PRN with SW/NCM Services Patient Address/Phone [address] [facility] [address] (home) Emergency Contact Extended Emergency Contact Information [...] Current/Previous Services PCP Geovanny Engel, , Pharmacy [facility] [address] [facility] [address] [facility] [address] [id number] - [place], [place] - [address] [facility] [address] Durable Medical Equipment Durable Medical Equipment at [...] No Outpatient Therapy PT: No OT: No APPLIER: No [facility] Facility/Long Term SNF: No NH: No Inpatient Rehab IPR: No [facility] LTACH: No Acute Hospital Stay Acute Hospital Stay: In the past Was patient's stay within the last 30 days?: No Kenneth Beasley RN, [facility] Integrated Paraprofessional Education Assistant *[phone] * Care Plan - Elsie [...] Filed in 24 hours) BP: 136/93 (05/16 0800) Temp: 36.4 C (97.5 F) (05/16 743) Pulse: 82 (05/16 1015) Respirations: 14 PER MINUTE (05/16 743) SpO2: 99 % (05/16 1015) SpO2 Pulse: 79 (05/16 0800) Patient History Allergies Allergies Allergen Reactions Ibuprofen [...] in dextrose 5% (D5W) 250 mL IVPB ([id number]), 1,00 0 mg, Intravenous, Q12H* Continuous Infusions: sodium chloride 0.9 % infusion 50 mL/hr at 05/15/212058 PRN and Respiratory Meds:acetaminophen Q6H PRN, diphenhydrAMINE Q4H PRN, melaton in QHS PRN, ondansetron Q6H PRN OR ondansetron (ZOFRAN) IV Q6H PRN, oxyCODON E Q4H PRN, pancrelipase 20,880 Units/sodium bicarbonate 650 mg (KU CLOG DESTROYE R) PRN (Cnc Lathe Machinist from Rx), [DISCONTINUED] vancomycin (0-40 kg) IV [...] MD - 05/15/2021 3:37 PM CDT THE [address] [address] PATIENT NAME: FAISAL CLAIRE MR#/PT#: [id number] Page 1 OPERATIVE REPORT DATE OF OPERATION: 05/15/2021 SURGEON: Eric Benson MD CUSTOMER ENGINEER(S): Resident, Dr. Jakob Louis. PREOPERATIVE DIAGNOSIS: Right [...] Oct. He underwent adjuvant radiation treatment in [place], but had a difficult time keeping his [...] removal of the deep hardware , the burns paiute mandibular bone and the fibular bone was scraped with a #9 elevator to remove scar tissue and slough from the bone. Bone specimens from the anteri or and the posterior mandible were then collected with a rongeur [facility] and for microbiologic review. Of note, the anterior mandibular bone was soft and somewhat mushy. There was also evidence of fibrous union of the fibula r constructs. The bone was then drilled down with a watermelon jarad to healthy bleeding bone until there was no visible devitalized bone left. The fibular bon e and the burns paiute bone were confirmed to be bleeding nicely. We also debrided th e soft tissues of the cervical flap in the region of the parotid. We did aspira te the soft tissue flap and similar to his preoperative procedures did not retur n any collection of pus. Some of the scar tissue in the flap was excised with t tristin Bovie and sent for pathology and culture. We then elevated skin flaps cephal ad and caudad with wide undermining with the Bovie beneath the radial forearm fl ap and the burns paiute skin flap. Hemostasis was then ensured and [...] analysis. Eric Benson MD RG / MEDQ /[id number] cc: - Eric Benson MD * Procedures (Immed Post or Bedside) - Phoenix Louis MD - 05/15/2021 3:14 PM CDT Brief Operative Note Name: Faisal Claire III is a 51 y.o. male : 1970 MRN# : [id number] DATE OF OPERATION: 05/15/2021 Date: 05/15/2021 Preoperative [...] ANTERIOR MANDIBULAR BONE Tissue Mandible SURGICAL PATHOLOGY G Eric martin MD 05/15/2021 1416 3 : RIGHT POSTERIOR MANDIBLE BONE Tissue Mandible SURGICAL PATHOLOGY Eric Cxo MD 05/15/2021 1418 A : RIGHT FACIAL [...] Procedure Note Date: 05/14/2021 Attending Physician: Dr. Delgdaillo Performing Provider: Tanvir Barros MD Consent: Consent [...] asse ssment with no success. Home number: [phone] says number has been suspended . Cell phone:[phone]. Unable to be connected. SW will follow up tomorrow to complete admission assessment and evaluate needs a t discharge. Per chart review, pt needed Medicaid transport at discharge last ad mission. Pt currently in IR, scheduled to return to OR on Tuesday for REMOVAL HARDWARE -DE EP MANDIBLE. Pt has hag G Tube since 10/21/2020. Vale Stallworth LMSW Pager:[phone] * Care Plan - Shena Banerjee RN [...] Cellulitis, f george 05/15/2021 2:19 PM CDT CULTURE-TB (AFB) Microbiology STAT Cellulitis, f george Order Schedule Name Type Priority Associated Diag [...] P josefina Number [facility] [address] [facility] [place] [address] * COMPREHENSIVE METABOLIC PANEL (05/18/2021 3:35 AM [...] >60 >60 mL/min [facility] Comment: Greek The eGFR is not validated f or use in drug dosing adjustments. Continue to use estimated creatinine clearance per dosing reference text. Please contact the Clinical Pharmacist for questions. eGFR >60 >60 mL/min [facility] Greek Comment: The eGFR is not validated for use in drug dosing adjustments. Continue to use estimated creatinine clearance per dosing reference text. Please contact the Clinical Pharmacist for questions. Specimen Blood Performing Organization Address City/[facility]/ZIP Code P josefina Number [facility] [address] [place] [address] * CBC AND DIFF (05/18/2021 3:35 AM [...] Basophil Count Specimen Blood Performing Organization Address City/[facility]/ZIP Code P josefina Number [facility] [address] [place] [address] * COMPREHENSIVE METABOLIC PANEL (05/17/2021 4:10 AM [...] >60 >60 mL/min [facility] Comment: Greek The eGFR is not validated f or use in drug dosing adjustments. Continue to use estimated creatinine clearance per dosing reference text. Please contact the Clinical Pharmacist for questions. eGFR >60 >60 mL/min [facility] Greek Comment: The eGFR is not validated for use in drug dosing adjustments. Continue to use estimated creatinine clearance per dosing reference text. Please contact the Clinical Pharmacist for questions. Specimen Performing Organization Address City/State/ZIP Code P josefina Number [facility] [address] [place] [address] * CBC AND DIFF (05/17/2021 4:10 AM [...] P josefina Number [facility] [address] [place] [address] * COMPREHENSIVE METABOLIC PANEL (05/16/2021 3:07 AM [...] >60 >60 mL/min [facility] Comment: Greek The eGFR is not validated f or use in drug dosing adjustments. Continue to use estimated creatinine clearance per dosing reference text. Please contact the Clinical Pharmacist for questions. eGFR >60 >60 mL/min [facility] Greek Comment: The eGFR is not validated for use in drug dosing adjustments. Continue to use estimated creatinine clearance per dosing reference text. Please contact the Clinical Pharmacist for questions. Specimen Blood Performing Organization Address City/[facility]/ZIP Code P josefina Number [facility] [address] [place] [address] * CBC AND DIFF (05/16/2021 3:07 AM [...] Basophil Count Specimen Blood Performing Organization Address City/[facility] P josefina Number [facility] [address] [place] [address] * VANCOMYCIN 2HR POST DOSE (05/15/2021 3:44 PM CDT) Vancomycin 2HR 22.2 ug/mL [facility] POST Dose Specimen Blood Performing Organization Address City/State/[facility] Code P josefina Number [facility] [address] [place] [address] * CULTURE-FUNGAL,OTHER (05/15/2021 2:19 PM CDT) Battery Name FUNGUS CULTURE [facility] Report Status FINAL 06/15/2021 [facility] Specimen BONE SPECIMEN MANDIBLE RIGHT [facility] Description POSTERIOR Special NONE [facility] Requests Culture NO GROWTH OF FUNGUS AT 4 WEEKS [facility] J[facility]ER N [facility] Specimen Tissue - Mandible Performing Organization Address City/[facility] Code P josefina Number [facility] [address] [place] [address] * GRAM STAIN (05/15/2021 2:19 PM CDT) Battery Name GRAM STAIN [facility] Report Status FINAL 05/15/2021 [facility] Specimen BONE SPECIMEN MANDIBLE RIGHT [facility] Description POSTERIOR Special NONE [facility] Requests Gram Stain NO NEUTROPHILS SEEN [facility] Gram Stain NO ORGANISMS SEEN [facility] Specimen Tissue - Mandible Performing Organization Address [facility] P josefina Number [facility] [address] [place] [address] * CULTURE-WOUND/TISSUE/FLUID(AEROBIC ONLY)W/SENSITIVITY (05/15/2021 2:19 PM CDT) [...] Specimen Tissue - Mandible Performing Organization Address [facility] Code P josefina Number [facility] [address] [place] [address] * CULTURE-ANAEROBIC (05/15/2021 2:19 PM CDT) Battery Name ANAEROBE CULTURE [facility] Report Status FINAL 05/20/2021 [facility] Specimen BONE SPECIMEN MANDIBLE RIGHT [facility] Description POSTERIOR Special NONE [facility] Requests Culture NO ANAEROBES ISOLATED [facility] Specimen Tissue - Mandible Performing Organization Address City/[facility]/ZIP Code P josefina Number [facility] [address] [place] [address] * CULTURE-FUNGAL,OTHER (05/15/2021 2:17 PM CDT) Battery Name FUNGUS CULTURE [facility] Report Status FINAL 06/15/2021 [facility] Specimen BONE SPECIMEN MANDIBLE RIGHT [facility] Description ANTERIOR Special NONE [facility] Requests Culture NO GROWTH OF FUNGUS AT 4 WEEKS [facility] JENNIFER N LAB Specimen Tissue - Mandible Performing Organization Address City/[facility]/ZIP Code P josefina Number [facility] [address] [place] [address] * GRAM STAIN (05/15/2021 2:17 PM CDT) Battery Name GRAM STAIN [facility] Report Status FINAL 05/15/2021 [facility] Specimen BONE SPECIMEN MANDIBLE RIGHT [facility] Description ANTERIOR Special NONE [facility] Requests Gram Stain NO NEUTROPHILS SEEN [facility] Gram Stain NO ORGANISMS SEEN [facility] Specimen Tissue - Mandible Performing Organization Address City/[facility]/ZIP Code P josefina Number [facility] [address] [place] [address] * CULTURE-WOUND/TISSUE/FLUID(AEROBIC ONLY)W/SENSITIVITY (05/15/2021 2:17 PM CDT) [...] <=2: Susceptible Pseudomonas aeruginosa Performing Organization Address City/[facility]/ZIP Code P josefina Number [facility] [address] [place] [address] * CULTURE-ANAEROBIC (05/15/2021 2:17 PM CDT) Battery Name ANAEROBE CULTURE [facility] Report Status FINAL 05/18/2021 [facility] Specimen BONE SPECIMEN MANDIBLE RIGHT [facility] Description ANTERIOR Special NONE [facility] Requests Culture [place] MA[facility] PEPTONIPHILUS HAREI Comment: CRITICAL VALUE CALLED TO AND READ BACK BY/TIME/TECH Gisselle Philippe(CYNDY)/[id number]/cl Specimen Tissue - Mandible Performing Organization Address City/[facility] P josefina Number [facility] [address] [place] [address] * CULTURE-FUNGAL,OTHER (05/15/2021 2:13 PM CDT) Battery Name FUNGUS CULTURE [facility] Report Status FINAL 06/15/2021 [facility] Specimen TISSUE RIGHT FACIAL SCAR [facility] Description Special NONE [facility] Requests Culture NO GROWTH OF FUNGUS AT 4 WEEKS [facility]ENN[facility] N [facility] Specimen Tissue - Face Performing Organization Address City/[facility]/ZIP Code P josefina Number [facility] [address] [place] [address] * GRAM STAIN (05/15/2021 2:13 PM CDT) Battery Name GRAM STAIN [facility] Report Status FINAL 05/15/2021 [facility] Specimen TISSUE RIGHT FACIAL SCAR [facility] Description Special NONE MAIN LAB Requests Gram Stain NO NEUTROPHILS SEEN [facility] Gram Stain NO ORGANISMS SEEN [facility] Specimen Tissue - Face Performing Organization Address City/[facility]/ZIP Code P josefina Number [facility] [address] [place] [address] * CULTURE-WOUND/TISSUE/FLUID(AEROBIC ONLY)W/SENSITIVITY (05/15/2021 2:13 PM CDT) [...] Specimen Tissue - Face Performing Organization Address City/[facility]/ZIP Code P josefina Number [facility] [address] [place] [address] * CULTURE-ANAEROBIC (05/15/2021 2:13 PM CDT) Battery Name ANAEROBE CULTURE [facility] Report Status FINAL 05/20/2021 [facility] Specimen TISSUE RIGHT FACIAL SCAR [facility] Description Special NONE [facility] Requests Culture NO ANAEROBES ISOLATED [facility] Specimen Tissue - Face Performing Organization Address City/[facility]/ZIP Code P josefina Number [facility] [address] [place] [address] * SURGICAL PATHOLOGY (05/15/2021 2:12 PM CDT) PATHOLOGY [facility] [email or web address] Department of Pathology and Laboratory Medicine [address] [place] [address] Surgical Pathology Office: [phone] SURGICAL PATHOLOGY REPORT NAME: FAISAL CLAIRE SURG PATH #: [id number] MR #: [id number] SPECIMEN CLASS: SR BILLING #: [id number] ALT ID #: LOCATION: DISCHARGED DATE OF [...] fast and fungal organisms. Pursuant to the Radiology Asst Program at the [facility] Pathology Department, selected slides from [...] being submitted entirely in cassette C1. (valerie) rg05/15/2021 Specimen Tissue - Face Tissue - Mandible Tissue - Mandible Performing Organization Address City/[facility]/ZIP Code P josefina Number MAIN LAB [address] [place] [address] * VANCOMYCIN TROUGH (05/15/2021 8:56 AM CDT) Vancomycin 15.4 10.0 - 20.0 MCG/ML [facility] Trough Specimen Blood, venous - Blood Performing Organization Address City/[facility] P josefina Number [facility] [address] [place] [address] * COMPREHENSIVE METABOLIC PANEL (05/15/2021 5:16 AM [...] >60 >60 mL/min [facility] Comment: Greek The eGFR is not validated f or use in drug dosing adjustments. Continue to use estimated creatinine clearance per dosing reference text. Please contact the Clinical Pharmacist for questions. eGFR >60 >60 mL/min [facility] Greek Comment: The eGFR is not validated for use in drug dosing adjustments. Continue to use estimated creatinine clearance per dosing reference text. Please contact the Clinical Pharmacist for questions. Specimen Blood Performing Organization Address City/[facility]/ZIP Code P josefina Number [facility] [address] [place] [address] * CBC AND DIFF (05/15/2021 5:16 AM [...] Code P josefina Number MAIN LAB [address] [place] [address] * MRI ORBIT FACE AND/OR NECK WO/W CONT (05/14/2021 11:02 PM CDT) Specimen Impressions Performed At 1. Significantly degraded examination by motion. K U RAD RESULTS 2. Grossly unchanged findings of kirby a and abnormal enhancement at the anterior mandibulectomy margin involvin g the burns paiute parasymphysis and anterior graft, suspicious for osteomyelitis. [...] yperintensity through the center of the lower [id number]. Right mandibular segmental resection an d hardware reconstruction and right oral cavity mass resection and soft tissue f lap reconstruction are redemonstrated with hardware exposure anteriorly appea ring grossly similar. There are findings of abnormal T2 hyperintensity and likel y enhancement at the anterior osteotomy graft and burns paiute parasymphysis margins with overlying soft tissue edema [...] hyperintensity through the center of the lower [id number]. Right mandibular segmental resection and hardware reconstruction and right oral cavity mass resection and soft tissue flap reconstruction are redemonstrated with hardware exposure anteriorly appearing grossly similar. There are findings of abnormal T2 hyperintensity and likely enhancement at the anterior osteotomy graft and burns paiute parasymphysis margins with overlying soft tissue edema [...] at the anterior mandibulectomy margin involving the burns paiute parasymphysis and anterior graft, suspicious for osteomyelitis. [...] smith portions of the procedure with a il dlevel, resident, and/or fellow participating. Overlapping portions [...] >60 >60 mL/min [facility] Comment: Greek The eGFR is not validated f or use in drug dosing adjustments. Continue to use estimated creatinine clearance per dosing reference text. Please contact the Clinical Pharmacist for questions. eGFR >60 >60 mL/min [facility] Greek Comment: The eGFR is not validated for use in drug dosing adjustments. Continue to use estimated creatinine clearance per dosing reference text. Please contact the Clinical Pharmacist for questions. Specimen Blood Performing Organization Address City/State/ZIP Code P josefina Number [facility] [address] [place] [address] * CBC AND DIFF (05/14/2021 3:25 AM [...] Basophil Count Specimen Blood Performing Organization Address [facility] Code P josefina Number [facility] [address] [place] [address] * PHOSPHORUS (2021 8:28 PM CDT) Phosphorus 3.4 2.0 - 4.5 MG/DL [facility] Specimen Performing Organization Address [facility] Code P josefian Number MAIN LAB [address] [place] [address] * MAGNESIUM (2021 8:28 PM CDT) Magnesium 1.8 1.6 - 2.6 mg/dL [facility] Specimen Performing Organization Address [facility] P josefina Number MAIN LAB [address] [place] [address] * LACTIC ACID(LACTATE) (2021 8:28 PM CDT) Lactic Acid 1.7 0.5 - 2.0 MMOL/L [facility] Specimen Performing Organization Address [facility] P josefina Number MAIN LAB [address] [place] [address] * TYPE & CROSSMATCH (2021 8:28 PM CDT) Units Ordered 0 MAIN LAB Crossmatch 05/16/2021,2359 [facility] Expires Record Check FOUND [facility] ABO/RH(D) A POS MAIN LAB Antibody Screen NEG MAIN LAB Electronic YES MAIN LAB Crossmatch Specimen Cervix Performing Organization Address [facility] Code P josefina Number MAIN LAB [address] [place] [address] * COMPREHENSIVE METABOLIC PANEL (2021 8:28 PM [...] >60 >60 mL/min [facility] Comment: Greek The eGFR is not validated f or use in drug dosing adjustments. Continue to use estimated creatinine clearance per dosing reference text. Please contact the Clinical Pharmacist for questions. eGFR >60 >60 mL/min [facility] Greek Comment: The eGFR is not validated for use in drug dosing adjustments. Continue to use estimated creatinine clearance per dosing reference text. Please contact the Clinical Pharmacist for questions. Specimen Blood Performing Organization Address City/State/ZIP Code P josefina Number [facility] [address] [place] [address] * CBC AND DIFF (2021 8:28 PM [...] josefina Number [facility] [address] [place] [address] * ECG-SCAN (2021 12:00 AM CDT) Narrative [...] mg, Oral, EVERY 6 HOURS PRN, Starting on Tue05/13/21 at 1639, Until Tue05/19/21 at 1505, Pain non-opioid: may be used alone or in combination wit h opioid analgesia, TOTAL ACETAMINOPHEN DOSE NOT TO EXCEED 4GM DAILY 650 mg Given 05/19/2021 6:31 AM CDT [...] 2100, Until Discontinued, Apply to right neck incision Given 05/18/2021 9:45 PM CDT Given 05/18/2021 9:24 AM CDT Given 05/17/2021 8:48 PM CDT Given 05/17/2021 8:48 AM CDT Given 05/16/2021 9:20 PM CDT Given 05/16/2021 11:55 AM CDT Given 05/15/2021 9:44 PM CDT diphenhydrAMINE (BENADRYL) injection 25 mg 25 mg, Intravenous, EVERY 4 HOURS PRN, Starting on Tue05/13/21 at 1732, Until Tue05/19/21 at 1505, [...] procedures. NOTE: This is a HIGH ALERT Medication. 40 mg Abdominal Tissue Given 05/16/2021 9:19 PM CDT 40 mg Abdominal Tissue Given 05/15/2021 8:58 PM CDT 05/15/2021 4:53 PM CDT 12.5 mcg fentaNYL citrate PF (SUBLIMAZE) Given injection 12.5-25 mcg 12.5-25 mcg, Intravenous, EVERY 5 MIN PRN, Starting on Tue05/15/21 at 1455, Until Tue05/15/21 at 1805, Pain Injectable, For Pain Score 4-6, For Nova n Score 4-6 Maximum total dose 200 mcg Hold if RR < 10, PACU (only) 12.5 mcg Given 05/15/2021 4:27 PM CDT 05/14/2021 3:55 PM CDT 25 mcg fentaNYL citrate PF (SUBLIMAZE) Given injection 25 mcg 25 mcg, Intravenous, ONCE, 1 dose, On Yeimi 05/14/21 at 1645, Post op pain 05/14/2021 11:15 PM CDT 15 mL gadobenate dimeglumine (MULTIHANCE) Given injection 15 mL 15 mL, Intravenous, ONCE, 1 dose, On u 05/14/21 at 2315, NOTE: This is a HIGH ALERT Medication. 05/14/2021 9:49 PM CDT 0.5 mg LORazepam (ATIVAN) injection 0.5 mg Given 0.5 mg, Intravenous, ONCE, 1 dose, On Yeimi 05/14/21 at 2230, PROTECT FROM LIGHT 05/19/2021 2:26 AM CDT 3 mg melatonin tablet 3 mg Given 3 mg, Oral, AT BEDTIME PRN, Starting on Tue05/13/21 at 1639, Until Tue05/19/21 a t 1505, Insomnia 3 mg Given 05/17/2021 8:48 PM CDT 3 mg Given 05/16/2021 9:19 PM CDT 3 mg Given 05/15/2021 1:14 AM CDT ondansetron (ZOFRAN ODT) rapid dissolve tablet 4 mg 4 mg, Oral, EVERY 6 HOURS PRN, Startin g on Tue05/13/21 at 1639, Until Tue 1 at 1505, Nausea/Vomiting PO, Place on tongue and allow to dissolve. ondansetron (ZOFRAN) injection 4 mg 4 mg, Intravenous, EVERY 6 HOURS PRN, Starting on Tue05/13/21 at 1639, Until Tue05/19/21 at 1505, Nausea/Vomiting Injectable 05/19/2021 12:57 PM CDT 5 mg oxyCODONE (ROXICODONE) tablet 5-10 mg Given 5-10 mg, Oral, EVERY 4 HOURS PRN, Starting on Tue05/13/21 at 1639, Until Tue05/19/21 at 1505, [...] (KU CLOG DESTROYER) Per NG tube, NEEDED (RADAR SYSTEMS ENGINEER FROM RX), Starting on Tue05/14/21 at 1359, Until Tue05/19/21 at 1505, Occluded Feeding Tube, 1. Crush one pancrelipase 20,880 unit tablet and one sodium bicarbonate 650 mg tablet. 2. Dissolve in 20 ml luke warm water. This will take ~ 1-2 minutes, with stirring required. Some sediment may be present . 3. Once dissolved, let solution sit for 1-2 minutes, 4. Draw enzyme/bicarbonat e solution into oral syringe (avoid sediment as best possible). 5. Instill enzyme solution under light pressure, and use a light "back and forth" motion with plunger to help dislodge the clog. 6. Clamp the tube for 5-15 minutes, and then try to aspirate or flush with warm sterile water. May repeat x 1. Notify physician if tube remains occluded following administration. 05/19/2021 9:17 AM CDT 3.375 g 200 [...] = 1 PACKET 34 GRAMS = 2 PACKETS 17 g Given 05/18/2021 9:23 AM CDT 17 g Given 2021 9:55 PM CDT 05/19/2021 9:16 AM CDT 1 tablet senna/docusate (SENOKOT-S) tablet 1 Given tablet 1 tablet, Oral, TWICE DAILY, First dose on Tue05/13/21 at 2100, Until Discontinued, Hold for loose stools 1 tablet Given 05/18/2021 9:45 PM CDT [...] Intravenous, at 50 mL/hr, Bag CONTINUOUS, Starting on Tue05/15/21 at 0000, Until 05/16/21 at 2359 Infusion Restarted 05/15/2021 2:01 PM CDT 50 mL/hr Given - New Bag 05/14/2021 11:54 PM CDT 05/14/2021 10:48 AM CDT 250 mL 10 mL/hr SODIUM CHLORIDE 0.9 % IV SOLP (Cabinet Given - New Override) Bag NOW, 1 dose, On Yeimi 05/14/21 at 1100, Created by cabinet override, Created by cabinet override 05/15/2021 11:12 AM CDT 250 mL 10 mL/hr SODIUM CHLORIDE 0.9 % IV SOLP (Cabinet Given - New Override) Bag NOW, 1 dose, On Tue05/15/21 at 1115, Created by cabinet override, Created by cabinet override 05/17/2021 10:24 PM CDT 250 mL 10 mL/hr SODIUM CHLORIDE 0.9 % IV SOLP (Cabinet Given - New Override) Bag NOW, 1 dose, On Tue05/17/21 at 2215, Created by cabinet override, Created by cabinet override 05/19/2021 9:19 AM CDT 10 mL sodium [...] obtaining blood specimen, flush catheter with 20 mL. 10 mL Given 05/19/2021 12:13 AM CDT [...] New dextrose 5% (D5W) 250 mL IVPB ([id number]) Bag 1,000 mg, Intravenous, 250 mL, Administer over 60 Minutes, EVERY 12 HOURS, First dose on Tue05/14/21 at 1000 , Until Discontinued, Note Pharmacokineti c Monitoring: Please record infusion start time (Action= Given) and stop driss e (Action= Completed) of dose when blood levels are drawn. 1,000 mg 250 mL/hr Given - New [...] Administer over 90 Minutes, ONCE, 1 dose, On Tue05/13/21 at 1830, Note Pharmacokinetic Monitoring: Please record infusion start time (Action= Given) and stop driss e (Action= Completed) of dose when blood levels are drawn. vancomycin, pharmacy to manage PER PHARMACY, 999 doses, Starting on 05/13/21 at 1740, Until Tue05/19/21 at 1505, Indication for this medication: right face cellulitis, Pharmacy will page you if there are questions about your order. Pager number last four digits: [phone], This order is for informational use only. See separate order for administration and documentation of Vancomycin. documented in this encounter Discontinued Medications Start [...] needed for Pain. added in this encounter Active and Recently Administered Medications Times are shown in CDT. 05/18/2021 05/19/2021 Medication Order 05/17/2021 0924 (Given - Provider: Dee Cao RN)4176 (Given - Provider: Mikhail Philippe RN) 0984 (Given - Provider: Maisha parker RN) bacitracin topical ointment 0848 (Given - Topical, TWICE DAILY, First dose on Tue Provider: Nakul ibarra 05/15/21 at 2100, Until Discontinued, CYNDY Babcock)2047 Apply to right neck incision (Given - Provider: Bibi Stevenson RN) 2144 (Given - Provider: Mikhail Philippe, CYNDY) enoxaparin (LOVENOX) syringe 40 mg 2046 (Med Not Giv en 40 mg, Subcutaneous, DAILY, First dose - Provider: Kelsea aguilar on Tue05/13/21 at 2100, Until CYNDY Soliz - Reason: Discontinued, For patients undergoing Patient Refuse d) surgery: Consult physician in advance - - enoxaparin is an anticoagulant and may need to be held for 12hr prior to surgery or invasive procedures. NOTE: This is a HIGH ALERT Medication. 0336 (Given - New Bag - Provider: Shawn Soliz RN)0924 (Given - New Bag - Provider: Dee Cao, CYNDY)155 (Given - New Bag - Provider: Anju White RN)214 (Given - New Bag - Provider: Mikhail Philippe RN) 040 (Given - New Bag - Provider: Mikhail Philippe RN)0917 (Given - New Bag - Provider: Maisha Mathur, CYNDY) piperacillin/tazobactam (ZOSYN) 3.375 g 0413 (Given - New in sodium chloride 0.9% (NS) 100 mL IVPB Bag - Provi ruby: (MB+) Elsie Mckeon, 3.375 g, Intravenous, at 200 mL/hr, RN)1058 (Given - New EVERY 6 HOURS, First dose on Tue05/13/21 Bag - Provi ruby: at 1830, Until Discontinued Shalom Babcock RN)1611 (Given - New Bag - Provider: Shalom Babcock, CYNDY)2224 (Given - New Bag - Provider: Shawn Soliz RN) 0923 (Given - Provider: Dee Cao, CYNDY) 0916 (Given - Provider: Maisha parker RN) polyethylene glycol 3350 (MIRALAX) 0857 (Med Not Giv en packet 17 g - Provider: Shalom 17 g (1 packet), Oral, DAILY, First dose CYNDY Babcock - Reason: on Tue05/13/21 at 1745, Until Patient Refused) Discontinued, 8.5 GRAMS = 0.5 PACKET 17 GRAMS = 1 PACKET 34 GRAMS = 2 PACKETS 0923 (Given - Provider: Dee Cao RN)2145 (Given - Provider: Mikhail Philippe, CYNDY) 0916 (Given - Provider: Maisha parker RN) senna/docusate (SENOKOT-S) tablet 1 0857 (Med Not Gi luann tablet - Provider: Shalom Gupta tablet, Oral, TWICE DAILY, First dose CYNDY Babcock - Reason: on 05/13/21 at 2100, Until Patient Refused)2048 Discontinued, Hold for loose stools (Given - Provide r: Bibi Stevenson, CYNDY) SODIUM CHLORIDE 0.9 % IV SOLP (Cabinet 2224 (Given - New Override) (COMPLETED) Bag - Provider: NOW, 1 dose, On Tue05/17/21 at 2215, Shawn Soliz RN - Created by cabinet override, Created by Comment: tko ) cabinet override 0900 (Given - Provider: Dee Cao RN)1555 (Given - Provider: Anju White, CYNDY) 0013 (Given - Provider: Mikhail Philippe, CYNDY)0919 (Given - Provider: Maisha Mathur RN) sodium chloride PF 0.9% flush 10 mL 0125 (Given - 10 mL, Flush, FLUSH THREE TIMES DAILY, Provider: nAastasiia beltran First dose on 05/16/21 at 0000, Until CYNDY Mckeon)0847 Discontinued, Flush central, Midline or (Given - Pro vider: PICC line, with 5-10 mL every 8 hours Shalom Babcock, R N)1643 using the push-pause (turbulent) method. (Given - Pr ovider: Flush all lumens that do not have a Shalom Babcock RN) 2048 continuous infusion. After obtaining (Given - Provid er: blood specimen, flush catheter with 20 mL. CYNDY Bridges) 1009 (Given - New Bag - Provider: Jeremias Cao RN)2222 (Given - New Bag - Provider: Mikhail Philippe, CYNDY) 0920 (Given - New Bag - Provider: Maishakim Calderon RN) vancomycin (VANCOCIN) 1,000 mg in 1133 (Given - New dextrose 5% (D5W) 250 mL IVPB ([id number]) Bag - Provi ruby: 1,000 mg, Intravenous, 250 mL, Shalom Babcock RN)2225 Administer over 60 Minutes, EVERY 12 (Given - New Ba g - HOURS, First dose on Yeimi 05/14/21 at 1000, Provider: Kelsea aguilar Until Discontinued, Note Jessenia Soliz RN) Monitoring: Please record infusion start time (Action= Given) and stop driss e (Action= Completed) of dose when blood levels are drawn. 05/18/2021 05/19/2021 Medication Order 05/17/2021 0428 (Given - Provider: Shawn Soliz, CYNDY) 0923 (Given - Provider: Dee Cao, CYNDY)1655 (Given - Provider: Anju White, CYNDY)2222 (Given - Provider: Mikhail Philippe, CYNDY) 0631 (Given - Provider: Mikhail Philippe RN)1257 (Given - Provider: Maisha Mathur RN) acetaminophen (TYLENOL) tablet 650 mg 0847 (Given - 650 mg, Oral, EVERY 6 HOURS PRN, Provider: Shalom Starting Tue05/13/21 at 1639, Until Farhat Babcock RN)204 8 05/19/21 at 1505, Pain non-opioid: may be (Given - Pr ovider: used alone or in combination with opioid Bibi ocasio, analgesia, TOTAL ACETAMINOPHEN DOSE NOT RN) TO EXCEED 4GM DAILY diphenhydrAMINE (BENADRYL) injection 25 mg 25 mg, Intravenous, EVERY 4 HOURS PRN, Starting Tue05/13/21 at 1732, Until Tue05/19/21 at 1505, Itching Injectable 0226 (Given - Provider: Elsie goetz, CYNDY) melatonin tablet 3 mg 2048 (Given - 3 mg, Oral, AT BEDTIME PRN, Starting Tue Provider: Josue franklin 05/13/21 at 1639, Until Tue05/19/21 at CYNDY Stevenson) 1505, Insomnia ondansetron (ZOFRAN ODT) rapid dissolve tablet 4 mg(Linked Group 1) 4 mg, Oral, EVERY 6 HOURS PRN, Startin g Tue05/13/21 at 1639, Until Tue05/19/21 a t 1505, Nausea/Vomiting PO, Place on tongue and allow to dissolve. ondansetron (ZOFRAN) injection 4 mg(Linked Group 1) 4 mg, Intravenous, EVERY 6 HOURS PRN, Starting Tue05/13/21 at 1639, Until Tue05/19/21 at 1505, Nausea/Vomiting Injectable 0147 (Given - Provider: Shawn Soliz, RN) 0620 (Given - Provider: Shawn Soliz, RN)1347 (Given - Provider: Dee Cao, RN)1808 (Given - Provider: Anju White, RN)2221 (Given - Provider: Mikhail Philippe, CYNDY) 0226 (Given - Provider: Elsie goetz, CYNDY)0631 (Given - Provider: Mikhail Philippe, CYNDY)1257 (Given - Provider: Maisha Mathur, CYNDY) oxyCODONE (ROXICODONE) tablet 5-10 mg 0124 (Given - 5-10 mg, Oral, EVERY 4 HOURS PRN, Provider: Alexandra tiwari Starting Tue05/13/21 at 1639, Until Farhat Mckeon, RN )0332 05/19/21 at 1505, Pain PO (Canceled Entry - Provider: Elsie Mckeon, CYNDY)0447 (Given - Provider: Elsie Mckeon RN - Comment: giving 45 min early, approved via verbal order by Dr. Barron)0847 (Given - Provider: Shalom Babcock, RN)1259 (Given - Provider: Shalom Babcock, RN)1643 (Given - Provider: Shalom Babcock RN)2048 (Given - Provider: Bibi Stevenson, CYNDY) pancrelipase 20,880 Units/sodium bicarbonate 650 mg (KU CLOG DESTROYER) Per NG tube, NEEDED (RADAR SYSTEMS ENGINEER FROM RX), Starting Yeimi 05/14/21 at 1359, Until Tue05/19/21 at 1505, Occluded [...] Notify physician if tube remains occluded following administration. vancomycin, pharmacy to manage PER PHARMACY, 999 doses, Starting Tue05/13/21 at 1740, Until Tue05/19/21 at 1505, Indication for this medication: right face cellulitis, Pharmacy will page you if there are questions about your order. Pager number last four digits: [phone], This order is for informational use only. See separate order for administration and documentation of Vancomycin. Order Group 1: ondansetron (ZOFRAN ODT) rapid dissolve tablet 4 mgJump to med 4 mg, Oral, EVERY 6 HOURS PRN, Startin g Tue05/13/21 at 1639, Until Tue05/19/21 at 1505, Nausea/Vomiting PO
Place on tongue a nd allow to dissolve.
Or ondansetron (ZOFRAN) injection 4 mgJump to med 4 mg, Intravenous, EVERY 6 HOURS PRN, Starting Tue05/13/21 at 1639, Until Tue05/19/21 at 1505, Nausea/Vomiting Injectable documented in this encounter Orders First Ordered Date Medications Ordered That Might Not Have Count Last Ordered Date Been Administered bacitracin topical ointment 05/15/2021 EPINEPHrine PF (ADRENALIN) 1 mg in 07/2021 sodium chloride 0.9% (NS) 250 mL irrigation haloperidol lactate (HALDOL) injection 1 05/15/2021 mg lactated ringers infusion 1 05/15/2021 lidocaine PF 1% (10 mg/mL) injection 0.2 05/15/2021 mL metoclopramide (REGLAN) injection 10 mg 05/15/2021 vancomycin (VANCOCIN) 3,000 mg, 2020 gentamicin 240 mg in sodium chloride [...]
--- OUTSIDE RECORDS SUMMARY | 2021-07-06 04:55 | XMS REPORT | Encounter Summary ---
Author Author [facility] Organization [facility] Address Unknown Phone Unavailable Care Team Providers Care Warm In Name Role Phone ToroGeovanny Tobin GONSALVES PCP Encounter Details Care Team Description Date Type Department Roger Bates MD [address] Ortho[facility] [address] [place], [place] [id number] 06/12/2021 Outpt. Infectious Diseases : Main Antibiotic [place], [facility] Therapy 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 Bates, will continue current dose of vancomycin until accurate level is obtained. Creatinine is stable. [facility] notified. Patient returning to see Dr. Benson in plastics on 06/24/21, will coordinate ID vis it on same day. * Kyara Jeffers RN - 06/12/2021 1:46 [...] OUTSIDE LAB eGFR Non OTHER OUTSIDE LAB [facility] eGFR OTHER OUTSIDE [facility] Anion Gap OTHER OUTSIDE LAB Specimen [...]
--- OUTSIDE RECORDS SUMMARY | 2021-07-06 04:55 | XMS REPORT | Encounter Summary ---
Author Author [facility] Organization [facility] Address Unknown Phone Unavailable Care Team Providers Care Pressurised Container Filler Name Role Phone Geovanny Engel APRN PCP Reason for Visit * Reason Onset Date Comments Follow-up Phone Call 06/11/2021 Encounter Details Care Team Description Date Type Department Sergei Benson MD [address] [place] [id number] Follow-up Phone Call 06/11/2021 Telephone Plastic Surgery: [facility] in [place], [facility] [address] [place] [address] [address], [address] [place] [address] Social History Date Tobacco Use Types Packs/Day Years Used Never Smoker Smokeless Tobacco: Chew Current User Comments Alcohol Use Standard Drinks/Week Yes 10 (1 standard drink = 0.6 oz pure alcohol) Sex Assigned at Date Recorded Male 10/06/2020 7:51 AM 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
[2021-07-06] MEDS ORDERED: oxyCODONE 5 MG/5 ML ORAL SOLN (roxiCODONE) 5 ML UDC PEG STA (05:39)
[2021-07-06] MEDS ORDERED: OXYC1TAB87 PEG (06:19)
--- NOTE | 2021-07-06 06:20 | ED General ---
General Chief Complaint: Skin/Wound Problems Stated Complaint: ABSCESS ON RT CHEEK Nursing Triage Note: Patient presented to the ER today with complaints of swelling and drainage to an abscess located on his right cheek. Patient states abscess presented approximately 1 year ago and they have been following up with a physician at . Source of Information: Patient Exam Limitations: No Limitations History of Present Illness Date Seen by Provider: Jul 06, 2021 Time Seen by Provider: 05:14 Initial Comments This 51-year-old man is brought to the emergency room by his with concerns about progressive degradation of a skin cancer on his right cheek and uncontrolled pain. 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 His states this has now been deemed terminal by his oncology team at [facility]. They are in need of pain management as he is out of his pain medications currently. indicates that he violated his controlled substances contract with [facility] when he had surgery at and was prescribed pain medications after the surgery. She states the [facility] then discontinued prescribing his pain medications. [facility] apparently has dismissed him from aggressive interventions for the time being. He is being referred back to primary care for management of his care and pain control. Because of induration and disfigurement of the jaw, he uses a PEG tube. Allergies and Home Medications Allergies Coded Allergies: ibuprofen (Unverified Allergy, Severe, HIVES, EDEMA, 03/12/12) Home Medications Amoxicillin/Potassium Clav 1 Each Tablet, 1 EACH PO BID Prescribed by: MIRELLA GALVEZ on 04/30/21 170 Cephalexin 500 Mg Tablet, 500 MG PO QID Prescribed by: DAVID BRADY on 04/07/21 0443 Doxycycline Hyclate 100 Mg Tablet, 100 MG PO BID Prescribed by: MIRELLA GALVEZ on 04/30/21 1705 Hydrocodone/Acetaminophen 1 Each Tablet, 1 TAB PO Q6H PRN for PAIN-MODERATE (5- 7) Prescribed by: DAVID BRADY on 04/07/21 0443 Hydrocodone/Acetaminophen 1 Each Tablet, 1 TAB PO Q4H PRN for PAIN-MODERATE (5- 7) Prescribed by: MIRELLA GALVEZ on 04/30/21 1706 Hydrocodone/Acetaminophen 1 Each Tablet, 1 EACH PO Q6H PRN for PAIN-MODERATE (5- 7) Prescribed by: SAM BATISTA on 06/12/21 1119 Oxycodone HCl/Acetaminophen 1 Each Tablet, 1 TAB PEG Q4H PRN for PAIN-MODERATE (5-7) Crush and give via PEG Prescribed by: ASTON MCRAE on 07/06/21 0620 Patient Home Medication List Home Medication List Reviewed: Yes Review of Systems Review of Systems Constitutional: no symptoms reported EENTM: see HPI Respiratory: no symptoms reported Cardiovascular: no symptoms reported Gastrointestinal: see HPI Genitourinary: no symptoms reported Musculoskeletal: see HPI Skin: see HPI Psychiatric/Neurological: No Symptoms Reported Hematologic/Lymphatic: See HPI Immunological/Allergic: see HPI Past Vrxxtsq-[id number]-[id number] Hx Immunizations Up To Date Tetanus Booster (TDap): Less than 5yrs Seasonal Allergies Seasonal Allergies: No Past Medical History Surgery/Hospitalization HX: RECONSTRUCTIVE FACIAL SURGERY R/T SKIN CANCER Surgeries: Yes (facial AND JAW RECONSTRUCTION, SKIN GRAFTS.) Respiratory: No Cardiac: No Neurological: No Genitourinary: No Gastrointestinal: Yes (FEEDING TUBE) Musculoskeletal: No Endocrine: No HEENT: No Cancer: Yes (JAW CA) Skin Did You Recieve Any Treatments: Yes What Type of Treatment Did You: Chemotherapy, Surgical Intervention Psychosocial: No Integumentary: Yes (SKIN GRAFT) Blood Disorders: No Physical Exam Vital Signs Vital Signs - First Documented 07/06/21 04:58 Temp 36.2 Pulse 88 Resp 17 B/P (MAP) 122/79 (93) Pulse Ox 100 O2 Delivery Room Air Capillary Refill : Less Than 3 Seconds Height, Weight, BMI Height: '" Weight: lbs. oz. kg; 21.00 BMI Method:Estimated General Appearance: WD/WN, Mild Distress, Thin HEENT: PERRL/EOMI, Other (Large craterous tumor lesion on the right cheek with extensive induration of the right face, jaw, and mouth.) Neck: Normal Inspection Respiratory: Lungs Clear, Normal Breath Sounds, No Accessory Muscle Use Cardiovascular: Regular Rate, Rhythm, No Edema, No Murmur Gastrointestinal: Normal Bowel Sounds, Non Tender, Soft Rectal: Normal Exam, Deferred Extremity: Normal Inspection, No Pedal Edema Neurologic/Psychiatric: Alert, No Motor/Sensory Deficits, shank burnisher II-XII Norm as Tested Skin: Normal Color, Warm/Dry Progress/Results/Core Measures Suspected Sepsis SIRS Temperature: Pulse: 88 Respiratory Rate: 17 Blood Pressure 122 /79 Mean: 93 Results/Orders My Orders Orders - ASTON BRADY MD Oxycodone 5 Mg/5ml Oral Soln (Roxicodone (07/06/21 05:39) Vital Signs/I&O 07/06/21 07/06/21 04:58 06:56 Temp 36.2 Pulse 88 89 Resp 17 16 B/P (MAP) 122/79 (93) 122/79 Pulse Ox 100 98 O2 Delivery Room Air Room Air Capillary Refill : Less Than 3 Seconds Blood Pressure Mean: 93 Progress Note : Progress Note I debrided the loose cancerous tissue from the large cratered lesion on the right cheek. Oxycodone was given in the PEG tube. We discussed the inappropriateness of obtaining chronic pain medications from the ER. However, I do not want this gentleman to suffer while he is trying to figure out his pain management. I therefore prescribed some Percocet to hold him over until he. The ulcerative wound was packed with 1 inch plain gauze and a nonstick dressing was applied over the top. 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 I have discussed the patient's situation did with Dr. Bolivar in hopes that [facility] might be able to provide some support services and that he might be able to get his pain management through [facility]. Departure Impression Primary Impression: Facial malignant neoplasm Additional Impression: Cancer associated pain Disposition: 01 HOME, SELF-CARE Condition: Improved Departure-Patient Inst. Decision time for Depature: 06:16 Referrals: NO,LOCAL PHYSICIAN (PCP/Family) Primary Care Physician Patient Instructions: Cancer Pain Syndromes (DC) Add. Discharge Instructions: Use your pain medication as prescribed. Dr. Brady will try to have a sales representative gas service from the [facility] contact you to help make arrangements for follow-up care and support services. If you do not hear from them by middle of this week, please call the clinic at [phone]. Continue daily dressing changes as reviewed in the ER. You may change dressing more often if necessary. Call with questions or concerns. Return to care for worsening symptoms. All discharge instructions reviewed with patient and/or family. Voiced understanding. Scripts Oxycodone HCl/Acetaminophen (Percocet 5-325 mg Tablet) 1 Each Tablet 1 TAB PEG Q4H PRN for PAIN-MODERATE (5-7) MDD 6 TABS, #30 TAB Crush and give via PEG Prov: ASTON BRADY MD 07/06/21 Copy Copies To 1: JORGE BOLIVAR MD, JOSHUA T MD Jul 06, 2021 06:20
[2021-07-06 06:56] VITALS: BP 122/79
== END 2021-07-06 06:57 | disposition home or self-care (01) ==
LOC: EDUNIT# 04:47 → ER 04:50
DX: G89.3 Neoplasm related pain (acute) (chronic) (principal); C44.300 Unspecified malignant neoplasm of skin of unspecified part of face; Z42.8 Encounter for other plastic and reconstructive surgery following medical procedure or healed injury; Z79.891 Long term (current) use of opiate analgesic
CPT/HCPCS: 99282

== ENCOUNTER 2021-07-16 11:59 | Emergency (ER) | payer MEDICAID ==
[~2021-07-16] VITALS: Ht 167.7 cm; Wt 56.7 kg
[~2021-07-16 11:59] MED LIST changes: +OXYC1TAB87 PEG
--- OUTSIDE RECORDS SUMMARY | 2021-07-16 12:24 | XMS REPORT | Encounter Summary ---
Author Author [facility] Organization [facility] Address Unknown Phone Unavailable Care Team Providers Care Program Management Intern Name Role Phone Geovanny Engel ASSEMBLER SEMICONDUCTOR PCP Reason for Visit * Reason Onset Date Comments Outpatient Antibiotic 07/01/2021 Therapy ([facility]) Encounter Details Care Team Description Date Type Department Roger Bates MD [address] [place] Ortho/[facility] [place] [address] [place] [address] Outpatient Antibiotic Therapy ([facility]) 07/01/2021 Telephone Infectious Diseases : Main [place], [facility] 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 [...]
--- OUTSIDE RECORDS SUMMARY | 2021-07-16 12:24 | XMS REPORT | Encounter Summary ---
Author Author [facility] Organization [facility] Address Unknown Phone Unavailable Care Team Providers Care Cooler Room Worker Name Role Phone Toro Geovanny Tobin STEAMSHIP AGENT PCP Reason for Visit * Reason Onset Date Comments Palliative Care 07/03/2021 Encounter Details Care Team Description Date Type Department Mariaelena Bar, foam rubber molder 07/03/2021 Telephone Palliative Care: We [address] 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
--- OUTSIDE RECORDS SUMMARY | 2021-07-16 12:24 | XMS REPORT | Clinical Summary ---
Author Author [facility] Organization [facility] Address Unknown Phone Unavailable Care Team Providers Care Steamtable Attendant Railroad Name Role Phone Geovanny Engel APRN PCP Source Comments Some departments are not documenting in the electronic medical record. If you d o not see the information that you expected, contact Release of Information in [facility] Information Management department at [phone] for further assistan ce in locating additional records.[facility] Allergies Comments Active Allergy Reactions Severity [...] 5 Take one 10 tablet 0 0 8/18/202 mg tablet tablet by 1 mouth every [...] every 6 100 mL IVPB (MB+) hours. 07/01/2021 Discontinued oxyCODONE (ROXICODONE) 5 Take one 30 tablet 0 0 7/16/202 mg tablet tablet by 1 mouth every 4 hours as needed 07/01/2021 Discontinued (Therapy comple tristan) vancomycin 1.5 gram solr Administer 0 06/09 1.5 g through 1 vein daily. 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 Infectious Diseases Antibiotic Therapy Eric Bensno MD Follow-up Phone Call 06/11/2021 Telephone Plastic Roger Hyde MD 06/08/2021 Outpt. Infectious Diseases Antibiotic Therapy [...] ANNED performed by Eric Benson MD at [facility] OR TOOTH EXTRACTION 10/21/2020 Mouth/N/A EXTRACTION TO OTH performed by Eric Benson MD at [facility] OR GASTROSTOMY TUBE 10/21/2020 Abdomen/N/A ESOPHAGOGASTR ODUODENOSCOPY WITH PLACEMENT PLACEMENT PERCUTANEOUS GASTROSTOMY TU BE performed by Oscar Batista Jr., MD at [facility] OR GASTROSTOMY TUBE 10/21/2020 PLACEMENT TUMOR EXCISION 10/23/2020 Face/Right RADICAL RESECTI ON TUMOR SOFT TISSUE 2.0 CM OR MORE - FACE/ SCALP performed by Eric Benson MD at [facility] OR Medical devices from this surgery are i n the Implants section. TISSUE TRANSFER 10/23/2020 Face/Right TISSUE TRANSFE R FREE SKIN FLAP WITH MICROVASCULAR ANASTOMOSIS performed by Eric Benson MD at [facility] OR Medical devices from this surgery are i n the Implants section. SKIN GRAFT 10/23/2020 Leg Upper/Left SPLIT THICKNESS SKIN AUTOGRAFT 100 SQ CM OR LESS OR 1% BODY AREA OF CHILD- UPPER EXTREMI TY performed by Eric Benson MD at [facility] OR Medical devices from this surgery are i n the Implants section. LYMPHADENECTOMY 10/23/2020 Neck/Right CERVICAL LYMPH ADENECTOMY performed by Eric Benson MD at [facility] OR Medical devices from this surgery are i n the Implants section. NECK SURGERY 10/23/2020 Mouth/N/A GLOSSECTOMY COM POSITE WITHOUT RADIAL NECK DISSECTION performed by Eric Benson M D at [facility] OR Medical devices from this surgery are i n the Implants section. TISSUE TRANSFER 10/23/2020 Face/Right TISSUE TRANSFE R FREE OSTEOCUTANEOUS FLAP WITH MICROVASCULAR ANASTOMOSIS performed by Eric Benson MD at [facility] OR Medical devices from this surgery are i n the Implants section. HARDWARE REMOVAL 05/15/2021 Face/Right REMOVAL HARDW ARE -DEEP MANDIBLE performed by Eric Benson MD at [facility] OR Medical devices from this surgery are i n the Implants section. EXCISION BONE 05/15/2021 Face/Right EXCISION BONE - MANDIBLE performed by Eric Benson MD at [facility] OR Medical devices from this surgery are i n the Implants section. WOUND REPAIR 05/15/2021 Face/Right REPAIR COMPLEX WOUND 2.6 CM TO 7.5 CM - HEAD/ NECK performed by Eric Benson MD at [facility] OR Medical devices from this surgery are i n the Implants section. WOUND REPAIR 05/15/2021 Face/Right REPAIR COMPLEX WOUND EACH ADDITIONAL 5 CM OR LESS- HEAD/ NECK performed by Eric Benson M D at [facility] OR Medical devices from this surgery are i n the Implants section. 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 COVID-19 Exposure Response 07/01/2021 1:28 [...] ot Implanted Type Area Manufactur er 2025 [id number] / [id number] / [id number] Artists[employer] Booking Representative Anastomosis 4mm [place] Right: Mandible SYNOVIS Microvascular Sterile Disposable - MICRO [id number] [id number] Implanted: Qty: 1 on 10/23/2020 by Eric Harper MD at [facility] [id number] / [id number] / [id number] Artists[employer] Booking Representative Anastomosis 2mm [place] Right: Mandible SYNOVIS Microvascular Sterile Disposable - MICRO [id number] COMPNY Implanted: Qty: 1 on 10/23/2020 by Eric Harper MD at [facility] 07/07/2025 [id number] / [id number] / [id number] Artists[employer] Booking Representative Anastomosis 3.5mm [place] Mandible SYNOVIS Microvascular Sterile - MICRO [id number] COMPNY Implanted: Qty: 1 on 10/23/2020 by Eric Harper MD at [facility] Device Identifier Shelf Expiration Date Model / Serial / L ot Explanted Type Area Manufactur [id number] / [id number] / [id number] Mandible Implant Right: Mandible ASHLEYS DELORIS Implanted: Qty: 1 on 10/23/2020 by [facility] Eric Benson MD at [facility] Explanted: Qty: 1 on 05/15/2021 at [facility] / / Screw Titanium 7mm 2mm Taper Right: Mandible KLS-MART IN Oralmaxillofacial Self - LP [id number] Implanted: Qty: 3 on 10/23/2020 by Eric Benson MD at [facility] Explanted: Qty: 3 on 05/15/2021 by Eric Benson MD at [facility] / / Screw Titanium 9mm 2mm Taper Right: Mandible KLS-MART IN Oralmaxillofacial Self - LP [id number] Implanted: Qty: 3 on 10/23/2020 by Eric Benson MD at [facility] Explanted: Qty: 3 on 05/15/2021 by Eric Benson MD at [facility] / / Screw Titanium 11mm 2mm Taper Right: Mandible MEETA-LUKE BOYD Oralmaxillofacial Self - LP [id number] Implanted: Qty: 1 on 10/23/2020 by Eric Benson MD at [facility] Explanted: Qty: 1 on 05/15/2021 by Eric Benson MD at [facility] / / Screw Titanium 13mm 2mm Taper Right: Mandible ASHLEYS-LUKE TIN Oralmaxillofacial Self - LP [id number] Implanted: Qty: 2 on 10/23/2020 by Eric Benson MD at [facility] Explanted: Qty: 2 on 05/15/2021 by Eric Benson MD at [facility] Procedures Comments Procedure Name Priority Date/Time [...] OUTSIDE LAB eGFR Non OTHER OUTSIDE LAB Ivorian eGFR OTHER OUTSIDE Ivorian LAB Anion Gap OTHER OUTSIDE LAB Specimen Blood - Blood Performing Organization Address City/State/ZIP Code P josefina Number OTHER OUTSIDE LAB * PATHOLOGY SURGICAL < 5 SPECIMENS (06/15/2021 1:23 PM CDT) Only the most recent of 2 results within the time period is included. PATHOLOGY [facility] [email or web address] Department of Pathology and Laboratory Medicine [address] [place] [address] Surgical Pathology Office: [phone] SURGICAL PATHOLOGY REPORT NAME: FAISAL GARCIA Paris SURG PATH #: [id number] MR #: [id number] SPECIMEN CLASS: SR BILLING #: [id number] ALT ID #: LOCATION: [id number] DATE OF [...] x 0.7 cm cyst-like structure, friable, trisected, electroplating sales representative sections submitted in A1. (wlm) wl/06/16/2021 If immunohistochemical stains and/or in situ hybridization are cited in this report, the performance characteristics were determined by the Department of Pathology and Laboratory Medicine of the [facility] ([employer] [facility]) in compliance with CLIA'88 regulations. [...] of Pathology and Laboratory Medicine of the [facility]. It has not been cleared or approved by the FDA. The FDA has determined that such clearance or approval is not necessary. Specimen Other (Specify) Performing Organization Address City/State/ZIP Code P josefina Number MAIN LAB [address] [place] [address] * GRAM STAIN (06/15/2021 1:23 PM CDT) [...] Swab - Other (Specify) Performing Organization Address City/[facility]/ZIP Code P josefina Number MAIN LAB [address] [place] [address] * CULTURE-WOUND/TISSUE/FLUID(AEROBIC ONLY)W/SENSITIVITY (06/15/2021 1:23 PM CDT) [...] MAIN LAB Specimen Swab Performing Organization Address City/[facility]/ZIP Code P josefina Number MAIN LAB [address] [place] [address] * CULTURE-ANAEROBIC (06/15/2021 1:23 PM CDT) Only [...] josefina Number MAIN LAB [address] [place] [address] * INCISION AND DRAINAGE (I&D) - HP [...] of rig ht facial abscess Indications: Faisal Garcia III is a 51 y.o. male who presents for minor skin surgery. He understands all risks, benefits, indications, potential complications, a nd alternatives, and freely consents to the procedure. He al so understands the option of performing no surgery, the risk for scarring, and the technique of the procedure. Location: [facility] Anesthesia: Local Technique: After informed consent was [...] on 06/15/2021 12:41 PM. Performing Organization Address City/[facility]/ZIP Code P josefina Number RAD RESULTS * VANCOMYCIN 2HR POST DOSE (05/15/2021 3:44 PM CDT) Vancomycin 2HR 22.2 ug/mL MAIN LAB POST Dose Specimen Blood Performing Organization Address City/[facility]/ZIP Code P josefina Number MAIN LAB [address] [place] [address] * CULTURE-FUNGAL,OTHER (05/15/2021 2:19 PM CDT) Only the most recent of 5 results within the time period is included. Battery Name FUNGUS CULTURE [facility] MAIN LAB Report Status FINAL 06/15/2021 [facility] MAIN LAB Specimen BONE SPECIMEN MANDIBLE RIGHT [facility] MAIN LAB Description POSTERIOR Special NONE [facility] MAIN LAB Requests Culture NO GROWTH OF FUNGUS AT 4 WEEKS JENNIFER N LAB Specimen Tissue - Mandible Performing Organization Address [facility]/ZIP Code P josefina Number MAIN LAB [address] [place] [address] * CULTURE-TB (AFB) (05/15/2021 2:19 PM CDT) Only the most recent of 3 results within the time period is included. Battery Name AFB CULTURE MAIN LAB Report Status FINAL 07/06/2021 MAIN LAB Specimen BONE SPECIMEN MANDIBLE RIGHT MAIN LAB Description POSTERIOR Special NONE MAIN LAB Requests Culture NO GROWTH OF MYCOBACTERIA AT 6 JENNIFER N LAB WEEKS Specimen Tissue - Mandible Performing Organization Address City/State/ZIP Code P josefina Number MAIN LAB [address] [place] [address] * SURGICAL PATHOLOGY (05/15/2021 2:12 PM CDT) PATHOLOGY [facility] MAIN LAB [facility] [email or web address] Department of Pathology and Laboratory Medicine [address] [place] [address] Surgical Pathology Office: [phone] SURGICAL PATHOLOGY REPORT NAME: FAISAL GARCIA Paris SURG PATH #: [id number] MR #: [id number] SPECIMEN CLASS: SR BILLING #: [id number] ALT ID #: LOCATION: DISCHARGED DATE OF [...] fast and fungal organisms. Pursuant to the Production Line Manager Program at the [facility] Pathology Department, selected slides from [...] report. +++ +++ Rik Fountain DO, Resident ellenw/05/18/2021 ############################## ############################## ############ Material Received: A: right [...] Code P josefina Number MAIN LAB [address] [place] [address] * MRI ORBIT FACE AND/OR NECK WO/W CONT (05/14/2021 11:02 PM CDT) Specimen Impressions Performed At 1. Significantly degraded examination by motion. K U RAD RESULTS 2. Grossly unchanged findings of kirby a and abnormal enhancement at the anterior mandibulectomy margin involvin g the eyak parasymphysis and anterior graft, suspicious for osteomyelitis. [...] yperintensity through the center of the lower [id number]-[id number]. Right mandibular segmental resection an d hardware reconstruction and right oral cavity mass resection and soft tissue f lap reconstruction are redemonstrated with hardware exposure anteriorly appea ring grossly similar. There are findings of abnormal T2 hyperintensity and likel y enhancement at the anterior osteotomy graft and eyak parasymphysis margins with overlying soft tissue edema [...] hyperintensity through the center of the lower [id number]-[id number]. Right mandibular segmental resection and hardware reconstruction and right oral cavity mass resection and soft tissue flap reconstruction are redemonstrated with hardware exposure anteriorly appearing grossly similar. There are findings of abnormal T2 hyperintensity and likely enhancement at the anterior osteotomy graft and eyak parasymphysis margins with overlying soft tissue edema [...] at the anterior mandibulectomy margin involving the eyak parasymphysis and anterior graft, suspicious for osteomyelitis. [...] smith portions of the procedure with a ar dlevel, resident, and/or fellow participating. Overlapping portions [...] report Finalized by Naren Delgadillo M.D. on 021 11:03 AM. Dictated by Tanvir Barros MD [...] is made with a CT scan of [facility] chest of 2021. Kidneys are [...] on 05/14/2021 9:09 AM. Performing Organization Address City/[facility]/ZIP Code P josefina Number K[facility] RAD RESULTS * TYPE & CROSSMATCH (2021 8:28 PM CDT) Units Ordered 0 [facility] MAIN LAB Crossmatch 05/16/2021,2359 [facility] MAIN LAB Expires Record Check FOUND [facility] MAIN LAB ABO/RH(D) A POS MAIN LAB Antibody Screen NEG [facility] MAIN LAB Electronic YES [facility] MAIN LAB Crossmatch Specimen Cervix Performing Organization Address City/[facility]/ZIP Code P josefina Number [facility] MAIN LAB [address] [place] [address] * PHOSPHORUS (2021 8:28 PM CDT) Phosphorus 3.4 2.0 - 4.5 MG/DL [facility] MAIN LAB Specimen Performing Organization Address [facility] P josefina Number KU MAIN LAB [address] [place] [address] * MAGNESIUM (2021 8:28 PM CDT) Magnesium 1.8 1.6 - 2.6 mg/dL [facility] MAIN LAB Specimen Performing Organization Address [facility] P josefina Number MAIN LAB [address] [place] [address] * LACTIC ACID(LACTATE) (2021 8:28 PM CDT) Lactic Acid 1.7 0.5 - 2.0 MMOL/L [facility] MAIN LAB Specimen Performing Organization Address [facility] P josefina Number MAIN LAB [address] [place] [address] * CT CHEST W CONTRAST (2021 3:58 PM CDT) Specimen Impressions Performed At 1. Several tiny pulmonary nodules rem ain unchanged and likely represent scars [facility] RAD RESULTS or granulomas. No new or enlarging pulm onary nodules are appreciated. An additional follow-up chest CT in 6-12 m [facility] is suggested to assess for long-term stability. 2. No thoracic lymphadenopathy. 3. Persistent complicated left renal cyst. Ultrasound evaluation is again suggested if not previously performed. Finalized by John Martin M.D. on 7/7/20 21 5:27 PM. Dictated by John Martin M.D. [...] in the right lung on series 6, harvindre ge 65 and 117, as well as [...] Plan / Dates Group AETNA MEDICAID AETNA [id number] 2018-P [facility] Advance Directives Patient Note Keeper Explanation Type Date Recorded Advance 2021 7:26 [...]
--- OUTSIDE RECORDS SUMMARY | 2021-07-16 12:24 | XMS REPORT | Encounter Summary ---
Author Author [facility] Organization [facility] Address Unknown Phone Unavailable Care Team Providers Care Residential Framing Carpenter Name Role Phone Geovanny Engel SUPERVISOR LIME PCP Reason for Referral * Consult, Test & Treat (Routine) Referred By Contact Referred To Contact Status Reason Specialty Diagnoses / Procedures Trev Schneider MD [address] Ortho[facility]ilion Lvl [address] [place] [address] Joseph Neumann MD [address] [place] [address] Authorized Specialty Services Oncology Diagnoses Required Head and neck cancer (HCC) Answer Question facial squamous cell carcinoma Referral Electronically signed by Trev Schneider MD at * Consult, Test & Treat (Routine) Referred By Contact Referred To Contact Status Reason Specialty Diagnoses / Procedures Trev Schneider MD [address] [facility] Lvl [address] [place] [address] Cc - Ww Palliative Cl [address] [place] [address]. [place], [place] Authorized Specialty Services Palliative Care Diagnoses Required Head and neck cancer (HCC) Answer Question Cancer Care area? Comments Facial squamous cell carcinoma- mets Electronically signed by Trev Schneider MD at Reason for Visit * Reason Comments Follow Up Encounter Details Care Team Description Date Type Department Trev Schneider MD [address] [facility] [address] [place] [address] [phone] Head and neck cancer (HCC) (Primary Dx); Squamous cell carcinoma, lip 07/01/2021 Office Visit Otolaryngology: [facility], Medical Pavilion [address] 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 The patient was referred by Dr. Engel for evaluation of right neck mass. 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 Benson and Chris. He had positive lymph nodes w ith no LIZANDRO, no LVI or PNI. Discussed at head [facility] neckTB. Recommendations for a djuvant XRT.He underwent adjuvant XRT through [facility] from -03/02/21 and received 6,000 cGy of [...] a past medical history of Alcohol abuse, [place] (hard of hearing), Squamous cell carcinoma, lip, and Tobacco abuse. Surgical History: Procedure Laterality Date GASTROSTOMY TUBE PLACEMENT 10/21/2020 TRACHEOSTOMY PLANNED N/A 10/21/2020 Performed by Eric Benson MD at [facility] OR EXTRACTION TOOTH N/A 10/21/2020 Performed by Eric Benson MD at [facility] OR ALVEOLOPLASTY - EACH QUADRANT N/A 10/21/2020 Performed by Eric Benson MD at [facility] OR ESOPHAGOGASTRODUODENOSCOPY WITH PLACEMENT PERCUTANEOUS GASTROSTOMY TUBE N/A 10/21/2020 Performed by Oscar Batista Jr., MD at [facility] OR RADICAL RESECTION TUMOR SOFT TISSUE 2.0 CM OR MORE - FACE/ SCALP Right 10/23 Performed by Eric Benson MD at [facility] OR TISSUE TRANSFER FREE SKIN FLAP WITH MICROVASCULAR ANASTOMOSIS Right 10/23/20 20 Performed by Eric Benson MD at [facility] OR SPLIT THICKNESS SKIN AUTOGRAFT 100 SQ CM OR LESS OR 1% BODY AREA OF CHILD- U PPER EXTREMITY Left 10/23/2020 Performed by Eric Benson MD at [facility] OR CERVICAL LYMPHADENECTOMY Right 10/23/2020 Performed by Eric Benson MD at [facility] OR GLOSSECTOMY COMPOSITE WITHOUT RADIAL NECK DISSECTION N/A 10/23/2020 Performed by Eric Benson MD at [facility] OR TISSUE TRANSFER FREE OSTEOCUTANEOUS FLAP WITH MICROVASCULAR ANASTOMOSIS Righ t 10/23/2020 Performed by Eric Benson MD at [facility] OR REMOVAL HARDWARE -DEEP MANDIBLE Right 05/15/2021 Performed by Eric Benson MD at [facility] OR EXCISION BONE - MANDIBLE Right 05/15/2021 Performed by Eric Benson MD at [facility] OR REPAIR COMPLEX WOUND 2.6 CM TO 7.5 CM - HEAD/ NECK Right 05/15/2021 Performed by Eric Benson MD at [facility] OR REPAIR COMPLEX WOUND EACH ADDITIONAL 5 CM OR LESS- HEAD/ NECK Right 05/15/2021 Performed by Eric Benson MD at [facility] OR Past surgical history reviewed and is otherwise noncontributory. Past Family/Social History Family history reviewed and is otherwise noncontributory. He reports that he has never smoked. His smokeless tobacco use includes chew. H e reports current alcohol use of about [...] without stridor PATHOLOGY REVIEW: PATHOLOGY REPORT [facility] [email or web address] Department of Pathology and Laboratory Medicine [address] [place] [address] Surgical Pathology Office: [phone] SURGICAL PATHOLOGY REPORT NAME: FAISAL CLAIRE Paris SURG PATH #: [id number] MR #: [id number] SPECIMEN CLASS: SR BILLING #: [id number] ALT ID #: LOCATION: [facility] DATE OF PROCEDURE: 06/15/2021 AGE: 51 SEX: [...] x 0.7 cm cyst-like structure, friable, trisected, bottling equipment sales representative sections submitted in A1. (wlm) wlm/06/16/2021 If immunohistochemical stains and/or in situ hybridization are cited in this report, the performance characteristics were determined by the Department of Pathology and Laboratory Medicine of the 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 PLAN: After review of the various options including the risks, benefits and alternativ es, Mr. Claire has opted to proceed with symptom palliation as part of his ove rall management which I believe is reasonable for his condition. We discussed th e feasibility of salvage surgery which would involve radical resection of the ri ght face, mandible, dairy husbandman space and neck. Unfortunately, this has a very lo w likelihood of cure. I had a long discussion today with the patient and his regarding patient's recurrent cancer and assisted poor prognosis. He has now undergone major [...] pain management and goals of care discu jonathonon. I would also like him to meet [...]
--- OUTSIDE RECORDS SUMMARY | 2021-07-16 12:24 | XMS REPORT | Encounter Summary ---
Author Author [facility] Organization [facility] Address Unknown Phone Unavailable Care Team Providers Care Summer Internship Name Role Phone Geovanny Engel VICE PRESIDENT QUALITY PCP Reason for Visit * Reason Comments Post Operative Visit * Consult, Test & Treat (Routine) Referred By Contact Referred To Contact Status Reason Specialty Diagnoses / Procedures New Request Encounter Details Care Team Description Date Type Department Sergei Benson MD [address] [place] [address] SCC (squamous cell carcinoma), face (Bozena sabrina Dx) 07/01/2021 Office Visit Plastic Surgery: [facility] in [place], [facility] [address] [place] [address] Social History Date Tobacco Use Types Packs/Day Years Used Never Smoker Smokeless Tobacco: Chew Current User Comments Alcohol Use Standard Drinks/Week Yes 10 (1 standard drink = 0.6 oz pure alcohol) Sex Assigned at Date Recorded 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
--- OUTSIDE RECORDS SUMMARY | 2021-07-16 12:24 | XMS REPORT | Encounter Summary ---
Author Author [facility] Organization [facility] Address Unknown Phone Unavailable Care Team Providers Care Health Care Social Worker Name Role Phone Geovanny Engel COIL ASSEMBLER PCP Reason for Visit * Reason Onset Date Comments Navigation Follow Up 07/10/2021 Encounter Details Care Team Description Date Type Department Polina Harris RN Navigation Follow Up 07/10/2021 Telephone Oncology: [address] 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 documented in this encounter Plan of Treatment [...]
--- OUTSIDE RECORDS SUMMARY | 2021-07-16 12:24 | XMS REPORT | Encounter Summary ---
Author Author [facility] Organization [facility] Address Unknown Phone Unavailable Care Team Providers Care Holistic Pulser Name Role Phone Geovanny Engel BIOFUELS ENGINEERING MANAGER PCP Reason for Visit * Reason Onset Date Comments Other 07/06/2021 Encounter Details Care Team Description Date Type Department Trev Schneider MD [address] [facility] [address] [place] [address] Other 07/06/2021 Telephone Otolaryngology: [facility], [facility] 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 Schneider the area is not infected but rather the drainage is secondary to cancer. Patient states he did go to the local ER and they dressed the area more appropriately. * Telephone Encounter - Monica Jones - 07/06/2021 10:00 AM CDT Sore on right side of jaw and requesting antibiotic to be sent to [facility][id number] [address] [facility]. documented in this encounter Plan of Treatment [...]
--- OUTSIDE RECORDS SUMMARY | 2021-07-16 12:24 | XMS REPORT | Encounter Summary ---
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
--- OUTSIDE RECORDS SUMMARY | 2021-07-16 12:24 | XMS REPORT | Encounter Summary ---
Author Author [facility] Organization [facility] Address Unknown Phone Unavailable Care Team Providers Care Lead Game Designer Name Role Phone Toro Geovanny Tobin PAPER MILL SUPERVISOR PCP Reason for Referral * Consult, Test & Treat Referred By Contact Referred To Contact Status Reason Specialty Diagnoses / Procedures Roger Bates MD [address] Orth[facility] [address] [place] [phone] New Request Specialty Services Diagnoses Required MRSA infection Scheduling Instructions No action needed. OPAT RN will address. Answer Question ID OPAT orders to: - Fax # Referral Comments Infectious Diseases Outpatient Orders: Today's Date: 07/01/[address] Bates, 1. Patient has completed IV antibiotic therapy. 2. PICC was removed in clinic. 3. DC weekly labs. Fax all lab results to [phone] and call ID RN for any Critical lab results during normal business hours. After Hrs: If Labs Outside of Normal Range any time on weekends or holidays please page ID fellow job setter honing to [phone]. 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 PLAN: After review of the various options including the risks, benefits and alternativ es, Mr. Carrizales has opted to proceed with symptom palliation as part of his ove rall management which I believe is reasonable for his condition. We discussed th e feasibility of salvage surgery which would involve radical resection of the ri ght face, mandible, linen controller space and neck. Unfortunately, this has a very lo w likelihood of cure. I had a long discussion today with the patient and his regarding patient's recurrent cancer and nursing home poor prognosis. He has now undergone major [...] be administered through feeding tube, I will dillno ns on a 3-month course, but I will consider stopping it much sooner according to Palliative Care plans, since treatment would not be curative I will be available for f/u as needed Discussed in detail with patient and his * Kyara Jeffers RN - 07/01/2021 2:[address] Bates, 1. Patient has completed IV antibiotic therapy. 2. PICC was removed in clinic. 3. DC weekly labs. Orders sent via [facility] Fax to [facility]. Notified Albina SHRESTHA at [facility]. 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
--- OUTSIDE RECORDS SUMMARY | 2021-07-16 12:24 | XMS REPORT | Encounter Summary ---
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
--- OUTSIDE RECORDS SUMMARY | 2021-07-16 12:24 | XMS REPORT | Encounter Summary ---
Author Author [facility] Organization [facility] Address Unknown Phone Unavailable Care Team Providers Care Charter And Tour Bus Driver Name Role Phone Geovanny Engel TOP LIFT AND AUTOMATIC WINDOW REPAIRER PCP Reason for Referral * Radiology Services (Routine) Referred By Contact Referred To Contact Status Reason Specialty Diagnoses / Procedures Sergei Benson MD [address] [place] [address], [address] [place] [phone] Authorized Radiology Diagnoses Squamous cell carcinoma, lip P rocedures CT NECK W/CONTRAST Electronically signed by Sergei Benson MD at Reason for Visit * Radiology Services (Routine) Referred By Contact Referred To Contact Status Reason Specialty Diagnoses / Procedures Sergei Benson MD [address] [place] [address], [address] [place] [phone] Authorized Radiology Diagnoses Squamous cell carcinoma, lip P rocedures CT NECK W/CONTRAST Encounter Details Care Team Description Date Type Department Sergei Benson MD [address] [place], [place] [phone] 06/15/2021 Hospital Imaging, CT: [facility], Encounter [facility] 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 Recorded COVID-19 Exposure Response 06/15/2021 11:43 [...] MAIN LAB Specimen Swab Performing Organization Address City/[facility]/ZIP Code P josefina Number [facility] [address] [place] [address] * GRAM STAIN (06/15/2021 1:23 PM CDT) Battery Name GRAM STAIN [facility] Report Status FINAL 06/16/2021 [facility] Specimen SWAB RIGHT FACE [facility] Description Special NONE [facility] Requests Gram Stain NO NEUTROPHILS SEEN [facility] Gram Stain NO ORGANISMS SEEN [facility] Specimen Swab - Other (Specify) Performing Organization Address [facility] P josefina Number [facility] [address] [place] [address] * CULTURE-ANAEROBIC (06/15/2021 1:23 PM CDT) Battery Name ANAEROBE CULTURE [facility] Report Status FINAL 06/20/2021 [facility] Specimen SWAB RIGHT FACE [facility] Description Special NONE [facility] Requests Culture NO ANAEROBES ISOLATED [facility] Specimen Swab - Other (Specify) Performing Organization Address [facility] P josefina Number [facility] [address] [place] [address] * CT NECK W/CONTRAST (06/15/2021 12:05 PM [...] tissue neck mass. Dr. Aleman and Dr. Leever discussed findings via telephone with Ravinder Heck [...]
--- NOTE | 2021-07-16 13:03 | ED General ---
General Stated Complaint: ABCESS INFECTED Source of Information: Caregiver Exam Limitations: No Limitations History of Present Illness Date Seen by Provider: Jul 16, 2021 Time Seen by Provider: 12:15 Initial Comments Mr. Carrizales is a 51-year-old with a history of right-sided facial cancer who presents to the emergency department today with his with a chief complaint of a new growth to the medial aspect of his right eye and increasing drainage from the wound on his right face. He has had an extensive history of visits to this emergency department as well as for chemotherapy, radiation therapy here. Supposed to be following up with [facility]. Recent ER visit on July 06 for pain control. Apparently, per the records and report of the the patient is considered "terminal". He is no longer a candidate for any new therapies. She feels like has "written ice off". He has had poor pain management as the local physicians at [facility] are not interested in providing pain management. She was talked to as was the patient about hospice and he has been resistant to the idea. She is mostly concerned for him getting adequate nutrition via his PEG tube as he takes nothing by mouth secondary to the cancer. No reported fevers or chills. No increasing shortness of breath. No other complaints of acute illness. Long discussion with the family by myself and Mirella Marks, nurse practitioner. We discussed the benefits of hospice extensively. Hospice nurse from the hospital was asked to come and speak with the patient as well. We are going to go ahead and have the hospice company come out and talk with them about options for further home care. Wound on the right side of the face was undressed with massive amounts of drainage and obvious maggot infestation. This was cleansed thoroughly and attempts to debride were made. Vital signs were stable. No fever, tachycardia or hypotension. No concerns for sepsis. Records from were reviewed and no antibiotics have been sent from to the pharmacy at [facility] for the patient as infectious disease, ENT believe that the drainage from the wound is all related to the aggressiveness of the cancer. Timing/Duration: Other (1-2 weeks) Associated Systoms: Malaise, Weakness Allergies and Home Medications Allergies Coded Allergies: ibuprofen (Unverified Allergy, Severe, HIVES, EDEMA, 03/12/12) Patient Home Medication List Home Medication List Reviewed: Yes Amoxicillin/Potassium Clav (Augmentin 875-125 Tablet) 1 Each Tablet, 1 EACH PO BID Prescribed by: MIRELLA MARKS on 04/30/21 1705 Cephalexin (Cephalexin) 500 Mg Tablet, 500 MG PO QID Prescribed by: DAVID BRADY on 04/07/21 044 Doxycycline Hyclate (Doxycycline Hyclate) 100 Mg Tablet, 100 MG PO BID Prescribed by: MIRELLA MARKS on 04/30/21 1705 Hydrocodone/Acetaminophen (Hydrocodone-Acetamin 5-325 mg) 1 Each Tablet, 1 TAB PO Q6H PRN for PAIN-MODERATE (5-7) Prescribed by: DAVID BRADY on 04/07/21 044 Hydrocodone/Acetaminophen (Hydrocodone-Acetamin 5-325 mg) 1 Each Tablet, 1 TAB PO Q4H PRN for PAIN-MODERATE (5-7) Prescribed by: MIRELLA MARKS on 04/30/21 1706 Hydrocodone/Acetaminophen (Hydrocodone-Acetamin 7.5-325) 1 Each Tablet, 1 EACH PO Q6H PRN for PAIN-MODERATE (5-7) Prescribed by: SAM BATISTA on 06/12/21 1119 Oxycodone HCl/Acetaminophen (Percocet 5-325 mg Tablet) 1 Each Tablet, 1 TAB PEG Q4H PRN for PAIN-MODERATE (5-7) Prescribed by: ASTON MCRAE on 07/06/21 0620 Review of Systems Review of Systems Constitutional: see HPI EENTM: other (right sided facial pain; growth medial right eye) Respiratory: no symptoms reported Cardiovascular: no symptoms reported Gastrointestinal: no symptoms reported Genitourinary: no symptoms reported Musculoskeletal: no symptoms reported Skin: other (wound right fave) All Other Systems Reviewed Negative Unless Noted: Yes Past Myprkaw-Dtjfwc-Avzkky Hx Immunizations Up To Date Tetanus Booster (TDap): Less than 5yrs Seasonal Allergies Seasonal Allergies: No Past Medical History Surgery/Hospitalization HX: RECONSTRUCTIVE FACIAL SURGERY R/T SKIN CANCER Surgeries: Yes (facial AND JAW RECONSTRUCTION, SKIN GRAFTS.) Respiratory: No Cardiac: No Neurological: No Genitourinary: No Gastrointestinal: Yes (FEEDING TUBE) Musculoskeletal: No Endocrine: No HEENT: No Cancer: Yes (JAW CA) Skin Did You Recieve Any Treatments: Yes What Type of Treatment Did You: Chemotherapy, Surgical Intervention Psychosocial: No Integumentary: Yes (SKIN GRAFT) Blood Disorders: No Physical Exam Vital Signs Vital Signs - First Documented 07/16/21 12:09 Temp 36.4 Pulse 76 Resp 18 B/P (MAP) 109/73 (85) Pulse Ox 98 O2 Delivery Room Air Capillary Refill : Height, Weight, BMI Height: '" Weight: lbs. oz. kg; 21.00 BMI Method:Estimated General Appearance: No Apparent Distress, WD/WN Eyes: Bilateral Eye PERRL, Bilateral Eye Other (patient has 1/5cm erythematous growth medial canthus right eye. soft. not indurated. no drainage. EOMI) HEENT: Other (errosive right sided cheek wound, extending down to the level of the mandible. Copious amounts of thick foul smelling drainage with large amounts of maggots coming from the wound.) Respiratory: Lungs Clear, Normal Breath Sounds, No Accessory Muscle Use, No Respiratory Distress Cardiovascular: Regular Rate, Rhythm Gastrointestinal: Non Tender, Soft Extremity: Normal Inspection, Normal Range of Motion Neurologic/Psychiatric: Alert, Normal Mood/Affect, Other (withdrawn and seems sad) Skin: Other (as above) Progress/Results/Core Measures Suspected Sepsis SIRS Temperature: Pulse: Respiratory Rate: Blood Pressure / Mean: Results/Orders My Orders Orders - SAM BATISTA MD Oxycodone/Acet 10/325mg Tablet (Percocet (07/16/21 13:30) Medications Given in ED Current Medications Medications Dose Ordered Sig/Jyoti Route Start Time Stop Time Status Last Admin Dose Admin Oxycodone/ Acetaminophen 1 tab ONCE ONCE PO 07/16/21 13:30 07/16/21 13:31 DC 07/16/21 14:07 1 TAB Vital Signs/I&O 07/16/21 12:09 Temp 36.4 Pulse 76 Resp 18 B/P (MAP) 109/73 (85) Pulse Ox 98 O2 Delivery Room Air Capillary Refill : Progress Note : Time: 13:06 Progress Note Dash, hospice care nurse has talked with Sher and his about hospice care. They are amenable to speaking with a worker. call pending at this time. is concerned about the cleanliness of the patient and his wounds. States that he never showers or washes his face. this is encouraged to her. 1502 Hospice Nurse has been here and they are setting up services. Have asked me to write him some pain medications - enough to get him through 4/5 days until they can get him on a pain regimen I will do oxycodone 10mg tablets x20 pills. Family is comfortable with the plan of care. Departure Impression Primary Impression: Facial malignant neoplasm Additional Impressions: Cancer associated pain Infestation, maggot Disposition: HOME, SELF-CARE Condition: Stable Departure-Patient Inst. Decision time for Depature: 15:04 Referrals: JORGE BOLIVAR MD (PCP/Family) Primary Care Physician Patient Instructions: Wound Care (DC) Add. Discharge Instructions: The wound on your face needs to be washed AT LEAST once a day. This will keep the maggots/bugs off. Hospice will set up further care for you. If you have any other emergent or concerning symptoms that Hospice cannot address, you are welcome to come back to the ED. Please continue your daily medications. Pain pills every 4-6 hours as needed for pain. Take a stool softener while on the pain medications because they can cause severe constipation. Scripts Oxycodone HCl/Acetaminophen (Oxycodone-Acetaminophen 10-325) 1 Each Tablet 1 EACH PO Q6H PRN for PAIN-MODERATE MDD 3 for 5 Days, #20 TAB Prov: ASM BATISTA MD 07/16/21 SAM BATISTA MD Jul 16, 2021 13:03
[2021-07-16] MEDS ORDERED: oxyCODONE/APAP 10/325MG (PERCOCET 10) TABLET PO ONE (13:30)
[2021-07-16] MEDS ORDERED: OXYC-556 PO (15:07)
[2021-07-16] MEDS ORDERED: NS IV 1000 ML 1,000 ML IV SCH (15:30)
[2021-07-16 16:24] VITALS: BP 113/86
== END 2021-07-16 16:24 | disposition home or self-care (01) ==
LOC: EDUNIT# 11:59 → ER 12:01
DX: C76.0 Malignant neoplasm of head, face and neck (principal); G89.3 Neoplasm related pain (acute) (chronic); B87.1 Wound myiasis
CPT/HCPCS: 99282

== ENCOUNTER 2021-09-13 09:14 | Emergency (ER) | payer MEDICAID ==
[~2021-09-13] VITALS: Ht 167 cm; Wt 58.9 kg
[~2021-09-13 09:14] MED LIST changes: +OXYC-556 PO
--- OUTSIDE RECORDS SUMMARY | 2021-09-13 09:19 | XMS REPORT | Clinical Summary ---
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 If you d o not see the information that you expected, contact Release of Information in [facility] [employer] Information Management department at [phone] for further assistan ce in locating additional records.[facility] Allergies Comments Active Allergy Reactions Severity [...] "-yard Back in the 2 each 0 08/0 bndg right facial 1 wound twice a [...] every 4 hours as needed for Pain Active Problems [...] Encounters Care Team Description Date Type Specialty ArePolina RN Navigation Follow Up 07/10/2021 Telephone Oncology Trev Schneider MD Other 07/06/2021 Telephone Otolaryngology Mariaelena Bar RN Palliative Care 07/03/2021 Telephone Palliative Care Roger Bates MD MRSA infection (Primary Dx); Acute osteomyelitis of facial bone (HCC); SCC (squamous cell carcinoma); longterm (current) use of antibiotics 07/01/2021 Office Visit [...] 06/23/2021 Outpt. Infectious Diseases Antibiotic Therapy Anil Saravia DO Critical Result 06/22/2021 Telephone Infectious Diseases Eric Benson MD Appointment 06/22/2021 Telephone Plastic Surgery Eric Benson MD Pt Ed 06/17/2021 Telephone Plastic Surgery Eric Benson MD SCC (squamous cell carcinoma), face (Bozena radha Dx); Lip mass; Facial abscess 06/15/2021 Office Visit Plastic Surgery Eric Benson MD 06/15/2021 Hospital Radiology Encounter Eric Benson MD 06/15/2021 Orders Only Plastic Surgery 06/15/2021 Hospital Encounter 06/15/2021 Travel from Last 3 Months Surgical History Surgery Date Site/Laterality Comments TRACHEOSTOMY 10/21/2020 Neck/N/A TRACHEOSTOMY PL ANNED performed by Eric Benson MD at [facility] OR TOOTH EXTRACTION 10/21/2020 Mouth/N/A EXTRACTION TO OTH performed by Eric Benson MD at [facility] OR GASTROSTOMY TUBE 10/21/2020 Abdomen/N/A ESOPHAGOGASTR ODUODENOSCOPY WITH PLACEMENT PLACEMENT PERCUTANEOUS GASTROSTOMY TU BE performed by Oscar Batista Jr., MD at [facility] OR GASTROSTOMY TUBE 10/21/2020 PLACEMENT TUMOR EXCISION 10/23/2020 Face/Right RADICAL RESECTI ON TUMOR SOFT TISSUE 2.0 CM OR MORE - FACE/ SCALP performed by rEic Benson MD at [facility] OR Medical devices from this surgery are i n the Implants section. TISSUE TRANSFER 10/23/2020 Face/Right TISSUE TRANSFE R FREE SKIN FLAP WITH MICROVASCULAR ANASTOMOSIS performed by Eric Benson MD at [facility] OR Medical devices from this surgery are i n the Implants section. SKIN GRAFT 10/23/2020 Leg Upper/Left SPLIT THICKNESS SKIN AUTOGRAFT 100 SQ CM OR LESS OR 1% BODY AREA OF CHILD- UPPER EXTREMI TY performed by Eric Benson MD at [facility] OR Medical devices from this surgery are i n the Implants section. LYMPHADENECTOMY 10/23/2020 Neck/Right CERVICAL LYMPH ADENECTOMY performed by Eric Benson MD at [facility] OR Medical devices from this surgery are i n the Implants section. NECK SURGERY 10/23/2020 Mouth/N/A GLOSSECTOMY COM POSITE WITHOUT RADIAL NECK DISSECTION performed by Eric Benson M D at [facility] OR Medical devices from this surgery are i n the Implants section. TISSUE TRANSFER 10/23/2020 Face/Right TISSUE TRANSFE R FREE OSTEOCUTANEOUS FLAP WITH MICROVASCULAR ANASTOMOSIS performed by Eric Benson MD at [facility] OR Medical devices from this surgery are i n the Implants section. HARDWARE REMOVAL 05/15/2021 Face/Right REMOVAL HARDW ARE -DEEP MANDIBLE performed by Eric Benson MD at [facility] OR Medical devices from this surgery are i n the Implants section. EXCISION BONE 05/15/2021 Face/Right EXCISION BONE - MANDIBLE performed by Eric Benson MD at [facility] OR Medical devices from this surgery are i n the Implants section. WOUND REPAIR 05/15/2021 Face/Right REPAIR COMPLEX WOUND 2.6 CM TO 7.5 CM - HEAD/ NECK performed by Eric Benson MD at [facility] OR Medical devices from this surgery are i n the Implants section. WOUND REPAIR 05/15/2021 Face/Right REPAIR COMPLEX WOUND EACH ADDITIONAL 5 CM OR LESS- HEAD/ NECK performed by Eric Benson M D at [facility] OR Medical devices from this surgery are i n the Implants section. 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 Recover from illness Hospital On track (05/14/2021 Yes Radha Ruiz, 1:07 AM CDT) RN Note: "To heal and recover and be as healthy as possible, quit chewing tobacco" Implants Device Identifier Shelf Expiration Date Model / Serial / L ot Implanted Type Area Manufactur er 2025 [id number] / [id number] / [id number] Dog Raiser Anastomosis 4mm [place] Right: Mandible SYNOVIS Microvascular Sterile Disposable - MICRO [id number] Implanted: Qty: 1 on 10/23/2020 by Eric Harpre MD at [facility] [id number] / [id number] / [id number] Dog Raiser Anastomosis 2mm Pendleton Right: Mandible SYNOVIS Microvascular Sterile Disposable - MICRO [id number] Implanted: Qty: 1 on 10/23/2020 by Eric Harper MD at [facility] 07/07/2025 [id number] / [id number] / [id number] Dog Raiser Anastomosis 3.5mm Pendleton Mandible SYNOVIS Microvascular Sterile - MICRO [id number] Implanted: Qty: 1 on 10/23/2020 by Eric Harper MD at [facility] Device Identifier Shelf Expiration Date Model / Serial / L ot Explanted Type Area Manufactur er [id number] / [id number] / [id number] Mandible Implant Right: Mandible MEETA PUENTES Implanted: Qty: 1 on 10/23/2020 by Eric Meyer MD at [facility] Explanted: Qty: 1 on 05/15/2021 at [facility] [id number] / [id number] / Screw Titanium 7mm 2mm Taper Right: Mandible [employer] IN Oralmaxillofacial Self - LP [id number] Implanted: Qty: 3 on 10/23/2020 by Eric Benson MD at [facility] Explanted: Qty: 3 on 05/15/2021 by Eric Benson MD at [facility] / / Screw Titanium 9mm 2mm Taper Right: Mandible [employer] IN Oralmaxillofacial Self - LP [id number] Implanted: Qty: 3 on 10/23/2020 by Eric Benson MD at [facility] Explanted: Qty: 3 on 05/15/2021 by Eric Benson MD at [facility] / / Screw Titanium 11mm 2mm Taper Right: Mandible KLS-MAR TIN Oralmaxillofacial Self - LP [id number] Implanted: Qty: 1 on 10/23/2020 by Eric Benson MD at [facility] Explanted: Qty: 1 on 05/15/2021 by Eric Benson MD at [facility] / / Screw Titanium 13mm 2mm Taper Right: Mandible KLS-MAR TIN Oralmaxillofacial Self - LP [id number] Implanted: Qty: 2 on 10/23/2020 by Eric Benson MD at [facility] Explanted: Qty: 2 on 05/15/2021 by Eric Benson MD at [facility] Procedures Comments Procedure Name Priority [...] ce ll carcinoma, 12:05 PM CDT lip from Last 3 Months Results * VANCOMYCIN TROUGH (06/23/2021 9:15 AM CDT) Only the most recent of 2 results within the time period is included. Vancomycin 16.1 OTHER OUTSIDE Trough LAB Specimen Blood, venous - Blood Narrative Performed At This result has an attachment that is n ot available. Performing Organization Address City/State/[facility] Code P josefina Number OTHER OUTSIDE LAB * CBC AND DIFF (06/22/2021 3:50 PM CDT) White Blood 3.4 OTHER OUTSIDE Cells LAB [...] COMPREHENSIVE METABOLIC PANEL (06/22/2021 3:50 PM CDT) Sodium OTHER OUTSIDE LAB Potassium 3.9 OTHER [...] OUTSIDE LAB eGFR Non OTHER OUTSIDE LAB Bolivian eGFR OTHER OUTSIDE Bol[place]ian LAB Anion Gap OTHER OUTSIDE LAB Specimen Blood - Blood Performing Organization Address City/State/ZIP Code P josefina Number OTHER OUTSIDE LAB * CULTURE-FUNGAL,OTHER (06/15/2021 1:23 PM CDT) Battery Name FUNGUS CULTURE [facility] Report Status FINAL 07/20/2021 [facility] Specimen SWAB RIGHT FACE [facility] Description Special NONE [facility] Requests Culture NO GROWTH OF FUNGUS AT 4 WEEKS [facility] Specimen Swab - Other (Specify) Performing Organization Address City/State/ZIP Code P josefina Number [facility] [address] [place] [address] * PATHOLOGY SURGICAL < 5 SPECIMENS (06/15/2021 1:23 PM CDT) PATHOLOGY [facility] [email or web address] Department of Pathology and Laboratory Medicine [address] [place] [id number] Surgical Pathology Office: [phone] SURGICAL PATHOLOGY REPORT NAME: FAISAL GARCIA SURG PATH #: [id number] MR #: [id number] SPECIMEN CLASS: SR BILLING #: [id number] ALT ID #: LOCATION: [id number] DATE OF [...] x 0.7 cm cyst-like structure, friable, trisected, inventory representative sections submitted in A1. (wlm) wl/06/16/2021 If immunohistochemical stains and/or in situ hybridization are cited in this report, the performance characteristics were determined by the Department of Pathology and Laboratory Medicine of the [facility] ([facility]) in compliance with CLIA'88 regulations. [...] of Pathology and Laboratory Medicine of the [facility]. It has not been cleared or approved by the FDA. The FDA has determined that such clearance or approval is not necessary. Specimen Other (Specify) Performing Organization Address City/State/ZIP Code P josefina Number [facility] [address] [place] [address] * GRAM STAIN (06/15/2021 1:23 PM CDT) Battery Name GRAM STAIN MAIN LAB Report Status FINAL 06/16/2021 MAIN LAB Specimen SWAB RIGHT FACE MAIN LAB Description Special NONE MAIN LAB Requests Gram Stain NO NEUTROPHILS SEEN MAIN LAB Gram Stain NO ORGANISMS SEEN MAIN LAB Specimen Swab - Other (Specify) Performing Organization Address City/State/ZIP Code P josefina Number [facility] [address] [place] [address] * CULTURE-TB (AFB) (06/15/2021 1:23 PM CDT) Battery Name AFB CULTURE MAIN LAB Report Status FINAL 08/03/2021 [facility] Specimen SWAB RIGHT FACE MAIN LAB Description Special Specimen was received on a MAIN LA B Requests swab.A negative result from this specimen is not considered reliable for acid fast culture. Culture NO GROWTH OF MYCOBACTERIA AT 6 [facility]ENN[facility] N [facility] WEEKS Specimen Swab - Other (Specify) Performing Organization Address City/[facility]/ZIP Code P josefina Number MAIN LAB [address] [place] [address] * CULTURE-WOUND/TISSUE/FLUID(AEROBIC ONLY)W/SENSITIVITY (06/15/2021 1:23 PM CDT) Battery Name ROUTINE CULTURE MAIN LAB Report Status FINAL 06/20/2021 [facility] Specimen SWAB RIGHT FACE MAIN LAB Description Special NONE [facility] Requests Direct Gram NO NEUTROPHILS SEEN [facility] Stain Direct Gram NO ORGANISMS SEEN [facility] Stain Culture NO GROWTH 5 DAYS [facility] Specimen Swab Performing Organization Address City/[facility]/ZIP [facility] P josefina Number MAIN LAB [address] [place] [address] * CULTURE-ANAEROBIC (06/15/2021 1:23 PM CDT) Battery Name ANAEROBE CULTURE MAIN LAB Report Status FINAL 06/20/2021 MAIN LAB Specimen SWAB RIGHT FACE MAIN LAB Description Special NONE MAIN LAB Requests Culture NO ANAEROBES ISOLATED MAIN LAB Specimen Swab - Other (Specify) Performing Organization Address City/[facility] P josefina Number MAIN LAB [address] [place] [phone] * INCISION AND DRAINAGE (I&D) - HP [...] and the technique of the procedure. Location: [facility] Anesthesia: Local Technique: After informed consent was [...] procedure Performing Organization Address City/State/ZIP Code P josefnia Number IN CLINIC * CT NECK W/CONTRAST [...] 12:41 PM. 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
[2021-09-13] MEDS ORDERED: SULF1TAB38 PO (09:58)
--- NOTE | 2021-09-13 09:58 | ED General ---
General Chief Complaint: Skin/Wound Problems Stated Complaint: FACIAL WOUND Nursing Triage Note: PT PRESENTS TO ED WITH COMPLAINTS OF INCREASED PAIN AND DRAINAGE FROM WOUNDS ON R SIDE OF FACE. Source of Information: Patient, EMS, Old Records, Other (Dr. 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 He states to me he is concerned about the green discoloration around the center of the wound and states he wants me to "cut to that section out". He has a patient of Dr. Bolivar who identifies him as one of her hospice patients. He is afebrile at this time. Review of his medication filling record notes that he has recently received a large quantity of oxycodone for pain control. Patient is a difficult historian as he has altered speech from the disfigurement of facial structures and the content of his reporting is also difficult to understand. Allergies and Home Medications Allergies Coded Allergies: ibuprofen (Unverified Allergy, Severe, HIVES, EDEMA, 03/12/12) Patient Home Medication List Home Medication List Reviewed: Yes Amoxicillin/Potassium Clav (Augmentin 875-125 Tablet) 1 Each Tablet, 1 EACH PO BID Prescribed by: MIRELLA GALVEZ on 04/30/211704 Cephalexin (Cephalexin) 500 Mg Tablet, 500 MG PO QID Prescribed by: DAVID BRADY on 04/07/21442 Doxycycline Hyclate (Doxycycline Hyclate) 100 Mg Tablet, 100 MG PO BID Prescribed by: MIRELLA GALVEZ on 04/30/21 170 Hydrocodone/Acetaminophen (Hydrocodone-Acetamin 5-325 mg) 1 Each Tablet, 1 TAB PO Q6H PRN for PAIN-MODERATE (5-7) Prescribed by: DAVID BRADY on 04/07/21442 Hydrocodone/Acetaminophen (Hydrocodone-Acetamin 5-325 mg) 1 Each Tablet, 1 TAB PO Q4H PRN for PAIN-MODERATE (5-7) Prescribed by: MIRELLA GALVEZ on 04/30/21 170 Hydrocodone/Acetaminophen (Hydrocodone-Acetamin 7.5-325) 1 Each Tablet, 1 EACH PO Q6H PRN for PAIN-MODERATE (5-7) Prescribed by: SAM BATISTA on 06/12/21 1119 Oxycodone HCl/Acetaminophen (Percocet 5-325 mg Tablet) 1 Each Tablet, 1 TAB PEG Q4H PRN for PAIN-MODERATE (5-7) Prescribed by: ASTON MCRAE on 07/06/21 0620 Oxycodone HCl/Acetaminophen (Oxycodone-Acetaminophen 10-325) 1 Each Tablet, 1 EACH PO Q6H PRN for PAIN-MODERATE Prescribed by: SAM BATISTA on 07/16/21 1507 Sulfamethoxazole/Trimethoprim (Bactrim Ds Tablet) 1 Each Tablet, 1 EACH PO BID Prescribed by: ASTON MCRAE on 09/13/21 0958 Review of Systems Review of Systems Constitutional: no symptoms reported EENTM: see HPI Respiratory: no symptoms reported Cardiovascular: no symptoms reported Gastrointestinal: no symptoms reported Genitourinary: no symptoms reported Musculoskeletal: no symptoms reported Skin: see HPI Psychiatric/Neurological: See HPI Past Ofdcskq-Inwyae-Glwjty Hx Patient Social History Smoking Status: Former Smoker Smokeless Tobacco Frequency: Former User Substance use?: No Alcohol Use?: Yes Alcohol Frequency: Once in a while Pt feels they are or have been: No Immunizations Up To Date Tetanus Booster (TDap): Less than 5yrs Seasonal Allergies Seasonal Allergies: No Past Medical History Surgery/Hospitalization HX: RECONSTRUCTIVE FACIAL SURGERY R/T SKIN CANCER Surgeries: Yes (facial AND JAW RECONSTRUCTION, SKIN GRAFTS.) Respiratory: No Cardiac: No Neurological: No Genitourinary: No Gastrointestinal: Yes (FEEDING TUBE) Musculoskeletal: No Endocrine: No HEENT: No Cancer: Yes (JAW CA) Skin Did You Recieve Any Treatments: Yes What Type of Treatment Did You: Chemotherapy, Surgical Intervention Psychosocial: No Integumentary: Yes (SKIN GRAFT) Blood Disorders: No Physical Exam Vital Signs Vital Signs - First Documented 09/13/21 09:25 Temp 37.0 Pulse 99 Resp 18 B/P (MAP) 100/71 (81) Pulse Ox 100 Capillary Refill : Less Than 3 Seconds Height, Weight, BMI Height: '" Weight: lbs. oz. kg; 21.00 BMI Method:Estimated General Appearance: No Apparent Distress, WD/WN HEENT: Other (Massive erosive neoplastic wound on the right face with significant wound drainage. There is surrounding erythema and edema.) Neck: Other (Extension of neoplastic wound toward the neck) Respiratory: Lungs Clear, Normal Breath Sounds Cardiovascular: Regular Rate, Rhythm, No Edema Neurologic/Psychiatric: Alert, No Motor/Sensory Deficits, Normal Mood/Affect, Other (Cranial nerve function affected by facial disfigurement) Skin: Normal Color, Warm/Dry, Other (Large exudative wound on the right face) Progress/Results/Core Measures Suspected Sepsis SIRS Temperature: Pulse: 99 Respiratory Rate: 18 Blood Pressure 100 /71 Mean: 81 Results/Orders Vital Signs/I&O 09/13/21 09/13/21 09:25 10:28 Temp 37.0 37.0 Pulse 99 99 Resp 18 18 B/P (MAP) 100/71 (81) 100/71 Pulse Ox 100 100 Capillary Refill : Less Than 3 Seconds Blood Pressure Mean: 81 Progress Note : Progress Note Patient should already have ample supply of pain medication based on his filling record. Antibiotics were prescribed. I informed Dr. Bolivar of his situation and she would like him to follow-up in the clinic. Departure Impression Primary Impression: Facial malignant neoplasm Disposition: HOME, SELF-CARE Condition: Stable Departure-Patient Inst. Decision time for Depature: 09:56 Referrals: JORGE BOLIVAR MD (PCP/Family) Primary Care Physician Patient Instructions: Wound Care (DC) Add. Discharge Instructions: Follow-up at the [facility] clinic tomorrow. I have discussed your care with Dr. Bolivar and she would like you to have a follow-up appointment with Beverly. Please call in the morning and ask for a follow-up appointment with Beverly. Please contact your hospice nurse if you have any problems or concerns between now and then. Complete your antibiotic as prescribed. Bactrim can be crushed if needed for you to swallow it. Call with questions or concerns. All discharge instructions reviewed with patient and/or family. Voiced understanding. Scripts Sulfamethoxazole/Trimethoprim (Bactrim Ds Tablet) 1 Each Tablet 1 EACH PO BID, #20 TAB May crush if needed. Prov: ASTON ACOSTA MD 09/13/21 Copy Copies To 1: JORGE BOLIVAR MD, JOSHUA T MD Sep 13, 2021 09:58
[2021-09-13 10:28] VITALS: BP 100/71
== END 2021-09-13 10:28 | disposition home or self-care (01) ==
LOC: EDUNIT# 09:14 → ER 09:16
DX: C76.0 Malignant neoplasm of head, face and neck (principal); Z87.891 Personal history of nicotine dependence

== ENCOUNTER 2021-10-05 15:30 | Emergency (ER) | payer MEDICAID ==
[~2021-10-05] VITALS: Ht 167 cm; Wt 58.9 kg
[~2021-10-05 15:30] MED LIST changes: +SULF1TAB38 PO
--- NOTE | 2021-10-05 16:38 | ED GI ---
General Chief Complaint: Abdominal/GI Problems Stated Complaint: CONSTIPATION X 2 WKS Nursing Triage Note: PT TO [facility] WITH CC OF CONSTIPATION FOR 2 WEEKS, STATES NOT TAKING HIS MEDICATION AT HOME FOR IT. STATES HIS KIDS MOVED HIS MEDICATION AND HE HASN'T TAKEN IT. Source of Information: Patient Exam Limitations: No Limitations History of Present Illness Date Seen by Provider: Oct 05, 2021 Time Seen by Provider: 15:50 Initial Comments Patient is a 51-year-old male with a history of esophageal cancer, end-stage complaining of constipation.. On chronic narcotics. States that he "lost" his stool softeners and has not had a bowel movement in 3 days. Complains of increased lower abdominal pressure. States that he found them yesterday but has not been taking them. No nausea or vomiting. No fevers. No abdominal distention. Urinating normally. No complaints of fevers, chills, cough or shortness of breath. Has chronically open, festering, draining, necrotic right facial wounds that extend into the neck. Notably noncompliant with all therapies. All other review of systems reviewed and negative except as stated. Timing/Duration: 3-4 Days Severity/Quality: Cramping Location: Generalized Abdomen Radiation: No Radiation Associated Symptoms: Denies Symptoms Allergies and Home Medications Allergies Coded Allergies: ibuprofen (Unverified Allergy, Severe, HIVES, EDEMA, 03/12/12) Patient Home Medication List Home Medication List Reviewed: Yes Amoxicillin/Potassium Clav (Augmentin 875-125 Tablet) 1 Each Tablet, 1 EACH PO BID Prescribed by: MIRELLA GALVEZ on 04/30/21 170 Cephalexin (Cephalexin) 500 Mg Tablet, 500 MG PO QID Prescribed by: DAVID BRADY on 04/07/21442 Doxycycline Hyclate (Doxycycline Hyclate) 100 Mg Tablet, 100 MG PO BID Prescribed by: MIRELLA GALVEZ on 04/30/21 170 Hydrocodone/Acetaminophen (Hydrocodone-Acetamin 5-325 mg) 1 Each Tablet, 1 TAB PO Q6H PRN for PAIN-MODERATE (5-7) Prescribed by: DAVID BRADY on 04/07/21442 Hydrocodone/Acetaminophen (Hydrocodone-Acetamin 5-325 mg) 1 Each Tablet, 1 TAB PO Q4H PRN for PAIN-MODERATE (5-7) Prescribed by: MIRELLA GALVEZ on 04/30/21 1706 Hydrocodone/Acetaminophen (Hydrocodone-Acetamin 7.5-325) 1 Each Tablet, 1 EACH PO Q6H PRN for PAIN-MODERATE (5-7) Prescribed by: SAM BATISTA on 06/12/21 1119 Oxycodone HCl/Acetaminophen (Percocet 5-325 mg Tablet) 1 Each Tablet, 1 TAB PEG Q4H PRN for PAIN-MODERATE (5-7) Prescribed by: ASTON MCRAE on 07/06/21 0620 Oxycodone HCl/Acetaminophen (Oxycodone-Acetaminophen 10-325) 1 Each Tablet, 1 EACH PO Q6H PRN for PAIN-MODERATE Prescribed by: SAM BATISTA on 07/16/21 1507 Sulfamethoxazole/Trimethoprim (Bactrim Ds Tablet) 1 Each Tablet, 1 EACH PO BID Prescribed by: ASTON MCRAE on 09/13/21 0958 Review of Systems Review of Systems Constitutional: see HPI Respiratory: No Symptoms Reported Cardiovascular: No Symptoms Reported Gastrointestinal: Abdominal Pain (cramping), Other (rectal pressure) Genitourinary: No Symptoms Reported Musculoskeletal: no symptoms reported Skin: other (chronic right facial wounds) Psychiatric/Neurological: No Symptoms Reported All Other Systems Reviewed Negative Unless Noted: Yes Past Rlrmayi-Jiqlmr-Hshoul Hx Patient Social History Tobacco Use?: No Smoking Status: Never a Smoker Substance use?: No Alcohol Use?: No Immunizations Up To Date Tetanus Booster (TDap): Less than 5yrs Seasonal Allergies Seasonal Allergies: No Past Medical History Surgery/Hospitalization HX: RECONSTRUCTIVE FACIAL SURGERY R/T SKIN CANCER Surgeries: Yes (facial AND JAW RECONSTRUCTION, SKIN GRAFTS.) Respiratory: No Cardiac: No Neurological: No Genitourinary: No Gastrointestinal: Yes (FEEDING TUBE) Musculoskeletal: No Endocrine: No HEENT: No Cancer: Yes (JAW CA) Skin Did You Recieve Any Treatments: Yes What Type of Treatment Did You: Chemotherapy, Surgical Intervention Psychosocial: No Integumentary: Yes (SKIN GRAFT) Blood Disorders: No Physical Exam Vital Signs Vital Signs - First Documented 10/05/21 15:33 Temp 37.1 Pulse 127 Resp 20 B/P (MAP) 151/88 (109) Pulse Ox 97 O2 Delivery Room Air Capillary Refill : Less Than 3 Seconds Height/Weight/BMI Height: '" Weight: lbs. oz. kg; 21.00 BMI Method:Estimated General Appearance: WD/WN, no apparent distress Neck: other (chronic open, necrotic right facial wounds with foul smelling discharge) Respiratory: no respiratory distress, no accessory muscle use Cardiovascular: regular rate, rhythm, tachycardia Gastrointestinal: normal bowel sounds, soft, tenderness (mild LLQ tenderness without rebound, guarding or ditension. NOrmal active BS) Genital/Rectal: normal genital exam, other (large hard bolus of stool in the rectal vault. Attempted disimpaction manually, patient was unable to tolerate, complained of significant pain. I was unable to pull any stool bolus free; grossly heme negative) Extremities: normal range of motion, normal inspection Male: normal genitalia Neurologic/Psychiatric: alert, normal mood/affect, oriented x 3 Skin: normal color, warm/dry Progress/Results/Core Measures Results/Orders Vital Signs/I&O 10/05/21 15:33 Temp 37.1 Pulse 127 Resp 20 B/P (MAP) 151/88 (109) Pulse Ox 97 O2 Delivery Room Air Blood Pressure Mean: 109 Progress Progress Note : Time: 16:55 Progress Note Sher decided that he did not want me to try and disimpact him again. He would rather try some remedies at home. I recommended magnesium citrate to his and the MiraLAX twice daily. He should also be on Colace twice a day every day with as much narcotics as he takes. He verbalized understanding. All questions are sought and answered. Patient is stable for discharge. Departure Impression Primary Impression: Constipation Qualified Codes: K59.03 - Drug induced constipation Additional Impressions: Medically noncompliant Chronic narcotic use Disposition: 01 HOME, SELF-CARE Condition: Stable Departure-Patient Inst. Decision time for Depature: 16:30 Referrals: JORGE BOLIVAR MD (PCP/Family) Primary Care Physician Patient Instructions: Constipation in Adults Add. Discharge Instructions: You need to drink as much water as possible to keep your stools nice and soft. Take the MiraLAX 1 capful in 8 ounces of water twice a day every day as long as you are taking pain medications. You need to get some [id number] magnesium citrate. Drink half the bottle tonight, the second half in the morning. This should help you be able to move your bowels. Follow-up with your primary care doctor as needed. Return to the emergency department for fever, vomiting or any other emergent concerns. SAM BATISTA MD Oct 05, 2021 16:38
[2021-10-05 17:27] VITALS: BP 145/85
== END 2021-10-05 17:27 | disposition home or self-care (01) ==
LOC: EDUNIT# 15:30 → ER 15:31
DX: K59.00 Constipation, unspecified (principal); F11.90 Opioid use, unspecified, uncomplicated; Z91.19 Patient's noncompliance with other medical treatment and regimen; Z85.01 Personal history of malignant neoplasm of esophagus
CPT/HCPCS: 99283